=== PATIENT | female | born 1995 | race Caucasian/White ===

== ENCOUNTER 2018-09-25 11:52 | Emergency (ER) | payer SELFPAY ==
[2018-09-25 11:53] VITALS: BP 117/74; PULSE 69; RESP 16; TEMP 37; O2SAT 100; BMI 26.5
[2018-09-25] MEDS: Metoclopramide 10 MG/2 ML Vial IV (12:47)
[2018-09-25] MEDS: Ketorolac 30 MG/ML Syringe IV (12:47)
[2018-09-25] MEDS: 0.9% Normal Saline 1,000 ML 1000 ML IV (12:47)
[2018-09-25 12:48] VITALS: RESP 16
--- NOTE | 2018-09-25 13:21 | ED.VISSUMM ---
- ER Visit Summary Date of Service: 09/25/18 Chief Complaint: [Sore throat and headache. .] History of Present Illness: The patient is a 23 F [presents to the emergency department complaint of headache that started this morning when she woke up. Patient states that she had a severe headache that she rates it a 10 out of 10. Patient also had a sore throat at the same time. Patient states that she is concerned when she has headaches like this patient has a history of seizure disorder although she is not had a seizure since 2014. Patient has been compliant with her seizure medications which includes Trileptal. Patient was seen at urgent care today and referred to the emergency department. Patient denies recent illness. She denies fall or head injury. She does have a history of migraines.] Physical Examination: [HEENT-PERRLA, EOMI. Cranial nerves II through XII grossly intact. TMs clear. Mucous membranes moist. No adenopathy. Cardiovascular-regular rate and rhythm without murmur or ectopy Lungs-clear to auscultation, chest wall stable without crepitus or subcu emphysema Abdomen-normoactive bowel sounds, soft, nontender, no rebound or rigidity, no peritoneal signs. Neuro wokr-yqihal-bsru and heel garcia testing within normal limits, negative Romberg, negative pronator drift, fundi benign. Patient has negative Kernig's and negative Brudzinski sign. Patient has no neck stiffness. Extremities-intact ?4, normal range of motion, normal pulses, atraumatic] Test Results: [None indicated] Emergency Department Course and Treatment: [Patient was given a IV and a liter normal same fluid bolus as well as Toradol and Reglan for headache that she rated a 5 out of 10. After treatment she states her headaches mostly resolved.] Treatment Plan: [Follow-up with primary care physician 3-5 days.] Disposition: [Discharged home stable condition] Impression: [Cephalgia Pharyngitis-viral] This note was generated with SezWhoation software. It may contain incorrect words, spelling, and punctuation that were not noted in review of the chart prior to signing ED Disposition - Plan for ED Patient: Referrals: Sadia Thurman MD [Primary Care Provider] -
--- NOTE | 2018-09-25 13:26 | ED.DCSUM_ITS ---
- ER Visit Summary Date of Service: 09/25/18 Chief Complaint: [Sore throat and headache. .] History of Present Illness: The patient is a 23 F [presents to the emergency department complaint of headache that started this morning when she woke up. Patient states that she had a severe headache that she rates it a 10 out of 10. Patient also had a sore throat at the same time. Patient states that she is concerned when she has headaches like this patient has a history of seizure disorder although she is not had a seizure since 2014. Patient has been compliant with her seizure medications which includes Trileptal. Patient was seen at urgent care today and referred to the emergency department. Patient denies recent illness. She denies fall or head injury. She does have a history of migraines.] Physical Examination: [HEENT-PERRLA, EOMI. Cranial nerves II through XII grossl y intact. TMs clear. Mucous membranes moist. No adenopathy. Cardiovascular-regular rate and rhythm without murmur or ectopy Lungs-clear to auscultation, chest wall stable without crepitus or subcu emphysema Abdomen-normoactive bowel sounds, soft, nontender, no rebound or rigidity, no peritoneal signs. Neuro avtx-lxnovg-atzj and heel garcia testing within normal limits, negative Romberg, negative pronator drift, fundi benign. Patient has negative Kernig's and negative Brudzinski sign. Patient has no neck stiffness. Extremities-intact ?4, normal range of motion, normal pulses, atraumatic] Test Results: [None indicated] Emergency Department Course and Treatment: [Patient was given a IV and a liter normal same fluid bolus as well as Toradol and Reglan for headache that she rated a 5 out of 10. After treatment she states her headaches mostly resolved.] Treatment Plan: [Follow-up with primary care physician 3-5 days.] Disposition: [Discharged home stable condition] Impression: [Cephalgia Pharyngitis-viral] This note was generated with [employer] software. It may contain incorrect words, spelling, and punctuation that were not noted in review of the chart prior to signing ED Disposition - Plan for ED Patient: Referrals: Sadia Thurman MD [Primary Care Provider] -
--- NOTE | 2018-09-25 13:26 | ED.DEP ---
ED Disposition - Plan for ED Patient: Instructions: ED Pharyngitis Viral, ED Cephalgia Unspecified Referrals: Sadia Thurman MD [Primary Care Provider] - 3-5 Days
[2018-09-25 14:02] VITALS: BP 100/76; PULSE 66; RESP 14
== END 2018-09-25 14:32 | disposition home or self-care (01) ==
LOC: ED 14:17
PROVIDERS: Emergency Provider Emergency Medicine; Family Provider Family Medicine; PCP Family Medicine
DX: R51 Headache (principal); J02.9 Acute pharyngitis, unspecified; G40.909 Epilepsy, unspecified, not intractable, without status epilepticus; Z79.899 Other long term (current) drug therapy
CPT/HCPCS: 96361; 96374; 96375; 99283; J7030

== ENCOUNTER 2020-12-14 20:48 | Emergency (ER) | payer OTHER, SELFPAY ==
[2020-12-14 20:48] VITALS: BP 118/72; PULSE 102; RESP 18; TEMP 36.5; O2SAT 100; BMI 21.4
--- NOTE | 2020-12-14 21:15 | US_ITS ---
STUDY: FIRST TRIMESTER OBSTETRICAL ULTRASOUND REASON FOR EXAM: Female, 25 years old right pelvic pain LMP: 11/01/2020 TECHNIQUE: Transvaginal real-time examined with grayscale image documentation. TECHNICAL QUALITY: Adequate. PRIOR ULTRASOUND: None. FINDINGS: There is visualization of a single gestational sac in a normal intrauterine position. The mean sac diameter (MSD) measures 1.26 cm, indicating an estimated gestational age (EGA) of 6 weeks, 0 days. The gestational sac shape is within normal limits. There is a visualized yolk sac. The yolk sac measures 3.3 mm. The placenta is not visualized secondary to early gestational age. There is visualization of a live embryo. The crown-rump length (CRL) measures 0.34 cm, indicating an estimated gestational age (EGA) of 6 weeks, 1 days. There is demonstrated cardiac activity with a heart rate of 106 bpm. The estimated gestation age (EGA) by LMP is 6 weeks, 1 days. The estimated date of delivery (STUART) by LMP is 08/08/2021. The estimated gestation age (EGA) by US is 6 weeks, 0 days. The estimated date of delivery (STUART) by US is 08/09/2021. The uterus measures 9.0 x 5.5 x 4.6 cm. There is no demonstrated uterine fibroid. The cervix is closed. The right ovary measures 5.1 x 3.8 x 3.3 cm. 3.2 x 3.0 x 2.4 cm simple cyst of the right ovary. There is no visualized right adnexal mass or complex lesion. Normal DOPPLER flow. The left ovary measures 3.2 x 2.3 x 1.7 cm. There is no left ovarian cyst. There is no visualized left adnexal mass or complex lesion. Normal DOPPLER flow. Minimal free fluid of the pelvis. 1 dilated left adnexal vein is demonstrated, 6 mm. US/Transvaginal w/Preg US IMPRESSION: Single living intrauterine gestation of 6 weeks and 0 days with an STUART of 08/09/2021. No demonstrated intrauterine abnormality. 3.2 x 3.0 x 2.4 cm simple cyst of the right ovary. Normal DOPPLER flow. Normal left ovary. Normal DOPPLER flow. No additional adnexal masses. Minimal free fluid. 1 dilated left adnexal vein, 6 mm diameter. Electronically Signed: Kayla Medina MD at 22:36 EDT , Service support ,
--- NOTE | 2020-12-14 21:17 | EDS_ITS ---
HPI History of Present Illness Chief Complaint: Abd Pain Narrative Narrative: 25-year-old female A0 presenting with right pelvic pain. Patient states she was just at the urgent care and had a test which was positive. Patient complains of 7/10 right pelvic pain. She is had no vaginal bleeding. Denies vaginal discharge. Denies dysuria or hematuria. 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 PFSH [facility] Medical History Seizures Home Medications oxcarbazepine 300 mg PO BID 09/25/18 [History Last Taken Unknown] cephalexin 500 mg PO Q12 #14 capsule 12/14/20 [Rx Last Taken Unknown] Allergy/AdvReac Type Severity Reaction Status Date / Time No Known Allergies Allergy Verified 12/14/20 20:51 Social History Smoking Status: Never smoker ROS ROS ED Constitutional Constitutional ED: Denies chills, fever(s) or sweats Eyes Eyes: Denies blurry vision or change in vision ENT ENT ED: Denies ear pain, rhinorrhea or sore throat Cardiovascular Cardiovascular: Denies chest pain, palpitations or racing heartbeat Respiratory/Chest Respiratory/Chest: Denies cough, dyspnea or sputum Gastrointestinal Gastrointestinal: Reports abdominal pain; Denies constipation, diarrhea or vomiting Genitourinary Genitourinary ED: Denies dysuria, hematuria or urinary frequency Musculoskeletal Musculoskeletal: Denies arthralgias, myalgias or neck pain Integumentary Denies abscess, Abrasions or rash Neurologic Neurologic: Denies headache(s), paresthesias or weakness Psychiatric Psychiatric: Denies anxiety, depression, suicidal ideation or suicidal thoughts Endocrine Endocrinology: Denies polydipsia or polyuria EXAM Physical Exam Const Vital Signs: 12/14/20 20:48 Temperature 97.7 F L Temperature Source Temporal Pulse Rate 102 H Respiratory Rate 18 Blood Pressure 118/72 Blood Pressure Mean 87 Pulse Ox 100 Oxygen Delivery Method Room Air General Appearance ED: Negative for pallor HEENT Reports normocephalic, head/scalp atraumatic and moist mucous membranes Eyes PERRL and EOMs intact bilaterally Neck no lymphadenopathy and supple Chest Wall inspection of chest normal and palpation of chest normal Resp normal respiratory effort and clear to auscultation bilaterally Auscultation: Negative for rales, rhonchi or wheezes Cardio regular rate and regular rhythm GI normal to inspection, nondistended, normoactive bowel sounds and non-distended GI Narrative: Tenderness to palpation in the right lower quadrant/right suprapubic area. Auscultation: normoactive bowel sounds Palpation: soft and tender Narrative: Deferred Back/Spine no CVA tenderness General Back: Negative for CVA tenderness Cervical Spine: Negative for cervical spine tenderness Extremity normal to inspection General Extremety ED: Yes edema and tenderness General Extremity: edema Neuro oriented x3 and CN's II-XII intact bilaterally Sensorium / Orientation: alert Motor Exam: strength 5/5 throughout Psych mental status grossly normal Attitude: No agitated Skin no rashes or lesions noted and no wounds General Skin Exam: Negative for jaundice or pallor MDM MDM MDM Narrative Medical decision making narrative: 25-year-old female G1, presenting with right pelvic pain. She has not had any vaginal discharge, vaginal bleeding, dysuria or hematuria. She was diagnosed with today at the urgent care. She was sent to the ED for ultrasound. Patient's CBC and BMP are unremarkable. Her hCG quant is 20,608. Transvaginal ultrasound does not identi fy any ectopic . It does identify a single live intrauterine gestation of 6 weeks. Patient counseled on findings. She will follow-up with her outpatient ELECTRICIAN TELEPHONE. She can return precautions. Impression: 1. Pelvic pain in Lab Data Labs: Laboratory Results - last 24 hr 12/14/20 12/14/20 12/14/20 21:25 21:25 21:25 WBC 7.7 RBC 4.89 Hgb 12.8 Hct 39.5 MCV 80.8 L MCH 26.2 L MCHC 32.4 RDW Std Deviation 38.1 RDW Coeff of Pantera 13.2 Plt Count 293 MPV 10.8 Immature Gran % (Auto) 0.300 Neut % (Auto) 71.9 H Lymph % (Auto) 19.6 Banks % (Auto) 7.0 Eos % (Auto) 0.8 Baso % (Auto) 0.4 Absolute Neuts (auto) 5.5 Absolute Lymphs (auto) 1.50 Nucleated RBC % 0 Sodium 135 L Potassium 3.5 Chloride 103 Carbon Dioxide 26.0 Anion Gap 6 BUN 10 Creatinine 0.79 Estim Creat Clear Calc 79.55 Est GFR (MDRD) Af Amer 115 Est GFR (MDRD) Non-Af 95 BUN/Creatinine Ratio 12.6 Glucose 76 Calcium 8.9 HCG, Quant 26356 H Urine Color Urine Clarity Urine pH Ur Specific [place] Urine Protein Urine Glucose (UA) Urine Ketones Urine Occult Blood Urine Nitrite Urine Bilirubin Urine Urobilinogen Ur Leukocyte Esterase Urine RBC Urine WBC Ur Squamous Epith Cells Urine Bacteria Urine Mucus 12/14/20 21:35 WBC RBC Hgb Hct MCV MCH MCHC RDW Std Deviation RDW Coeff of [place]tera Plt Count MPV Immature Gran % (Auto) Neut % (Auto) Lymph % (Auto) Banks % (Auto) Eos % (Auto) Baso % (Auto) Absolute Neuts (auto) Absolute Lymphs (auto) Nucleated RBC % Sodium Potassium Chloride Carbon Dioxide Anion Gap BUN Creatinine Estim Creat Clear Calc Est GFR (MDRD) Af Amer Est GFR (MDRD) Non-Af BUN/Creatinine Ratio Glucose Calcium HCG, Quant Urine Color Yellow Urine Clarity Sl. Cloudy Urine pH 6.0 Ur Specific [place] 1.025 Urine Protein 30 H Urine Glucose (UA) Normal Urine Ketones 150 A* Urine Occult Blood 10 H Urine Nitrite Negative Urine Bilirubin Negative Urine Urobilinogen Normal Ur Leukocyte Esterase 500 H Urine RBC 0 SEEN Urine WBC 25-50 SEEN Ur Squamous Epith Cells 0-5 SEEN Urine Bacteria RARE Urine Mucus 0 SEEN Radiography Diagnostic Testing: Radiology Impression Obstetrics Ultrasound 12/14/20 21:15 IMPRESSION: Single living intrauterine gestation of 6 weeks and 0 days with an STUART of 08/09/2021. No demonstrated intrauterine abnormality. 3.2 x 3.0 x 2.4 cm simple cyst of the right ovary. Normal DOPPLER flow. Normal left ovary. Normal DOPPLER flow. No additional adnexal masses. Minimal free fluid. 1 dilated left adnexal vein, 6 mm diameter. Electronically Signed: Kayla Medina MD at 22:36 EDT , Service support , Discharge Plan Triage Chief Complaint: Abd Pain ED Provider: Red Magana Dx/Rx/DC Orders Instructions: Adapting to : First Trimester Prescriptions: New cephalexin 500 mg capsule 500 mg PO Q12 Qty: 14 RF: 0 No Action oxcarbazepine 300 MG tablet 300 mg PO BID RF: 0 Primary Care Provider: Attila Calvo Referrals: Attila Calvo MD [Primary Care Provider] - Disposition Disposition: Home, self care
[2020-12-14 21:44] LABS: Mucous, Urine 0 SEEN /hpf (<or=2+); Red Blood Cells-Urine 0 SEEN /hpf (0-5)
[2020-12-14 21:47] LABS: Color, Urine Yellow (Yellow); Glucose, Dipstick Normal (Normal); Leukocyte Esterase-Dipstick 500 /ul (Negative); Nitrite-Dipstick Negative (Negative); Occult Blood-Urine 10 /ul (Negative); Protein-Dipstick 30 mg/dl (Negative); Specific Gravity, Urine 1.025 (1.002-1.030); Urine Bilirubin Dipstick Negative (Negative); Urine Clarity Sl. Cloudy (Clear); Urine Urobilinogen Normal (Normal)
[2020-12-14 21:52] LABS: Absolute Neutrophil Count 5.5 X10^3/uL (2.0-7.7); Basophil# 0.03 X10^3/uL; Basophil% 0.4 % (0-1); Eosinophil# 0.06 X10^3/uL; Eosinophils% 0.8 % (0-5); Hematocrit 39.5 % (37-47); Hemoglobin 12.8 g/dL (12.0-15.0); Lymphocyte % 19.6 % (19-41); Mean Corp Hgb Conc 32.4 g/dL (32-36); Mean Corpuscular Hgb 26.2 pg (27.0-32.0); Mean Corpuscular Volume 80.8 fL (81-99); Mean Platelet Vol. 10.8 fl (6.2-12.0); Monocyte# 0.54 X10^3/uL; NRBC Flagged by Analyzer 0 % (0-5); Neutrophil # 5.52 X10^3/uL (2.7-7.7); Neutrophil % 71.9 % (47-70); Platelet Count 293 K/mm3 (150-450); RBC Distribution Width CV 13.2 % (11.6-14.6); RBC Distribution Width SD 38.1 fl (35.1-43.9); Red Blood Count 4.89 M/mm3 (4.2-5.4); White Blood Count 7.7 K/mm3 (4.4-11.0)
[2020-12-14 21:58] LABS: Ketone-Dipstick 150 mg/dl (Negative)
[2020-12-14 21:59] LABS: White Blood Cells 25-50 SEEN /hpf (0-5)
[2020-12-14 21:59] LABS: Anion Gap 6 (5-15); BUN 10 mg/dL (7-18); BUN/Creat Ratio 12.6 RATIO (10-20); Calcium,Total 8.9 mg/dL (8.5-10.1); Chloride 103 mmol/L (98-107); Creatinine, Serum 0.79 mg/dL (0.55-1.02); EST Glomerular Filtration Rate 95 mL/min (>60); Est Glom Filt Rate - Afr Amer 115 mL/min (>60); Estimated Creatinine Clearance 79.55 ml/min; Glucose 76 mg/dL (74-106); Potassium 3.5 mmol/L (3.5-5.1); Sodium Level 135 mmol/L (136-145)
[2020-12-14 22:00] LABS: Bacteria RARE /hpf (None Seen); Squamous Epithelial Cells - UA 0-5 SEEN /hpf (5-10)
[2020-12-14] MEDS: Cephalexin 250 MG Capsule 500 MG PO (23:00)
[2020-12-14 23:02] VITALS: BP 102/75; PULSE 91; RESP 18; O2SAT 99
== END 2020-12-14 23:03 | disposition home or self-care (01) ==
PROVIDERS: Emergency Provider Student in an Organized Health Care Education/Training Program; PCP Family Medicine
DX: O26.891 Other specified pregnancy related conditions, first trimester (principal); R10.2 Pelvic and perineal pain; Z3A.01 Less than 8 weeks gestation of pregnancy
CPT/HCPCS: 76817; 80048; 81001; 84702; 85025; 99284

== ENCOUNTER 2020-12-17 23:31 | Emergency (ER) | payer OTHER, SELFPAY ==
[2020-12-17 23:31] VITALS: BP 123/70; PULSE 99; RESP 18; TEMP 36.9; O2SAT 97; BMI 22.4
--- NOTE | 2020-12-17 23:39 | US_ITS ---
STUDY: FIRST TRIMESTER OBSTETRICAL ULTRASOUND REASON FOR EXAM: Female, 25 years old spotting LMP: 11/01/2020 TECHNIQUE: Transvaginal TECHNICAL QUALITY: Adequate. PRIOR ULTRASOUND: None. FINDINGS: There is visualization of a single gestational sac in a normal intrauterine position. The mean sac diameter (MSD) measures 1.6 cm, indicating an estimated gestational age (EGA) of 6 weeks, 2 days. The gestational sac shape is within normal limits. There is a visualized yolk sac. The yolk sac measures 3.8 mm. The placenta is non-visualized. There is visualization of a live embryo. The crown-rump length (CRL) measures 5.3 mm, indicating an estimated gestational age (EGA) of 6 weeks, 3 days. There is demonstrated cardiac activity with a heart rate of 112 bpm. The estimated gestation age (EGA) by LMP is 6 weeks, 4 days. The estimated date of delivery (STUART) by LMP is 08/08/2021. The estimated gestation age (EGA) by US is 6 weeks, 2 days. The estimated date of delivery (STUART) by US is 08/10/2021. The uterus measures 9.2 x 6.7 x 4.7 cm. There is no demonstrated uterine fibroid. The cervix is closed. Grossly unremarkable ovaries. Likely small subchorionic hemorrhage adjacent to gestational sac measuring 8 x 4 mm. There is no fluid in the cul de sac. US/Transvaginal w/Preg US IMPRESSION: Single live early IUP with likely small subjacent subchorionic hemorrhage Electronically Signed: Manuel Chan DO at 0:28 EDT Tel , Service support ,
--- NOTE | 2020-12-17 23:43 | ED.VIS.FEGU ---
HPI HPI - Female History of Present Illness Chief Complaint: Vag Bld, Preg Narrative Narrative: Patient developed vaginal bleeding and one small clot. She is about 6 weeks . She has no abdominal pain, she does have some slight back pain. She has no dysuria or hematuria recently. She was having abdominal cramping about 3 days ago and an ectopic was ruled out. This is her first . PFSH PFSH Medical History Seizures Home Medications oxcarbazepine 300 mg PO BID 09/25/18 [History Last Taken Unknown] folic acid 4 mg PO DAILY 12/17/20 [History Last Taken Unknown] Allergy/AdvReac Type Severity Reaction Status Date / Time No Known Allergies Allergy Verified 12/14/20 20:51 Social History Smoking Status: Never smoker ROS ROS ED ROS Narrative Past medical history: Reviewed G1, P0 at 6 weeks Medications: Reviewed Social history: Noncontributory Review of systems: All systems negative except as indicated General: No fever Eyes: No visual changes ENT: No upper airway congestion, normal voice Neck: No neck pain Cardiovascular: No chest pain Respiratory: No shortness of breath or cough Gastrointestinal: No current abdominal pain. Genitourinary: Vaginal bleeding as in HPI Musculoskeletal: Denies myalgias no difficulty with ambulation Skin: No rash Neurological: No memory loss, confusion or any focal weakness Psych: No recent behavioral changes Hematologic: No easy bleeding or easy bruising EXAM Physical Exam Narrative Exam Narrative: Physical exam General: She appears slightly anxious otherwise she does not appear in any distress. Head: Normocephalic, Atraumatic Eyes: Conjunctiva not pale ENT: Moist mucous membranes Neck: Supple, Nontender, No lymphadenopathy Cardiovascular: Regular rate, Regular rhythm Respiratory: No distress, CTA bilaterally Abdomen: Soft, nontender no suprapubic pain or fullness. Back: Nontender, Normal Inspection. Negative for: CVA tenderness Extremities: Nontender, No edema Skin: Normal color, No rash Neurological: Alert, Normal Strength, Normal Sensation Psychological: Normal affect Const Vital Signs: 12/17/20 23:31 Temperature 98.4 F Temperature Source Oral Pulse Rate 99 Respiratory Rate 18 Blood Pressure 123/70 H Blood Pressure Mean 87 Pulse Ox 97 Oxygen Delivery Method Room Air MDM MDM MDM Narrative Medical decision making narrative: Patient is found to have a subchorionic bleed otherwise she has Rh+ blood she appears well I will discharge her in stable condition. She has an appointment tomorrow with her PCP to get set up with OB. She is still to be on bedrest and no sexual intercourse I wrote her a note for work. Lab Data Labs: Laboratory Results - last 24 hr 12/17/20 12/17/20 12/18/20 00:17 00:17 00:08 HCG Beta Subunit Cancelled Urine Color Yellow Urine Clarity Clear Urine pH 6.5 Ur Specific [place] 1.010 Urine Protein Negative Urine Glucose (UA) Normal Urine Ketones Negative Urine Occult Blood 10 H Urine Nitrite Negative Urine Bilirubin Negative Urine Urobilinogen Normal Ur Leukocyte Esterase Negative Urine RBC 0-5 SEEN Urine WBC 0 SEEN Ur Squamous Epith Cells 0-5 SEEN Urine Bacteria 0 SEEN Urine Mucus 0 SEEN Blood Type A POSITIVE Radiography Diagnostic Testing: Radiology Impression Obstetrics Ultrasound 12/17/20 23:39 IMPRESSION: Single live early IUP with likely small subjacent subchorionic hemorrhage Electronically Signed: Manuel Chan DO at 0:28 EDT Tel , Service support , Discharge Plan Triage Chief Complaint: Vag Bld, Preg ED Provider: Tao Jaime Dx/Rx/DC Orders Clinical Impression: Subchorionic bleed Instructions: ED Abdominal Pain, Early Prescriptions: No Action oxcarbazepine 300 MG tablet 300 mg PO BID RF: 0 folic acid 1 mg tablet 4 mg PO DAILY RF: 0 Primary Care Provider: Attila Calvo Referrals: Attila Calvo MD [Primary Care Provider] - 1 Day Disposition Disposition: Home, self care
[2020-12-18 00:15] LABS: Bacteria 0 SEEN /hpf (None Seen); Mucous, Urine 0 SEEN /hpf (<or=2+); White Blood Cells 0 SEEN /hpf (0-5)
[2020-12-18 00:16] LABS: Color, Urine Yellow (Yellow); Glucose, Dipstick Normal (Normal); Ketone-Dipstick Negative (Negative); Leukocyte Esterase-Dipstick Negative /ul (Negative); Nitrite-Dipstick Negative (Negative); Occult Blood-Urine 10 /ul (Negative); Protein-Dipstick Negative (Negative); Urine Bilirubin Dipstick Negative (Negative); Urine Clarity Clear (Clear); Urine Urobilinogen Normal (Normal); Urine pH 6.5 (5.0 - 8.0)
[2020-12-18 00:23] LABS: Red Blood Cells-Urine 0-5 SEEN /hpf (0-5); Squamous Epithelial Cells - UA 0-5 SEEN /hpf (5-10)
[2020-12-18 02:19] VITALS: BP 103/65; PULSE 78; RESP 18; O2SAT 100
== END 2020-12-18 02:19 | disposition home or self-care (01) ==
PROVIDERS: Emergency Provider Emergency Medicine; PCP Family Medicine
DX: O20.8 Other hemorrhage in early pregnancy (principal); Z3A.01 Less than 8 weeks gestation of pregnancy
CPT/HCPCS: 36415; 76817; 81001; 84702; 86900; 86901; 99282

== ENCOUNTER 2021-07-31 15:16 | Outpatient (CLI) | payer OTHER, SELFPAY ==
[2021-07-31 15:19] VITALS: BP 116/80; PULSE 102; RESP 16; TEMP 37.1; O2SAT 99; BMI 26.2
[2021-07-31] MEDS: 0.9% Saline Lock 10 ML Syringe IV (15:24)
[2021-07-31 16:21] VITALS: BP 112/77; PULSE 100; RESP 16; TEMP 37; O2SAT 98
[2021-07-31 17:11] VITALS: BP 121/83; PULSE 98; TEMP 37.1; O2SAT 97
== END 2021-07-31 17:25 | disposition home or self-care (01) ==
LOC: MS3OUT 15:16 → MS3 15:17
PROVIDERS: PCP Family Medicine; Referring Provider Nurse Practitioner Adult Health; Visit Provider Nurse Practitioner Adult Health
DX: Z23 Encounter for immunization (principal); O98.519 Other viral diseases complicating pregnancy, unspecified trimester; U07.1 COVID-19; Z3A.00 Weeks of gestation of pregnancy not specified
CPT/HCPCS: J7050; M0245; Q0245; A4216

== ENCOUNTER 2021-08-09 07:10 | Inpatient (IN) | payer OTHER, BC, SELFPAY ==
[2021-08-09] VITALS (38 sets, daily range): BP systolic 105–144; BP diastolic 56–82; PULSE 77–110; TEMP 36.3–37.5; O2SAT 96–100; BMI 26.6
[2021-08-09] MEDS: Lactated Ringers 1,000 ML 50 ML IV (07:50)
--- NOTE | 2021-08-09 08:21 | PCM.HP.OB ---
HPI - General General Date of Admission: 08/09/21 HPI Narrative RAYNE TOSCANO, is a 26 F at 40.1 weeks gestation who presents for induction of labor for COVID + in third trimester (07/31/21) and maternal seizure disorder. Maternal Data Information STUART Calculator Estimated Delivery Date Method Current WG Current Estimate 08/08/21 Manual 40w 1d PFSH PFSH Medical History COVID-19 Encounter for screening for COVID-19 Seizures Home Medications oxcarbazepine 300 mg PO BID 09/25/18 [History Last Taken Unknown] folic acid 4 mg PO DAILY 12/17/20 [History Last Taken Unknown] metoclopramide HCl 5 mg tablet 5 mg PO QAC 07/31/21 [History Last Taken Unknown] diphenhydramine HCl [Unisom (diphenhydramine)] 50 mg PO QHS PRN 08/09/21 [History Last Taken 08/09/21 06:00] no.144-folic acid [] tab PO 08/09/21 [History Last Taken 08/09/21 06:00] Allergy/AdvReac Type Severity Reaction Status Date / Time No Known Allergies Allergy Verified 08/09/21 08:26 Family History Other Asthma CVA (cerebral vascular accident) Seizures Thyroid disorder Social History Smoking Status: Never smoker History Elective abortions Hx Para 0 Spontaneous abortions Hx # Term Pregnancies Ectopic pregnancies Hx # Pregnancies Multiple births # of living children NST FHR Rate Baby A Baseline: 120 Variability:: Moderate Accelerations:: 15 x 15 Decelerations:: None NST Reactive:: Yes FHR Category:: Category I Uterine Activity:: irregular ROS Eyes Eyes: Denies blurry vision, change in vision or spots in vision ENT HEENT: Denies dizziness or headache(s) Cardiovascular Cardiovascular: Denies abdominal pain, chest pain or dyspnea Respiratory/Chest Respiratory/Chest: Denies cough, dyspnea, shortness of breath at rest or shortness of breath with exertion Gastrointestinal Gastrointestinal: Denies abdominal pain, diarrhea or vomiting Genitourinary Genitourinary: Denies change in urinary stream, difficulty urinating or dysuria Musculoskeletal Musculoskeletal: Reports none Integumentary Integumentary: Denies rash Neurologic Neurologic: Denies dizziness, headache(s), memory loss or weakness Psychiatric Psychiatric: Reports none Vital Signs Vital Signs Vital Signs: 08/09/21 07:42 Pulse Rate 93 Blood Pressure 124/82 H BP Systolic 124 BP Diastolic 82 Physical Exam Const alert, oriented x3 and no apparent distress General Appearance: cooperative Orientation / Consciousness: awake Exam Limitations: no limitations HEENT normocephalic Head and Scalp: normal to inspection Eyes General Eye: normal appearance of both eyes Neck full ROM and no lymphadenopathy Lymph Lymphatic: no lymphadenopathy noted Chest inspection of chest normal Resp normal respiratory effort, normal air movement and clear to auscultation bilaterally Effort and Inspection: able to speak in complete sentences and symmetric chest movement Cardio regular rate and regular rhythm GI normal to inspection, nondistended, normoactive bowel sounds Manual OB Exam: dilated 2, effaced 60 and station -1 Back/Spine normal ROM Extremity full ROM and no calf tenderness Skin no rashes or lesions noted General Skin Exam: no breakdown Neuro oriented x3 and CN's II-XII intact bilaterally Psych mental status grossly normal and thought process normal Labs Labs Labs: Blood Type A POSITIVE Antibody Screen Pending Hct 37.8 % (37-47) Hgb 12.7 g/dL (12.0-15.0) Obstetrics US Rubella- immune HB- neg HC- neg HIV- NR RPR- NR GBS- neg COVID-19 negative today 08/09/21- Positive COVID-19 07/31/21 Assessment & Plan (1) 40 weeks gestation of : (2) Maternal seizure disorder: (3) Encounter for induction of labor: (4) COVID-19 affecting in third trimester: PLAN: Admit to labor and delivery COVID 19- negative test today Routine labs Start IV and run fluids per orders Cat. 1 tracing - NST reactive CE- 2/60/-1 Haas bulb placed without difficulty and balloon filled with 30 cc fluid Start Pitocin 2 mu/min and increase per orders Dr. Blackburn notified of admission and is collabortating physician
[2021-08-09] MEDS: Oxytocin 30 units/NS 500 ml 30 UNITS/500 ML IV.SOLN IV (08:45)
[2021-08-09 08:51] LABS: Absolute Lymphocyte Count 1.59 X10^3/uL (0.83-4.51); Absolute Neutrophil Count 7.9 X10^3/uL (2.0-7.7); Basophil# 0.02 X10^3/uL; Basophil% 0.2 % (0-1); Eosinophil# 0.07 X10^3/uL; Eosinophils% 0.7 % (0-5); Hematocrit 37.8 % (37-47); Hemoglobin 12.7 g/dL (12.0-15.0); Lymphocyte # 1.59 X10^3/ul (0.83-4.51); Lymphocyte % 15.3 % (19-41); Mean Corp Hgb Conc 33.6 g/dL (32-36); Mean Corpuscular Hgb 29.3 pg (27.0-32.0); Mean Corpuscular Volume 87.1 fL (81-99); Monocyte# 0.72 X10^3/uL; Monocyte% 6.9 % (0-10); NRBC Flagged by Analyzer 0 % (0-5); Neutrophil % 75.8 % (47-70); Platelet Count 175 K/mm3 (150-450); RBC Distribution Width CV 15.9 % (11.6-14.6); RBC Distribution Width SD 50.4 fl (35.1-43.9); Red Blood Count 4.34 M/mm3 (4.2-5.4); White Blood Count 10.4 K/mm3 (4.4-11.0)
[2021-08-09] MEDS: 0.9% Normal Saline Single 100 ML IV.SOLN. INTRA-UTER (09:00)
[2021-08-09] MEDS: Ondansetron 4 MG/2 ML Vial IV (09:55)
[2021-08-09] MEDS: Lactated Ringers 500 ML 999 ML IV ×2 (12:57→20:04)
--- NOTE | 2021-08-09 12:57 | PCM.PN.BLA ---
Progress Note Patient feeling pain with contractions. Rating pain 8/10 on pain scale. Desires epidural placement. Physical Exam Const alert, oriented x3 and no apparent distress General Appearance: cooperative Orientation / Consciousness: awake Exam Limitations: no limitations HEENT normocephalic Head and Scalp: normal to inspection Eyes General Eye: normal appearance of both eyes Neck full ROM and no lymphadenopathy Lymph Lymphatic: no lymphadenopathy noted Chest inspection of chest normal Resp normal respiratory effort, normal air movement and clear to auscultation bilaterally Effort and Inspection: able to speak in complete sentences and symmetric chest movement Cardio regular rate and regular rhythm GI normal to inspection, nondistended, normoactive bowel sounds Manual OB Exam: dilated 4, effaced 60 and station -1 Back/Spine normal ROM Extremity full ROM and no calf tenderness Skin no rashes or lesions noted General Skin Exam: no breakdown Neuro oriented x3 and CN's II-XII intact bilaterally Psych mental status grossly normal and thought process normal Assessment & Plan Assessment/Plan (1) 40 weeks gestation of : (2) Encounter for induction of labor: (3) Maternal seizure disorder: PLAN: Ahas bulb out CE- /60/-1 Epidural placement for pain Pitocin at 10 mu/min- continue to increase per policy Anticipate AROM with next exam- discussed with patient and agrees with plan of care
[2021-08-09] MEDS: fentaNYL-bupivacaine (epidural) 100 ML BAG EPIDURAL ×3 (13:38→23:47)
[2021-08-09] MEDS: Lactated Ringers 1,000 ML 200 ML IV ×2 (15:55→20:25)
[2021-08-09] MEDS: OXcarbazepine 300 MG Tablet PO (18:20)
[2021-08-09] MEDS: Acetaminophen 500 MG Tablet PO (19:31)
[2021-08-10] VITALS (19 sets, daily range): BP systolic 106–132; BP diastolic 55–94; PULSE 74–94; RESP 12–18; TEMP 36.4–37.1; O2SAT 94–98
[2021-08-10] MEDS: Mag Hydrox/Al Hydrox/Simeth 30 ML UDC PO (00:28)
[2021-08-10] MEDS: Lactated Ringers 500 ML 999 ML IV (00:40)
[2021-08-10] MEDS: Ondansetron 4 MG/2 ML Vial IV (01:23)
[2021-08-10] MEDS: 0.9% Saline Lock 10 ML Syringe IV ×4 (01:24→16:38)
[2021-08-10] MEDS: Sodium Citrate/Citric Acid 30 ML UDC PO (01:50)
[2021-08-10] MEDS: Cefazolin 2 GM in 0.9% Normal Saline 100 ML IV (01:58)
--- NOTE | 2021-08-10 02:31 | PLAC_PTH ---
PATIENT: RAYNE TOSCANO LOC: WP U#:[id number] AGE/SX: 26/F ROOM: WP008 RE08/09/[address]: Ashlie Blanchard CNM : 1995 BED: 1 DIS: 08/11/2021 SPEC #: [id number] RECD: 08/10/21 04:00 STATUS: KAREEN CHERYL #: [id number] ARSH: 08/10/21 02:[address]: Ashlie Blanchard DEPT: SURGICAL PATHOLOGY RECD BY: Ny Escalante ENTERED: 08/12/21 09:24 SP TYPE: PLACENTA OTHR DR: Dr. Attila Calvo MD Tissues: Placenta, NOS Procedures: Surgery Specimen Level V HEADER OPERATION: Primary section PRE-OP DIAGNOSIS: History of COVID TISSUE SUBMITTED: Placenta MICROSCOPIC DIAGNOSIS Patino placenta (504 gm): Umbilical cord ? trivascular with no inflammation. Placental membranes ? no significant pathologic change. Placental disc ? mild Vonnie-Luis change. AM:evelyn 08/13/2021 MICROSCOPIC DESCRIPTION Slides are reviewed. GROSS DESCRIPTION SPECIMEN: PLACENTA / CLINICAL INFORMATION: A. Weight: 3.66 kg B. Gestational Age: 40 weeks C. Sex: Male PLACENTAL WEIGHT (POST FIXATION): 504 gm PLACENTAL DIMENSIONS: 18 x 16 x 3 cm PLACENTAL SHAPE: Usual ovoid. The body of the placenta is focally disrupted, however, appears to be complete. PLACENTAL WEIGHT FOR GESTATIONAL AGE: Within 10-99th percentile MEMBRANES - Present A. Insertion: Marginal B. Site of rupture from edge: The membranes are fragmented and appears to be ruptured at the margin of the placental disc C. Color of membrane: Capps-molina D. Abnormalities: None UMBILICAL CORD - Present A. Color: Capps-molina B. Insertion: Paracentral C. Length: 59 cm D. Diameter: up to 1.2 cm E. Number of vessels: Three F. Abnormalities: None PLACENTAL DISC - Present A. Color of surface: Capps-molina B. surface abnormalities: None C. Maternal cotyledons: Intact with minimal tears D. Attached retro placental clot: No clot E. Cut surface: Dark red and spongy F. Lesions: None G. Separate clot: Absent SECTIONS SUBMITTED: 1. Membrane roll 2. Cord, maternal end 3. Cord, end 4. Placental disc, and maternal surfaces 5. Placental disc, and maternal surfaces 6. Placental disc, and maternal surfaces SJ:evelyn 08/12/21 TC:5 CPT: 73254
--- NOTE | 2021-08-10 02:36 | OP.PCM_ITS ---
Assessment & Plan (1) 40 weeks gestation of : (2) Maternal seizure disorder: (3) Arrest of dilation, delivered, current hospitalization: (4) Prolonged heart deceleration: (5) Category III heart rate tracing during labor and delivery: (6) Delivery by section: Maternal Data Information STUART Calculator Estimated Delivery Date Method Current WG Current Estimate 08/08/21 Manual 40w 2d Final STUART: 08/08/21 Gestational age: 40.2 Details Operative Information Date of Procedure: 08/10/21 Pre-Operative Diagnosis: term gestation, covid in third trimester, prolonged FHR deceleration- cat 3 tracing prior to delivery, Meconium fluid, arrest of dilation Post-Operative Diagnosis: same, live male Indications for : Failure to Progress Indications Narrative: i was called at home- notifed of Prolonged FHR deceleration to 70s x approx 6min - pt was taken to OR as OB ERT called- once in back FHR recovered into 130s (prolonged decel approximately 6min) Once FHR recovered STAT section was then changed to AISSATOU. Classification: AISSATOU Procedure Type: low transverse shop director #1: Joanie Beckett Type of Anesthesia: Epidural and Local with 1% Lidocaine Special Medications: ketamine Antibiotic Given: Ancef 2 grams IV x1 and Zithromax 500 mg/5 mL X1 Drain: Haas to straight drain Estimated Blood Loss: 600 Fluids Replaced: 700 Procedure Start Time: 02:04 Procedure Stop Time: 02:36 Time of Delivery: 02:09 Findings Description of Procedure: I was called to notify patient had prolonged decel to 70s- for approximately 6min and was in back for C/S. upon my arrival FHR 130s. Epidural was dosed. She was then placed in the supine position. She was prepped and draped in the normal sterile fashion. Anesthesia was found to be inadequate. At this time decision was made to give 1% lidocaine at incision site- 10cc injected. Next Ketamine administered and patient was comfortable. At this time a Pfannenstiel skin incision was made with a knife was carried down to the underlying layer of the fascia. The fascial incision was then extended laterally using curved Doll scissor. Attention was then turned to the superior aspect of the fascial edge was grasped with 2 straight [place] clamps tented up and the rectus muscle dissected off sharply using curved Doll scissor. Attention was then turned to the inferior aspect where again Mariaelena clamps were placed in the rectus muscles were tented up and the fascia was dissected off sharply using the curved Doll scissor. Rectus muscles were then in the midline bluntly and peritoneum was entered bluntly. Gentle opposing traction was placed. At this time the vesicouterine peritoneum was identified. Scalpel was used to make a uterine incision in a low transverse fashion. The uterus was then entered bluntly gentle opposing traction was placed to extend this incision. amnitoic fluid mecononium stained. 's head was brought to the uterine incision was delivered atraumatically. Cord was clamped and cut was handed to the waiting nursery team. The Placenta was removed from the uterus. The uterus was then removed from the abdominal cavity. The uterus was cleared of all clots and debris using a lap. At this time the uterine incision was reapproximated using #1 Vicryl in a running locked fashion. Hemostasis was appreciated. second imbricating layer with 1-0 vicryl. Posterior cul-de-sac was then cleared of all clots and debris. tubs and ovaires appeared normal. Uterus was placed back in the abdominal cavity. Gutters were cleared of all clots and debris. Uterine incision was reevaluated and noted to be of excellent hemostasis. Ekaterina placed. At this time the peritoneum and muscle were grasped with Kellys reapproximated using #2 Vicryl suture in a running fashion. Fascia was then reapproximated using #1 Vicryl in a running fashion. Subcu layer was reapproximated with #2 0 plain gut suture in an interrupted fashion. Subcu layer was closed using 4-0 vicryl in a subcu fashion. Dry sterile dressing was applied. Instrument lap needle count correct ?2. Anticipated normal postoperative course. Presentation: Positive for Vertex Amniotic Membrane Rupture Type: Spontaneous Amniotic Fluid Description: Moderate meconium (clear at initial rupture but meconium at delivery. ) Placental Delivery Description: Expressed Placenta Disposition: Routine to Lab Specimen(s) Sent to Pathology: placenta Cord Vessel Description: 3 Vessels Cord Entanglement: None Cord Gases: ABG and VBG A Gender: Male (1 minute): 8 (5 minute): 9 Delayed Cord Clamping: No Complications Risks of Surgery Discussed w/Patient: Bleeding, Infection and Injury to surrounding structure(s) including bowel and bladder Complications: none
[2021-08-10] MEDS: Oxytocin 30 units/NS 500 ml 30 UNITS/500 ML IV.SOLN 167 UNITS IV (02:55)
[2021-08-10] MEDS: proCHLORPERazine 10 MG/2 ML Vial IV (03:27)
[2021-08-10] MEDS: Ketorolac 30 MG/ML Syringe IV ×4 (03:28→21:23)
[2021-08-10] MEDS: HYDROmorphone 1 MG/ML Syringe IV (05:02)
[2021-08-10] MEDS: Acetaminophen 500 MG Tablet 1000 MG PO ×4 (05:03→23:58)
--- NOTE | 2021-08-10 05:10 | NURSING ---
epidural catheter removed, blue tip intact
[2021-08-10] MEDS: Lactated Ringers 1,000 ML 100 ML IV (06:25)
[2021-08-10] MEDS: OXcarbazepine 300 MG Tablet PO ×2 (09:58→21:24)
--- NOTE | 2021-08-10 11:17 | PCM.PN.OB ---
Subjective Subjective Patient seen at bedside. Sitting up in chair feeding . with minimal support. Pain is controlled. Lochia minimum. Denies headache, vision changes, SOB or CP. Objective Data Objective Data Vital Signs: Vital Signs Temp Pulse Resp BP Pulse Ox 98.7 F 94 18 112/65 96 08/10/21 10:14 08/10/21 10:14 08/10/21 10:14 08/10/21 10:14 08/10/21 10:14 Oxygen Delivery Method Room Air Weight: 136 lb 6.4 oz Body Mass Index (BMI) 26.6 Intake & Output: Intake and Output for Last 24 Hours 08/08/21 08/09/21 08/10/21 23:59 23:59 23:59 Intake Total 3529.27 / 3949.27 2836.92 / 2836.92 Output Total 1000 / 1500 2450 / 2450 Balance 2529.27 / 2449.27 386.92 / 386.92 Lab / Micro Data Result Diagrams: 08/09/21 07:50 Micro: Microbiology 08/09/21 07:30 Nasal Secretion SARS-CoV-2 Antigen (Rapid) - Final ROS Eyes Eyes: Denies blurry vision, change in vision or spots in vision ENT HEENT: Denies dizziness or headache(s) Cardiovascular Cardiovascular: Denies abdominal pain, chest pain or dyspnea Respiratory/Chest Respiratory/Chest: Denies cough, dyspnea, shortness of breath at rest or shortness of breath with exertion Gastrointestinal Gastrointestinal: Denies abdominal pain, diarrhea or vomiting Genitourinary Genitourinary: Denies change in urinary stream, difficulty urinating or dysuria Musculoskeletal Musculoskeletal: Reports none Integumentary Integumentary: Denies rash Neurologic Neurologic: Denies dizziness, headache(s), memory loss or weakness Physical Exam Narrative Dressing is dry and intact Const alert and no apparent distress General Appearance: cooperative and comfortable Exam Limitations: no limitations HEENT normocephalic Eyes General Eye: normal appearance of both eyes Neck full ROM General: normal visual inspection Chest Chest: symmetrical chest wall rise Resp normal respiratory effort and normal air movement Effort and Inspection: symmetric chest movement Auscultation: clear to auscultation bilaterally Cardio regular rate and regular rhythm GI normal to inspection, nondistended, normoactive bowel sounds Back/Spine normal ROM Extremity full ROM and no calf tenderness General Extremity: normal exam except as noted Skin no rashes or lesions noted Neuro CN's II-XII intact bilaterally Psych mental status grossly normal Assessment & Plan (1) Delivery by section: (2) Maternal seizure disorder: (3) Category III heart rate tracing during labor and delivery: (4) Prolonged heart deceleration: (5) Arrest of dilation, delivered, current hospitalization: PLAN: POD # 1 Primary C/S Pain control Routine care support
[2021-08-10] MEDS: Senna/Docusate Sodium 1 Tablet PO (16:42)
[2021-08-11] MEDS: Ibuprofen 600 MG Tablet PO ×3 (02:31→14:18)
[2021-08-11 02:32] VITALS: BP 108/64; PULSE 68; RESP 16; TEMP 36.6; O2SAT 98
[2021-08-11 05:16] LABS: Hematocrit 29.5 % (37-47); Mean Corp Hgb Conc 33.9 g/dL (32-36); Mean Corpuscular Volume 88.6 fL (81-99); Mean Platelet Vol. 10.5 fl (6.2-12.0); Platelet Count 162 K/mm3 (150-450); RBC Distribution Width CV 15.8 % (11.6-14.6); RBC Distribution Width SD 50.9 fl (35.1-43.9); Red Blood Count 3.33 M/mm3 (4.2-5.4); White Blood Count 13.4 K/mm3 (4.4-11.0)
[2021-08-11] MEDS: Acetaminophen 500 MG Tablet 1000 MG PO ×2 (06:45→12:37)
[2021-08-11 08:42] VITALS: BP 116/72; PULSE 78; RESP 16; TEMP 36.8; O2SAT 98
[2021-08-11] MEDS: OXcarbazepine 300 MG Tablet PO (08:48)
[2021-08-11] MEDS: Senna/Docusate Sodium 1 Tablet PO (08:48)
--- NOTE | 2021-08-11 10:19 | PCM.DC.SUM ---
Providers Date of Admission: 08/09/21 Primary Care Physician: Dr. Attila Calvo MD Reason For Visit: PRIMARY CSECTION Diagnosis Discharge Diagnosis (1) Delivery by section: Status: Acute (2) Maternal seizure disorder: Status: Acute Code(s): O99.350 - Diseases of the nervous system complicating , unspecified trimester; G40.909 - Epilepsy, unspecified, not intractable, without status epilepticus (3) Category III heart rate tracing during labor and delivery: Status: Acute Code(s): O76 - Abnormality in heart rate and rhythm complicating labor and delivery (4) Prolonged heart deceleration: Status: Acute (5) Arrest of dilation, delivered, current hospitalization: Status: Acute Code(s): 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 Dressing is dry and intact. Feeling good. Ambulating and voiding without difficulty. Pain controlled with Tylenol and Motrin. Lochia minimal. Denies SOB, CP, dizziness, headaches. Desires discharge home today. Const alert and no apparent distress General Appearance: cooperative and comfortable Exam Limitations: no limitations HEENT normocephalic Eyes General Eye: normal appearance of both eyes Neck full ROM General: normal visual inspection Chest Chest: symmetrical chest wall rise Resp normal respiratory effort and normal air movement Effort and Inspection: symmetric chest movement Auscultation: clear to auscultation bilaterally Cardio regular rate and regular rhythm GI normal to inspection, nondistended, normoactive bowel sounds Back/Spine normal ROM Extremity full ROM and no calf tenderness General Extremity: normal exam except as noted Skin no rashes or lesions noted Neuro CN's II-XII intact bilaterally Psych mental status grossly normal Weight / BMI Weight Weight: 136 lb 6.4 oz Body Mass Index (BMI) 26.6 ABG / Lab / Microbiology Data Result Diagrams: 08/11/21 05:10 Laboratory: Laboratory Results - last 24 hr 08/11/21 05:10: WBC 13.4 H, RBC 3.33 L, Hgb 10.0 L, Hct 29.5 L, MCV 88.6, MCH 30.0, MCHC 33.9, RDW Std Deviation 50.9 H, RDW Coeff of Pantera 15.8 H, Plt Count 162, MPV 10.5 Microbiology: Microbiology 08/09/21 07:30 Nasal Secretion SARS-CoV-2 Antigen (Rapid) - Final D/C Instructions Discharge Diet: No restrictions May resume sexual activity in: 6-8 weeks Weight Bearing Status: Weight bearing as tolerated Lifting Restrictions: 20 lbs Call your doctor if your incision/area has: Continuous Slow Oozing, Increased Pain/ Swelling, Increased Redness, Foul Smelling Discharge and Swelling at the incision site Call your doctor if you observe: Fever of 101 or Higher, Inability to urinate, Using more than 1 pad per hour, Shortness of breath, Chest pain, Calf discomfort and Uncontrolled pain Remove Dressing in: 5 days Cleanse incision/area with: Soap & Water and Keep Dressing Clean & Dry Please Follow Up With: Ashlie Blanchard CNM When: 1 week in office for incision check or sooner if needed 6 weeks Meaningful Use Info Meaningful Use Diagnoses (Choose all that apply): None applicable Discharge Plan Admission Admit Date/Time: 08/09/21 07:10 Primary Reason for Your Visit: Labor and delivery Attending Provider: Ashlie Blanchard Primary Care Provider: Attila Calvo Discharge Orders/Prescriptions Prescriptions: Continued oxcarbazepine 300 MG tablet 300 mg PO BID RF: 0 400 mcg Tablet,Chewable PO RF: 0 Discontinued metoclopramide HCl [Reglan] 5 mg tablet 5 mg PO QAC RF: 0 folic acid 1 mg tablet 4 mg PO DAILY RF: 0 Unisom (diphenhydramine) 50 mg/30 mL Liquid 50 mg PO QHS PRN (Reason: Nausea) RF: 0 Referrals / Follow Up: Attila Calvo MD [Primary Care Provider] - Disposition Disposition (needs filled in before D/C Order can be placed): Home, Self Care
[2021-08-11 13:45] VITALS: BP 113/63; PULSE 75; RESP 16; TEMP 36.6; O2SAT 99
[2021-08-12 08:01] LABS: Pathology Specimen OB SEE PATHOLOGY REPORT
--- NOTE | 2021-08-15 17:16 | NURSING ---
no answer on follow up phone call left voicemail
== END 2021-08-11 15:45 | disposition home or self-care (01) | DRG 787 ==
PROVIDERS: Obstetrics & Gynecology; Admitting Provider Advanced Practice Midwife; PCP Family Medicine; Visit Provider Advanced Practice Midwife
DX: O76 Abnormality in fetal heart rate and rhythm complicating labor and delivery (principal); O99.354 Diseases of the nervous system complicating childbirth; G40.909 Epilepsy, unspecified, not intractable, without status epilepticus; O77.0 Labor and delivery complicated by meconium in amniotic fluid; O62.1 Secondary uterine inertia; Z3A.40 40 weeks gestation of pregnancy; Z37.0 Single live birth; Z86.16 Personal history of COVID-19
CPT/HCPCS: 59025; 59050; 85025; 85027; 86850; 86900; 86901; 87426; 88307; 99218; J7120; A4216; G0378; J2405

== ENCOUNTER 2025-01-30 13:13 | Emergency (ER) | payer BC, SELFPAY ==
[2025-01-30 13:13] VITALS: BP 113/76; PULSE 71; RESP 14; TEMP 36.2; O2SAT 98; BMI 27.7
--- NOTE | 2025-01-30 15:17 | EX.ED.DYSGE1 ---
HPI History of Present Illness Chief Complaint: Headache Informant: patient Onset/Context/Timing Onset: Weeks (1) Context: Gradual Onset Timing: Continuous Worsened by: Nothing Relieved by: Nothing Narrative Narrative: Patient presents with nausea and vomiting for the past week. Patient states she has been feeling lightheaded. Patient also admits to a headache. Patient denies any fevers or chills. Patient denies any abdominal pain. Patient denies any diarrhea. Patient states she does have some pain up into her chest. Patient denies any fevers or chills. Patient denies any dysuria, frequency, or hematuria. [facility] Medical History Category III heart rate tracing during labor and delivery Prolonged heart deceleration Arrest of dilation, delivered, current hospitalization Anxiety Depression COVID-19 affecting in third trimester Encounter for induction of labor Maternal seizure disorder 40 weeks gestation of COVID-19 Encounter for screening for COVID-19 Seizures Home Medications ?Medication ?Instructions ?Recorded ?Last Taken ?Type oxcarbazepine 300 mg tablet 300 mg PO BID seizures 09/25/18 08/09/21 06:30 History vitamins no.144-folic tab PO 08/09/21 08/09/21 06:00 History acid 400 mcg chewable tablet () ondansetron 4 mg disintegrating 4 mg PO Q8H PRN PRN Nausea #10 tabs 01/31/25 Unknown Rx tablet Allergy/AdvReac Type Severity Reaction Status Date / Time No Known Allergies Allergy Verified 01/30/25 13:14 Family History Other Asthma CVA (cerebral vascular accident) Seizures Thyroid disorder Surgical History Delivery by section Social History Smoking Status: Former smoker ROS ROS ED Constitutional Constitutional ED: Denies chills or fever(s) Eyes Eyes: Denies blurry vision or change in vision ENT ENT ED: Denies rhinorrhea or sore throat Cardiovascular Cardiovascular: Reports chest pain; Denies palpitations Respiratory/Chest Respiratory/Chest: Denies cough or dyspnea Gastrointestinal Gastrointestinal: Reports nausea and vomiting; Denies abdominal pain or diarrhea Genitourinary Genitourinary ED: Denies dysuria or hematuria Musculoskeletal Musculoskeletal: Denies back pain or neck pain Integumentary Denies abscess or rash Neurologic Neurologic: Reports headache(s); Denies weakness Allergic/Immunologic Allergic/Immunologic ED: Denies mouth swelling or urticaria EXAM Physical Exam Const Vital Signs: 01/30/25 13:13 01/30/25 17:43 01/30/25 17:45 Temperature 97.1 F L Temperature Source Temporal Pulse Rate 71 100 Pulse Rate [Lying] 74 Pulse Rate [Sitting (for 1 minute prior to obtaining)] 80 Pulse Rate [Standing (for 1 minute prior to obtaining)] 93 Respiratory Rate 14 17 Blood Pressure 113/76 122/93 H Blood Pressure [Lying] 122/81 H Blood Pressure [Sitting (for 1 minute prior to obtaining)] 128/92 H Blood Pressure [Standing (for 1 minute prior to obtaining)] 122/93 H Blood Pressure Mean 88 102 Blood Pressure Mean [Lying] 94 Blood Pressure Mean [Sitting (for 1 minute prior to obtaining)] 104 Blood Pressure Mean [Standing (for 1 minute prior to obtaining)] 102 Pulse Ox 98 99 Oxygen Delivery Method Room Air Room Air 01/30/25 18:58 Temperature 97.8 F Temperature Source Pulse Rate 100 Pulse Rate [Lying] Pulse Rate [Sitting (for 1 minute prior to obtaining)] Pulse Rate [Standing (for 1 minute prior to obtaining)] Respiratory Rate 17 Blood Pressure 122/93 H Blood Pressure [Lying] Blood Pressure [Sitting (for 1 minute prior to obtaining)] Blood Pressure [Standing (for 1 minute prior to obtaining)] Blood Pressure Mean 102 Blood Pressure Mean [Lying] Blood Pressure Mean [Sitting (for 1 minute prior to obtaining)] Blood Pressure Mean [Standing (for 1 minute prior to obtaining)] Pulse Ox 99 Oxygen Delivery Method Positive well nourished and well developed General Appearance ED: well developed and NAD HEENT Reports moist mucous membranes Neck supple and no JVD Resp normal respiratory effort and clear to auscultation bilaterally Cardio regular rate and regular rhythm GI non-tender and non-distended Palpation: soft Neuro oriented x3, CN's II-XII intact bilaterally and no sensory deficits noted Sensorium / Orientation: alert Motor Exam: strength 5/5 throughout Psych mental status grossly normal MDM MDM MDM Narrative Medical decision making narrative: Differential diagnosis includes gastroenteritis, , electrolyte abnormality, dehydration, migraine headache, and urinary tract infection. CBC will be obtained to assess for leukocytosis and anemia. Basic metabolic profile will be obtained to assess for electrolyte abnormality and renal function. Serum hCG will be obtained to assess for . Urinalysis will be obtained to assess for urinary tract infection and hematuria. Lab Data Attestation: I reviewed the patient's lab results. Lab results narrative: CBC was reviewed and was within normal limits. Basic metabolic profile was reviewed and was within normal limits. Serum hCG was reviewed and was negative. Urinalysis was reviewed. Leukocyte esterase was 100 with 1+ bacteria. There are 0-5 white blood cells and 05 epithelial cells. Labs: Laboratory Results - last 24 hr 01/30/25 01/30/25 15:35 16:13 WBC 6.4 RBC 5.02 Hgb 13.3 Hct 40.5 MCV 80.7 L MCH 26.5 L MCHC 32.8 RDW Std Deviation 39.1 RDW Coeff of Pantera 13.4 Plt Count 305 MPV 10.8 Immature Gran % (Auto) 0.200 Neut % (Auto) 58.7 Lymph % (Auto) 31.9 [place] % (Auto) 7.5 Eos % (Auto) 0.9 Baso % (Auto) 0.8 Absolute Neuts (auto) 3.8 Absolute Lymphs (auto) 2.05 Nucleated RBC % 0 Sodium 137 Potassium 4.3 Chloride 101 Carbon Dioxide 26.7 Anion Gap 9 BUN 10 Creatinine 0.96 Estim Creat Clear Calc 73.79 Est GFR (MDRD) Non-Af 83 BUN/Creatinine Ratio 10.4 Glucose 90 Calcium 9.4 Serum , Qual NEGATIVE Urine Color Yellow Urine Clarity Clear Urine pH 7.0 Ur Specific [place] 1.010 Urine Protein Negative Urine Glucose (UA) Normal Urine Ketones Negative Urine Occult Blood Negative Urine Nitrite Negative Urine Bilirubin Negative Urine Urobilinogen Normal Ur Leukocyte Esterase 100 H Urine RBC 0 SEEN Urine WBC 0-5 SEEN Ur Squamous Epith Cells 0-5 SEEN Urine Bacteria 1+ Urine Mucus 0 SEEN Treatment and Re-Evaluation :: Patient was given IV fluids, Reglan, and Benadryl. Patient had minimal improvement with this. Patient was given a dose of Zofran. Patient was given a prescription for Zofran. Patient was instructed to rest in a dark quiet room. Patient was instructed to start with liquids and advance her diet as tolerated. Patient was instructed to follow-up with her primary care physician in 5 to 7 days. Patient understood and was agreeable with the plan. All questions were answered. Discharge Plan Triage Chief Complaint: Headache ED Provider: Nehemias Torres Dx/Rx/DC Orders Clinical Impression: Nausea and vomiting, Headache Instructions: ED Headache Unspecified, ED Vomiting (Adult) Prescriptions: New ondansetron 4 mg tablet,disintegrating 4 mg PO Q8H PRN PRN (Reason: Nausea) Qty: 10 0RF No Action oxcarbazepine 300 MG tablet 300 mg PO BID Patient Comments: Take 1 tablet by mouth twice daily. 400 mcg Tablet,Chewable PO Primary Care Provider: Care Physician,No Primary Referrals: Attila Calvo MD [Non-Staff] - 5-7 Days Print Language: Jamaican Disposition Disposition: Home, Self Care Discharge Date/Time: 01/30/25 18:59
[2025-01-30 15:43] LABS: Absolute Lymphocyte Count 2.05 X10^3/uL (0.83-4.51); Absolute Neutrophil Count 3.8 X10^3/uL (2.0-7.7); Basophil# 0.05 X10^3/uL; Basophil% 0.8 % (0-1); Eosinophil# 0.06 X10^3/uL; Eosinophils% 0.9 % (0-5); Hematocrit 40.5 % (37-47); Hemoglobin 13.3 g/dL (12.0-15.0); Lymphocyte # 2.05 X10^3/ul (0.83-4.51); Lymphocyte % 31.9 % (19-41); Mean Corp Hgb Conc 32.8 g/dL (32-36); Mean Corpuscular Hgb 26.5 pg (27.0-32.0); Mean Corpuscular Volume 80.7 fL (81-99); Mean Platelet Vol. 10.8 fl (6.2-12.0); Monocyte# 0.48 X10^3/uL; Monocyte% 7.5 % (0-10); NRBC Flagged by Analyzer 0 % (0-5); Neutrophil # 3.77 X10^3/uL (2.7-7.7); Neutrophil % 58.7 % (47-70); Platelet Count 305 K/mm3 (150-450); RBC Distribution Width CV 13.4 % (11.6-14.6); RBC Distribution Width SD 39.1 fl (35.1-43.9); Red Blood Count 5.02 M/mm3 (4.2-5.4); White Blood Count 6.4 K/mm3 (4.4-11.0)
[2025-01-30] MEDS: DiphenhydrAMINE 50 MG/ML Syringe 25 MG IV (16:09)
[2025-01-30] MEDS: 0.9% Normal Saline (1000mL) 1,000 ML 999 ML IV (16:09)
[2025-01-30] MEDS: Metoclopramide 10 MG/2 ML Vial IV (16:09)
[2025-01-30 16:11] LABS: Anion Gap 9 (5-15); BUN 10 mg/dL (4-19); BUN/Creat Ratio 10.4 RATIO (10-20); Calcium,Total 9.4 mg/dL (7.6-11.0); Carbon Dioxide 26.7 mmol/L (21.0-32.0); Chloride 101 mmol/L (98-108); Creatinine, Serum 0.96 mg/dL (0.70-1.20); EST Glomerular Filtration Rate 83 (>60); Estimated Creatinine Clearance 73.79 ml/min (50-250); Glucose 90 mg/dL (70-99); Potassium 4.3 mmol/L (3.3-5.1); Sodium Level 137 mmol/L (133-145)
[2025-01-30 16:17] LABS: Mucous, Urine 0 SEEN /hpf (<or=2+); Red Blood Cells-Urine 0 SEEN /hpf (0-5)
[2025-01-30 16:26] LABS: Glucose, Dipstick Normal (Normal); Ketone-Dipstick Negative (Negative); Leukocyte Esterase-Dipstick 100 /ul (Negative); Nitrite-Dipstick Negative (Negative); Occult Blood-Urine Negative /ul (Negative); Urine Bilirubin Dipstick Negative (Negative); Urine Clarity Clear (Clear); Urine Urobilinogen Normal (Normal)
[2025-01-30 16:29] LABS: Internal QC Validated? YES +Cl - CLEAR BKGD; Pregnancy, Serum, hCG Quali. NEGATIVE Negative
[2025-01-30 16:30] LABS: Color, Urine Yellow (Yellow)
[2025-01-30 16:38] LABS: Protein-Dipstick Negative (Negative)
[2025-01-30 16:53] LABS: White Blood Cells 0-5 SEEN /hpf (0-5)
[2025-01-30 16:57] LABS: Bacteria 1+ /hpf (None Seen); Squamous Epithelial Cells - UA 0-5 SEEN /hpf (5-10)
[2025-01-30 17:43] VITALS: BP 122/81; BP 122/93; BP 128/92; PULSE 74; PULSE 80; PULSE 93
[2025-01-30 17:45] VITALS: BP 122/93; PULSE 100; RESP 17; O2SAT 99
[2025-01-30] MEDS: Ondansetron 4 MG/2 ML Vial IV (18:57)
[2025-01-30 18:58] VITALS: BP 122/93; PULSE 100; RESP 17; TEMP 36.6; O2SAT 99
== END 2025-01-30 18:59 | disposition home or self-care (01) ==
PROVIDERS: Emergency Provider Emergency Medicine; Visit Provider Emergency Medicine
DX: R11.2 Nausea with vomiting, unspecified (principal); R51.9 Headache, unspecified; Z87.891 Personal history of nicotine dependence; R07.9 Chest pain, unspecified
CPT/HCPCS: 80048; 81001; 84703; 85025; 99284; J2405

== ENCOUNTER 2025-08-06 05:21 | Emergency (ER) | payer BC, SELFPAY ==
[2025-08-06 05:21] VITALS: BP 119/83; PULSE 78; RESP 14; TEMP 36.6; O2SAT 100; BMI 28.3
--- NOTE | 2025-08-06 05:31 | US_ITS ---
PROCEDURE: TRANSVAGINAL W/PREG US 08/06/2025 REASON FOR EXAM: PELVIC CRAMPING TECHNIQUE: Procedure Code: USTVAGP Modality: US Procedure: TRANSVAGINAL W/PREG US COMPARISON: 12/17/2020 pelvic ultrasound FINDINGS The uterus measures 10.7 x 8.1 x 6.3 cm. An intrauterine gestational sac is identified with mean sac diameter of 3.1 cm. Estimated gestational age by gestational sac is 8 weeks and 2 days. An embryo is noted within the sac with cranial rump length of 17 mm. The estimated gestational age by cranial rump length is 8 weeks and 0 days. heart rate is detected measuring 169 beats per minute. Estimated gestational age by ultrasound: 8 weeks and 1 days. Estimated gestational age by last menstrual period: 8 weeks and 0 days. Estimated delivery date by ultrasound is March 17, 2026. Estimated delivery date by last menstrual is March 18, 2026. The cervix is closed. The right ovary is noted measuring 3.9 x 2.1 x 2.3 cm. Normal color flow is noted. The left ovary is noted measuring 3.4 x 2.6 x 2.5 cm. A corpus luteum cyst is noted in the left ovary. Normal color flow is noted. No pelvic free fluid. US/Transvaginal w/Preg US IMPRESSION: Live single intrauterine gestation with estimated gestational age of 8 weeks an d 1 days and estimated delivery date on 03/18/2026. Bilateral ovaries are unremarkable. A corpus luteum cyst is noted in the left ovary. No evidence of torsion. Reading Location: [facility]
[2025-08-06] MEDS: 0.9% Normal Saline (1000mL) 1,000 ML 999 ML IV (05:48)
--- OUTSIDE RECORDS SUMMARY | 2025-08-06 06:14 | XMS RPT_ITS | CCD ---
Author Organization [facility] Care Team Providers Care Router Tender Name Role Phone Gretchen ZEPEDA, Vinh Unavailable Unavailable Sadia Thurman Unavailable Unavailable Lubna ZEPEDA, Attila Garcia Primary Care Provider Lubna ZEPEDA, Attila Garcia Primary Care Provider Lubna ZEPEDA, Attila Garcia Primary Care Provider Lubna ZEPEDA, Attila Garcia Primary Care Provider Lubna ZEPEDA, Attila Garcia Primary Care Provider Haagen DIRECTOR OF PUBLICATIONS.NURSE OUTREACH CASE MANAGER, Ember Unavailable [phone] Suppan DIRECTOR OF PUBLICATIONS.NURSE OUTREACH CASE MANAGER, Sarah A Unavailable SELF Referring Unavailable FANNY BLANKENSHIP Attending Unavailable ATTILA AMAYA Primary Care Unavailable FANNY BLANKENSHIP Attending Unavailable FANNY BLANKENSHIP Attending Unavailable ATTILA AMAYA Primary Care Unavailable SELF Referring Unavailable ATTILA AMAYA Primary Care Unavailable FANNY BLANKENSHIP Attending Unavailable Dr. Nehemias Torres DO Emergency Provider Care Physician, No Primary Primary Care Provider Unavailable Nehemias Torres Attending Unavailable Care Physician, No Primary Primary Care Unava ilable VINH RODRIGUEZ Referring Unavailable ATTILA AMAYA Primary Care Unavailable ATTILA AMAYA Primary Care Unavailable ATTILA AMAYA Primary Care Unavailable FRED GUZMAN Referring Unavailable ATTILA AMAYA Primary Care Unavailable GUTIERREZ LARA Referring Unavailable GUTIERREZ LARA Attending Unavailable FRED GUZMAN Attending Unavailable GUTIERREZ LARA Attending Unavailable VINH RODRIGUEZ Referring Unavailable TATILA AMAYA Primary Care Unavailable GUTIERREZ LARA Attending Unavailable Medications Current Medications Medication Drug Class(es) Dates Sig (Normalized) Sig (Original) ondansetron 4 mg disintegrating oral tablet (1 source) Serotonin-3 Receptor Antagonist Start: 01-26-2025 End: 02-02-2025 take 1 tablet by mouth every six hours as needed ondansetron orally disintegrating (ZOFRAN ODT) 4 mg disintegrating tablet Take 1 tablet by mouth every 6 hours as needed for nausea/vomiting for up to 7 days. 8 tablet 01/26/2025 02/02/2025 Active OXcarbazepine 300 mg oral tablet (20 sources) Anti-epileptic Agent Start: 09-02-2021 End: 12-06-2024 take 1.5 tablets by mouth twice daily OXcarbazepine (TRILEPTAL) 300 mg tablet Indications: Absence seizure (HCC) , Generalized epilepsy (HCC) Take 1.5 tablets by mouth two times a day. 270 tablet 09/07/2024 Active Start: 09-25-2018 take 1 tablet by billie th twice daily Oxcarbazepine 300 MG tablet Active 300 mg PO TWICE A DAY September 25, 2018 1:00am Start: 08-16-2014 take 1 tablet by billie th once in the morning, then take 1 tablet by mouth in the evening OXcarbazepine 300 MG Oral Tablet 1 tab po Q am, 1 1/2 tabs pm Quantity: 75 Refills: 0 Gretchen ZEPEDA, Vinh Start : 16-Aug-2014 Active Comment on above: Take 1.5 tablets by mouth twice daily. Take 1.5 tablets by mouth two times a day. polymyxin b [id number] unt/ml / trimethoprim 1 mg/ml ophthalmic solution (3 sources) Dihydrofolate Reductase Inhibitor Antibacterial, Polymyxin-class Antibacterial Start: 06-26-20 End: 07-03-20 take 1 drop(s) into the eye(s) every four hours trimethoprim-polymyxin (POLYTRIM) 10,000 unit- 1 mg/mL ophthalmic solution Indications: Acute bacterial conjunctivitis of both eyes Use 1 Drop in both eyes every 4 hours for 7 days. 2.1 mL 0 06/26/2023 07/03/2023 Active Start: 02-03-2023 End: 02-10-2023 take 1 drop(s) into the eye(s) four times daily trimethoprim-polymyxin (POLYTRIM) 10,000 unit- 1 mg/mL ophthalmic solution Use 1 Drop in both eyes four times daily for 7 days. 1.4 mL 0 02/03/2023 02/10/2023 Active Comment on above: Use 1 Drop in both e yes four times daily for 7 days. Use 1 Drop in both e yes every 4 hours for 7 days. predniSONE 20 mg oral tablet (1 source) Start: 10-05-2024 End: 10-10-2024 take 1 tablet by mouth twice daily predniSONE (DELTASONE) 20 mg tablet Indications: Plantar fasciitis Take 1 tablet by mouth two times a day for 5 days. 10 tablet 10/05/2024 10/10/2024 Active No.144-Folic Acid () 400 mcg Tablet,Chewable (1 source) Start: 08-09-2021 No.144-Folic Acid () 400 mcg Tablet,Chewable Active {tbl} PO August 09, 2021 1:00am sertraline 25 mg oral tablet (12 sources) Serotonin Reuptake Inhibitor Start: 11-28-2024 End: 02-26-2025 take 3 tablets by mouth once daily sertraline (ZOLOFT) 25 mg tablet Take 3 tablets by mouth once daily. 270 tablet 11/28/2024 Active Start: 07-08-2024 End: 12-06-2024 take 1 tablet by mouth once daily sertraline (ZOLOFT) 50 mg tablet Take 1 tablet by mouth once daily. 90 tablet 09/07/2024 11/28/2024 Discontinued (Course of therapy completed) Completed/Discontinued Medications Medication Drug Class(es) Dates Sig (Normalized) Sig (Original) diphenhydrAMINE hydrochloride 1.67 mg/ml oral solution (1 source) Histamine-1 Receptor Antagonist Start: 08-09-2021 End: 08-11-2021 take 50 mg by mouth at bedtime as needed for nausea Diphenhydramine Hcl (Unisom (Diphenhydramine)) 50 mg/30 mL Liquid Discontinued 50 mg PO AT BEDTIME as needed for Nausea August 09, 2021 1:00am August 11, 2021 11:24am escitalopram 20 mg oral tablet (20 sources) Serotonin Reuptake Inhibitor Start: 10-02-2023 End: 07-08-2024 take 1 tablet by mouth once daily escitalopram oxalate (LEXAPRO) 10 mg tablet Take 1 tablet by mouth once daily. 90 tablet 12/10/2023 07/08/2024 Discontinued (Course of therapy completed) Start: 04-01-2022 End: 09-05-2024 take 1 tablet by mouth once daily escitalopram oxalate (LEXAPRO) 20 mg tablet Take 1 tablet by mouth once daily. 90 tablet 06/07/2024 07/08/2024 Discontinued (Course of therapy completed) Start: 12-31-2021 escitalopram o xalate (LEXAPRO) 10 mg tablet take one half tablet daily for a week then increase to one tablet daily 30 tablet 0 12/31/2021 Active Comment on above: take one half tablet daily for a week then increase to one tablet daily [facility]. folic acid 1 mg oral tablet (20 sources) Start: 09-11-2021 End: 11-25-2023 take 4 tablets by mouth once daily folic acid 1 mg tablet Indications: Generalized epilepsy (HCC) , Encounter for monitoring anticonvulsant therapy Take 4 tablets by mouth once daily. 360 tablet 3 09/11/2021 11/25/2023 Discontinued Start: 11-13-2015 End: 08-11-2021 take 4 tablets by mouth once daily Folic Acid 1 mg tablet Discontinued 4 mg PO DAILY December 17, 2020 12:00am August 11, 2021 11:24am Comment on above: Take 4 tablets by mo [facility] once daily. gabapentin 100 mg oral capsule (20 sources) Anti-epileptic Agent Start: 12-10-2023 End: 07-08-2024 take 1 capsule by mouth three times daily gabapentin (NEURONTIN) 100 mg capsule Take 1 capsule by mouth three times a day for 90 days. 90 capsule 2 12/10/2023 07/08/2024 Discontinued (Course of therapy completed) Start: 10-02-2023 End: 01-04-2024 take 2 capsules by mouth twice daily gabapentin (NEURONTIN) 100 mg capsule Take 2 capsules by mouth two times a day for 90 days. 120 capsule 2 10/06/2023 12/10/2023 Discontinued (Course of therapy completed) Start: 11-10-2022 End: 01-04-2024 take 1 capsule by mouth once daily at bedtime gabapentin (NEURONTIN) 300 mg capsule Take 1 capsule by mouth daily at bedtime for 90 days. 90 capsule 0 10/06/2023 12/10/2023 Discontinued (Course of therapy completed) Start: 11-10-2022 End: 10-02-2023 take 1 capsule by mouth twice daily gabapentin (NEURONTIN) 100 mg capsule Take 1 capsule by mouth twice daily for 90 days. 180 capsule 0 05/06/2023 10/02/2023 Discontinued (Course of therapy completed) Start: 07-21-2022 End: 10-17-2022 take 1 capsule by mouth twice daily gabapentin (NEURONTIN) 100 mg capsule Take 1 capsule by mouth twice daily for 30 days. 60 capsule 0 09/17/2022 Active Start: 07-21-2022 End: 10-17-2022 take 1 capsule by mouth once daily at bedtime gabapentin (NEURONTIN) 300 mg capsule Take 1 capsule by mouth daily at bedtime for 30 days. 30 capsule 0 09/17/2022 Active Start: 06-11-2022 End: 07-11-2022 take 1 capsule by mouth twice daily gabapentin (NEURONTIN) 100 mg capsule Take 1 capsule by mouth twice daily for 30 days. 60 capsule 0 06/11/2022 07/11/2022 Active Start: 06-11-2022 End: 07-11-2022 take 1 capsule by mouth once daily at bedtime gabapentin (NEURONTIN) 300 mg capsule Take 1 capsule by mouth daily at bedtime for 30 days. 30 capsule 0 06/11/2022 07/11/2022 Active Start: 12-31-2021 End: 06-11-2022 take 1 capsule by mouth three times daily gabapentin (NEURONTIN) 300 mg capsule Take 1 capsule by mouth three times daily for 90 days. 270 capsule 0 12/31/2021 06/11/2022 Discontinued (Course of therapy completed) Comment on above: Take 1 capsule by mo note dated December 17. Patient had lab work completed as ordered by the neurologist. I transferred her to schedule an appointment with the neurologist. Patient denies any seizures since February 2015.TKRN Seizure (HCC) Current Outpatient Medications Medication Sig Dispense Refill sertraline (ZOLOFT) 50 mg tablet Take 1 tablet by mouth once daily. 90 tablet 0 OXcarbazepine (TRILEPTAL) 300 mg tablet Take 1.5 tablets by mouth two times a day. 270 tablet 0 No current facility-administer ed medications for this visit. ALLERGIES No Known Allergies Objective Last menstrual period 06/11/2023, currently . - Cardiovascular: Dorsalis pedis and posterior tibial pulses palpable bilaterally. Capillary refill time up to 5 seconds. - Skin: Normal temperature bilaterally; hair growth present. - Musculoskeletal: - Right Foot: - Mild tenderness to palpation of medial calcaneal tubercle. - Tenderness to palpation of medial instep. - Left Foot: - No tenderness to palpation of medial calcaneal tubercle. - Tenderness to palpation of medial instep. - Bilateral Ankles: - Full ROM without pain. - Neurological: - Right Foot: - Negative Tinel's sign. - Left Foot: - Mild tingling with Tinel's sign at heel. Labs: Tests: Imaging: (09/2024) X-ray left foot: No evidence of fracture or bone spurring; normal findings. 1. Plantar fasciitis (M72.2) 2. Tarsal tunnel syndrome, bilateral (G57.53) - Bilateral foot pain with 50% improvement since initiating use of orthotic inserts and performing regular stretching exercises. - Pain now occurs primarily midday, with occasional sharp pain radiating to the toes of the right foot. - Continue current treatment with orthotic inserts, stretching exercises, and wearing supportive footwear. - Advised to avoid walking barefoot and wearing non-supportive shoes. - Discussed potential for corticosteroid injection if heel pain persists. - Consider EMG study if symptoms of burning or nerve entrapment worsen. - Patient feels pain is improving. has elected to hold on emg or steroid injection - Follow-up appointment scheduled in 2 months to reassess progress. Attestation Recording using [employer] software for draft documentation of the visit was discussed with the patient/authorized merchandiser retail representative; all questions welcomed and answered. Patient/authorized merchandiser retail representative agreed to proceed Gutierrez Lara DPM Allergies As of Date: 11/24/2024 (No Known Allergies) Date Reviewed: 11/24/2024 Reviewed by: Marilyn Mclain MA - Fully Assessed Reason for Visit: Pain [78] Follow Up [171] Pain (more content not included)... Normal [facility] CNOVon 10-18-2024 CNOV Office Visit (PODIWS) ---- RAYNE TOSCANO ([id number]) 1995 F Date Time Provider Department 10/18/24 1:45 PM GUTIERREZ LARA During your visit today, we recorded the following information about you: Rocio Lee LPN 10/18/2024 2:05 PM Signed AMB ROOMING INTAKE FLOWSHEET DATA Pain Pain Level: 8 Pain Location: Other: See Comment (bilateral feet) Description: Sharp, Sore, Burning Duration Amount of Time: 2 Duration Units: Months Frequency: Intermittent Intervention/Comfor t measure: Reposition, Relaxation, Medication (ibuprofen) Patient presents with: Left Foot - New, Pain, Numbness Right Foot - New, Pain, Numbness CLAIR Franco Matthew 10/18/2024 2:05 PM Signed Consultation requested by Dr. Rodriguez for an opinion regarding arch pain. My final recommendations will be communicated back to the requesting physician by way of shared Medical record or letter to requesting physician via US mail. Initial Podiatric Office Visit: Chief Complaint: This 29 year old female who presents with chief complaint:b/l heel/arch pain L>R HPI Patient presents to clinic for evaluation of b/l feet Complains of plantar arch pain to both feet L>R. This has been going on for about one month The pain is most severe in the morning or if she has been on her feet for long duration. 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 Nothing really helps Patient currently wears nike tennis shoes, sandals on exam today. 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 Dayna Muñoz APRN.[facility] 1Patient was diagnosed with seizures at age [address] Villagomez a neurologist. See my chart note dated December 17. Patient had lab work completed as ordered by the neurologist. I transferred her to schedule an appointment with the neurologist. Patient denies any seizures since February 2015.TKRN Seizure ([facility]) Current Outpatient Medications Medication Sig sertraline (ZOLOFT) 50 mg tablet Take 1 tablet by mouth once daily. OXcarbazepine (TRILEPTAL) 300 mg tablet Take 1.5 tablets by mouth two times a day. No current facility-administer ed medications for this visit. ALLERGIES No Known Allergies PAST SURGICAL HISTORY Procedure Laterality Date DELIVERY ONLY 08/10/2021 [facility] FAMILY HISTORY Problem Relation Age of Onset other (Other) Mother anxiety Stroke Mother other (Other) Father back problems Thyroid Sister Autism Sister other (epilepsy) Sister other (Other) Brother anxiety other (Other) Brother adhd Diabetes Maternal Grandmother Heart Maternal Grandfather Lung Cancer Paternal Grandmother No Known Problems Paternal Grandfather Social History Tobacco Use Smoking status: Never Smokeless tobacco: Never Vaping Use Vaping status: Never Used Substance Use Topics Alcohol use: No Drug use: No REVIEW OF SYSTEMS GENERAL: Negative for Malaise, significant weight loss, fever RESPIRATORY: Negative for cough, wheezing and shortness of breath CARDIOVASCULAR: Negative for chest pain, leg swelling and palpitations GI: Negative for abdominal discomfort, blood in stools or black stools and change in bowel habits : Negative for dysuria, frequency and incontinence MUSCULOSKELETAL: Negative for joint pain or swelling, back pain, and muscle pain. SKIN: Negative for lesions, rash, and itching. HEMATOLOGY/LYMPHOLO GY Negative for prolonged bleeding, bruising easily, and swollen nodes. ENDOCRINE: Negative for cold or heat intolerance, polyuria, polydipsia and goiter. NEURO: negative Physical Exam: Constitutional: Pt is a well developed 29 year old female who is alert, oriented and cooperative Eyes: Following during examination. No redness or drainage. Respiratory: RR normal and nonlabored. Even breathing. No evidence of distress or shortness of breath. Psychology: Patient is engaged during conversation. Normal affect and mood. Does not appear depressed or anxious during encounter. Vascular: Dorsalis pedis and posterior tibial pulses palpable as b/l Capillary Fill time < 5 seconds to digits 1-5 b/l Skin temperature warm to warm proximal to distal b/l Hair growth present to digits Neurological: intact light touch/epicritic sensation + tinel b/l int (more content not included)... Normal [facility] CNOVon 10-05-2024 CNOV Office Visit (UCWSTR) ---- RAYNE TOSCANO ([id number]) 1995 F Date Time Provider Department 10/05/24 2:30 PM VINH RODRIGUEZ [facility] During your visit today, we recorded the following information about you: Temperature Pulse Respiration Blood pressure 96.8 degrees 102/minute 16/minute 108/68 Weight 64.6 kg Vinh Rodriguez PA-C 10/05/2024 2:59 PM Signed This note was created using [employer]. Subjective Rayne Toscano is a 29 year old female. Patient is a 29-year-old female who complains of pain to her plantar left foot that has been present for the past 1 week. Patient denies accident or injury to her left foot. Patient states that she is able to bear weight and ambulate although it is painful to do so. Patient states that her right foot is asymptomatic and nontender. Patient denies paresthesia or paralysis to her left foot and toes. 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 Pain (foot) Review of Systems Musculoskeletal: Left Foot Pain All other systems reviewed and are negative. Objective BP 108/68 Pulse 102 Temp 36 ?C (96.8 ?F) Resp 16 Wt 64.6 kg (142 lb 6.7 oz) LMP 06/11/2023 (Approximate) SpO2 98% BMI 27.81 kg/m? Physical Exam Vitals and nursing note reviewed. Constitutional: Appearance: Normal appearance. She is normal weight. HENT: Head: Normocephalic and atraumatic. Nose: Nose normal. Mouth/Throat: Mouth: Mucous membranes are moist. Pharynx: Oropharynx is clear. Eyes: Extraocular Movements: Extraocular movements intact. Conjunctiva/sclera: Conjunctivae normal. Pupils: Pupils are equal, round, and reactive to light. Cardiovascular: Rate and Rhythm: Normal rate. Pulses: Normal pulses. Pulmonary: Effort: Pulmonary effort is normal. Breath sounds: Normal breath sounds. Musculoskeletal: General: Tenderness present. No swelling, deformity or signs of injury. Normal range of motion. Cervical back: Normal range of motion and neck supple. Left lower leg: No edema. Skin: General: Skin is warm and dry. Capillary Refill: Capillary refill takes less than 2 seconds. Findings: No bruising or erythema. Neurological: General: No focal deficit present. Mental Status: She is alert and oriented to person, place, and time. Sensory: No sensory deficit. Motor: No weakness. Gait: Gait normal. Psychiatric: Mood and Affect: Mood normal. Behavior: Behavior normal. Thought Content: Thought content normal. Judgment: Judgment normal. Assessment and Plan Physical exam findings as noted above. X-ray left foot is negative for acute findings as reported by the radiologist. Patient was provided with a prescription for prednisone 20 mg and a consult was placed with [facility]. The patient was advised to schedule an appointment with same for further evaluation and management. Additional supportive care was discussed and the patient verbalizes excellent understanding of same. CLINICAL IMPRESSION: Plantar Fasciitis Left Foot ASSESSMENT/PLAN: 1. Left foot pain - ICD9: 729.5, ICD10: M79.672 (primary diagnosis) - XR FOOT GENERAL 3V AP/LAT/OBL LEFT 2. Plantar fasciitis - ICD9: 728.71, ICD10: M72.2 - PREDNISONE 20 MG TABLET - CONSULT TO PODIATRY Vinh Rodriguez PA-C Allergies As of Date: 10/05/2024 (No Known Allergies) Date Reviewed: 10/05/2024 Reviewed by: Tarah Cid MA - Fully Assessed Reason for Visit: Pain (foot) [760] Cmt: left x knee to foot pain x 1 month, seen her in oct twisted Primary Visit Diagnosis:Left foot pain [M79.672] Other Visit Diagnosis:Plantar fasciitis [M72.2] Order(s):XR FOOT GENERAL 3V AP/LAT/OBL LEFT [6169428] Order #: [id number]. #:[id number] predniSONE (DELTASONE) 20 mg tabletTake 1 tablet by mouth two times a day for 5 days.Disp: 10 tabletRfl: 0 CONSULT TO PODIATRY [9034] Order #: [id number]: 1 FUTURE Prescriptions as of 10/05/2024 - predniSONE (DELTASONE) 20 mg tablet Take 1 tablet by mouth two times a day for 5 days. - sertraline (ZOLOFT) 50 mg tablet Take 1 tablet by mouth once daily. - OXcarbazepine (TRILEPTAL) 300 mg tablet Take 1.5 tablets by mouth two times a day. Problem List As Of Date 10/05/2024 Noted Resolved Absence seizure (HCC) [G40.A09] 08/26/2005 Anxiety and depression [F41.9, F32.A] 09/14/2017 10/01/2021 Epilepsy affecting in third trimester* 8 10/01/2021 Encounter for monitoring anticonvulsant therapy*04/15/2018 Spotting in [O26.859] 12/27/2020 10/01/2021 History of depression [Z86.59] 12/27/2020 Patient request for diagnostic testing [Z01.89] 12/27/2020 10/01/2021 care [O09.93] 12/31/2020 10/01/2021 Anemia during in third trimester [O99*05/14/2021 10/01/2021 Prescriptions ordered this encounter (more content not included)... Normal [facility] XR FOOT 3V AP/LAT/OBL LTon 0 10-05-2024 XR FOOT 3V AP/LAT/OBL LT * * *Final Repo rt* * * DATE OF EXAM: Oct 05 2024 2:26PM [id number] - XR FOOT 3V AP/LAT/OBL LT / PROCEDURE REASON: Left foot pain * * * * Physician Interpretation * * * * EXAM TITLE: XR FOOT 3V AP/LAT/OBL LT EXAM DATE/TIME: 10/05/2024 2:26 PM COMPARISON: None CLINICAL INDICATION/HISTORY: Left foot pain. No injury. TECHNIQUE: AP, lateral and oblique views of the left foot are presented. FINDINGS: No acute fractures or subluxations are noted. There appears be an accessory bone superior to the navicular. The joint spaces are well preserved. The mineralization of the bones is normal. There is no significant soft tissue swelling. IMPRESSION: No acute radiographic abnormalities seen in the left foot. Solid Die Cutter: [facility] Transcribe Date/Time: Oct 05 2024 2:25P Dictated by : ADELAIDA MENA MD This examination was interpreted and the report reviewed and electronically signed by: ADELAIDA MENA MD on Oct 05 2024 2:30PM EST [id number] Normal [facility] XR Foot - left AP and Latera l and obliqueon 10-05-2024 IMPRESSION: No acute radiographic abnormalities seen in the left foot. Solid Die Cutter: [facility] Transcribe Date/Time: Oct 05 2024 2:25P Dictated by : ADELAIDA MENA MD This examination was interpreted and the report reviewed and electronically signed by: ADELAIDA MENA MD on Oct 05 2024 2:30PM EST DIVISION OF RADIOLOGY * * *Final Report* * * DATE OF EXAM: Oct 05 2024 2:26PM [id number] - XR FOOT 3V AP/LAT/OBL LT / PROCEDURE REASON: Left foot pain * * * * Physician Interpretation * * * * EXAM TITLE: XR FOOT 3V AP/LAT/OBL LT EXAM DATE/TIME: 10/05/2024 2:26 PM COMPARISON: None CLINICAL INDICATION/HISTORY: Left foot pain. No injury. TECHNIQUE: AP, lateral and oblique views of the left foot are presented. FINDINGS: No acute fractures or subluxations are noted. There appears be an accessory bone superior to the navicular. The joint spaces are well preserved. The mineralization of the bones is normal. There is no significant soft tissue swelling. DIVISION OF RADIOLOGY Provider, [facility] [employer] - 10/05/2024 * * *Final Report* * * DATE OF EXAM: Oct 05 2024 2:26PM WOX [id number] - XR FOOT 3V AP/LAT/OBL LT / PROCEDURE REASON: Left foot pain * * * * Physician Interpretation * * * * EXAM TITLE: XR FOOT 3V AP/LAT/OBL LT EXAM DATE/TIME: 10/05/2024 2:26 PM COMPARISON: None CLINICAL INDICATION/HISTORY: Left foot pain. No injury. TECHNIQUE: AP, lateral and oblique views of the left foot are presented. FINDINGS: No acute fractures or subluxations are noted. There appears be an accessory bone superior to the navicular. The joint spaces are well preserved. The mineralization of the bones is normal. There is no significant soft tissue swelling. IMPRESSION IMPRESSION: No acute radiographic abnormalities seen in the left foot. Solid Die Cutter: [facility] Transcribe Date/Time: Oct 05 2024 2:25P Dictated by : ADELAIDA MENA MD This examination was interpreted and the report reviewed and electronically signed by: ADELAIDA MENA MD on Oct 05 2024 2:30PM EST [facility] Radiology Study observation (narrative) [facility] XR Foot - left AP and Latera l and obliqueOrdered By: Ccf Provider on 10-05-2024 [facility] CNOVon 05-16-2024 CNOV Office Visit (UCWSTR) ---- RAYNE TOSCANO ([id number]) 1995 F Date Time Provider Department 05/16/24 4:45 PM FRED GUZMAN [facility] During your visit today, we recorded the following information about you: Temperature Pulse Respiration Blood pressure 97.1 degrees 70/minute 20/minute 100/70 Weight 61.3 kg Fred Guzman APRN.NURSE OUTREACH CASE MANAGER 05/16/2024 5:47 PM Signed Subjective HPI Nontoxic-appearing female presents urgent care chief complaint bilateral ankle pain. Duration of symptoms 5 days. Associated symptoms bilateral ankle discomfort. Tripped going down the stairs. Inverted both ankles. Presents today for evaluation. No numbness no tingling. No decrease sensation. No head neck no back pain. No LOC. Denies surgeries fractures previously. Past medical history prescription medications allergies reviewed. 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 Dayna Muñoz APRN.M 12/27/2020atient was diagnosed with seizures at age 7[address] Dahlia santos neurologist. See my chart note dated December 17. Patient had lab work completed as ordered by the neurologist. I transferred her to schedule an appointment with the neurologist. Patient denies any seizures since February 2015.TKRN Seizure ([facility]) PAST SURGICAL HISTORY Procedure Laterality Date DELIVERY ONLY 08/10/2021 [facility] ALLERGIES Patient has no known allergies. MEDICATIONS escitalopram oxalate (LEXAPRO) 20 mg tablet Take 1 tablet by mouth once daily. escitalopram oxalate (LEXAPRO) 10 mg tablet Take 1 tablet by mouth once daily. OXcarbazepine (TRILEPTAL) 300 mg tablet Take 1.5 tablets by mouth two times a day. gabapentin (NEURONTIN) 100 mg capsule Take 1 capsule by mouth three times a day for 90 days. FAMILY HISTORY Problem Relation Age of Onset other (Other) Mother anxiety Stroke Mother other (Other) Father back problems Thyroid Sister Autism Sister other (epilepsy) Sister other (Other) Brother anxiety other (Other) Brother adhd Diabetes Maternal Grandmother Heart Maternal Grandfather Lung Cancer Paternal Grandmother No Known Problems Paternal Grandfather Social History Tobacco Use Smoking status: Never Smokeless tobacco: Never Vaping Use Vaping status: Never Used Substance Use Topics Alcohol use: No Drug use: No BP 100/70 Pulse 70 Temp 36.2 ?C (97.1 ?F) Resp 20 Wt 61.3 kg (135 lb 2.3 oz) LMP 06/11/2023 (Approximate) SpO2 98% BMI 26.39 kg/m? Review of Systems Constitutional: Negative for chills, fever and malaise/fatigue. Musculoskeletal: Positive for falls and joint pain. Negative for back pain, myalgias and neck pain. Neurological: Negative for dizziness, loss of consciousness, weakness and headaches. Objective Physical Exam Constitutional: General: She is not in acute distress. Appearance: She is not toxic-appearing. HENT: Head: Normocephalic. Nose: Nose normal. Eyes: Pupils: Pupils are equal, round, and reactive to light. Cardiovascular: Rate and Rhythm: Normal rate. Pulmonary: Effort: Pulmonary effort is normal. No respiratory distress. Musculoskeletal: Cervical back: Normal range of motion. Right lower leg: Normal. Left lower leg: Normal. Right ankle: No swelling, deformity, ecchymosis or lacerations. Tenderness present over the lateral malleolus. Normal range of motion. Right Achilles Tendon: No tenderness. Left ankle: No swelling, deformity, ecchymosis or lacerations. Tenderness present over the lateral malleolus. Normal range of motion. Left Achilles Tendon: No tenderness. Right foot: Normal. Left foot: Normal. Comments: Neurovascular intact. Full range of motion. No weaknesses. No breaks in skin. Skin: General: Skin is warm and dry. Neurological: General: No focal deficit present. Mental Status: She is alert. ASSESSMENT/PLAN: 1. Acute bilateral ankle pain - ICD9: 719.47, 338.19, ICD10: M25.571, M25.572 - XR ANKLE GENERAL 3V AP/LAT/OBL BILATERAL IMPRESSION: Negative bilateral ankles. No acute findings noted on x-ray. Treat as ankle sprains. Follow-up with orthopedics 7 to 10 days symptoms are not improving. Patient was educated on supportive therapies. Patient will follow up with primary care provider as needed. Patient was instructed to immediately proceed to emergency room for any new, worsening, or symptoms lasting longer than anticipated. The patient's clinical presentation is otherwise unremarkable at this time. Based on exam and clinical finding, the patient is stable for discharge. Plan of care was discussed with patient. Patient verbalizes understandin (more content not included)... Normal [facility] XR ANKLE 3V AP/LAT/OBL BILon 05-16-2024 XR ANKLE 3V AP/LAT/OBL NATY * * *Final Report* * * DATE OF EXAM: May 16 2024 5:18PM WOX [id number] - XR ANKLE 3V AP/LAT/OBL NATY / PROCEDURE REASON: multiple diagnoses * * * * Physician Interpretation * * * * EXAM (S): BILATERAL ANKLE X-RAYS HISTORY: Acute bilateral ankle pain. Tripped and fell on COMPARISON: None available. TECHNIQUE: AP, lateral and oblique views. RESULT: No acute fracture or malalignment of the bilateral ankles. Joint spaces are maintained. IMPRESSION: Negative bilateral ankles. Solid Die Cutter: PSCB Transcribe Date/Time: May 16 2024 5:41P Dictated by : KALA BOWDEN MD This examination was interpreted and the report reviewed and electronically signed by: KALA BOWDEN MD on May 16 2024 5:43PM EST [id number] Normal [facility] XR Ankle - bilateral AP and Lateral and obliqueon 05-16-2024 IMPRESSION: Negative bilateral ankles. Solid Die Cutter: PSCB Transcribe Date/Time: May 16 2024 5:41P Dictated by : KALA BOWDEN MD This examination was interpreted and the report reviewed and electronically signed by: KALA BOWDEN MD on May 16 2024 5:43PM EST DIVISION OF RADIOLOGY * * *Final Report* * * DATE OF EXAM: May 16 2024 5:18PM WOX [id number] - XR ANKLE 3V AP/LAT/OBL NATY / PROCEDURE REASON: multiple diagnoses * * * * Physician Interpretation * * * * EXAM (S): BILATERAL ANKLE X-RAYS HISTORY: Acute bilateral ankle pain. Tripped and fell on COMPARISON: None available. TECHNIQUE: AP, lateral and oblique views. RESULT: No acute fracture or malalignment of the bilateral ankles. Joint spaces are maintained. DIVISION OF RADIOLOGY Provider, [facility] - 05/16/2024 * * *Final Report* * * DATE OF EXAM: May 16 2024 5:18PM WOX [id number] - XR ANKLE 3V AP/LAT/OBL NATY / PROCEDURE REASON: multiple diagnoses * * * * Physician Interpretation * * * * EXAM (S): BILATERAL ANKLE X-RAYS HISTORY: Acute bilateral ankle pain. Tripped and fell on COMPARISON: None available. TECHNIQUE: AP, lateral and oblique views. RESULT: No acute fracture or malalignment of the bilateral ankles. Joint spaces are maintained. IMPRESSION IMPRESSION: Negative bilateral ankles. Solid Die Cutter: PSCB Transcribe Date/Time: May 16 2024 5:41P Dictated by : KALA BOWDEN MD This examination was interpreted and the report reviewed and electronically signed by: KALA BOWDEN MD on May 16 2024 5:43PM EST [facility] Radiology Study observation (narrative) [facility] XR Ankle - bilateral AP and Lateral and obliqueOrdered By: Ccf Provider on 05-16-2024 [facility] 10-Hydroxycarbazepine [Mass/ Vol]Ordered By: Rohan Riggins on 11-25-2023 Interpretation and review of laboratory results Normal [facility] OXCARBAZEPINE BLDOrdered By: Rohan Riggins on 11-25-2023 10-Hydroxycarbazepine [Mass/Vol] 17.8 ug/mL 3.0 - 35.0 ug/mL [facility] Comment on above: This test was devdavido ped and its performance characteristics determined by [facility] Pathology and Laboratory Medicine [place] ([facility]). It has not been cleared or approved by the FDA. [facility] is regulated under CLIA as qualified to perform high-complexity testing. This test is used for clinical purposes. It should not be regarded as investigational or for research. STREP A MOLECULAR (POC)on Procedural Control Valid [facility] Strep A (POCT) Negative Negative [facility] STREP A MOLECULAR (POC)on Procedural Control Valid [facility] Strep A (POCT) Negative Negative [facility] Emelia 01-29-2022 ELIASN Telephone (NEINESFV) ---- RAYNE TOSCANO ([id number]) 1995 F Date Time Provider Department 01/29/22 ARIADNA VILLAGOMEZ During your visit today, we recorded the following information about you: Leyda Watson 01/29/2022 9:47 AM Signed Received blank BVM forms, Uploaded to chart under Miscellaneous correspondence. 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 ? Epilepsy Classification: generalized epilepsy Seizure Classification: Dialeptic Seizure Etiology: Idiopathic Related Condition(s): depression, anxiety; woman of reproductive age Interval Impression: Delivered a healthy baby boy on 08/10/2021. No seizures. Concerned about OXC and , but would like to remain on medication, but slightly reduce dose. The patient's compliance with therapy has been: Excellent PLAN: - Decrease OXC to 450 mg BID following wean below: Week 1-2: 450 mg in the AM and 600 mg in the PM Week 2: 450 mg twice daily ? - Check a OXC level at week 4 ? (Pre- dose 300 mg BID) Data reviewed as above including: electronic medical record Testing Ordered CMP anticonvulsant level Education It is reasonable for the patient to continue driving based on good compliance with antiseizure medication and current seizure control. Medical Management Medication changes were discussed. wean OXC to 450 BID FOLLOW-UP: Return in about 6 months (around 03/02/2022). GBP: 300 m/300/300 OXC: 300 m/450 Ref. Range 06/25/2021 14:31 10/18/2021 09:46 10Hydroxycarbazepin e Latest Ref Range: 3.0 - 35.0 ug/mL 20.4 12.1 Attempted to call VM is full Personal Style Finder message sent Georgina Erickson Aniket Modi 01/29/2022 12:33 PM Signed Spoke with Rayne confirmed last seizure was 2014 Confirmed she is taking OXC 450 mg BID taking the GBP for post anxiety routed to Dr. Villagomez to review renew for one year for for four Georgina Marcial Jose Guadalupe Modi 01/29/2022 12:58 PM Signed Ariadna Villagomez MD, PhD You 14 minutes ago (12:37 PM) we can complete BMV everything as discussed and I will see her for routine follow up thank you BMV form completed sent to Dr. Villagomez via [employer] to review signature pending Georgina Modi 01/29/2022 2:08 PM Signed BMV signed copies sent to onbase and BMV Allergies As of Date: 01/29/2022 (No Known Allergies) Date Reviewed: 12/18/2021 Reviewed by: Deena Gardiner Ma - Fully Assessed Reason for Visit: BMV Forms [Other] Prescriptions as of 01/29/2022 - escitalopram oxalate (LEXAPRO) 10 mg tablet take one half tablet daily for a week then increase to one tablet daily - gabapentin (NEURONTIN) 300 mg capsule Take 1 capsule by mouth three times daily for 90 days. - OXcarbazepine (TRILEPTAL) 300 mg tablet Take 1.5 tablets by mouth twice daily. - folic acid 1 mg tablet Take 4 tablets by mouth once daily. - Omrvbpxz-Ob-Sjx-Fe- FA ( VITAMIN) tab Take 1 tablet by mouth. Problem List As Of Date 01/29/2022 Noted Resolved Absence seizure (HCC) [G40.A09] 08/26/2005 Anxiety and depression [F41.9, F32.A] 09/14/2017 10/01/2021 Epilepsy affecting in third trimester* 8 10/01/2021 Encounter for monitoring anticonvulsant therapy*04/15/2018 Spotting in [O26.859] 12/27/2020 10/01/2021 History of depression [Z86.59] 12/27/2020 Patient request for diagnostic testing [Z01.89] 12/27/2020 10/01/2021 care [O09.93] 12/31/2020 10/01/2021 Anemia during in third trimester [O99*05/14/2021 10/01/2021 Encounter Status:Closed by GEORGINA MODI on 01/29/22 [facility] OBSOLETEon 07-23-2021 OBSOLETE Refill (NEEPFV) ---- RAYNE TOSCANO ([id number]) 1995 F Date Time Provider Department 07/23/21 YUSEF TRAVIS RUTH NEEPFV During your visit today, we recorded the following information about you: Donal Figueroa APRN.CNP 07/23/2021 10:15 AM Signed The following approved medication requests have been transmitted electronically. Signed Prescriptions Disp Refills OXcarbazepine (TRILEPTAL) 300 mg tablet 360 tablet 0 Sig: Take 2 tablets by mouth twice daily. CHARITO: No Authorizing Provider: DONAL FIGUEROA APRN.CNP Allergies As of Date: 07/23/2021 (No Known Allergies) Date Reviewed: 07/16/2021 Reviewed by: Ally Hu MD - Fully Assessed Reason for Visit: Refill Request [94] Visit Diagnosis:Generaliz ed epilepsy (HCC) [G40.309] Order(s):OXcarbazep ine (TRILEPTAL) 300 mg tabletTake 2 tablets by mouth twice daily.Disp: 360 tabletRfl: 0 Prescriptions as of 07/23/2021 - OXcarbazepine (TRILEPTAL) 300 mg tablet Take 2 tablets by mouth twice daily. - metoclopramide HCl (REGLAN) 5 mg tablet Take 1 tablet by mouth four times daily. - folic acid 1 mg tablet Take 4 tablets by mouth once daily. - doxylamine (UNISOM, DOXYLAMINE,) 25 mg tab Take by mouth. - pyridoxine, vitamin B6, (VITAMIN B-6) 50 mg tablet Take 50 mg by mouth once daily. - Gluadncy-Yl-Ppc-Fe- FA ( VITAMIN) tab Take 1 tablet by mouth. Problem List As Of Date 07/23/2021 Noted Resolved Absence seizure (HCC) [G40.A09] 08/26/2005 Anxiety and depression [F41.9, F32.A] 09/14/2017 Epilepsy affecting in third trimester* 8 Encounter for monitoring anticonvulsant therapy*04/15/2018 Spotting in [O26.859] 12/27/2020 History of depression [Z86.59] 12/27/2020 Patient request for diagnostic testing [Z01.89] 12/27/2020 care [O09.93] 12/31/2020 Anemia during in third trimester [O99*05/14/2021 Prescriptions ordered this encounter Disp Refills Start End OXCARBAZEPINE 300 MG TABLET 360 * 0 07/23/2021 10/21/2021 Route: ORAL Sig: Take 2 tablets by mouth twice daily. Medications Discontinued During This Encounter Prescriptions - OXcarbazepine (TRILEPTAL) 300 mg tablet (Discontinued) Take 2 tablets by mouth twice daily. Encounter Status:Closed by DONAL FIGUEROA on 07/23/21 [facility] CNOVderick 05-20-2021 CNOV Office Visit (NEEPFV) ---- RAYNE TOSCANO ([id number]) 1995 F Date Time Provider Department 05/20/21 9:30 AM YUSEF TRAVIS During your visit today, we recorded the following information about you: Yusef Travis APRN.CNP 05/20/2021 1:50 PM Signed [facility] Patient Name: Rayne Toscano Date of : 1995 Referring Provider: Attila [facility] [id number] ESTABLISHED EPILEPSY TELEPHONE NOTE 05/20/2021 9:30 AM The visit was done via telephone visit with patient's consent. Reason for Visit: Epilepsy and Follow Up Clinical Summary: Ms. Toscano is a 25 year old right-handed female seen in [facility]. We had a visit using: Telephone I received consent from the patient to perform the visit using this platform. There is no one accompanying the patient during today's visit. Classification Summary HISTORY OF PRESENT ILLNESS Handedness: right-handed Age of onset: 7 years Seizure History and Evolution 22 year old woman with diagnosis of epilepsy since age 7. She was noticed in school at that time. Seizures usually in the morning with staring. NO myoclonus or generalized seizures. In the past. Last seizure was 2014. She is on trileptal and doing well. Expresses no neurological concerns. ? Possible lateralizing signs by history: None ? and Early Development: normal ? RISK FACTORS FOR SEIZURES: ? 1. Head Trauma (No) 2. 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 Family History of Seizures (Yes, see below) 4. Developmental Delay (No) 5. Febrile Seizures (No) 6. 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 Significant Medical History (No) ? CURRENT ANTICONVULSANTS: Trileptal 300 mg bid ? The patient's side effects to the current medications: no reported side effects ? 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 Her last ASM adjustment was increasing OXC to 450/600. She is tolerating OXC well. Denies any side effects. She is due for blood work on 05/23. She is doing well overall. Prefers an office visit. Her due date is on 08/08. Total # of Current Anti-seizure Medications: Side Effects to Current Anti-seizure Medications: Seizure Frequency at First Visit: 0 per year Longest Seizure-free Interval: years Number of seizure types: 1 Hx of generalized tonic-clonic seizures: No Tongue bite: No Urine or Bowel Incontinence: No Triggers: none Postictal Deficits: No Memory complaints: NA Status Epilepticus or clusters: No Postictal Agitation: No Seizure-related driving accidents: No Driving: Yes Lives Alone: No Highest Level of Education: High school graduate (includes GED) CURRENT OUTPATIENT ANTISEIZURE MEDICATIONS (as of the start of the encounter) OXcarbazepine (TRILEPTAL) 300 mg tablet Take 1.5 tablets by mouth every morning AND 2 tablets daily at bedtime. Prior Anti-seizure Therapies: Trial Adequacy: Max Daily Dose Achieved: Side Effects: Effectiveness: Comorbidities: Episode Description: SEIZURE TYPE 1: dialeptic seizure Aura: no Loss of awareness: Duration: Frequency: Last occurred: yes Patient Entered Data: EPILEPSY SCORE 05/15/2021 12:12 AM 12/27/2020 10:09 AM 12/17/2020 5:55 PM First answer obtained - 08/22/2019 2:24 AM PHQ-9 SCORE 0 [None-Minimal Depression] - 4 [None-Minimal Depression] 3 [None-Minimal Depression] JEO 2 SCORE 0 [Negative Anxiety Screen] 0 [Negative Anxiety Screen] - 1 [Negative Anxiety Screen] JOE 7 SCORE - - - - QOLIE-10 SCORE (0=worst; 100=best QoL ? higher scores represent better function) 13 13 LSSS SCORE (0- no seizures 100- most severe possible seizures) - - - - C-SSRS SCREEN - - - - On average, how many hours of sleep do you get in a 24-hour period? - - - 8 PROMIS Sleep Disturbance T-SCORE - - - - Have you been diagnosed with Sleep Apnea? 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 ?Osmin and Wave Complex, Generalized Impression ?This EEG supports the diagnosis of generalized epilepsy. No EEG seizures ?were seen in this record.? ? Routine EEG (08/22/2005) Classification ?Abnormal III (Awake, Drowsy) ?Interictal: ?1 ? ?Osmin and Wave Complex, Generalized, Maximum bifrontal ?Ictal: ?1 ? ?EEG: EEG Seizure, Generalized, Maximum bifrontal ? Seizure: D (more content not included)... Normal [facility] Vital Signs Date Time Vital Sign Value Performing Clinician Facility 01-30-2025 18:58-0400 Body temperature 97.8 [degF] Dr. Nehemias Torres DO Work Phone: [facility] 01-30-2025 18:58-0400 Diastolic blood pressure 93 mm[Hg] Dr. Nehemias Torres DO Work Phone: [facility] 01-30-2025 18:58-0400 Heart rate 100 /min Dr. Nehemias Torres DO Work Phone: [facility] 01-30-2025 18:58-0400 Respiratory rate 17 /min Dr. Nehemias Torres DO Work Phone: [facility] 01-30-2025 18:58-0400 SaO2% (BldA) [Mass fraction] 99 % Dr. Nehemias Torres DO Work Phone: [facility] 01-30-2025 18:58-0400 Systolic blood pressure 122 mm[Hg] Dr. Nehemias Torres DO Work Phone: [facility] 01-30-2025 13:13-0400 Body height 152.[address] Nehemias Torres DO Work Phone: [facility] 01-30-2025 13:13-0400 Body mass index (BMI) [Ratio] 27.7 kg/m2 Dr. Nehemias Torres DO Work Phone: [facility] 01-30-2025 13:13-0400 Body weight 64.[address] Nehemias Torres DO Work Phone: [facility] 01-26-2025 14:29-0400 Body mass index (BMI) [Ratio] 27.64 kg/m2 Fred Guzman APRN.NURSE OUTREACH CASE MANAGER Work Phone: [facility] 01-26-2025 14:29-0400 Body temperature 98.1 [degF] Fred Guzman APRN.NURSE OUTREACH CASE MANAGER Work Phone: [facility] 01-26-2025 14:29-0400 Body weight 64.2 kg Fred Guzman APRN.NURSE OUTREACH CASE MANAGER Work Phone: [facility] 01-26-2025 14:29-0400 Diastolic blood pressure 84 mm[Hg] Fred Guzman APRN.NURSE OUTREACH CASE MANAGER Work Phone: [facility] 01-26-2025 14:29-0400 Heart rate 76 /min Fred Guzman APRN.NURSE OUTREACH CASE MANAGER Work Phone: [facility] 01-26-2025 14:29-0400 Respiratory rate 18 /min Fred Megan DIRECTOR OF PUBLICATIONS.NURSE OUTREACH CASE MANAGER Work Phone: [facility] 01-26-2025 14:29-0400 SaO2% (BldA) [Mass fraction] 99 % Fred Guzman DIRECTOR OF PUBLICATIONS.NURSE OUTREACH CASE MANAGER Work Phone: [facility] 01-26-2025 14:29-0400 Systolic blood pressure 121 mm[Hg] Fred Guzman DIRECTOR OF PUBLICATIONS.NURSE OUTREACH CASE MANAGER Work Phone: [facility] 10-05-2024 14:05-0500 Body mass index (BMI) [Ratio] 27.81 kg/m2 Vinh Clutter PA-C Work Phone: [facility] 10-05-2024 14:05-0500 Body temperature 96.8 [degF] Vinh Clutter PA-C Work Phone: [facility] 10-05-2024 14:05-0500 Body weight 64.6 kg Vinh Clutter PA-C Work Phone: [facility] 10-05-2024 14:05-0500 Diastolic blood pressure 68 mm[Hg] Vinh Clutter PA-C Work Phone: [facility] 10-05-2024 14:05-0500 Heart rate 102 /min Vinh Clutter PA-C Work Phone: [facility] 10-05-2024 14:05-0500 Respiratory rate 16 /min Vinh Clutter PA-C Work Phone: [facility] 10-05-2024 14:05-0500 SaO2% (BldA) [Mass fraction] 98 % Vinh Clutter PA-C Work Phone: [facility] 10-05-2024 14:05-0500 Systolic blood pressure 108 mm[Hg] Vinh Clutter PA-C Work Phone: [facility] 05-16-2024 16:44-0400 Body mass index (BMI) [Ratio] 26.39 kg/m2 Fred Guzman DIRECTOR OF PUBLICATIONS.NURSE OUTREACH CASE MANAGER Work Phone: [facility] 05-16-2024 16:44-0400 Body temperature 97.11 [degF] Fred Pendlebury DIRECTOR OF PUBLICATIONS.NURSE OUTREACH CASE MANAGER Work Phone: [facility] 05-16-2024 16:44-0400 Body weight 61.3 kg Fred Pendlebury DIRECTOR OF PUBLICATIONS.NURSE OUTREACH CASE MANAGER Work Phone: [facility] 05-16-2024 16:44-0400 Diastolic blood pressure 70 mm[Hg] Fred Pendlebury DIRECTOR OF PUBLICATIONS.NURSE OUTREACH CASE MANAGER Work Phone: [facility] 05-16-2024 16:44-0400 Heart rate 70 /min Fred Pendlebury DIRECTOR OF PUBLICATIONS.NURSE OUTREACH CASE MANAGER Work Phone: [facility] 05-16-2024 16:44-0400 Respiratory rate 20 /min Fred Pendlebury DIRECTOR OF PUBLICATIONS.NURSE OUTREACH CASE MANAGER Work Phone: [facility] 05-16-2024 16:44-0400 SaO2% (BldA) [Mass fraction] 98 % Fred Pendlebury DIRECTOR OF PUBLICATIONS.NURSE OUTREACH CASE MANAGER Work Phone: [facility] 05-16-2024 16:44-0400 Systolic blood pressure 100 mm[Hg] Fred Pendlebury DIRECTOR OF PUBLICATIONS.NURSE OUTREACH CASE MANAGER Work Phone: [facility] 06-26-2023 11:28-0500 Body temperature 97.81 [degF] Sophie Hutchison DIRECTOR OF PUBLICATIONS.NURSE OUTREACH CASE MANAGER Work Phone: [facility] 06-26-2023 11:28-0500 Body weight 61.42 kg Sophie Hutchison DIRECTOR OF PUBLICATIONS.NURSE OUTREACH CASE MANAGER Work Phone: [facility] 06-26-2023 11:28-0500 Diastolic blood pressure 60 mm[Hg] Sophie Hutchison DIRECTOR OF PUBLICATIONS.NURSE OUTREACH CASE MANAGER Work Phone: [facility] [facility] 06-26-2023 11:28-0500 Heart rate 76 /min Sophie Hutchison DIRECTOR OF PUBLICATIONS.NURSE OUTREACH CASE MANAGER Work Phone: [facility] 06-26-2023 11:28-0500 Respiratory rate 16 /min Sophie Hutchison DIRECTOR OF PUBLICATIONS.NURSE OUTREACH CASE MANAGER Work Phone: [facility] 06-26-2023 11:28-0500 SaO2% (BldA) [Mass fraction] 97 % Sophie Hutchison APRN.NURSE OUTREACH CASE MANAGER Work Phone: [facility] 06-26-2023 11:28-0500 Systolic blood pressure 116 mm[Hg] Sophie Hutchison DIRECTOR OF PUBLICATIONS.NURSE OUTREACH CASE MANAGER Work Phone: [facility] 06-19-2023 09:04-0500 Body temperature 97.9 [degF] Aline Santana APRN.NURSE OUTREACH CASE MANAGER Work Phone: [facility] 06-19-2023 09:04-0500 Body weight 61.87 kg Aline Santana APRN.NURSE OUTREACH CASE MANAGER Work Phone: [facility] 06-19-2023 09:04-0500 Diastolic blood pressure 78 mm[Hg] Aline Santana APRN.NURSE OUTREACH CASE MANAGER Work Phone: [facility] 06-19-2023 09:04-0500 Heart rate 91 /min Aline Santana APRN.NURSE OUTREACH CASE MANAGER Work Phone: [facility] 06-19-2023 09:04-0500 Respiratory rate 18 /min Aline Santana APRN.NURSE OUTREACH CASE MANAGER Work Phone: [facility] 06-19-2023 09:04-0500 SaO2% (BldA) [Mass fraction] 98 % Aline Santana APRN.NURSE OUTREACH CASE MANAGER Work Phone: [facility] 06-19-2023 09:04-0500 Systolic blood pressure 123 mm[Hg] Aline Santana APRN.NURSE OUTREACH CASE MANAGER Work Phone: [facility] 02-03-2023 13:33-0400 Body temperature 97.5 [degF] Fred Guzman APRN.NURSE OUTREACH CASE MANAGER Work Phone: [facility] 02-03-2023 13:33-0400 Body weight 53.52 kg Fred Guzman APRN.NURSE OUTREACH CASE MANAGER Work Phone: [facility] 02-03-2023 13:33-0400 Diastolic blood pressure 64 mm[Hg] Fred Guzman APRN.NURSE OUTREACH CASE MANAGER Work Phone: [facility] 02-03-2023 13:33-0400 Heart rate 102 /min Fred Mcclainadrianna DIRECTOR OF PUBLICATIONS.NURSE OUTREACH CASE MANAGER Work Phone: [facility] 02-03-2023 13:33-0400 Respiratory rate 16 /min Fred Mcclainadrianna DIRECTOR OF PUBLICATIONS.NURSE OUTREACH CASE MANAGER Work Phone: [facility] 02-03-2023 13:33-0400 SaO2% (BldA) [Mass fraction] 97 % Fred Mcclainadrianna DIRECTOR OF PUBLICATIONS.NURSE OUTREACH CASE MANAGER Work Phone: [facility] 02-03-2023 13:33-0400 Systolic blood pressure 112 mm[Hg] Fred Mcclainadrianna DIRECTOR OF PUBLICATIONS.NURSE OUTREACH CASE MANAGER Work Phone: [facility] 12-18-2021 09:38-0400 Body weight 52.16 kg Ashlie Blanchard DIRECTOR OF PUBLICATIONS.CNM Work Phone: [facility] 12-18-2021 09:38-0400 Diastolic blood pressure 62 mm[Hg] Ashlie Blanchard DIRECTOR OF PUBLICATIONS.CNM Work Phone: [facility] 12-18-2021 09:38-0400 Systolic blood pressure 92 mm[Hg] Ashlie Blanchard DIRECTOR OF PUBLICATIONS.CNM Work Phone: [facility] Encounters Encounter Date Encounter Type Care Provider Facility Start: 04-17-2025 End: 04-17-2025 ambulatory GUTIERREZ LARA Neurology Start: 04-17-2025 End: 04-17-2025 Patient encounter procedure Emg 2 Neur [place] (Max Weight: 850) Neurology Start: 03-07-2025 End: 03-07-2025 Patient encounter procedure Gutierrez Lara Work Phone: Podiatry Comment on above: Tarsal tunnel syndro me, bilateral (Primary Dx); Plantar fasciitis Start: 03-07-2025 End: 03-07-2025 ambulatory GUTIERREZ LARA Facility:[facility] Start: 01-30-2025 End: 01-30-2025 Emergency department patient visit Dr. Nehemias Torres DO Work Phone: -Emergency Department Work Phone: Start: 01-26-2025 End: 01-26-2025 Office outpatient visit 25 minutes Fred Frostteddy MANZO Work Phone: [facility] Comment on above: Nausea and vomiting, unspecified vomiting type (Primary Dx) Start: 01-26-2025 End: 01-26-2025 ambulatory FRED GUZMAN Facility:[facility] Start: 11-28-2024 End: 11-28-2024 [facility] Facility:[facility] Start: 11-28-2024 End: 11-28-2024 [facility] Fanny Blankenship DO Work Phone: Psychiatry Comment on above: Panic disorder witho ut agoraphobia (Primary Dx); JOE (generalized anxiety disorder); PTSD (post-traumatic stress disorder) Start: 11-24-2024 End: 11-24-2024 Patient encounter procedure Gutierrez Jane Work Phone: Podiatry Comment on above: Plantar fasciitis (P rimary Dx); Tarsal tunnel syndrome, bilateral Start: 11-24-2024 End: 11-24-2024 ambulatory GUTIERREZ LARA Facility:[facility] Start: 10-18-2024 End: 10-18-2024 ambulatory VINH RODRIGUEZ Facility:[facility] Start: 10-18-2024 End: 10-18-2024 Patient encounter procedure Gutierrez Southugo Work Phone: Podiatry Comment on above: Plantar fasciitis (P rimary Dx); Tarsal tunnel syndrome, bilateral; Pes planus of both feet Start: 10-05-2024 End: 10-05-2024 Office outpatient new 30 minutes Vinh Rodriguez PA-C Work Phone: [facility] Comment on above: Left foot pain (Prim kimberli Dx); Plantar fasciitis Start: 10-05-2024 End: 10-05-2024 ambulatory ATTILA AMAYA Facility:[facility] Start: 10-05-2024 End: 10-05-2024 Subsequent hospital visit by physician [facility] [place] Work Phone: Radiology Comment on above: Left foot pain [M79. 672] Start: 09-07-2024 End: 09-07-2024 Refill Fanny Angie Blankenship DO Work Phone: Psychiatry Comment on above: Refill Request Start: 07-08-2024 End: 07-08-2024 [facility] Fanny Blankenship DO Work Phone: Psychiatry Comment on above: Panic disorder witho ut agoraphobia (Primary Dx); PTSD (post-traumatic stress disorder) Start: 06-06-2024 End: 06-07-2024 Refill Fanny Angie Blankenship DO Work Phone: Psychiatry Comment on above: Refill Request Start: 05-16-2024 End: 05-16-2024 Subsequent hospital visit by physician [facility] Work Phone: Radiology Comment on above: Acute bilateral ankl e pain [M25.571, M25.572] Start: 05-16-2024 End: 05-16-2024 ambulatory ATTILA AMAYA Facility:[facility] Start: 05-16-2024 End: 05-16-2024 Office outpatient visit 15 minutes Fred Guzman APRN.NURSE OUTREACH CASE MANAGER Work Phone: [facility] Comment on above: Acute bilateral ankl e pain (Primary Dx) Start: 03-09-2024 End: 03-09-2024 [facility] Fanny Blankenship DO Work Phone: Psychiatry Comment on above: Major depressive dis order, 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); Panic disorder without agoraphobia Start: 01-20-2024 Refill Aleyda Santos PRTalib.NURSE OUTREACH CASE MANAGER Work Phone: Neurology Comment on above: Refill Request Start: 12-10-2023 End: 12-10-2023 [facility] Fanny Angie Blankenship DO Work Phone: Psychiatry Comment on above: Panic disorder witho ut agoraphobia (Primary Dx); JOE (generalized anxiety disorder) Start: 11-25-2023 End: 11-25-2023 ambulatory Aleyda Hylton DIRECTOR OF PUBLICATIONS.NURSE OUTREACH CASE MANAGER Work Phone: Neurology Comment on above: Absence seizure (HCC ); Generalized epilepsy (HCC) Start: 11-25-2023 End: 11-25-2023 Telemedicine consultation with patient Aleyda Hylton STEVE.NURSE OUTREACH CASE MANAGER Work Phone: [facility] Start: 11-17-2023 ambulatory Fanny Blankenship DO Work Phone: Psychiatry Comment on above: Medication Start: 11-11-2023 ambulatory Fanny Blankenship DO Work Phone: Psychiatry Comment on above: Cancellation and res cheduling Start: 11-07-2023 ambulatory Maryan IVEY.NURSE OUTREACH CASE MANAGER Work Phone: Neurology Comment on above: Doctor Driving Form Start: 10-02-2023 End: 10-02-2023 Telemedicine consultation with patient Fanny Blankenship DO Work Phone: [facility] [employer] BLDG 1 Start: 10-02-2023 ambulatory Fanny Blankenship DO Work Phone: [facility] [employer] Start: 10-02-2023 End: 10-02-2023 Patient encounter procedure Fanny Blankenship DO Work Phone: Psychiatry Comment on above: Appointment JOE (generalized anx iety disorder) (Primary Dx); PMDD (premenstrual dysphoric disorder); Major depressive disorder, recurrent severe without psychotic features (HCC) Start: 09-21-2023 Telephone encounter Fanny Adams Juani frey DO Work Phone: Neurology Comment on above: Appointment Start: 06-26-2023 End: 06-26-2023 Patient encounter procedure Sophie Hutchison APRN.NURSE OUTREACH CASE MANAGER Work Phone: [facility] Comment on above: Acute bacterial conj unctivitis of both eyes (Primary Dx) Start: 06-19-2023 End: 06-19-2023 Patient encounter procedure Aline Santana APRN.NURSE OUTREACH CASE MANAGER Work Phone: [facility] Comment on above: Sore throat (Primary Dx) Start: 05-06-2023 End: 05-06-2023 [facility] Fanny Blankenship DO Work Phone: Psychiatry Comment on above: JOE (generalized anx iety disorder) (Primary Dx); anxiety; PMDD (premenstrual dysphoric disorder) Start: 04-24-2023 Refill Carmen la MD Work Phone: Psychiatry Comment on above: Refill Request Start: 04-01-2023 Refill Fanny Angie George DO Work Phone: Psychiatry Comment on above: Refill Request Start: 03-12-2023 Refill Fanny Blankenship DO Work Phone: Psychiatry Comment on above: Refill Request Start: 02-03-2023 ambulatory Maryan [place] A PRN.NURSE OUTREACH CASE MANAGER Work Phone: Neurology Comment on above: Drivers form Start: 02-03-2023 End: 02-03-2023 Office outpatient visit 15 minutes Fred Guzman DIRECTOR OF PUBLICATIONS.NURSE OUTREACH CASE MANAGER Work Phone: [facility] Comment on above: Sore throat (Primary Dx); Bacterial conjunctivitis Start: 01-27-2023 Refill Maryan [place] A PRN.NURSE OUTREACH CASE MANAGER Work Phone: Neurology Comment on above: Refill Request Start: 12-20-2022 ambulatory Maryan [place] A PRN.NURSE OUTREACH CASE MANAGER Work Phone: Neurology Comment on above: Ceo s Form Start: 11-09-2022 Refill Fanny Blankenship DO Work Phone: OB/Gynecology Comment on above: Refill Request Start: 10-20-2022 End: 10-20-2022 ambulatory Maryan [place] DIRECTOR OF PUBLICATIONS.NURSE OUTREACH CASE MANAGER Work Phone: Neurology Comment on above: Absence seizure (HCC ) (Primary Dx); Generalized epilepsy (HCC) Start: 10-20-2022 End: 10-20-2022 Telemedicine consultation with patient Maryan [place] DIRECTOR OF PUBLICATIONS.NURSE OUTREACH CASE MANAGER Work Phone: [facility] Start: 09-17-2022 Refill Fanny Angie AndersonBlankenship DO Work Phone: OB/Gynecology Comment on above: Refill Request Start: 07-20-2022 Refill Fanny Blankenship DO Work Phone: Psychiatry Comment on above: Refill Request Medication renewal Start: 06-11-2022 End: 06-11-2022 [facility] Fanny Blankenship DO Work Phone: Psychiatry Comment on above: anxiety ( Primary Dx); Panic disorder without agoraphobia Refill Request Start: 05-07-2022 End: 05-07-2022 [facility] Fanny Blankenship DO Work Phone: Psychiatry Comment on above: anxiety ( Primary Dx); Panic disorder without agoraphobia Start: 05-01-2022 ambulatory Fanny Blankenship DO Work Phone: [facility] 1 Start: 05-01-2022 Patient encounter procedure Fanny Blankenship DO Work Phone: Psychiatry Comment on above: Appointment Start: 04-01-2022 ambulatory Fanny Blankenship DO Work Phone: Psychiatry Comment on above: Anxiety medication Start: 01-29-2022 ambulatory [facility] Neurology Comment on above: BMV Form Start: 01-29-2022 E-mail encounter hunter m caregiver [facility] Start: 01-29-2022 Telephone encounter Ariadna mccabe MD, PhD Work Phone: Neurology Comment on above: BMV Forms Start: 12-31-2021 End: 12-31-2021 [facility] Fanny Blankenship DO Work Phone: Psychiatry Comment on above: anxiety ( Primary Dx); Panic disorder without agoraphobia Medication costs Start: 12-18-2021 End: 12-18-2021 Patient encounter procedure Ashlie Blanchard APRN.CNM Work Phone: OB/Gynecology Comment on above: mood dist urbance (Primary Dx); Anxiety neurosis; Care and examination of lactating mother; Generalized epilepsy (HCC) Start: 12-27-2020 End: 02-22-2022 Patient requested procedure Maryan [place] DIRECTOR OF PUBLICATIONS.NURSE OUTREACH CASE MANAGER Work Phone: [facility] Procedures Date Procedure Procedure Detail Performing Clinician Start: 04-17-2025 Nerve conduction mayra dies 5-6 studies Gutierrez Lara Work Phone: Start: 01-30-2025 Urnls dip stick/tabl et reagent auto microscopy Dr. Nehemias Torres DO Work Phone: Start: 01-30-[address] Nehemias Torres DO Work Phone: Start: 10-05-2024 Radex foot complete minimum 3 views Vinh Rodriguez PA-C Work Phone: Start: 05-16-2024 Radex ankle complete minimum 3 views Fred Guzman DIRECTOR OF PUBLICATIONS.NURSE OUTREACH CASE MANAGER Work Phone: Start: 06-19-2023 STREP A MOLECULAR (POC) Aline Santana DIRECTOR OF PUBLICATIONS.NURSE OUTREACH CASE MANAGER Work Phone: Start: 02-03-2023 STREP A MOLECULAR (POC) Aline Santana DIRECTOR OF PUBLICATIONS.NURSE OUTREACH CASE MANAGER Work Phone: Start: 12-29-2021 Adult depression screening assessment Fanny Blankenship DO Work Phone: Start: 07-22-2021 Adult depression screening assessment Ashlie Blanchard DIRECTOR OF PUBLICATIONS.CNM Work Phone: Plan of Treatment Date Care Activity Detail Author Start: 05-14-2031 Urine microalbumin profile [facility] Start: 04-14-2025 End: 04-14-2025 ambulatory 04/14/2025 1:05 PM EDT Procedure Neurology [address] [place] [address] Tarsal tunnel syndrome, bilateral [G57.53] Neurology Comment on above: Tarsal tunnel syndro me, bilateral [G57.53] Start: 04-10-2025 Influenza vaccination [facility] Start: 03-07-2025 End: 03-07-2025 Patient encounter procedure 03/07/2025 3:45 PM EDT Office Visit Podiatry [address] [place] [address] Gutierrez Lara [address] [place] [address] 5 wk follow up Podiatry Comment on above: 5 wk follow up Start: 01-30-2025 [facility] Start: 01-24-2025 End: 01-24-2025 Patient encounter procedure 01/24/2025 1:00 PM EDT Office Visit Podiatry [address] [place], [place] [id number] Gutierrez Lara [address] [place] [address] 5 wk follow up Podiatry Comment on above: 5 wk follow up Start: 12-05-2024 End: 12-05-2024 ambulatory 12/05/2024 1:00 PM EDT [facility] Neurology [address] [place] [address] Maryan Rogel APRN.NURSE OUTREACH CASE MANAGER [address] [facility] [address] [place] [address] Checkup Neurology Comment on above: Checkup Start: 11-28-2024 End: 11-28-2024 Follow-up encounter 11/28/2024 2:30 PM EDT [facility] Psychiatry [address] [facility] [address] [place] [address] Fanny Blankenship, [address] [place] [address] follow up Psychiatry Comment on above: follow up Start: 11-24-2024 End: 11-24-2024 Patient encounter procedure 11/24/2024 1:00 PM EDT Office Visit Podiatry [address] [place], [place] [id number] Gutierrez Lara [address] [address] 5 wk follow up Podiatry Comment on above: 5 wk follow up Start: 10-18-2024 End: 10-18-2024 Patient encounter procedure 10/18/2024 1:45 PM EDT Office Visit Podiatry [address] [place] [address] Gutierrez Lara [address] [facility] [address] [place] [address] Dx: Plantar fasciitis [M72.2] Podiatry Comment on above: Dx: Plantar fasciiti s [M72.2] Start: 07-08-2024 End: 10-07-2024 Thyrotropin [Units/volume] in Serum or Plasma THYROID STIMULATING HORMONE Lab Routine Panic disorder without agoraphobia Expected: 07/08/2024, Expires: 10/07/2024 [facility] Work Phone: Comment on above: Expected: 07/08/2024 , Expires: 10/07/2024 Start: 07-08-2024 End: 10-07-2024 Thyroxine (T4) free [Mass/volume] in Serum or Plasma T4 FREE/FREE THYROXINE Lab Routine Panic disorder without agoraphobia Expected: 07/08/2024, Expires: 10/07/2024 [facility] Comment on above: Expected: 07/08/2024 , Expires: 10/07/2024 Start: 07-08-2024 End: 10-07-2024 Triiodothyronine (T3) Free [Mass/volume] in Serum or Plasma T3, FREE Lab Routine Panic disorder without agoraphobia Expected: 07/08/2024, Expires: 10/07/2024 [facility] Comment on above: Expected: 07/08/2024 , Expires: 10/07/2024 Start: 04-10-2024 Covid-19 Vaccine ( season) Covid-19 Vaccine ( season) [facility] Start: 04-10-2024 Influenza vaccination [facility] Start: 12-10-2023 End: 12-10-2023 ambulatory 12/10/2023 11:30 AM EDT [facility] Psychiatry [facility] [address] [place] [address] Fanny Blankenship, DO [address] [place] [address] med check Psychiatry Comment on above: med check Start: 08-10-2023 Depression Assessment Depression Ass essment [facility] Start: 04-10-2023 Covid-19 Vaccine ( season) Covid-19 Vaccine () [facility] Start: 04-10-2023 Influenza vaccination [facility] Start: 12-29-2022 Adult depression scr eening assessment DEPRESSION SCREENING [facility] Start: 10-20-2022 End: 12-20-2022 10-Hydroxycarbazepine [Mass/volume] in Serum or Plasma OXCARBAZEPINE BLD Lab Routine Absence seizure (HCC) Generalized epilepsy (HCC) Expected: 10/20/2022, Expires: 12/20/2022 [facility] Work Phone: Comment on above: Expected: 10/20/2022 , Expires: 12/20/2022 Start: 10-20-2022 End: 12-20-2022 CBC panel - Blood by Automated count CBC Lab Routine Absence seizure (HCC) Generalized epilepsy (HCC) Expected: 10/20/2022, Expires: 12/20/2022 [facility] Work Phone: Comment on above: Expected: 10/20/2022 , Expires: 12/20/2022 Start: 10-20-2022 End: 12-20-2022 Comprehensive metabolic 2000 panel - Serum or Plasma COMP METABOLIC PANEL Lab Routine Absence seizure (HCC) Generalized epilepsy (HCC) Expected: 10/20/2022, Expires: 12/20/2022 [facility] Work Phone: Comment on above: Expected: 10/20/2022 , Expires: 12/20/2022 Start: 08-10-2022 DEPRESSION ASSESSMENT DEPRESSION ASS ESSMENT [facility] Start: 07-22-2022 Adult depression scr eening assessment DEPRESSION SCREENING [facility] Start: 06-06-2022 PAP TESTING PAP TESTING [facility] Start: 06-06-2022 Screening for malign ant neoplasm of cervix [facility] Start: 04-10-2022 Influenza vaccination INFLUENZA (#1) [facility] Start: 12-31-2021 End: 03-02-2022 T3 BLD T3 BLD Lab Routine anxiety Panic disorder without agoraphobia Expected: 12/31/2021, Expires: 03/02/2022 [facility] Work Phone: Comment on above: Expected: 12/31/2021 , Expires: 03/02/2022 Start: 12-31-2021 End: 03-02-2022 T4 FREE/FREE THYROX T4 FREE/FREE THYROX Lab Routine anxiety Panic disorder without agoraphobia Expected: 12/31/2021, Expires: 03/02/2022 [facility] Work Phone: Comment on above: Expected: 12/31/2021 , Expires: 03/02/2022 Start: 12-31-2021 End: 03-02-2022 Thyrotropin [Units/volume] in Serum or Plasma TSH BLD Lab Routine anxiety Panic disorder without agoraphobia Expected: 12/31/2021, Expires: 03/02/2022 [facility] Work Phone: Comment on above: Expected: 12/31/2021 , Expires: 03/02/2022 Start: 08-10-2021 DEPRESSION ASSESSMENT DEPRESSION ASS ESSMENT [facility] Start: 2016 Hepatitis B Vaccine (1 of 3 - 19+ 3-dose series) Hepatitis B Vaccine (1 of 3 - 19+ 3-dose series) [facility] Start: 2015 Anxiety Screening Anxiety Screening [facility] Start: 2015 Depression Screening Depression Scre ening [facility] Start: 04-27-2015 HPV Vaccine (3 - 3-d ose series) HPV Vaccine (3 - 3-dose series) [facility] Start: 04-26-2015 HPV Vaccine (3 - 3-d ose series) HPV Vaccine (3 - 3-dose series) [facility] Start: 2011 PEDS TO ADULT TRANSI TION ANNUAL ASSESSMENT PEDS TO ADULT TRANSITION ANNUAL ASSESSMENT [facility] Start: 2009 PEDS TO ADULT TRANSI TION INITIAL DISCUSSION PEDS TO ADULT TRANSITION INITIAL DISCUSSION [facility] Start: 2008 HPV VACCINE (1 - 2-d ose series) HPV VACCINE (1 - 2-dose series) [facility] Start: 2007 MENINGOCOCCAL B: Con cigar head pegger based on risk (1 of 2 - Risk Bexsero 2-dose series) MENINGOCOCCAL B: Consider based on risk (1 of 2 - Risk Bexsero 2-dose series) [facility] Start: 2006 HPV VACCINE (1 - 2-d ose series) HPV VACCINE (1 - 2-dose series) [facility] Start: 2002 COVID-19 VACCINE (#1) COVID-19 VACCI NE (#1) [facility] Start: 01-01-1998 COVID-19 VACCINE (#1) COVID-19 VACCI NE (#1) [facility] Start: 1997 HEPATITIS B (1 of 3 - 3-dose series) HEPATITIS B (1 of 3 - 3-dose series) [facility] Start: 1997 Hepatitis B Vaccine (1 of 3 - 3-dose series) Hepatitis B Vaccine (1 of 3 - 3-dose series) [facility] End: 03-07-2026 EMG(NEURO/NI) EMG(NEURO/NI) EMG Routine Tarsal tunnel syndrome, bilateral Plantar fasciitis 1 Occurrences starting 03/07/2025 until 03/07/2026 [facility] Work Phone: Comment on above: 1 Occurrences starti ng 03/07/2025 until 03/07/2026 Patient Education ED Headache Un specified ED Vomiting (Adult) [facility] Work Phone: Patient referral [facility] Work Phone: [facility] Immunizations Immunization Date Immunization Notes Care Provider Fa cility 06-10-[address] Nehemias Torres DO Work Phone: [facility] 06-10-2021 tetanus toxoid, redu norma diphtheria toxoid, and acellular pertussis vaccine, adsorbed Dr. Nehemias Torres DO Work Phone: [facility] 05-28-2021 influenza, injectabl e, quadrivalent, contains preservative Ashlie Plotts DIRECTOR OF PUBLICATIONS.CNM Work Phone: [facility] 05-28-2021 influenza virus vaccine, unspecified formulation Carmen To MD Work Phone: [facility] 05-14-2021 tetanus toxoid, redu norma diphtheria toxoid, and acellular pertussis vaccine, adsorbed Ashlie Plotts DIRECTOR OF PUBLICATIONS.CNM Work Phone: [facility] Payers Date Payer Category Payer Self-pay 2022 [employer] [facility] BLUE ACCE SS PPO [id number] 2022 Unknown [employer] ACCE PPO [id number] 2022-Present [phone] [address] [place] [address] PPO [id number] 2022 Unknown [id number] 2022 Private Health Insurance [id number] 2018 Medicaid MEDICAID [facility] MEDICAID [id number] 2018-Present [phone] [address] [place] [address] Medicaid [id number] Unknown HEALTH SMART PRE FERRED CARE [id number] Unknown [employer] [id number] Unknown [facility] [id number] Unknown [id number] Social History Date Type Detail Facility Assertion Tobacco smoking consumption unknown (finding) [id number] Work Phone: Start: 05-28-2015 End: 02-03-2023 Tobacco smoking status NHIS Never smoked tobacco [facility] Start: 05-28-2015 End: 02-03-2023 Tobacco use and exposure Smokeless tobacco non-user [facility] Start: 12-18-2021 End: 03-07-2025 Alcohol intake Current non-drinker of alcohol (finding) [facility] Start: 12-27-2020 Education 13 [facility] Start: 1997 Sex Assigned At Female [facility] Start: 12-08-2021 End: 12-18-2021 Exposure to SARS-CoV-2 (event) Not sure [facility] Start: 02-03-2023 End: 03-07-2025 History of Social function [facility] Start: 02-03-2023 End: 03-07-2025 Tobacco use panel [facility] Start: 07-11-2012 Adult Depression Screening Assessment 1 [facility] Start: 04-11-2020 Gender identity Identifies as female gender (finding) [facility] Start: 04-11-2020 Sexual orientation Heterosexual (fin ding) [facility] Start: 01-30-2025 Tobacco smoking stat us NHIS Ex-smoker (finding) [facility] Start: 12-17-2020 Tobacco Use Tobacco Use [facility] Functional Status Date Assessment Result Facility NEGATED: Highlighted row Functional performance Functional status health issues are not documented Disease [facility] Work Phone: Mental Status Date Assessment Result Facility 01-30-2025 Cognitive function Level Of Cons ciousness Awake;Alert;Appropriate ;Follows Commands [facility] Work Phone: NEGATED: Highlighted row Cognitive function [Interpretation] Cognitive status health issues are not documented Disease [facility] Work Phone: Clinical Notes 05-14-2021 to 04-17-2025 Mercedes Bynum MD - 04/17/2025 2:22 PM EDTTGutierrez gallardo - 03/07/2025 10:34 PM EDTSophie Villalba RN - 03/07/2025 3:48 PM EDTPatient Fanny Bush DO - 11/28/2024 2:38 PM EDT Note Date & Type Note Facility 04-17-2025 Note HNO ID: [id number] Author: MERCEDES BYNUM MD Service: ? Author Type: Physician Type: Progress Notes Filed: 04/17/2025 15:00 Note Text: UNIVERSAL PROTOCOL / SAFETY CHECKLIST Procedure to be Performed: EMG Sign In: A Moment of CARE was completed. Personnel directly involved with the procedure wore the appropriate PPE (Personal Protective Equipment). Patient/Surrogate Stated/Verified: Patient name, Date of , Relevant allergies, and The intended procedure Time Out Communication: Intended patient and procedure match the source documents. No relevant labs, photos, and/or imaging studies were applicable for review. Sign Out: SIGN OUT (optional for EMERGENT procedures): Post-procedure follow-up management communicated and Plan of Care Visit completed when applicable. Finn [facility] Mercedes Bynum MD [facility] 04-17-2025 History of Presen t illness Narrative UNIVERSAL PROTOCOL / SAFETY CHECKLIST Procedure to be Performed: EMG Sign In: A Moment of CARE was completed. Personnel directly involved with the procedure wore the appropriate PPE (Personal Protective Equipment). Patient/Surrogate Stated/Verified: Patient name, Date of , Relevant allergies, and The intended procedure Time Out Communication: Intended patient and procedure match the source documents. No relevant labs, photos, and/or imaging studies were applicable for review. Sign Out: SIGN OUT (optional for EMERGENT procedures): Post-procedure follow-up management communicated and Plan of Care Visit completed when applicable. Finn Bynum MD documented in this encounter [facility] 03-07-2025 Note HNO ID: [id number] Author: GUTIERREZ LARA, ? Service: ? Author Type: Physician Type: Progress Notes Filed: 03/07/2025 22:35 Note Text: Subjective Rayne Toscano is a 29-year-old female presenting for follow-up of bilateral heel pain. Rayne reports bilateral heel pain, predominantly on the right side, with a sharp, burning, and shooting quality. The pain is most intense in the arches of both feet and occurs primarily in the afternoon, with no discomfort upon waking and placing feet on the ground. 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 She has been performing stretching exercises and using shoe inserts, which provide temporary relief but do not completely alleviate the pain. She denies any numbness, tingling, or burning sensations when tapping on the ankle, and no pain radiates down the foot or up the leg. She is not on blood thinners and does not have any pain stimulators. Musculoskeletal: (+) bilateral heel pain right greater than left, (+) sharp burning pain in bilateral arches Neurological: (+) bilateral foot numbness, (+) bilateral foot tingling PAST MEDICAL HISTORY Diagnosis Date Anemia during in third trimester (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) 04/15/2018 12/31/20- [facility] consult placed. Dayna Muñoz APRN.CANDI 1Patient was diagnosed with seizures at age [address] Dahlia santos neurologist. See my chart note dated December 17. Patient had lab work completed as ordered by the neurologist. I transferred her to schedule an appointment with the neurologist. Patient denies any seizures since February 2015.TKRN Seizure ([facility]) Current Outpatient Medications Medication Sig Dispense Refill sertraline (ZOLOFT) 25 mg tablet Take 3 tablets by mouth once daily. 270 tablet 0 OXcarbazepine (TRILEPTAL) 300 mg tablet Take 1.5 tablets by mouth two times a day. 270 tablet 0 No current facility-administered medications for this visit. Family History Problem Relation Age of Onset other (Other) Mother anxiety Stroke Mother other (Other) Father back problems Thyroid Sister Autism Sister other (epilepsy) Sister other (Other) Brother anxiety other (Other) Brother adhd Diabetes Maternal Grandmother Heart Maternal Grandfather Lung Cancer Paternal Grandmother No Known Problems Paternal Grandfather Objective Last menstrual period 06/11/2023, currently . - Cardiovascular: Dorsalis pedis and posterior tibial pulses palpable bilaterally; capillary refill time <5 seconds. - Skin: Warm temperature bilaterally. - Musculoskeletal: - Right Foot: - Tenderness to palpation over the plantar medial calcaneal tubercle. - Left Foot: - No tenderness to palpation over the plantar medial calcaneal tubercle. - Neurological: Positive Tinel's sign bilaterally. Imaging: - (September) X-ray of the left foot. Assessment AND Plan 1. Tarsal tunnel syndrome, bilateral (G57.53) Plantar fasciitis (M72.2) Experiencing sharp, burning pain primarily in the arches of both feet, with a pain level of 5/10. Positive Tinel's sign bilaterally. Pain is not present upon waking but develops midday. Previous x-rays of the left foot were performed in September. Differential diagnosis includes plantar fasciitis versus nerve entrapment. - Ordered EMG studies for both feet to assess for nerve entrapment. - Continue stretching exercises. - If EMG is inconclusive, consider MRI. - Discussed potential for corticosteroid injection if pain persists. my concern with steroid injection is that if this is nerve entrapment, ie ashraf neuritis vs tarsal tunnel, steroid injection to plantar heel may not result in clearance of her pain. Recording using [employer] software for draft documentation of the visit was discussed with the patient/authorized merchandiser retail representative; all questions welcomed and answered. Patient/authorized merchandiser retail representative agreed to proceed Gutierrez Lara DPM [facility] 03-07-2025 History of Presen t illness Narrative Subjective Rayne Toscano is a 29-year-old female presenting for follow-up of bilateral heel pain. Rayne reports bilateral heel pain, predominantly on the right side, with a sharp, burning, and shooting quality. The pain is most intense in the arches of both feet and occurs primarily in the afternoon, with no discomfort upon waking and placing feet on the ground. 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 She has been performing stretching exercises and using shoe inserts, which provide temporary relief but do not completely alleviate the pain. She denies any numbness, tingling, or burning sensations when tapping on the ankle, and no pain radiates down the foot or up the leg. She is not on blood thinners and does not have any pain stimulators. Musculoskeletal: (+) bilateral heel pain right greater than left, (+) sharp burning pain in bilateral arches Neurological: (+) bilateral foot numbness, (+) bilateral foot tingling PAST MEDICAL HISTORY Diagnosis Date Anemia during in third trimester (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) 04/15/2018 12/31/20- [facility] consult placed. Dayan Muñoz APRN.[facility] 1Patient was diagnosed with seizures at age [address] Villagomez a neurologist. See my chart note dated December 17. Patient had lab work completed as ordered by the neurologist. I transferred her to schedule an appointment with the neurologist. Patient denies any seizures since February 2015.TKRN Seizure ([facility]) Current Outpatient Medications Medication Sig Dispense Refill sertraline (ZOLOFT) 25 mg tablet Take 3 tablets by mouth once daily. 270 tablet 0 OXcarbazepine (TRILEPTAL) 300 mg tablet Take 1.5 tablets by mouth two times a day. 270 tablet 0 No current facility-administered medications for this visit. Family History Problem Relation Age of Onset other (Other) Mother anxiety Stroke Mother other (Other) Father back problems Thyroid Sister Autism Sister other (epilepsy) Sister other (Other) Brother anxiety other (Other) Brother adhd Diabetes Maternal Grandmother Heart Maternal Grandfather Lung Cancer Paternal Grandmother No Known Problems Paternal Grandfather Objective Last menstrual period 06/11/2023, currently . - Cardiovascular: Dorsalis pedis and posterior tibial pulses palpable bilaterally; capillary refill time <5 seconds. - Skin: Warm temperature bilaterally. - Musculoskeletal: - Right Foot: - Tenderness to palpation over the plantar medial calcaneal tubercle. - Left Foot: - No tenderness to palpation over the plantar medial calcaneal tubercle. - Neurological: Positive Tinel's sign bilaterally. Imaging: - (September) X-ray of the left foot. Assessment & Plan 1. Tarsal tunnel syndrome, bilateral (G57.53) Plantar fasciitis (M72.2) Experiencing sharp, burning pain primarily in the arches of both feet, with a pain level of 5/10. Positive Tinel's sign bilaterally. Pain is not present upon waking but develops midday. Previous x-rays of the left foot were performed in September. Differential diagnosis includes plantar fasciitis versus nerve entrapment. - Ordered EMG studies for both feet to assess for nerve entrapment. - Continue stretching exercises. - If EMG is inconclusive, consider MRI. - Discussed potential for corticosteroid injection if pain persists. my concern with steroid injection is that if this is nerve entrapment, ie ashraf neuritis vs tarsal tunnel, steroid injection to plantar heel may not result in clearance of her pain. Recording using [employer] software for draft documentation of the visit was discussed with the patient/authorized merchandiser retail representative; all questions welcomed and answered. Patient/authorized merchandiser retail representative agreed to proceed Gutierrez Lara DPM Patient presents with: Left Foot - Established Patient, Follow Up, Pain Right Foot - Established Patient, Follow Up, Pain AMB ROOMING INTAKE FLOWSHEET DATA Risk Screening Do you have concerns about personal safety or safety in the home?: No Pain Pain Level: 5 Pain Location: Other: See Comment (Bilateral feet) Description: Aching, Burning, Sharp, Shooting, Sore, Stabbing Duration Amount of Time: 6 Duration Units: Hours Frequency: Continuous Intervention/Comfort measure: Reposition, Heat, Positioning Comments: In both feet, majority of the day, no change since last visit Patient presents for follow up of bilateral foot pain. Was seen in November for plantar fasciitis and bilateral tarsal tunnel syndrome. Has been using inserts and stretching. States that pain has not improved, but has not worsened either. 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 Being on her feet extended periods can worsen the pain. ARNIE 11/24/24 documented in this encounter [facility] 03-07-2025 Instructions Gutierrez Lara - 03/07/2025 4:12 PM EDT We discussed your heel and arch pain: - Your symptoms are consistent with plantar fasciitis, but the numbness and tingling you are experiencing raise concern for possible nerve entrapment. - Continue stretching exercises and wearing supportive shoes with inserts, as these may help alleviate your symptoms. - I have ordered an EMG (nerve study) for both feet to evaluate for potential nerve entrapment. This test will measure the velocity of your nerves and help determine if a nerve issue is contributing to your pain. You will receive two separate orders for this test. - If the nerve study does not provide answers, we may consider an MRI to gather more information. - Depending on the results of the nerve study and your symptoms, we can discuss additional treatment options, such as a steroid injection or physical therapy, if needed. Please continue your current care plan, and we will follow up after the nerve study results are available. Let us know if your symptoms worsen or if you have any questions. documented in this encounter [facility] 03-07-2025 Note HNO ID: [id number] Author: SOPHIE VILLALBA, RN Service: ? Author Type: Registered Nurse Type: Progress Notes Filed: 03/07/2025 22:35 Note Text: Patient presents with: Left Foot - Established Patient, Follow Up, Pain Right Foot - Established Patient, Follow Up, Pain AMB ROOMING INTAKE FLOWSHEET DATA Risk Screening Do you have concerns about personal safety or safety in the home?: No Pain Pain Level: 5 Pain Location: Other: See Comment (Bilateral feet) Description: Aching, Burning, Sharp, Shooting, Sore, Stabbing Duration Amount of Time: 6 Duration Units: Hours Frequency: Continuous Intervention/Comfort measure: Reposition, Heat, Positioning Comments: In both feet, majority of the day, no change since last visit Patient presents for follow up of bilateral foot pain. Was seen in November for plantar fasciitis and bilateral tarsal tunnel syndrome. Has been using inserts and stretching. States that pain has not improved, but has not worsened either. 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 Being on her feet extended periods can worsen the pain. ARNIE 11/24/24 [facility] 01-26-2025 Note HNO ID: [id number] Author: FRED GUZMAN APRN.NURSE OUTREACH CASE MANAGER Service: ? Author Type: Nurse Practitioner Type: Progress Notes Filed: 01/26/2025 15:02 Note Text: Subjective HPI Nontoxic-appearing 29-year-old female presents urgent care accompanied by significant other. Chief complaint nausea vomiting headache cough. Has had vomiting for 2 days. Has been nauseous on and off for the last 4 to 5 days. Headache present. OTC medications Pepto-Bismol. This has helped. Unknown sick contacts. 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 No blood in vomit. No change in bowel or bladder habit. Denies chance of . Just finished menstrual cycle. No abdominal pain. Has urinated multiple times today. Denies any fevers. No chest pain shortness of breath. Is not . Is not breast-feeding. Past medical history prescription medications allergies reviewed. BP 121/84 Pulse 76 Temp 36.7 ?C (98.1 ?F) Resp 18 Wt 64.2 kg (141 lb 8.6 oz) LMP 06/11/2023 (Approximate) SpO2 99% BMI 27.64 kg/m? .Patient presents with: Nausea AND Vomiting: SWIFT x5 days, lightheaded PAST MEDICAL HISTORY Diagnosis Date Anemia during in third trimester (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) 04/15/2018 12/31/20- [facility] consult placed. Dayna Muñoz APRN.[facility] 1Patient was diagnosed with seizures at age [address] Dahlia santos neurologist. See my chart note dated December 17. Patient had lab work completed as ordered by the neurologist. I transferred her to schedule an appointment with the neurologist. Patient denies any seizures since February 2015.TKRN Seizure ([facility]) PAST SURGICAL HISTORY Procedure Laterality Date DELIVERY ONLY 08/10/2021 [facility] ALLERGIES Patient has no known allergies. MEDICATIONS sertraline (ZOLOFT) 25 mg tablet Take 3 tablets by mouth once daily. OXcarbazepine (TRILEPTAL) 300 mg tablet Take 1.5 tablets by mouth two times a day. FAMILY HISTORY Problem Relation Age of Onset other (Other) Mother anxiety Stroke Mother other (Other) Father back problems Thyroid Sister Autism Sister other (epilepsy) Sister other (Other) Brother anxiety other (Other) Brother adhd Diabetes Maternal Grandmother Heart Maternal Grandfather Lung Cancer Paternal Grandmother No Known Problems Paternal Grandfather Social History Tobacco Use Smoking status: Never Smokeless tobacco: Never Vaping Use Vaping status: Never Used Substance Use Topics Alcohol use: No Drug use: No Review of Systems Constitutional: Negative for chills, fever and malaise/fatigue. HENT: Negative for congestion, ear discharge, ear pain, sinus pain and sore throat. Eyes: Negative for blurred vision, pain, discharge and redness. Respiratory: Positive for cough. Negative for hemoptysis, sputum production, shortness of breath, wheezing and stridor. Cardiovascular: Negative for chest pain. Gastrointestinal: Positive for nausea and vomiting. Negative for abdominal pain, constipation and diarrhea. Genitourinary: Negative for dysuria, flank pain, frequency, hematuria and urgency. Musculoskeletal: Negative for myalgias. Skin: Negative for itching and rash. Neurological: Positive for headaches. Negative for dizziness. Objective Physical Exam Constitutional: General: She is not in acute distress. Appearance: She is not diaphoretic. HENT: Head: Normocephalic. Jaw: No trismus, tenderness, swelling or pain on movement. Mouth/Throat: Mouth: Mucous membranes are moist. Pharynx: Oropharynx is clear. Uvula midline. No pharyngeal swelling, oropharyngeal exudate, posterior oropharyngeal erythema or uvula swelling. Eyes: Conjunctiva/sclera: Conjunctivae normal. Pupils: Pupils are equal, round, and reactive to light. Cardiovascular: Rate and Rhythm: Normal rate and regular rhythm. Heart sounds: Normal heart sounds. Pulmonary: Effort: Pulmonary effort is normal. No tachypnea, accessory muscle usage or respiratory distress. Breath sounds: Normal breath sounds. No stridor. No wheezing, rhonchi or rales. Abdominal: General: There is no distension. Palpations: Abdomen is soft. Tenderness: There is no abdominal tenderness. There is no guarding or rebound. Musculoskeletal: Cervical back: Normal range of motion and neck supple. No edema, erythema, rigidity or tenderness. No pain with movement. Normal range of motion. Lymphadenopathy: Cervical: No cervical adenopathy. Skin: General: Skin is warm and dry. Neurological: Mental Status: She is alert and oriented to person, place, and time. ASSESSMENT/PLAN: 1. Nausea and vomiting, unspecified vomiting type - ICD9: 787.01, ICD10: R11.2 Diagnosed nausea vomiting. No evidence acute abdomen. Denies any abdominal pain. No evidence dehydration. Treat as viral etiology at this point. Red flags ER evaluation discussed. Patient was educated on supportive therapies. Rob (more content not included)... [facility] 01-26-2025 History of Presen t illness Narrative Subjective HPI Nontoxic-appearing 29-year-old female presents urgent care accompanied by significant other. Chief complaint nausea vomiting headache cough. Has had vomiting for 2 days. Has been nauseous on and off for the last 4 to 5 days. Headache present. OTC medications Pepto-Bismol. This has helped. Unknown sick contacts. 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 No blood in vomit. No change in bowel or bladder habit. Denies chance of . Just finished menstrual cycle. No abdominal pain. Has urinated multiple times today. Denies any fevers. No chest pain shortness of breath. Is not . Is not breast-feeding. Past medical history prescription medications allergies reviewed. BP 121/84 Pulse 76 Temp 36.7 C (98.1 F) Resp 18 Wt 64.2 kg (141 lb 8.6 oz) LMP 06/11/2023 (Approximate) SpO2 99% BMI 27.64 kg/m .Patient presents with: Nausea & Vomiting: SWIFT x5 days, lightheaded PAST MEDICAL HISTORY Diagnosis Date Anemia during in third trimester (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) 04/15/2018 12/31/20- [facility] consult placed. Dayna Muñoz APRN.JOHNNY 1Patient was diagnosed with seizures at age [address] Dahlia santos neurologist. See my chart note dated December 17. Patient had lab work completed as ordered by the neurologist. I transferred her to schedule an appointment with the neurologist. Patient denies any seizures since February 2015.TKRN Seizure ([facility]) PAST SURGICAL HISTORY Procedure Laterality Date DELIVERY ONLY 08/10/2021 [facility] ALLERGIES Patient has no known allergies. MEDICATIONS sertraline (ZOLOFT) 25 mg tablet Take 3 tablets by mouth once daily. OXcarbazepine (TRILEPTAL) 300 mg tablet Take 1.5 tablets by mouth two times a day. FAMILY HISTORY Problem Relation Age of Onset other (Other) Mother anxiety Stroke Mother other (Other) Father back problems Thyroid Sister Autism Sister other (epilepsy) Sister other (Other) Brother anxiety other (Other) Brother adhd Diabetes Maternal Grandmother Heart Maternal Grandfather Lung Cancer Paternal Grandmother No Known Problems Paternal Grandfather Social History Tobacco Use Smoking status: Never Smokeless tobacco: Never Vaping Use Vaping status: Never Used Substance Use Topics Alcohol use: No Drug use: No Review of Systems Constitutional: Negative for chills, fever and malaise/fatigue. HENT: Negative for congestion, ear discharge, ear pain, sinus pain and sore throat. Eyes: Negative for blurred vision, pain, discharge and redness. Respiratory: Positive for cough. Negative for hemoptysis, sputum production, shortness of breath, wheezing and stridor. Cardiovascular: Negative for chest pain. Gastrointestinal: Positive for nausea and vomiting. Negative for abdominal pain, constipation and diarrhea. Genitourinary: Negative for dysuria, flank pain, frequency, hematuria and urgency. Musculoskeletal: Negative for myalgias. Skin: Negative for itching and rash. Neurological: Positive for headaches. Negative for dizziness. Objective Physical Exam Constitutional: General: She is not in acute distress. Appearance: She is not diaphoretic. HENT: Head: Normocephalic. Jaw: No trismus, tenderness, swelling or pain on movement. Mouth/Throat: Mouth: Mucous membranes are moist. Pharynx: Oropharynx is clear. Uvula midline. No pharyngeal swelling, oropharyngeal exudate, posterior oropharyngeal erythema or uvula swelling. Eyes: Conjunctiva/sclera: Conjunctivae normal. Pupils: Pupils are equal, round, and reactive to light. Cardiovascular: Rate and Rhythm: Normal rate and regular rhythm. Heart sounds: Normal heart sounds. Pulmonary: Effort: Pulmonary effort is normal. No tachypnea, accessory muscle usage or respiratory distress. Breath sounds: Normal breath sounds. No stridor. No wheezing, rhonchi or rales. Abdominal: General: There is no distension. Palpations: Abdomen is soft. Tenderness: There is no abdominal tenderness. There is no guarding or rebound. Musculoskeletal: Cervical back: Normal range of motion and neck supple. No edema, erythema, rigidity or tenderness. No pain with movement. Normal range of motion. Lymphadenopathy: Cervical: No cervical adenopathy. Skin: General: Skin is warm and dry. Neurological: Mental Status: She is alert and oriented to person, place, and time. ASSESSMENT/PLAN: 1. Nausea and vomiting, unspecified vomiting type - ICD9: 787.01, ICD10: R11.2 Diagnosed nausea vomiting. No evidence acute abdomen. Denies any abdominal pain. No evidence dehydration. Treat as viral etiology at this point. Red flags ER evaluation discussed. Patient was educated on supportive therapies. Patient will follow up with primary care provider as needed. Patient was instructed to immediately proceed to emergency room for any new, worsening, or symptoms lasting longer than anticipated. The patient's clinical presentation is otherwise unremarkable at this time. Based on exam and clinical finding, the patient is stable for discharge. Plan of care was discussed with patient. Patient verbalizes understanding and agrees to plan of care. This note was generated using [employer] software. It may contain errors in wording, punctuation, or spelling. Fred Guzman APRN.NURSE OUTREACH CASE MANAGER documented in this encounter [facility] 11-28-2024 Note Addended by: FANNY BLANKENSHIP on: 11/28/2024 02:51 PM Modules accepted: Orders [facility] 11-28-2024 Miscellaneous Notes Addended by: FANNY BLANKENSHIP on: 11/28/2024 02:51 PM Modules accepted: Orders documented in this encounter [facility] 11-28-2024 Note HNO ID: [id number] Author: FANNY BLANKENSHIP DO Service: ? Author Type: Physician Type: Progress Notes Filed: 11/28/2024 14:49 Note Text: FOLLOW UP - PSYCHIATRIC PROGRESS NOTE Visit Type:Virtual Visit utilizing two-way audio and video for at least a portion of the visit. Consent for virtual visit obtained verbally. Confidentiality limitations with virtual visits reviewed with the patient and guardian, if present, who have accepted the risk verbally prior to proceeding with encounter. I have communicated my name and active licensure. The patient's identity and physical location were verified at the time of this visit. Either the patient or their legal merchandiser retail representative has been informed of the risks and benefits of -- and alternatives to -- treatment through a remote evaluation and consents to proceed with the evaluation remotely. Reason for Visit: Outpatient follow-up and safety monitoring of previously prescribed psychiatric medication, psychotherapy or other treatment CC: anxiety follow up HPI: Zoloft initially caused her nausea and vomiting and she feels more tired on it . Pt has been 70 percent better in terms of anxiety .She has been taking the trileptal for seizures. She switched the zoloft 50 mg in the evening which is better. Has a hard time falling sleep still. She denies any depressed mood. She has a therapist at [facility]. Her baby is 3 now , getting big. Work is really good, had to work extra hours for overtime . She is seeing Stormy Goodwin . Risks and benefits of the medication, including any black box warnings, were discussed with the patient. Interval Progress: some improvement PATIENT DATA: Generalized Anxiety Disorder Scale (JOE-7) 03/06/2024 07/08/2024 11/28/2024 JOE - 7 SCORES Score 1 2 0 (0-4) minimal anxiety, (5-9) mild anxiety, (10-14) moderate anxiety, (15-21) severe anxiety Patient Health Questionnaire (PHQ-9) 03/06/2024 07/08/2024 11/28/2024 PHQ-9 Score 0 1 1 (0-4) minimal depression, (5-9) mild depression, (10-14) moderate depression, (15-19) moderately severe depression, (20-27) severe depression PROMIS Global Health 03/06/2024 07/08/2024 11/28/2024 PROMIS Global Health - (T-Scores - the mean of general population = 50. Five points is a clinically meaningful difference.) Physical T-Score 67.7 57.7 57.7 57.7 Mental T-Score 53.3 56 59 59 PAST MEDICAL HISTORY Diagnosis Date Anemia during in third trimester (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) 04/15/2018 12/31/20- [facility] consult placed. Dayna Muñoz APRN.CN 12/27/2020atient was diagnosed with seizures at age [address] Villagomez a neurologist. See my chart note dated December 17. Patient had lab work completed as ordered by the neurologist. I transferred her to schedule an appointment with the neurologist. Patient denies any seizures since February 2015.TKRN Seizure ([facility]) PAST SURGICAL HISTORY Procedure Laterality Date DELIVERY ONLY 08/10/2021 LTCS Current Outpatient Medications Medication Sig Dispense Refill sertraline (ZOLOFT) 50 mg tablet Take 1 tablet by mouth once daily. 90 tablet 0 OXcarbazepine (TRILEPTAL) 300 mg tablet Take 1.5 tablets by mouth two times a day. 270 tablet 0 No current facility-administered medications for this visit. ROS: denied PFSHnone VITAL SIGNS: There were no vitals filed for this visit. MENTAL STATUS EXAM: CONSTITUTIONAL: Well groomed ORIENTATION: Person, Place, Time and Situation MEMORY: Recent intact CONCENTRATION: Normal MOOD: tired AFFECT: Full and appropriate to topic SPEECH : Clear AND distinct LANGUAGE : Normal ASSOCIATIONS: Intact THOUGHT PROCESS : Logical, Coherent, and Rational PROGRESSION : There was no evidence of disturbance in thought perception or progression. FUND OF KNOWLEDGE : Appropriate and Adequate SUICIDE: None HOMICIDE: None DATA REVIEWED: none DIAGNOSIS: PRIMARY: PTSD, panic disorder r/o due to [facility]: 1. Increase zoloft 75 mg and see if tolerated . Follow Up: I spent a total of 30 minutes on the date of the service which included preparing to see the patient, completing clinical documentation, and obtaining and/or reviewing separately obtained history. ADD ON PSYCHOTHERAPY CODE : No SIGNATURE: Fanny Blankenship DO PATIENT NAME: Rayne Toscano DATE: November 28, 2024 TIME: 2:40 PM [facility] 11-28-2024 History of Presen t illness Narrative FOLLOW UP - PSYCHIATRIC PROGRESS NOTE Visit Type:Virtual Visit utilizing two-way audio and video for at least a portion of the visit. Consent for virtual visit obtained verbally. Confidentiality limitations with virtual visits reviewed with the patient and guardian, if present, who have accepted the risk verbally prior to proceeding with encounter. I have communicated my name and active licensure. The patient's identity and physical location were verified at the time of this visit. Either the patient or their legal merchandiser retail representative has been informed of the risks and benefits of -- and alternatives to -- treatment through a remote evaluation and consents to proceed with the evaluation remotely. Reason for Visit: Outpatient follow-up and safety monitoring of previously prescribed psychiatric medication, psychotherapy or other treatment CC: anxiety follow up HPI: Zoloft initially caused her nausea and vomiting and she feels more tired on it . Pt has been 70 percent better in terms of anxiety .She has been taking the trileptal for seizures. She switched the zoloft 50 mg in the evening which is better. Has a hard time falling sleep still. She denies any depressed mood. She has a therapist at [facility]. Her baby is 3 now , getting big. Work is really good, had to work extra hours for overtime . She is seeing Stormy Goodwin . Risks and benefits of the medication, including any black box warnings, were discussed with the patient. Interval Progress: some improvement PATIENT DATA: Generalized Anxiety Disorder Scale (JOE-7) 03/06/2024 07/08/2024 11/28/2024 JOE - 7 SCORES Score 1 2 0 (0-4) minimal anxiety, (5-9) mild anxiety, (10-14) moderate anxiety, (15-21) severe anxiety Patient Health Questionnaire (PHQ-9) 03/06/2024 07/08/2024 11/28/2024 PHQ-9 Score 0 1 1 (0-4) minimal depression, (5-9) mild depression, (10-14) moderate depression, (15-19) moderately severe depression, (20-27) severe depression PROMIS Global Health 03/06/2024 07/08/2024 11/28/2024 PROMIS Global Health - (T-Scores - the mean of general population = 50. Five points is a clinically meaningful difference.) Physical T-Score 67.7 57.7 57.7 57.7 Mental T-Score 53.3 56 59 59 PAST MEDICAL HISTORY Diagnosis Date Anemia during in third trimester (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) 04/15/2018 12/31/20- [facility] consult placed. Dayna Muñoz APRN.CNM 1Patient was diagnosed with seizures at age [address] Dahlia santos neurologist. See my chart note dated December 17. Patient had lab work completed as ordered by the neurologist. I transferred her to schedule an appointment with the neurologist. Patient denies any seizures since February 2015.TKRN Seizure ([facility]) PAST SURGICAL HISTORY Procedure Laterality Date DELIVERY ONLY 08/10/2021 LTCS Current Outpatient Medications Medication Sig Dispense Refill sertraline (ZOLOFT) 50 mg tablet Take 1 tablet by mouth once daily. 90 tablet 0 OXcarbazepine (TRILEPTAL) 300 mg tablet Take 1.5 tablets by mouth two times a day. 270 tablet 0 No current facility-administered medications for this visit. ROS: denied PFSHnone VITAL SIGNS: There were no vitals filed for this visit. MENTAL STATUS EXAM: CONSTITUTIONAL: Well groomed ORIENTATION: Person, Place, Time and Situation MEMORY: Recent intact CONCENTRATION: Normal MOOD: tired AFFECT: Full and appropriate to topic SPEECH : Clear & distinct LANGUAGE : Normal ASSOCIATIONS: Intact THOUGHT PROCESS : Logical, Coherent, and Rational PROGRESSION : There was no evidence of disturbance in thought perception or progression. FUND OF KNOWLEDGE : Appropriate and Adequate SUICIDE: None HOMICIDE: None DATA REVIEWED: none DIAGNOSIS: PRIMARY: PTSD, panic disorder r/o due to [facility]: 1. Increase zoloft 75 mg and see if tolerated . Follow Up: I spent a total of 30 minutes on the date of the service which included preparing to see the patient, completing clinical documentation, and obtaining and/or reviewing separately obtained history. ADD ON PSYCHOTHERAPY CODE : No SIGNATURE: Fanny Blankenship DO PATIENT NAME: Rayne Toscano DATE: November 28, 2024 TIME: 2:40 PM documented in this encounter [facility] 11-24-2024 History of Presen t illness Narrative Fredy Watson is a 29-year-old female presenting for follow-up of bilateral foot pain. Bilateral Foot Pain: - Persistent pain in the arches of both feet, improved with use of inserts over the past 5 weeks. - Reports approximately 50% improvement in pain; no longer limping. - Pain now occurs primarily in the midday, rather than in the morning. - Engaging in regular stretching exercises. - Experiences sharp pain radiating to the toes of the right foot. 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) 04/15/2018 12/31/20- [facility] consult placed. Dayna Muñoz APRN.[facility] 1Patient was diagnosed with seizures at age [address] Villagomez a neurologist. See my chart note dated December 17. Patient had lab work completed as ordered by the neurologist. I transferred her to schedule an appointment with the neurologist. Patient denies any seizures since February 2015.TKRN Seizure ([facility]) Current Outpatient Medications Medication Sig Dispense Refill sertraline (ZOLOFT) 50 mg tablet Take 1 tablet by mouth once daily. 90 tablet 0 OXcarbazepine (TRILEPTAL) 300 mg tablet Take 1.5 tablets by mouth two times a day. 270 tablet 0 No current facility-administered medications for this visit. ALLERGIES No Known Allergies Objective Last menstrual period 06/11/2023, currently . - Cardiovascular: Dorsalis pedis and posterior tibial pulses palpable bilaterally. Capillary refill time up to 5 seconds. - Skin: Normal temperature bilaterally; hair growth present. - Musculoskeletal: - Right Foot: - Mild tenderness to palpation of medial calcaneal tubercle. - Tenderness to palpation of medial instep. - Left Foot: - No tenderness to palpation of medial calcaneal tubercle. - Tenderness to palpation of medial instep. - Bilateral Ankles: - Full ROM without pain. - Neurological: - Right Foot: - Negative Tinel's sign. - Left Foot: - Mild tingling with Tinel's sign at heel. Labs: Tests: Imaging: (09/2024) X-ray left foot: No evidence of fracture or bone spurring; normal findings. 1. Plantar fasciitis (M72.2) 2. Tarsal tunnel syndrome, bilateral (G57.53) - Bilateral foot pain with 50% improvement since initiating use of orthotic inserts and performing regular stretching exercises. - Pain now occurs primarily midday, with occasional sharp pain radiating to the toes of the right foot. - Continue current treatment with orthotic inserts, stretching exercises, and wearing supportive footwear. - Advised to avoid walking barefoot and wearing non-supportive shoes. - Discussed potential for corticosteroid injection if heel pain persists. - Consider EMG study if symptoms of burning or nerve entrapment worsen. - Patient feels pain is improving. has elected to hold on emg or steroid injection - Follow-up appointment scheduled in 2 months to reassess progress. Attestation Recording using [employer] software for draft documentation of the visit was discussed with the patient/authorized merchandiser retail representative; all questions welcomed and answered. Patient/authorized merchandiser retail representative agreed to proceed Gutierrez Lara DPM Patient presents with: Right Foot - Pain, Follow Up Left Foot - Pain, Follow Up AMB ROOMING INTAKE FLOWSHEET DATA Pain Pain Level: 5 Pain Location: (Bilateral foot pain) Description: Sharp, Aching Duration Amount of Time: (Ongoing) Frequency: Intermittent Patient has been wearing powersteps and states they are helping her foot pain. Taking no med's for the pain. documented in this encounter [facility] 11-24-2024 Note HNO ID: [id number] Author: GUTIERREZ LARA, ? Service: ? Author Type: Physician Type: Progress Notes Filed: 11/24/2024 13:20 Note Text: Fredy Watson is a 29-year-old female presenting for follow-up of bilateral foot pain. Bilateral Foot Pain: - Persistent pain in the arches of both feet, improved with use of inserts over the past 5 weeks. - Reports approximately 50% improvement in pain; no longer limping. - Pain now occurs primarily in the midday, rather than in the morning. - Engaging in regular stretching exercises. - Experiences sharp pain radiating to the toes of the right foot. 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) 04/15/2018 12/31/20- [facility] consult placed. Dayna Muñoz APRN.[facility] 12/27/2020atient was diagnosed with seizures at age [address] Villagomez a neurologist. See my chart note dated December 17. Patient had lab work completed as ordered by the neurologist. I transferred her to schedule an appointment with the neurologist. Patient denies any seizures since February 2015.TKRN Seizure ([facility]) Current Outpatient Medications Medication Sig Dispense Refill sertraline (ZOLOFT) 50 mg tablet Take 1 tablet by mouth once daily. 90 tablet 0 OXcarbazepine (TRILEPTAL) 300 mg tablet Take 1.5 tablets by mouth two times a day. 270 tablet 0 No current facility-administered medications for this visit. ALLERGIES No Known Allergies Objective Last menstrual period 06/11/2023, currently . - Cardiovascular: Dorsalis pedis and posterior tibial pulses palpable bilaterally. Capillary refill time up to 5 seconds. - Skin: Normal temperature bilaterally; hair growth present. - Musculoskeletal: - Right Foot: - Mild tenderness to palpation of medial calcaneal tubercle. - Tenderness to palpation of medial instep. - Left Foot: - No tenderness to palpation of medial calcaneal tubercle. - Tenderness to palpation of medial instep. - Bilateral Ankles: - Full ROM without pain. - Neurological: - Right Foot: - Negative Tinel's sign. - Left Foot: - Mild tingling with Tinel's sign at heel. Labs: Tests: Imaging: (09/2024) X-ray left foot: No evidence of fracture or bone spurring; normal findings. 1. Plantar fasciitis (M72.2) 2. Tarsal tunnel syndrome, bilateral (G57.53) - Bilateral foot pain with 50% improvement since initiating use of orthotic inserts and performing regular stretching exercises. - Pain now occurs primarily midday, with occasional sharp pain radiating to the toes of the right foot. - Continue current treatment with orthotic inserts, stretching exercises, and wearing supportive footwear. - Advised to avoid walking barefoot and wearing non-supportive shoes. - Discussed potential for corticosteroid injection if heel pain persists. - Consider EMG study if symptoms of burning or nerve entrapment worsen. - Patient feels pain is improving. has elected to hold on emg or steroid injection - Follow-up appointment scheduled in 2 months to reassess progress. Attestation Recording using [employer] software for draft documentation of the visit was discussed with the patient/authorized merchandiser retail representative; all questions welcomed and answered. Patient/authorized merchandiser retail representative agreed to proceed Gutierrez Lara DPM [facility] 11-24-2024 Instructions Gutierrez Lara - 11/24/2024 1:16 PM EDT Continue using your shoe inserts and doing your stretching exercises daily. Keep wearing supportive shoes and avoid unsupportive footwear (eg, flip-flops, crocs, or similar styles). Use icing as needed for any foot pain. If you continue to have heel pain that doesn t improve, discuss with us the possibility of a steroid shot or an evaluation with an EMG for nerve issues. Plan to follow up in about 2 months; if you notice worsening pain before then, please call the [place] [facility] [place] [place] documented in this encounter [facility] 11-24-2024 Note HNO ID: [id number] Author: MARILYN MCLAIN MA Service: ? Author Type: [employer]ayer [employer] Type: Progress Notes Filed: 11/24/2024 13:20 Note Text: Patient presents with: Right Foot - Pain, Follow Up Left Foot - Pain, Follow Up AMB ROOMING INTAKE FLOWSHEET DATA Pain Pain Level: 5 Pain Location: (Bilateral foot pain) Description: Sharp, Aching Duration Amount of Time: (Ongoing) Frequency: Intermittent Patient has been wearing powersteps and states they are helping her foot pain. Taking no med's for the pain. [facility] 10-18-2024 Instructions Gutierrez Lara - 10/18/2024 2:02 PM EDT Images from the original note were not included. What is Plantar Fasciitis? Plantar fasciitis is the most common cause of heel pain. The pain is caused by inflammation of the plantar fascia. If you strain your plantar fascia, it becomes weak, swollen and irritated (inflamed). The resulting pain may be isolated in the heel or may appear at different points on the bottom of the foot, from time to time; it may occur in one foot or both. Some think that plantar fasciitis pain is caused by irritation of nerves from tissue swelling or inflammation, but it is debatable. Plantar fasciitis is common in middle-aged people; it also occurs in younger people who are on their feet a lot, such as athletes or soldiers. The plantar fascia is a strong band of connective tissue that extends from the base of the toes, along the bottom of the foot, to the bottom of the heel (calcaneous bone); it acts like a bowstring to maintain the arch of the foot. What are heel spurs? The inflammatory reaction of the heel bone may produce spike-like projections of new bone, called heel spurs. The spurs sometimes show on X-rays. They neither cause the initial pain nor do they cause the initial problem. However, later, having to walk on spurs may cause sharp pain. What causes plantar fasciitis? Plantar fasciitis is caused by straining the ligament that supports your arch. Repeated strain can cause tiny tears in the ligament. These lead to pain and swelling. During walking, the plantar fascia experiences tension up to twice the body weight with each step. While this is normal, those who spend much time on their feet, such as nurses, farm tractor mechanic/waiters, and mail carriers, often experience plantar fasciitis. Athletes involved in tennis or other racquet sports, race walking, jogging or running also show a higher incidence of plantar fasciitis than do those participating in other activities. Thus, it's clear that plantar fasciitis is predominantly an overuse injury. In fact, any activity that results in prolonged tension and stress on the plantar fascia may cause plantar fasciitis. It is possible that changes in footwear may play a role in causing plantar fasciitis, no matter what activity is occurring. Those who are overweight are prone to plantar fasciitis. This is true even for sedentary people who get little physical activity. Abnormalities of the foot and ankle joints may predispose some individuals to development of plantar fasciitis (specifically, over pronation of the subtalar joint). Contributing Factors * Flat feet * Toe running, hill running * Sudden weight increase * High-arched, rigid feet * Soft terrain, e.g. running on sand * Obesity * Pronated feet (rolled inward) * Sudden increase in activity * Family tendency * Poor shoe support * Worn out or poorly fitted shoes * Increasing age * Walking, standing or running for long periods of time, especially on hard surfaces. How is the Injury Treated? Rest Your Feet: Limit, or if possible, stop activities that are causing your heel pain. Try to avoid running or walking on hard surfaces, such as concrete. Use pain as your guide. If your foot is too painful, rest it. Ice: Ice the sore area for 30 to 60 minutes, several times a day, to reduce inflammation and relieve pain. Apply a plastic bag of crushed ice (or a bag of frozen peas) over a towel. Ice the sore area for 15 minutes after activity/exercise. Application of heat is not generally recommended, as heat expands the bone and connective tissue, perhaps exerting greater pressure on nerves and thereby increasing pain. If heat is used, follow it with ice. Medication: If your condition developed recently, anti-inflammatory/analgesic medication, combined with heel pads (see below) may be all that is necessary to relieve pain and to reduce inflammation. If no pain relief has occurred after 2-3 weeks, however, your doctor may inject either cortisone or local anesthetic directly into the tender area. Exercises: Do simple exercises, such as calf stretches and towel stretches (see below) several times a day, especially when you first get up in the morning. These can help your ligament become more flexible and strengthen the muscles that support your arch. Shoes: Poorly fitting shoes can cause plantar fasciitis. The best type of shoe to wear is a good walking or running shoe with good shock absorption and excellent arch support. You should choose the one that fits the best. Coppock with your athletic shoes to find a pair that is comfortable and causes fewer symptoms. Put your shoes on as soon as you get out of bed; going barefoot or wearing slippers may make your pain worse. Good brands include (but are not limited to): New Balance, Asics, Saucony, SAS and Merrel s. Taping: Your doctor may tape your foot to maintain the arch. This takes some of the tension off the plantar fascia. Weight Loss: If your weight is putting extra stress on your feet, your doctor may encourage you to try a weight-loss program. Orthotics: An orthotic insole is a molded piece of rubber, plastic, or other material that you insert into your shoe. It corrects the alignment of your foot and cushions your foot from excessive pounding. These may be prescription or non-prescription. Prescription orthotics are custom-fitted and may fit better and control pain better, but are very expensive. Night Splints: A night splint holds the foot with the toes pointed up and the ankle at a 90-degree angle. This position applies a constant, gentle stretch to the plantar fascia. Corticosteroid Shots: Steroids may be injected into the tender area to reduce inflammation. REHAB Exercises to stretch the plantar fascia, the calf muscles, and the Achilles tendon. Tightness of the muscles of the calves may contribute to plantar fasciitis, so stretching the calf muscles is important to rehabilitation, as is stretching of the plantar fascia itself. Plantar fascial stretches Assisted Dorsiflexion/Plantar Fascia Stretch: Sit on the floor or ground, barefoot, with both legs outstretched. Use a towel or elastic band and wrap it around the ball (and not the toes) of the affected foot. Use the towel or elastic band to provide resistance to upward movement of the forefoot. Pull foot upward (toward your body) with the help of the elastic band or towel, and then return to the starting position. Ten repetitions are recommended. Perform the sequence at least three times a day. Alternate Plantar Fascia Stretch: Sit upright in a chair, barefoot. Place the ankle of the affected foot on your opposite knee. Using the same hand as the affected foot, reach across and grab the toes. Flex the ankle toward and pull the toes toward the garcia. To test the stretch, place the thumb of your hand on the bottom of the foot. You should be able to feel the cord-like plantar fascia, running the length of the foot. Hold the stretch for a count of 10, then relax. Repeat 10 times. Do the sequence at least three times a day. Achilles/Calf Stretches Strengthening the muscles of the calves may contribute to successful rehabilitation of plantar fasciitis, as well as prevent reoccurrence. The exercises below will help strengthen the calf muscles. Calf and Achilles Tendon Stretch (Gastrocnemius Stretch): Face a wall, standing an arm's length away. Place one foot back. Place both hands on the wall. Bend the elbows and knee of your forward leg, keeping the heel of the backward foot on the floor and keeping your body straight (aligned), until your forehead nearly touches the wall, or until significant stretch is felt in the muscles of the calf of the backward leg. Hold this position for 10 to 15 seconds. Extend elbows (straighten your arms and stand upright again) and maintain this position for 10 seconds. Repeat this cycle 15 to 20 times. Switch legs and repeat the exercise. Powerstep Original Full length. Can purchase at [employer] Runner and boots,shoes and more here in [place], [employer] in [place] or [place]. Also can find in [employer] in [facility]. Powersteps can also be purchased online, starting around $45.00 If you have a metatarsal or dancer pad for your feet apply the pad directly to the insole so you can interchange between your shoes. Find a shoe with a removable insole and take this out and replace with your powerstep insole. Always bring powersteps with you when shopping for shoes so that you can make sure that everything fits well together documented in this encounter [facility] 10-18-2024 Note HNO ID: [id number] Author: GUTIERREZ LARA, ? Service: ? Author Type: Physician Type: Progress Notes Filed: 10/18/2024 14:05 Note Text: Consultation requested by Dr. Rodriguez for an opinion regarding arch pain. My final recommendations will be communicated back to the requesting physician by way of shared Medical record or letter to requesting physician via [place] mail. Initial Podiatric Office Visit: Chief Complaint: This 29 year old female who presents with chief complaint:b/l heel/arch pain L>R HPI Patient presents to clinic for evaluation of b/l feet Complains of plantar arch pain to both feet L>R. This has been going on for about one month The pain is most severe in the morning or if she has been on her feet for long duration. 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 Nothing really helps Patient currently wears nike tennis shoes, sandals on exam today. 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) 04/15/2018 12/31/20- [facility] consult placed. Dayna Muñoz APRN.[facility] 1Patient was diagnosed with seizures at age [address] Villagomez a neurologist. See my chart note dated December 17. Patient had lab work completed as ordered by the neurologist. I transferred her to schedule an appointment with the neurologist. Patient denies any seizures since February 2015.TKRN Seizure ([facility]) Current Outpatient Medications Medication Sig sertraline (ZOLOFT) 50 mg tablet Take 1 tablet by mouth once daily. OXcarbazepine (TRILEPTAL) 300 mg tablet Take 1.5 tablets by mouth two times a day. No current facility-administered medications for this visit. ALLERGIES No Known Allergies PAST SURGICAL HISTORY Procedure Laterality Date DELIVERY ONLY 08/10/2021 [facility]CS FAMILY HISTORY Problem Relation Age of Onset other (Other) Mother anxiety Stroke Mother other (Other) Father back problems Thyroid Sister Autism Sister other (epilepsy) Sister other (Other) Brother anxiety other (Other) Brother adhd Diabetes Maternal Grandmother Heart Maternal Grandfather Lung Cancer Paternal Grandmother No Known Problems Paternal Grandfather Social History Tobacco Use Smoking status: Never Smokeless tobacco: Never Vaping Use Vaping status: Never Used Substance Use Topics Alcohol use: No Drug use: No REVIEW OF SYSTEMS GENERAL: Negative for Malaise, significant weight loss, fever RESPIRATORY: Negative for cough, wheezing and shortness of breath CARDIOVASCULAR: Negative for chest pain, leg swelling and palpitations GI: Negative for abdominal discomfort, blood in stools or black stools and change in bowel habits : Negative for dysuria, frequency and incontinence MUSCULOSKELETAL: Negative for joint pain or swelling, back pain, and muscle pain. SKIN: Negative for lesions, rash, and itching. HEMATOLOGY/LYMPHOLOGY Negative for prolonged bleeding, bruising easily, and swollen nodes. ENDOCRINE: Negative for cold or heat intolerance, polyuria, polydipsia and goiter. NEURO: negative Physical Exam: Constitutional: Pt is a well developed 29 year old female who is alert, oriented and cooperative Eyes: Following during examination. No redness or drainage. Respiratory: RR normal and nonlabored. Even breathing. No evidence of distress or shortness of breath. Psychology: Patient is engaged during conversation. Normal affect and mood. Does not appear depressed or anxious during encounter. Vascular: Dorsalis pedis and posterior tibial pulses palpable as b/l Capillary Fill time < 5 seconds to digits 1-5 b/l Skin temperature warm to warm proximal to distal b/l Hair growth present to digits Neurological: intact light touch/epicritic sensation + tinel b/l intact protective sensation no significant neurological deficits Dermatological: Nails 1-5 b/l appear normal. Webspaces clean and dry 1-4 b/l. Skin appears well hydrated and supple. good color, texture, turgor. No open lesions present. No callosities present. Musculoskeletal/Orthopaedic: Patient has pain to palpation of medial band of plantar fascia b/l Foot type is pronated structurally AJ ROM is full with knee extended and flexed 1st MPJ is full when loaded and no pain or crepitus are noted with ROM. MTJ, STJ are full and free of pain and crepitus. +5/5 muscle strength dorsiflexion, plantarflexion, inversion, eversion b/l Rad (more content not included)... [facility] 10-18-2024 History of Presen t illness Narrative Images from the original note were not included. Consultation requested by Dr. Rodriguez for an opinion regarding arch pain. My final recommendations will be communicated back to the requesting physician by way of shared Medical record or letter to requesting physician via [place] mail. Initial Podiatric Office Visit: Chief Complaint: This 29 year old female who presents with chief complaint:b/l heel/arch pain L>R HPI Patient presents to clinic for evaluation of b/l feet Complains of plantar arch pain to both feet L>R. This has been going on for about one month The pain is most severe in the morning or if she has been on her feet for long duration. 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 Nothing really helps Patient currently wears nike tennis shoes, sandals on exam today. 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 Dayna Muñoz APRN.[facility] 1Patient was diagnosed with seizures at age [address] Villagomez a neurologist. See my chart note dated December 17. Patient had lab work completed as ordered by the neurologist. I transferred her to schedule an appointment with the neurologist. Patient denies any seizures since February 2015.TKRN Seizure ([facility]) Current Outpatient Medications Medication Sig sertraline (ZOLOFT) 50 mg tablet Take 1 tablet by mouth once daily. OXcarbazepine (TRILEPTAL) 300 mg tablet Take 1.5 tablets by mouth two times a day. No current facility-administered medications for this visit. ALLERGIES No Known Allergies PAST SURGICAL HISTORY Procedure Laterality Date DELIVERY ONLY 08/10/2021 [facility]CS FAMILY HISTORY Problem Relation Age of Onset other (Other) Mother anxiety Stroke Mother other (Other) Father back problems Thyroid Sister Autism Sister other (epilepsy) Sister other (Other) Brother anxiety other (Other) Brother adhd Diabetes Maternal Grandmother Heart Maternal Grandfather Lung Cancer Paternal Grandmother No Known Problems Paternal Grandfather Social History Tobacco Use Smoking status: Never Smokeless tobacco: Never Vaping Use Vaping status: Never Used Substance Use Topics Alcohol use: No Drug use: No REVIEW OF SYSTEMS GENERAL: Negative for Malaise, significant weight loss, fever RESPIRATORY: Negative for cough, wheezing and shortness of breath CARDIOVASCULAR: Negative for chest pain, leg swelling and palpitations GI: Negative for abdominal discomfort, blood in stools or black stools and change in bowel habits : Negative for dysuria, frequency and incontinence MUSCULOSKELETAL: Negative for joint pain or swelling, back pain, and muscle pain. SKIN: Negative for lesions, rash, and itching. HEMATOLOGY/LYMPHOLOGY Negative for prolonged bleeding, bruising easily, and swollen nodes. ENDOCRINE: Negative for cold or heat intolerance, polyuria, polydipsia and goiter. NEURO: negative Physical Exam: Constitutional: Pt is a well developed 29 year old female who is alert, oriented and cooperative Eyes: Following during examination. No redness or drainage. Respiratory: RR normal and nonlabored. Even breathing. No evidence of distress or shortness of breath. Psychology: Patient is engaged during conversation. Normal affect and mood. Does not appear depressed or anxious during encounter. Vascular: Dorsalis pedis and posterior tibial pulses palpable as b/l Capillary Fill time < 5 seconds to digits 1-5 b/l Skin temperature warm to warm proximal to distal b/l Hair growth present to digits Neurological: intact light touch/epicritic sensation + tinel b/l intact protective sensation no significant neurological deficits Dermatological: Nails 1-5 b/l appear normal. Webspaces clean and dry 1-4 b/l. Skin appears well hydrated and supple. good color, texture, turgor. No open lesions present. No callosities present. Musculoskeletal/Orthopaedic: Patient has pain to palpation of medial band of plantar fascia b/l Foot type is pronated structurally AJ ROM is full with knee extended and flexed 1st MPJ is full when loaded and no pain or crepitus are noted with ROM. MTJ, STJ are full and free of pain and crepitus. +5/5 muscle strength dorsiflexion, plantarflexion, inversion, eversion b/l Radiographs: 3 views left foot reviewed October 18, 2024: I have personally reviewed and interpreted these XR myself: no acute fracture ASSESSMENT: (M72.2) Plantar fasciitis (primary encounter diagnosis) (G57.53) Tarsal tunnel syndrome, bilateral (M21.41, M21.42) Pes planus of both feet PLAN: 1. Initial Office Visit - A thorough review of the patient's PMH and Podiatric physical exam was completed. 2. Patient advised to perform stretching excercises, icing, and to make appropriate shoe gear changes to include wearing athletic-type shoes with supportive insoles. No barefoot walking. Patient also given written instructions on how to correctly perform the stretching of the achilles tendon/calf stretches, and the heel spur/plantar fasciitis regimen. 3. Patient advised to seek wide, deep toe box, accomodative, comfortable, lace-up, athletic/walking type footwear that includes motion control characteristics for support and cushion that need to be worn at all times when weight-bearing. Shoes should be tested for torsional stability as well as proper bending at the toebox rather than at the midfoot. Good quality shoes such as, but not limited to, New Balance or Asics are examples of more proper foot gear. 4. Patient recommended to get powerstep insoles for proper support of the arch in order to alleviate the tension and stress on the plantar fascia associated with normal daily walking. Patient advised that these modalities used in conjunction with stretching and icing are able to alleviate most symptoms from this condition. 5. Discussed possible tarsal tunnel. Will try inserts. If pain fails to improve, consider emg 6. F/u in 1 month Gutierrez Lara DPM Podiatry [address] [place] [id number] Dept: [phone] Dept AMB ROOMING INTAKE FLOWSHEET DATA Pain Pain Level: 8 Pain Location: Other: See Comment (bilateral feet) Description: Sharp, Sore, Burning Duration Amount of Time: 2 Duration Units: Months Frequency: Intermittent Intervention/Comfort measure: Reposition, Relaxation, Medication (ibuprofen) Patient presents with: Left Foot - New, Pain, Numbness Right Foot - New, Pain, Numbness Rocio Lee LPN documented in this encounter [facility] 10-18-2024 Note HNO ID: [id number] Author: ROCIO LEE LPN Service: ? Author Type: LICENSED NURSE Type: Progress Notes Filed: 10/18/2024 14:05 Note Text: AMB ROOMING INTAKE FLOWSHEET DATA Pain Pain Level: 8 Pain Location: Other: See Comment (bilateral feet) Description: Sharp, Sore, Burning Duration Amount of Time: 2 Duration Units: Months Frequency: Intermittent Intervention/Comfort measure: Reposition, Relaxation, Medication (ibuprofen) Patient presents with: Left Foot - New, Pain, Numbness Right Foot - New, Pain, Numbness Rocio Lee LPN [facility] 10-05-2024 History of Presen t illness Narrative Radiology Service Progress Note PATIENT NAME: Rayne Toscano DATE OF SERVICE: October 05, 2024 TIME: 2:16 PM PATIENT IDENTITY VERIFICATION COMPLETED USING TWO (2) IDENTIFIERS: Name and Date of confirmed by patient verbally. FALL SCREENING: Has the patient had 2 falls in the last year or 1 fall with injury or currently using an Ambulatory Assistive Device (Walker, Cane, Wheelchair, Crutches, etc.)? No PATIENT GENDER DATA: Assigned female at . status: : No status: NO. PATIENT RELEVANT IMPLANT DATA REVIEWED: Not Applicable PATIENT PRESENTS WITH AN IMPLANTABLE OR ATTACHED DIRECTOR OF PAYROLL: No RADIOLOGY DEPARTMENT: General X-ray: Exam(s) Completed: Lower Extremity X-Ray(s): Foot, Left PERIPHERAL IV DATA: Not applicable SIGNED BY: Eleanor Bella October 05, 2024 2:16 PM documented in this encounter [facility] 10-05-2024 Note HNO ID: [id number] Author: CARMEN BRODERICK Tech Service: ? Author Type: Technologist Type: Progress Notes Filed: 10/05/2024 14:26 Note Text: Radiology Service Progress Note PATIENT NAME: Rayne Toscano DATE OF SERVICE: October 05, 2024 TIME: 2:16 PM PATIENT IDENTITY VERIFICATION COMPLETED USING TWO (2) IDENTIFIERS: Name and Date of confirmed by patient verbally. FALL SCREENING: Has the patient had 2 falls in the last year or 1 fall with injury or currently using an Ambulatory Assistive Device (Walker, Cane, Wheelchair, Crutches, etc.)? No PATIENT GENDER DATA: Assigned female at . status: : No status: NO. PATIENT RELEVANT IMPLANT DATA REVIEWED: Not Applicable PATIENT PRESENTS WITH AN IMPLANTABLE OR ATTACHED DIRECTOR OF PAYROLL: No RADIOLOGY DEPARTMENT: General X-ray: Exam(s) Completed: Lower Extremity X-Ray(s): Foot, Left PERIPHERAL IV DATA: Not applicable SIGNED BY: Eleanor Bella October 05, 2024 2:16 PM [facility] 10-05-2024 Note HNO ID: [id number] Author: VINH RODRIGUEZ PA-C Service: ? Author Type: Physician Senior Investment Analyst Type: Progress Notes Filed: 10/05/2024 14:59 Note Text: This note was created using [employer]. Subjective Rayne Toscano is a 29 year old female. Patient is a 29-year-old female who complains of pain to her plantar left foot that has been present for the past 1 week. Patient denies accident or injury to her left foot. Patient states that she is able to bear weight and ambulate although it is painful to do so. Patient states that her right foot is asymptomatic and nontender. Patient denies paresthesia or paralysis to her left foot and toes. 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 Pain (foot) Review of Systems Musculoskeletal: Left Foot Pain All other systems reviewed and are negative. Objective BP 108/68 Pulse 102 Temp 36 ?C (96.8 ?F) Resp 16 Wt 64.6 kg (142 lb 6.7 oz) LMP 06/11/2023 (Approximate) SpO2 98% BMI 27.81 kg/m? Physical Exam Vitals and nursing note reviewed. Constitutional: Appearance: Normal appearance. She is normal weight. HENT: Head: Normocephalic and atraumatic. Nose: Nose normal. Mouth/Throat: Mouth: Mucous membranes are moist. Pharynx: Oropharynx is clear. Eyes: Extraocular Movements: Extraocular movements intact. Conjunctiva/sclera: Conjunctivae normal. Pupils: Pupils are equal, round, and reactive to light. Cardiovascular: Rate and Rhythm: Normal rate. Pulses: Normal pulses. Pulmonary: Effort: Pulmonary effort is normal. Breath sounds: Normal breath sounds. Musculoskeletal: General: Tenderness present. No swelling, deformity or signs of injury. Normal range of motion. Cervical back: Normal range of motion and neck supple. Left lower leg: No edema. Skin: General: Skin is warm and dry. Capillary Refill: Capillary refill takes less than 2 seconds. Findings: No bruising or erythema. Neurological: General: No focal deficit present. Mental Status: She is alert and oriented to person, place, and time. Sensory: No sensory deficit. Motor: No weakness. Gait: Gait normal. Psychiatric: Mood and Affect: Mood normal. Behavior: Behavior normal. Thought Content: Thought content normal. Judgment: Judgment normal. Assessment and Plan Physical exam findings as noted above. X-ray left foot is negative for acute findings as reported by the radiologist. Patient was provided with a prescription for prednisone 20 mg and a consult was placed with [facility]. The patient was advised to schedule an appointment with same for further evaluation and management. Additional supportive care was discussed and the patient verbalizes excellent understanding of same. CLINICAL IMPRESSION: Plantar Fasciitis Left Foot ASSESSMENT/PLAN: 1. Left foot pain - ICD9: 729.5, ICD10: M79.672 (primary diagnosis) - XR FOOT GENERAL 3V AP/LAT/OBL LEFT 2. Plantar fasciitis - ICD9: 728.71, ICD10: M72.2 - PREDNISONE 20 MG TABLET - CONSULT TO PODIATRY Vinh Rodriguez PA-C [facility] 10-05-2024 History of Presen t illness Narrative This note was created using [employer]. Subjective Rayne Toscano is a 29 year old female. Patient is a 29-year-old female who complains of pain to her plantar left foot that has been present for the past 1 week. Patient denies accident or injury to her left foot. Patient states that she is able to bear weight and ambulate although it is painful to do so. Patient states that her right foot is asymptomatic and nontender. Patient denies paresthesia or paralysis to her left foot and toes. 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 Pain (foot) Review of Systems Musculoskeletal: Left Foot Pain All other systems reviewed and are negative. Objective BP 108/68 Pulse 102 Temp 36 C (96.8 F) Resp 16 Wt 64.6 kg (142 lb 6.7 oz) LMP 06/11/2023 (Approximate) SpO2 98% BMI 27.81 kg/m Physical Exam Vitals and nursing note reviewed. Constitutional: Appearance: Normal appearance. She is normal weight. HENT: Head: Normocephalic and atraumatic. Nose: Nose normal. Mouth/Throat: Mouth: Mucous membranes are moist. Pharynx: Oropharynx is clear. Eyes: Extraocular Movements: Extraocular movements intact. Conjunctiva/sclera: Conjunctivae normal. Pupils: Pupils are equal, round, and reactive to light. Cardiovascular: Rate and Rhythm: Normal rate. Pulses: Normal pulses. Pulmonary: Effort: Pulmonary effort is normal. Breath sounds: Normal breath sounds. Musculoskeletal: General: Tenderness present. No swelling, deformity or signs of injury. Normal range of motion. Cervical back: Normal range of motion and neck supple. Left lower leg: No edema. Skin: General: Skin is warm and dry. Capillary Refill: Capillary refill takes less than 2 seconds. Findings: No bruising or erythema. Neurological: General: No focal deficit present. Mental Status: She is alert and oriented to person, place, and time. Sensory: No sensory deficit. Motor: No weakness. Gait: Gait normal. Psychiatric: Mood and Affect: Mood normal. Behavior: Behavior normal. Thought Content: Thought content normal. Judgment: Judgment normal. Assessment and Plan Physical exam findings as noted above. X-ray left foot is negative for acute findings as reported by the radiologist. Patient was provided with a prescription for prednisone 20 mg and a consult was placed with [facility] Pod[facility]. The patient was advised to schedule an appointment with same for further evaluation and management. Additional supportive care was discussed and the patient verbalizes excellent understanding of same. CLINICAL IMPRESSION: Plantar Fasciitis Left Foot ASSESSMENT/PLAN: 1. Left foot pain - ICD9: 729.5, ICD10: M79.672 (primary diagnosis) - XR FOOT GENERAL 3V AP/LAT/OBL LEFT 2. Plantar fasciitis - ICD9: 728.71, ICD10: M72.2 - PREDNISONE 20 MG TABLET - CONSULT TO PODIATRY Vinh Rodriguez PA-C documented in this encounter [facility] 09-07-[address] Blankenship's patient Last appt: 07/08/2024 Next appt: not scheduled [facility] Work Phone: 09-07-[address] Blankenship's patient Last appt: 07/08/2024 Next appt: not scheduled documented in this encounter [facility] 07-08-2024 Note Addended by: FANNY BLANKENSHIP on: 07/08/2024 02:43 PM Modules accepted: Orders [facility] 07-08-2024 Miscellaneous Notes Addended by: FANNY BLANKENSHIP on: 07/08/2024 02:43 PM Modules accepted: Orders documented in this encounter [facility] 07-08-2024 Note HNO ID: [id number] Author: FANNY BLANKENSHIP DO Service: ? Author Type: Physician Type: Progress Notes Filed: 07/08/2024 14:43 Note Text: FOLLOW UP - PSYCHIATRIC PROGRESS NOTE Visit Type:Virtual Visit utilizing two-way audio and video for at least a portion of the visit. Consent for virtual visit obtained verbally. Confidentiality limitations with virtual visits reviewed with the patient and guardian, if present, who have accepted the risk verbally prior to proceeding with encounter. I have communicated my name and active licensure. The patient's identity and physical location were verified at the time of this visit. Either the patient or their legal merchandiser retail representative has been informed of the risks and benefits of -- and alternatives to -- treatment through a remote evaluation and consents to proceed with the evaluation remotely. Reason for Visit: Outpatient follow-up and safety monitoring of previously prescribed psychiatric medication, psychotherapy or other treatment CC: panic disorder HPI: Seeing Stormy Pyle at [facility] for EMDR for a few months which has been very helpful. Having panic attacks every couple weeks where her chest may get heavy, crying and needs to calm self down ,muscles will get tense and will feel shaky. Denies having any elevated moods , sleeping has been a problem, with patches of inablilty to sleep and unable to relax. Lexapo helped when she first stated it. Neurontin didn't help much. Weight gain on lexapro 30 mg Compliant with triletpal 450 mg po bid for seizures per neuro for the past 3 yrs since had her son. She denies any racing thoughts at night, worrying a lot at night. Not having as many flashbacks as before. She moved into a new apartment in February and had her family over for TG . She went to her TG prior to having her family over. Risks and benefits of the medication, including any black box warnings, were discussed with the patient. Interval Progress: some improvement PATIENT DATA: Generalized Anxiety Disorder Scale (JOE-7) 12/10/2023 03/06/2024 07/08/2024 JOE - 7 SCORES Score 1 1 2 (0-4) minimal anxiety, (5-9) mild anxiety, (10-14) moderate anxiety, (15-21) severe anxiety Patient Health Questionnaire (PHQ-9) 12/10/2023 03/06/2024 07/08/2024 PHQ-9 Score 0 0 1 (0-4) minimal depression, (5-9) mild depression, (10-14) moderate depression, (15-19) moderately severe depression, (20-27) severe depression PROMIS Global Health 11/11/2023 03/06/2024 07/08/2024 PROMIS Global Health - (T-Scores - the mean of general population = 50. 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 Dayna Muñoz APRN.JOHNNY 12/27/2020atient was diagnosed with seizures at age 7[address] Villagomez a neurologist. See my chart note dated December 17. Patient had lab work completed as ordered by the neurologist. I transferred her to schedule an appointment with the neurologist. Patient denies any seizures since February 2015.TKRN Seizure (HCC) PAST SURGICAL HISTORY Procedure Laterality Date DELIVERY ONLY 08/10/2021 LTCS Current Outpatient Medications Medication Sig Dispense Refill escitalopram oxalate (LEXAPRO) 20 mg tablet Take 1 tablet by mouth once daily. 90 tablet 0 escitalopram oxalate (LEXAPRO) 10 mg tablet Take 1 tablet by mouth once daily. 90 tablet 0 gabapentin (NEURONTIN) 100 mg capsule Take 1 capsule by mouth three times a day for 90 days. 90 capsule 2 OXcarbazepine (TRILEPTAL) 300 mg tablet Take 1.5 tablets by mouth two times a day. 270 tablet 3 No current facility-administered medications for this visit. ROS: denied PFSH: none VITAL SIGNS: There were no vitals filed for this visit. MENTAL STATUS EXAM: CONSTITUTIONAL: Well groomed ORIENTATION: Person, Place, Time and Situation MEMORY: Recent intact, Remote intact CONCENTRATION: Normal MOOD: anxious AFFECT: restricted SPEECH : Clear AND distinct LANGUAGE : Normal ASSOCIATIONS: Intact THOUGHT PROCESS : Logical, Coherent, and Rational PROGRESSION : There was no evidence of disturbance in thought perception or progression. FUND OF KNOWLEDGE : Appropriate and Adequate SUICIDE: None HOMICIDE: None DATA REVIEWED: None DIAGNOSIS: PRIMARY: PTSD, panic disorder r/o due to [facility]: 1. Taper lexapro to 20 mg daily for a week and add zoloft 25 mg daily for a week then increase to 50 mg po daily and lower lexapro 10 mg for a week then stop it. Follow up at [facility] refer to community psychiatrist, continue trileptal per neuro and consider increasing 450 /600 mg Not or bf or trying and baby is 3 yrs old so will refer to [facility]. WIll attempt to get panic free mary beth (more content not included)... [facility] 07-08-2024 History of Presen t illness Narrative FOLLOW UP - PSYCHIATRIC PROGRESS NOTE Visit Type:Virtual Visit utilizing two-way audio and video for at least a portion of the visit. Consent for virtual visit obtained verbally. Confidentiality limitations with virtual visits reviewed with the patient and guardian, if present, who have accepted the risk verbally prior to proceeding with encounter. I have communicated my name and active licensure. The patient's identity and physical location were verified at the time of this visit. Either the patient or their legal merchandiser retail representative has been informed of the risks and benefits of -- and alternatives to -- treatment through a remote evaluation and consents to proceed with the evaluation remotely. Reason for Visit: Outpatient follow-up and safety monitoring of previously prescribed psychiatric medication, psychotherapy or other treatment CC: panic disorder HPI: Seeing Stormy Pyle at [facility] for EMDR for a few months which has been very helpful. Having panic attacks every couple weeks where her chest may get heavy, crying and needs to calm self down ,muscles will get tense and will feel shaky. Denies having any elevated moods , sleeping has been a problem, with patches of inablilty to sleep and unable to relax. Lexapo helped when she first stated it. Neurontin didn't help much. Weight gain on lexapro 30 mg Compliant with triletpal 450 mg po bid for seizures per neuro for the past 3 yrs since had her son. She denies any racing thoughts at night, worrying a lot at night. Not having as many flashbacks as before. She moved into a new apartment in February and had her family over for TG . She went to her TG prior to having her family over. Risks and benefits of the medication, including any black box warnings, were discussed with the patient. Interval Progress: some improvement PATIENT DATA: Generalized Anxiety Disorder Scale (JOE-7) 12/10/2023 03/06/2024 07/08/2024 JOE - 7 SCORES Score 1 1 2 (0-4) minimal anxiety, (5-9) mild anxiety, (10-14) moderate anxiety, (15-21) severe anxiety Patient Health Questionnaire (PHQ-9) 12/10/2023 03/06/2024 07/08/2024 PHQ-9 Score 0 0 1 (0-4) minimal depression, (5-9) mild depression, (10-14) moderate depression, (15-19) moderately severe depression, (20-27) severe depression PROMIS Global Health 11/11/2023 03/06/2024 07/08/2024 PROMIS Global Health - (T-Scores - the mean of general population = 50. 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 Dayna Muñoz APRN.CNM 12/27/2020atient was diagnosed with seizures at age [address] Dahlia santos neurologist. See my chart note dated December 17. Patient had lab work completed as ordered by the neurologist. I transferred her to schedule an appointment with the neurologist. Patient denies any seizures since February 2015.TKRN Seizure ([facility]) PAST SURGICAL HISTORY Procedure Laterality Date DELIVERY ONLY 08/10/2021 LT[facility] Current Outpatient Medications Medication Sig Dispense Refill escitalopram oxalate (LEXAPRO) 20 mg tablet Take 1 tablet by mouth once daily. 90 tablet 0 escitalopram oxalate (LEXAPRO) 10 mg tablet Take 1 tablet by mouth once daily. 90 tablet 0 gabapentin (NEURONTIN) 100 mg capsule Take 1 capsule by mouth three times a day for 90 days. 90 capsule 2 OXcarbazepine (TRILEPTAL) 300 mg tablet Take 1.5 tablets by mouth two times a day. 270 tablet 3 No current facility-administered medications for this visit. ROS: denied PFSH: none VITAL SIGNS: There were no vitals filed for this visit. MENTAL STATUS EXAM: CONSTITUTIONAL: Well groomed ORIENTATION: Person, Place, Time and Situation MEMORY: Recent intact, Remote intact CONCENTRATION: Normal MOOD: anxious AFFECT: restricted SPEECH : Clear & distinct LANGUAGE : Normal ASSOCIATIONS: Intact THOUGHT PROCESS : Logical, Coherent, and Rational PROGRESSION : There was no evidence of disturbance in thought perception or progression. FUND OF KNOWLEDGE : Appropriate and Adequate SUICIDE: None HOMICIDE: None DATA REVIEWED: None DIAGNOSIS: PRIMARY: PTSD, panic disorder r/o due to [facility]: 1. Taper lexapro to 20 mg daily for a week and add zoloft 25 mg daily for a week then increase to 50 mg po daily and lower lexapro 10 mg for a week then stop it. Follow up at [facility] refer to community psychiatrist, continue trileptal per neuro and consider increasing 450 /600 mg Not or bf or trying and baby is 3 yrs old so will refer to [facility]. WIll attempt to get panic free suspect EMDR increased panic sx but on 30 mg lexapro not entirely gone. EMDR continue with [facility]. 2. TSH t3, t4 sister has thyroid issues and tired will obtain , last done in 2021. I spent a total of 30 minutes on the date of the service which included preparing to see the patient and completing clinical documentation. ADD ON PSYCHOTHERAPY CODE : No SIGNATURE: Fanny Blankenship DO PATIENT NAME: Rayne Toscano DATE: July 08, 2024 TIME: 2:11 PM documented in this encounter [facility] 06-06-2024 Telephone encounter Note The following medication(s) is being requested: LAST APPT - 12/10/23 NEXT APPT - N/A sent MC message to schedule Requested Prescriptions Pending Prescriptions Disp Refills escitalopram oxalate (LEXAPRO) 20 mg tablet 90 tablet 0 Sig: Take 1 tablet by mouth once daily. Please process accordingly Nilda Marquez [facility] 06-06-2024 Miscellaneous Notes The following medication(s) is being requested: LAST APPT - 12/10/23 NEXT APPT - N/A sent [facility] message to schedule Requested Prescriptions Pending Prescriptions Disp Refills escitalopram oxalate (LEXAPRO) 20 mg tablet 90 tablet 0 Sig: Take 1 tablet by mouth once daily. Please process accordingly Nilda Marquez documented in this encounter [facility] 05-16-2024 History of Presen t illness Narrative Radiology Service Progress Note PATIENT NAME: Rayne Toscano DATE OF SERVICE: May 16, 2024 TIME: 5:10 PM PATIENT IDENTITY VERIFICATION COMPLETED USING TWO (2) IDENTIFIERS: Name and Date of confirmed by patient verbally. FALL SCREENING: Has the patient had 2 falls in the last year or 1 fall with injury or currently using an Ambulatory Assistive Device (Walker, Cane, Wheelchair, Crutches, etc.)? No PATIENT GENDER DATA: Female. status: : No status: NO. PATIENT RELEVANT IMPLANT DATA REVIEWED: Not Applicable PATIENT PRESENTS WITH AN IMPLANTABLE OR ATTACHED DIRECTOR OF PAYROLL: No RADIOLOGY DEPARTMENT: General X-ray: Exam(s) Completed: Lower Extremity X-Ray(s): Ankle, Bilateral and Wt. Bearing PERIPHERAL IV DATA: Not applicable SIGNED BY: RT Tarun(Nicholas) May 16, 2024 5:10 PM documented in this encounter [facility] 05-16-2024 Note HNO ID: [id number] Author: LUCIANO MONZON RT(R) Service: Radiology Author Type: Technologist Type: Progress Notes Filed: 05/16/2024 17:18 Note Text: Radiology Service Progress Note PATIENT NAME: Rayne Toscano DATE OF SERVICE: May 16, 2024 TIME: 5:10 PM PATIENT IDENTITY VERIFICATION COMPLETED USING TWO (2) IDENTIFIERS: Name and Date of confirmed by patient verbally. FALL SCREENING: Has the patient had 2 falls in the last year or 1 fall with injury or currently using an Ambulatory Assistive Device (Walker, Cane, Wheelchair, Crutches, etc.)? No PATIENT GENDER DATA: Female. status: : No status: NO. PATIENT RELEVANT IMPLANT DATA REVIEWED: Not Applicable PATIENT PRESENTS WITH AN IMPLANTABLE OR ATTACHED DIRECTOR OF PAYROLL: No RADIOLOGY DEPARTMENT: General X-ray: Exam(s) Completed: Lower Extremity X-Ray(s): Ankle, Bilateral and Wt. Bearing PERIPHERAL IV DATA: Not applicable SIGNED BY: RT Tarun(Nicholas) May 16, 2024 5:10 PM [facility] 05-16-2024 Note HNO ID: [id number] Author: FRED GUZMAN APRN.[facility] Service: ? Author Type: Nurse Practitioner Type: Progress Notes Filed: 05/16/2024 17:47 Note Text: Subjective HPI Nontoxic-appearing female presents urgent care chief complaint bilateral ankle pain. Duration of symptoms 5 days. Associated symptoms bilateral ankle discomfort. Tripped going down the stairs. Inverted both ankles. Presents today for evaluation. No numbness no tingling. No decrease sensation. No head neck no back pain. No LOC. Denies surgeries fractures previously. Past medical history prescription medications allergies reviewed. 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 Dayna Muñoz APRN.CNM 1Patient was diagnosed with seizures at age [address] Villagomez a neurologist. See my chart note dated December 17. Patient had lab work completed as ordered by the neurologist. I transferred her to schedule an appointment with the neurologist. Patient denies any seizures since February 2015.TKRN Seizure ([facility]) PAST SURGICAL HISTORY Procedure Laterality Date DELIVERY ONLY 08/10/2021 [facility] ALLERGIES Patient has no known allergies. MEDICATIONS escitalopram oxalate (LEXAPRO) 20 mg tablet Take 1 tablet by mouth once daily. escitalopram oxalate (LEXAPRO) 10 mg tablet Take 1 tablet by mouth once daily. OXcarbazepine (TRILEPTAL) 300 mg tablet Take 1.5 tablets by mouth two times a day. gabapentin (NEURONTIN) 100 mg capsule Take 1 capsule by mouth three times a day for 90 days. FAMILY HISTORY Problem Relation Age of Onset other (Other) Mother anxiety Stroke Mother other (Other) Father back problems Thyroid Sister Autism Sister other (epilepsy) Sister other (Other) Brother anxiety other (Other) Brother adhd Diabetes Maternal Grandmother Heart Maternal Grandfather Lung Cancer Paternal Grandmother No Known Problems Paternal Grandfather Social History Tobacco Use Smoking status: Never Smokeless tobacco: Never Vaping Use Vaping status: Never Used Substance Use Topics Alcohol use: No Drug use: No BP 100/70 Pulse 70 Temp 36.2 ?C (97.1 ?F) Resp 20 Wt 61.3 kg (135 lb 2.3 oz) LMP 06/11/2023 (Approximate) SpO2 98% BMI 26.39 kg/m? Review of Systems Constitutional: Negative for chills, fever and malaise/fatigue. Musculoskeletal: Positive for falls and joint pain. Negative for back pain, myalgias and neck pain. Neurological: Negative for dizziness, loss of consciousness, weakness and headaches. Objective Physical Exam Constitutional: General: She is not in acute distress. Appearance: She is not toxic-appearing. HENT: Head: Normocephalic. Nose: Nose normal. Eyes: Pupils: Pupils are equal, round, and reactive to light. Cardiovascular: Rate and Rhythm: Normal rate. Pulmonary: Effort: Pulmonary effort is normal. No respiratory distress. Musculoskeletal: Cervical back: Normal range of motion. Right lower leg: Normal. Left lower leg: Normal. Right ankle: No swelling, deformity, ecchymosis or lacerations. Tenderness present over the lateral malleolus. Normal range of motion. Right Achilles Tendon: No tenderness. Left ankle: No swelling, deformity, ecchymosis or lacerations. Tenderness present over the lateral malleolus. Normal range of motion. Left Achilles Tendon: No tenderness. Right foot: Normal. Left foot: Normal. Comments: Neurovascular intact. Full range of motion. No weaknesses. No breaks in skin. Skin: General: Skin is warm and dry. Neurological: General: No focal deficit present. Mental Status: She is alert. ASSESSMENT/PLAN: 1. Acute bilateral ankle pain - ICD9: 719.47, 338.19, ICD10: M25.571, M25.572 - XR ANKLE GENERAL 3V AP/LAT/OBL BILATERAL IMPRESSION: Negative bilateral ankles. No acute findings noted on x-ray. Treat as ankle sprains. Follow-up with orthopedics 7 to 10 days symptoms are not improving. Patient was educated on supportive therapies. Patient will follow up with primary care provider as needed. Patient was instructed to immediately proceed to emergency room for any new, worsening, or symptoms lasting longer than anticipated. The patient's clinical presentation is otherwise unremarkable at this time. Based on exam and clinical finding, the patient is stable for discharge. Plan of care was discussed with patient. Patient verbalizes understanding and agrees to plan of care. This note was generated using Krave-N software. It may contain errors in wording, punctuation, or spelling. Fred Guzman APRN.[facility] 05-16-2024 History of Presen t illness Narrative Subjective HPI Nontoxic-appearing female presents urgent care chief complaint bilateral ankle pain. Duration of symptoms 5 days. Associated symptoms bilateral ankle discomfort. Tripped going down the stairs. Inverted both ankles. Presents today for evaluation. No numbness no tingling. No decrease sensation. No head neck no back pain. No LOC. Denies surgeries fractures previously. Past medical history prescription medications allergies reviewed. 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 Dayna Muñoz APRN.[facility] 12/27/2020atient was diagnosed with seizures at age [address] Villagomez a neurologist. See my chart note dated December 17. Patient had lab work completed as ordered by the neurologist. I transferred her to schedule an appointment with the neurologist. Patient denies any seizures since February 2015.TKRN Seizure ([facility]) PAST SURGICAL HISTORY Procedure Laterality Date DELIVERY ONLY 08/10/2021 [facility] ALLERGIES Patient has no known allergies. MEDICATIONS escitalopram oxalate (LEXAPRO) 20 mg tablet Take 1 tablet by mouth once daily. escitalopram oxalate (LEXAPRO) 10 mg tablet Take 1 tablet by mouth once daily. OXcarbazepine (TRILEPTAL) 300 mg tablet Take 1.5 tablets by mouth two times a day. gabapentin (NEURONTIN) 100 mg capsule Take 1 capsule by mouth three times a day for 90 days. FAMILY HISTORY Problem Relation Age of Onset other (Other) Mother anxiety Stroke Mother other (Other) Father back problems Thyroid Sister Autism Sister other (epilepsy) Sister other (Other) Brother anxiety other (Other) Brother adhd Diabetes Maternal Grandmother Heart Maternal Grandfather Lung Cancer Paternal Grandmother No Known Problems Paternal Grandfather Social History Tobacco Use Smoking status: Never Smokeless tobacco: Never Vaping Use Vaping status: Never Used Substance Use Topics Alcohol use: No Drug use: No BP 100/70 Pulse 70 Temp 36.2 C (97.1 F) Resp 20 Wt 61.3 kg (135 lb 2.3 oz) LMP 06/11/2023 (Approximate) SpO2 98% BMI 26.39 kg/m Review of Systems Constitutional: Negative for chills, fever and malaise/fatigue. Musculoskeletal: Positive for falls and joint pain. Negative for back pain, myalgias and neck pain. Neurological: Negative for dizziness, loss of consciousness, weakness and headaches. Objective Physical Exam Constitutional: General: She is not in acute distress. Appearance: She is not toxic-appearing. HENT: Head: Normocephalic. Nose: Nose normal. Eyes: Pupils: Pupils are equal, round, and reactive to light. Cardiovascular: Rate and Rhythm: Normal rate. Pulmonary: Effort: Pulmonary effort is normal. No respiratory distress. Musculoskeletal: Cervical back: Normal range of motion. Right lower leg: Normal. Left lower leg: Normal. Right ankle: No swelling, deformity, ecchymosis or lacerations. Tenderness present over the lateral malleolus. Normal range of motion. Right Achilles Tendon: No tenderness. Left ankle: No swelling, deformity, ecchymosis or lacerations. Tenderness present over the lateral malleolus. Normal range of motion. Left Achilles Tendon: No tenderness. Right foot: Normal. Left foot: Normal. Comments: Neurovascular intact. Full range of motion. No weaknesses. No breaks in skin. Skin: General: Skin is warm and dry. Neurological: General: No focal deficit present. Mental Status: She is alert. ASSESSMENT/PLAN: 1. Acute bilateral ankle pain - ICD9: 719.47, 338.19, ICD10: M25.571, M25.572 - XR ANKLE GENERAL 3V AP/LAT/OBL BILATERAL IMPRESSION: Negative bilateral ankles. No acute findings noted on x-ray. Treat as ankle sprains. Follow-up with orthopedics 7 to 10 days symptoms are not improving. Patient was educated on supportive therapies. Patient will follow up with primary care provider as needed. Patient was instructed to immediately proceed to emergency room for any new, worsening, or symptoms lasting longer than anticipated. The patient's clinical presentation is otherwise unremarkable at this time. Based on exam and clinical finding, the patient is stable for discharge. Plan of care was discussed with patient. Patient verbalizes understanding and agrees to plan of care. This note was generated using Krave-N software. It may contain errors in wording, punctuation, or spelling. Fred Guzman APRN.[facility] documented in this encounter [facility] 03-09-2024 Note HNO ID: [id number] Author: FANNY BLANKENSHIP DO Service: ? Author Type: Physician Type: Progress Notes Filed: 03/09/2024 16:08 Note Text: Psych staff I joined late to appointment and pt not online. Fanny Blankenship DO [facility] 03-09-2024 History of Presen t illness Narrative Psych staff I joined late to appointment and pt not online. Fanny Blankenship DO documented in this encounter [facility] 01-21-2024 Telephone encounter Note The following medication(s) is being requested: LAST APPT - 12/10/23 NEXT APPT - N/A Requested Prescriptions Refused Prescriptions Disp Refills escitalopram oxalate (LEXAPRO) 20 mg tablet 90 tablet 0 Sig: Take 1 tablet by mouth once daily. Please process accordingly Nilda Marquez [facility] 01-21-2024 Miscellaneous Notes The following medication(s) is being requested: LAST APPT - 12/10/23 NEXT APPT - N/A Requested Prescriptions Refused Prescriptions Disp Refills escitalopram oxalate (LEXAPRO) 20 mg tablet 90 tablet 0 Sig: Take 1 tablet by mouth once daily. Please process accordingly Nilda Marquez documented in this encounter [facility] 12-10-2023 Note HNO ID: [id number] Author: FANNY BLANKENSHIP DO Service: ? Author Type: Physician Type: Progress Notes Filed: 12/10/2023 12:00 Note Text: FOLLOW UP - PSYCHIATRIC PROGRESS NOTE Visit Type:Virtual Visit utilizing two-way audio and video for at least a portion of the visit. Consent for virtual visit obtained verbally. Confidentiality limitations with virtual visits reviewed with the patient and guardian, if present, who have accepted the risk verbally prior to proceeding with encounter. I have communicated my name and active licensure. The patient's identity and physical location were verified at the time of this visit. Either the patient or their legal merchandiser retail representative has been informed of the risks and benefits of -- and alternatives to -- treatment through a remote evaluation and consents to proceed with the evaluation remotely. Reason for Visit: Outpatient follow-up and safety monitoring of previously prescribed psychiatric medication, psychotherapy or other treatment CC: mood is better but weight gain and tiredness HPI: She says the intrusive thoughts are gone on lexapro 30 mg po daily . Weight gain is an issue and never had this issues before so feel its one of the medications. Taking the trileptal 450 ,no recent absence seizures since 2014 while on this med. She is receiving the trileptal from neurologist, Everett Abarca. Not eating more or more hungry on meds but noticed gained significant amount of weight around 20 lbs since Sep. Risks and benefits of the medication, including any black box warnings, were discussed with the patient. Interval Progress: some better PATIENT DATA: Generalized Anxiety Disorder Scale (JOE-7) 10/02/2023 11/11/2023 12/10/2023 JOE - 7 SCORES Score 5 3 1 (0-4) minimal anxiety, (5-9) mild anxiety, (10-14) moderate anxiety, (15-21) severe anxiety Patient Health Questionnaire (PHQ-9) 10/02/2023 11/11/2023 12/10/2023 PHQ-9 Score 3 3 0 (0-4) minimal depression, (5-9) mild depression, (10-14) moderate depression, (15-19) moderately severe depression, (20-27) severe depression PROMIS Global Health 05/06/2023 08/19/2023 11/11/2023 PROMIS Global Health - (T-Scores - the mean of general population = 50. 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 Dayna Muñoz APRN.CANDIM 1Patient was diagnosed with seizures at age [address] Villagomez a neurologist. See my chart note dated December 17. Patient had lab work completed as ordered by the neurologist. I transferred her to schedule an appointment with the neurologist. Patient denies any seizures since February 2015.TKRN Seizure (HCC) PAST SURGICAL HISTORY Procedure Laterality Date DELIVERY ONLY 08/10/2021 [facility] Current Outpatient Medications Medication Sig Dispense Refill OXcarbazepine (TRILEPTAL) 300 mg tablet Take 1.5 tablets by mouth two times a day. 270 tablet 3 gabapentin (NEURONTIN) 100 mg capsule Take 2 capsules by mouth two times a day for 90 days. 120 capsule 2 gabapentin (NEURONTIN) 300 mg capsule Take 1 capsule by mouth daily at bedtime for 90 days. 90 capsule 0 escitalopram oxalate (LEXAPRO) 20 mg tablet Take 1 tablet by mouth once daily. 90 tablet 0 escitalopram oxalate (LEXAPRO) 10 mg tablet Take 1 tablet by mouth once daily. 90 tablet 0 No current facility-administered medications for this visit. ROS: denied PFSH: none VITAL SIGNS: There were no vitals filed for this visit. MENTAL STATUS EXAM: CONSTITUTIONAL: Well groomed, Appropriately dressed ORIENTATION: Person, Place, Time and Situation MEMORY: Recent intact, Remote intact, Immediate intact CONCENTRATION: Normal MOOD: euthymic AFFECT: Full and appropriate to topic SPEECH : Clear AND distinct LANGUAGE : Normal ASSOCIATIONS: Intact THOUGHT PROCESS : Logical, Coherent, and Rational PROGRESSION : There was no evidence of disturbance in thought perception or progression. FUND OF KNOWLEDGE : Appropriate and Adequate SUICIDE: none HOMICIDE: None DATA REVIEWED: none DIAGNOSIS: PRIMARY JOE TREATMENT PLAN: 1. lexapro 30 mg po daily 2. Taper neurontin 100 mg daily and 300 mg po daily for 4 days , then lower neurontin to 300 mg po for 4 days then lower to 200 mg po for 4 days then lower 100 mg for 4 days then d/c neurontin and continue trileptal, no chronic pain , see if less tired and less weight gain I spent a total of 30 minutes on the date of the service which included preparing to see the patient, [id number] patient care, and completing clinical documentation. ADD ON PSYCHOTHERAPY CODE : No SIGNATURE: Fanny Blankenship DO PATIENT NAME: Rayne Toscano DATE: December 10, 2023 TIME: 11 (more content not included)... [facility] 12-10-2023 History of Presen t illness Narrative FOLLOW UP - PSYCHIATRIC PROGRESS NOTE Visit Type:Virtual Visit utilizing two-way audio and video for at least a portion of the visit. Consent for virtual visit obtained verbally. Confidentiality limitations with virtual visits reviewed with the patient and guardian, if present, who have accepted the risk verbally prior to proceeding with encounter. I have communicated my name and active licensure. The patient's identity and physical location were verified at the time of this visit. Either the patient or their legal merchandiser retail representative has been informed of the risks and benefits of -- and alternatives to -- treatment through a remote evaluation and consents to proceed with the evaluation remotely. Reason for Visit: Outpatient follow-up and safety monitoring of previously prescribed psychiatric medication, psychotherapy or other treatment CC: mood is better but weight gain and tiredness HPI: She says the intrusive thoughts are gone on lexapro 30 mg po daily . Weight gain is an issue and never had this issues before so feel its one of the medications. Taking the trileptal 450 ,no recent absence seizures since 2014 while on this med. She is receiving the trileptal from neurologist, Everett Abarca. Not eating more or more hungry on meds but noticed gained significant amount of weight around 20 lbs since Sep. Risks and benefits of the medication, including any black box warnings, were discussed with the patient. Interval Progress: some better PATIENT DATA: Generalized Anxiety Disorder Scale (JOE-7) 10/02/2023 11/11/2023 12/10/2023 JOE - 7 SCORES Score 5 3 1 (0-4) minimal anxiety, (5-9) mild anxiety, (10-14) moderate anxiety, (15-21) severe anxiety Patient Health Questionnaire (PHQ-9) 10/02/2023 11/11/2023 12/10/2023 PHQ-9 Score 3 3 0 (0-4) minimal depression, (5-9) mild depression, (10-14) moderate depression, (15-19) moderately severe depression, (20-27) severe depression PROMIS Global Health 05/06/2023 08/19/2023 11/11/2023 PROMIS Global Health - (T-Scores - the mean of general population = 50. 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 Dayna Muñoz APRN.CNM 1Patient was diagnosed with seizures at age [address] Dahlia santos neurologist. See my chart note dated December 17. Patient had lab work completed as ordered by the neurologist. I transferred her to schedule an appointment with the neurologist. Patient denies any seizures since February 2015.TKRN Seizure (HCC) PAST SURGICAL HISTORY Procedure Laterality Date DELIVERY ONLY 08/10/2021 [facility] Current Outpatient Medications Medication Sig Dispense Refill OXcarbazepine (TRILEPTAL) 300 mg tablet Take 1.5 tablets by mouth two times a day. 270 tablet 3 gabapentin (NEURONTIN) 100 mg capsule Take 2 capsules by mouth two times a day for 90 days. 120 capsule 2 gabapentin (NEURONTIN) 300 mg capsule Take 1 capsule by mouth daily at bedtime for 90 days. 90 capsule 0 escitalopram oxalate (LEXAPRO) 20 mg tablet Take 1 tablet by mouth once daily. 90 tablet 0 escitalopram oxalate (LEXAPRO) 10 mg tablet Take 1 tablet by mouth once daily. 90 tablet 0 No current facility-administered medications for this visit. ROS: denied PFSH: none VITAL SIGNS: There were no vitals filed for this visit. MENTAL STATUS EXAM: CONSTITUTIONAL: Well groomed, Appropriately dressed ORIENTATION: Person, Place, Time and Situation MEMORY: Recent intact, Remote intact, Immediate intact CONCENTRATION: Normal MOOD: euthymic AFFECT: Full and appropriate to topic SPEECH : Clear & distinct LANGUAGE : Normal ASSOCIATIONS: Intact THOUGHT PROCESS : Logical, Coherent, and Rational PROGRESSION : There was no evidence of disturbance in thought perception or progression. FUND OF KNOWLEDGE : Appropriate and Adequate SUICIDE: none HOMICIDE: None DATA REVIEWED: none DIAGNOSIS: PRIMARY JOE TREATMENT PLAN: 1. lexapro 30 mg po daily 2. Taper neurontin 100 mg daily and 300 mg po daily for 4 days , then lower neurontin to 300 mg po for 4 days then lower to 200 mg po for 4 days then lower 100 mg for 4 days then d/c neurontin and continue trileptal, no chronic pain , see if less tired and less weight gain I spent a total of 30 minutes on the date of the service which included preparing to see the patient, [id number] patient care, and completing clinical documentation. ADD ON PSYCHOTHERAPY CODE : No SIGNATURE: Fanny Blankenship DO PATIENT NAME: Rayne Toscano DATE: December 10, 2023 TIME: 11:46 AM documented in this encounter [facility] 12-02-2023 Telephone encounter Note Form [facility] via [employer] App message sent. TANVI Keys [facility] 12-02-2023 Miscellaneous Notes Form signed [facility] and [facility] via [employer] App message sent. TANVI Keys Latest Reference Range & Units 10/18/21 09:46 12/19/22 10:50 11/24/23 16:43 10Hydroxycarbazepine 3.0 - 35.0 ug/mL 12.1 24.4 17.8 11/25/23 VV Aleyda Hylton CNP Would like annual BMV. Would like this restriction lifted due to know seizures. Seizure: None LS absence 01/2015 ASM's: OXC 450mg BID GBP 200mg-500mg (Psych for anxiety) PLAN: - LABS: pending - Medications: -continue with OXC 300mg, 1.5 tabs BID, RFS -continue with GBP 200mg-500mg -continue with all other daily medications -Follow all seizure precautions - Consults: none - Follow up: 12 months ======== Routed to Dr. Villagomez to review concerning driving review 1 year 4 year or restriction lifted Georgina Modi RN Lab order placed: Oxcarbazepine blood level. Salazar Leonardo PA-C Pt has appt on 11/25/2023 with Aleyda Hylton. Routed for lab orders for BMV form. 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 Epilepsy Classification: generalized epilepsy Seizure Classification: Dialeptic Seizure Etiology: Idiopathic Related Condition(s): depression, anxiety; woman of reproductive age Interval Impression: Remains seizure free on current dose of OXC 450 BID. No side effects. Needs BMV form completed. The patient's compliance with therapy has been: Excellent PLAN: - Continue OXC 450 BID - Check OXC level, CMP, CBC - Send in BMV form, can complete if level shows compliance. Testing Ordered CBC CMP anticonvulsant level Medical Management Continue current medications. FOLLOW-UP: Return in about 1 year (around 10/21/2023). ======= No FU scheduled at this time ======= OXC: 300 m mg BID Latest Reference Range & Units 06/25/21 14:31 10/18/21 09:46 12/19/22 10:50 10Hydroxycarbazepine 3.0 - 35.0 ug/mL 20.4 12.1 24.4 Epilepsy: 22 years Last seizure: 01/2015 mychart message sent Georgina Modi RN documented in this encounter [facility] 11-26-2023 Telephone encounter Note Latest Reference Range & Units 10/18/21 09:46 12/19/22 10:50 11/24/23 16:43 10Hydroxycarbazepine 3.0 - 35.0 ug/mL 12.1 24.4 17.8 11/25/23 VV Aleyda Hylton CNP Would like annual BMV. Would like this restriction lifted due to know seizures. Seizure: None LS absence 01/2015 ASM's: OXC 450mg BID GBP 200mg-500mg (Psych for anxiety) PLAN: - LABS: pending - Medications: -continue with OXC 300mg, 1.5 tabs BID, RFS -continue with GBP 200mg-500mg -continue with all other daily medications -Follow all seizure precautions - Consults: none - Follow up: 12 months ======== Routed to Dr. Villagomez to review concerning driving review 1 year 4 year or restriction lifted Georgina Modi RN [facility] 11-25-2023 History of Presen t illness Narrative [facility] VIRTUAL VISIT I have communicated my name and active licensure. The patient's identity and physical location were verified at the time of this visit. Either the patient or their legal merchandiser retail representative has been informed of the risks and benefits of -- and alternatives to -- treatment through a remote evaluation and consents to proceed with the evaluation remotely. Patient on video by herself. Lives in [place], [place]. HISTORY OF PRESENT ILLNESS: Rayne Toscano is a 28 year old F who is diagnosed with absence seizures, and presents today for annual visit/BMV form processing. They are an established patient of Dr. Villagomez'mateus and was last seen on 10/20/2022. Seizure: None LS absence 01/2015 ASM's: OXC 450mg BID GBP 200mg-500mg (Psych for anxiety) Sleeps well at night. No side effects Would like BMV restriction lifted. Last done 12/23/2022 In other health, anxiety. 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 Lives with 2 year old son. Driving: yes with restriction Mood: good Memory: good CURRENT OUTPATIENT MEDICATIONS: Current Outpatient Medications Medication Sig gabapentin (NEURONTIN) 100 mg capsule Take 2 capsules by mouth two times a day for 90 days. gabapentin (NEURONTIN) 300 mg capsule Take 1 capsule by mouth daily at bedtime for 90 days. escitalopram oxalate (LEXAPRO) 20 mg tablet Take 1 tablet by mouth once daily. escitalopram oxalate (LEXAPRO) 10 mg tablet Take 1 tablet by mouth once daily. OXcarbazepine (TRILEPTAL) 300 mg tablet Take 1.5 tablets by mouth twice daily. folic acid 1 mg tablet Take 4 tablets by mouth once daily. (Patient not taking: Reported on 08/05/2023) Jsnzulwg-Wc-Uva-Fe-FA ( VITAMIN) tab Take 1 tablet by mouth. (Patient not taking: Reported on 08/05/2023) No current facility-administered medications for this visit. 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 Dayna Muñoz APRN.JOHNNY 1Patient was diagnosed with seizures at age [address] Villagomez a neurologist. See my chart note dated December 17. Patient had lab work completed as ordered by the neurologist. I transferred her to schedule an appointment with the neurologist. Patient denies any seizures since February 2015.TKRN Seizure (HCC) PAST SURGICAL HISTORY Procedure Laterality Date DELIVERY ONLY 08/10/2021 [facility] FAMILY HISTORY Problem Relation Age of Onset other (Other) Mother anxiety Stroke Mother other (Other) Father back problems Thyroid Sister Autism Sister other (epilepsy) Sister other (Other) Brother anxiety other (Other) Brother adhd Diabetes Maternal Grandmother Heart Maternal Grandfather Lung Cancer Paternal Grandmother No Known Problems Paternal Grandfather ASSESSMENT: Rayne Toscano is a 28 year old LHF with history of seizures. Seizure free for 10 years. Remains on OXC and GBP. Would like annual BMV. Would like this restriction lifted due to know seizures. No new health issues. Working and driving. Regular visits with Psych for her JOE. Levels done and pending. Will discuss restriction with Dr. Villagomez. Continue with plan.. PLAN: - LABS: pending - Medications: -continue with OXC 300mg, 1.5 tabs BID, RFS -continue with GBP 200mg-500mg -continue with all other daily medications -Follow all seizure precautions - Consults: none - Follow up: 12 months I spent 15 minutes during this encounter. Aleyda Hylton APRN.NURSE OUTREACH CASE MANAGER November 25, 2023 documented in this encounter [facility] 11-23-2023 Telephone encounter Note Lab order placed: Oxcarbazepine blood level. Salazar Leonardo PA-C [facility] 11-23-2023 Telephone encounter Note Pt has appt on 11/25/2023 with Aleyda Hylton. Routed for lab orders for BMV form. 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 Epilepsy Classification: generalized epilepsy Seizure Classification: Dialeptic Seizure Etiology: Idiopathic Related Condition(s): depression, anxiety; woman of reproductive age Interval Impression: Remains seizure free on current dose of OXC 450 BID. No side effects. Needs BMV form completed. The patient's compliance with therapy has been: Excellent PLAN: - Continue OXC 450 BID - Check OXC level, CMP, CBC - Send in BMV form, can complete if level shows compliance. Testing Ordered CBC CMP anticonvulsant level Medical Management Continue current medications. FOLLOW-UP: Return in about 1 year (around 10/21/2023). ======= No FU scheduled at this time ======= OXC: 300 m mg BID Latest Reference Range & Units 06/25/21 14:31 10/18/21 09:46 12/19/22 10:50 10Hydroxycarbazepine 3.0 - 35.0 ug/mL 20.4 12.1 24.4 Epilepsy: 22 years Last seizure: 01/2015 [employer] message sent Georgina Modi RN [facility] 10-02-2023 History of Presen t illness Narrative FOLLOW UP - PSYCHIATRIC PROGRESS NOTE Visit Type:Virtual Visit utilizing two-way audio and video for at least a portion of the visit. Consent for virtual visit obtained verbally. Confidentiality limitations with virtual visits reviewed with the patient and guardian, if present, who have accepted the risk verbally prior to proceeding with encounter. I have communicated my name and active licensure. The patient's identity and physical location were verified at the time of this visit. Either the patient or their legal merchandiser retail representative has been informed of the risks and benefits of -- and alternatives to -- treatment through a remote evaluation and consents to proceed with the evaluation remotely. Reason for Visit: Outpatient follow-up and safety monitoring of previously prescribed psychiatric medication, psychotherapy or other treatment CC: I've had a lot going on HPI: Pt has been feeling more down as she has had so many things happen as she started a new position and a new shift. She likes her job but she has a lot of free time to think about things. As far as work it is very hard to work as she is thinking about a lot as her family isnt around. Her family isnt in her son's life and she is going through child support with her father . She has been gaining weight. Risks and benefits of the medication, including any black box warnings, were discussed with the patient. Interval Progress: some worse PATIENT DATA: Generalized Anxiety Disorder Scale (JOE-7) JOE - 7 SCORES 05/06/2023 08/19/2023 10/02/2023 JOE-7 Score 0 0 5 (0-4) minimal anxiety, (5-9) mild anxiety, (10-14) moderate anxiety, (15-21) severe anxiety Patient Health Questionnaire (PHQ-9) PHQ-9 05/06/2023 08/19/2023 10/02/2023 Score 0 1 3 (0-4) minimal depression, (5-9) mild depression, (10-14) moderate depression, (15-19) moderately severe depression, (20-27) severe depression PROMIS Global Health PROMIS Global Health - (T-Scores - the mean of general population = 50. 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 Dayna Muñoz APRN.JOHNNY 12/27/2020atient was diagnosed with seizures at age [address] Villagomez a neurologist. See my chart note dated December 17. Patient had lab work completed as ordered by the neurologist. I transferred her to schedule an appointment with the neurologist. Patient denies any seizures since February 2015.TKRN Seizure ([facility]) PAST SURGICAL HISTORY Procedure Laterality Date DELIVERY ONLY 08/10/2021 [facility] Current Outpatient Medications Medication Sig Dispense Refill gabapentin (NEURONTIN) 100 mg capsule Take 1 capsule by mouth twice daily for 90 days. 180 capsule 0 gabapentin (NEURONTIN) 300 mg capsule Take 1 capsule by mouth daily at bedtime for 90 days. 90 capsule 0 escitalopram oxalate (LEXAPRO) 20 mg tablet Take 1 tablet by mouth once daily. 90 tablet 0 escitalopram oxalate (LEXAPRO) 20 mg tablet Take 1 tablet by mouth once daily. 30 tablet 0 OXcarbazepine (TRILEPTAL) 300 mg tablet Take 1.5 tablets by mouth twice daily. 270 tablet 3 folic acid 1 mg tablet Take 4 tablets by mouth once daily. (Patient not taking: Reported on 08/05/2023) 360 tablet 3 Dlbolkgk-Zr-Vuw-Fe-FA ( VITAMIN) tab Take 1 tablet by mouth. (Patient not taking: Reported on 08/05/2023) No current facility-administered medications for this visit. ROS: denied PFSH: none VITAL SIGNS: There were no vitals filed for this visit. MENTAL STATUS EXAM: CONSTITUTIONAL: Well groomed ORIENTATION: Person, Place, Time and Situation MEMORY: Recent intact, Remote intact, Immediate intact CONCENTRATION: Normal MOOD: depressed AFFECT: Restricted SPEECH : Clear & distinct LANGUAGE : Normal ASSOCIATIONS: Intact THOUGHT PROCESS : Logical, Coherent, and Rational PROGRESSION : There was no evidence of disturbance in thought perception or progression. FUND OF KNOWLEDGE : Appropriate and Adequate SUICIDE: None HOMICIDE: None DATA REVIEWED: None DIAGNOSIS: PRIMARY: JOE Mdd recurrent TREATMENT PLAN: 1. Increase lexapro to 30 mg po daily 2. Neurontin 300 mg po qhs and increase to 200 mg po bid 3. EMDR referral I spent a total of 30 minutes on the date of the service which included preparing to see the patient, [id number] patient care, and completing clinical documentation. ADD ON PSYCHOTHERAPY CODE : No SIGNATURE: Fanny Blankenship DO PATIENT NAME: Rayne Toscano DATE: October 02, 2023 TIME: 4:12 PM documented in this encounter [facility] 09-21-2023 Miscellaneous Notes Osvaldo Blankenship, Patient is wanting to know if you are able to see her at 4pm on any day. That is the time she is needing. Please advise. Best call back number [phone] documented in this encounter [facility] 06-26-2023 History of Presen t illness Narrative SUBJECTIVE: Rayne Toscano is a 27 year old female. Who presents today with concerns of pink eye. Her son currently has pink eye and is on meds. She started to notice some burnining and irration of the eyes 2 days ago. She has no fever no vision changes no pain in the eye and no fb sensation. She did have purulent drainage yesterday. 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 Dayna Muñoz APRN.CNM 1Patient was diagnosed with seizures at age [address] Villagomez a neurologist. See my chart note dated December 17. Patient had lab work completed as ordered by the neurologist. I transferred her to schedule an appointment with the neurologist. Patient denies any seizures since February 2015.TKRN Seizure ([facility]) FAMILY HISTORY Problem Relation Age of Onset other (Other) Mother anxiety Stroke Mother other (Other) Father back problems Thyroid Sister Autism Sister other (epilepsy) Sister other (Other) Brother anxiety other (Other) Brother adhd Diabetes Maternal Grandmother Heart Maternal Grandfather Lung Cancer Paternal Grandmother No Known Problems Paternal Grandfather Social History Tobacco Use Smoking status: Never Smokeless tobacco: Never Vaping Use Vaping Use: Never used Substance Use Topics Alcohol use: No Drug use: No ALLERGIES No Known Allergies Current Outpatient Medications Medication Sig Dispense Refill gabapentin (NEURONTIN) 100 mg capsule Take 1 capsule by mouth twice daily for 90 days. 180 capsule 0 gabapentin (NEURONTIN) 300 mg capsule Take 1 capsule by mouth daily at bedtime for 90 days. 90 capsule 0 escitalopram oxalate (LEXAPRO) 20 mg tablet Take 1 tablet by mouth once daily. 90 tablet 0 OXcarbazepine (TRILEPTAL) 300 mg tablet Take 1.5 tablets by mouth twice daily. 270 tablet 3 folic acid 1 mg tablet Take 4 tablets by mouth once daily. 360 tablet 3 Dyornhea-Yh-Yra-Fe-FA ( VITAMIN) tab Take 1 tablet by mouth. escitalopram oxalate (LEXAPRO) 20 mg tablet Take 1 tablet by mouth once daily. 30 tablet 0 No current facility-administered medications for this visit. OBJECTIVE: BP 116/60 Pulse 76 Temp 36.6 C (97.8 F) Resp 16 Wt 61.4 kg (135 lb 6.4 oz) LMP 06/11/2023 (Approximate) SpO2 97% BMI 26.44 kg/m ROS all other systems reviewed and are negative Physical Exam Constitutional: Well developed, well nourished, NAD, A&O X3. ENT: Head is atraumatic, airway patent, mucosal membranes moist. Eyes: EOMI, PERRL, no drainage, vision unchanged conjunctiva sl pink no purulent discharge noted Neck: supple with no palpable lymph nodes Respiratory: Breath sounds clear : no CVA tenderness MS: no swelling, tenderness or deformity in upper or lower extremities, no midline tenderness in cervical, thoracic or lumbar spine. Neuro: strength sensation and coordination intact. CN II-XII grossly intact, Skin: warm and dry with out rash, lesion or ecchymosis on exposed skin Psych: alert appropriate, speech clear It was a pleasure to take care of Rayne Toscano today. The patient will be treated for pink eye today. She has been exposed to her son. She will used the medications as directed. She will wash her hands frequently. She is contagious for 24 hours after starting the medication Patient will follow up with family physician. They may return to the Urgent Care or go to the ER for worsening symptoms or concerns. Patient verbalized understanding of plan of care and is in agreement. ASSESSMENT/PLAN: 1. Acute bacterial conjunctivitis of both eyes - ICD9: 372.03, ICD10: H10.33 - POLYMYXIN B SULFATE 10,000 UNIT-TRIMETHOPRIM 1 MG/ML EYE DROPS Sophie Hutchison APRN.NURSE OUTREACH CASE MANAGER documented in this encounter [facility] 06-19-2023 History of Presen t illness Narrative CC: Patient presents with: Sore Throat: Cough x1 week HPI: Rayne Toscano is a 27 year old female who presents to the office with complaint of head congestion, cough, nonproductive, sore throat, and rhinorrhea for a week. Symptoms are staying the same. Associated symptoms includes headache. Denies fever, nausea, vomiting , and diarrhea. Treatments tried include nothing so far. with no relief of symptoms. Sick contacts: unknown. History of asthma, frequent episodes of bronchitis, chronic bronchitis, bronchiectasis or COPD: No Smoker: No Seasonal/environmental allergies: No The ROS is otherwise negative. The patient's pmh, medications, allergies, and past visits are reviewed. PHYSICAL EXAM: BP 123/78 Pulse 91 Temp 36.6 C (97.9 F) Resp 18 Wt 61.9 kg (136 lb 6.4 oz) LMP 11/01/2020 (Approximate) SpO2 98% BMI 26.64 kg/m General appearance: alert, cooperative, pleasant, in no acute distress Head: Normocephalic Eyes: EOM's intact, conjunctiva pink and moist, no icterus, sclera white, non-injected Ears: Right ear: External ear/canal- Normal, TM - clear with good landmarks. Left ear: External ear/canal- Normal, TM - clear with good landmarks Oropharynx:moderate erythema, without exudates present Heart: Negative. RRR without obvious murmur, gallop, or rubs. No ectopy. Lungs: clear to auscultation, without rales or wheeze, good air exchange PAST MEDICAL HISTORY Diagnosis Date Anemia during in third trimester 05/14/2021 Chlamydia 04/2020 Depression Epilepsy affecting in third trimester ([facility]) 04/15/2018 12/31/20- [facility] consult placed. Dayna Muñoz APRN.[facility] 1Patient was diagnosed with seizures at age [address] Dahlia santos neurologist. See my chart note dated December 17. Patient had lab work completed as ordered by the neurologist. I transferred her to schedule an appointment with the neurologist. Patient denies any seizures since February 2015.TKRN Seizure ([facility]) PAST SURGICAL HISTORY Procedure Laterality Date DELIVERY ONLY 08/10/2021 [facility] ALLERGIES Patient has no known allergies. MEDICATIONS gabapentin (NEURONTIN) 100 mg capsule Take 1 capsule by mouth twice daily for 90 days. gabapentin (NEURONTIN) 300 mg capsule Take 1 capsule by mouth daily at bedtime for 90 days. escitalopram oxalate (LEXAPRO) 20 mg tablet Take 1 tablet by mouth once daily. OXcarbazepine (TRILEPTAL) 300 mg tablet Take 1.5 tablets by mouth twice daily. folic acid 1 mg tablet Take 4 tablets by mouth once daily. escitalopram oxalate (LEXAPRO) 20 mg tablet Take 1 tablet by mouth once daily. Wmunbmgg-Us-Tec-Fe-FA ( VITAMIN) tab Take 1 tablet by mouth. (Patient not taking: Reported on 06/19/2023) FAMILY HISTORY Problem Relation Age of Onset other (Other) Mother anxiety Stroke Mother other (Other) Father back problems Thyroid Sister Autism Sister other (epilepsy) Sister other (Other) Brother anxiety other (Other) Brother adhd Diabetes Maternal Grandmother Heart Maternal Grandfather Lung Cancer Paternal Grandmother No Known Problems Paternal Grandfather Social History Tobacco Use Smoking status: Never Smokeless tobacco: Never Vaping Use Vaping Use: Never used Substance Use Topics Alcohol use: No Drug use: No ASSESSMENT/PLAN: 1. Sore throat - ICD9: 462, ICD10: J02.9 - STREP A MOLECULAR (POC) - neg Potential red flag symptoms discussed with the patient. Reviewed appropriate action plan to take if red flag symptoms occur. Patient agreeable to treatment plan. Aline Santana APRN.ELIAS documented in this encounter [facility] 05-06-2023 History of Presen t illness Narrative FOLLOW UP - PSYCHIATRIC PROGRESS NOTE Visit Type:Virtual Visit utilizing two-way audio and video for at least a portion of the visit. Consent for virtual visit obtained verbally. Confidentiality limitations with virtual visits reviewed with the patient and guardian, if present, who have accepted the risk verbally prior to proceeding with encounter. I have communicated my name and active licensure. The patient's identity and physical location were verified at the time of this visit. Either the patient or their legal merchandiser retail representative has been informed of the risks and benefits of -- and alternatives to -- treatment through a remote evaluation and consents to proceed with the evaluation remotely. Reason for Visit: Outpatient follow-up and safety monitoring of previously prescribed psychiatric medication, psychotherapy or other treatment CC: anxiety follow up HPI: Baby is going to be 4 . Anxiety and mood has been good. Risks and benefits of the medication, including any black box warnings, were discussed with the patient. Interval Progress: improved PATIENT DATA: Generalized Anxiety Disorder Scale (JOE-7) JOE - 7 SCORES 05/07/2022 06/11/2022 05/06/2023 JOE-7 Score 3 2 0 (0-4) minimal anxiety, (5-9) mild anxiety, (10-14) moderate anxiety, (15-21) severe anxiety Patient Health Questionnaire (PHQ-9) PHQ-9 05/07/2022 06/11/2022 05/06/2023 Score 2 2 0 (0-4) minimal depression, (5-9) mild depression, (10-14) moderate depression, (15-19) moderately severe depression, (20-27) severe depression PROMIS Global Health PROMIS Global Health - (T-Scores - the mean of general population = 50. 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 Dayna Muñoz APRN.CNM 12/27/2020atient was diagnosed with seizures at age [address] Villagomez a neurologist. See my chart note dated December 17. Patient had lab work completed as ordered by the neurologist. I transferred her to schedule an appointment with the neurologist. Patient denies any seizures since February 2015.TKRN Seizure ([facility]) PAST SURGICAL HISTORY Procedure Laterality Date DELIVERY ONLY 08/10/2021 [facility] Current Outpatient Medications Medication Sig Dispense Refill gabapentin (NEURONTIN) 100 mg capsule Take 1 capsule by mouth twice daily for 30 days. 60 capsule 0 gabapentin (NEURONTIN) 300 mg capsule Take 1 capsule by mouth daily at bedtime for 30 days. 30 capsule 0 escitalopram oxalate (LEXAPRO) 20 mg tablet Take 1 tablet by mouth once daily. 90 tablet 0 escitalopram oxalate (LEXAPRO) 20 mg tablet Take 1 tablet by mouth once daily. 30 tablet 0 OXcarbazepine (TRILEPTAL) 300 mg tablet Take 1.5 tablets by mouth twice daily. 270 tablet 3 folic acid 1 mg tablet Take 4 tablets by mouth once daily. 360 tablet 3 Fuvtxbok-Bf-Oxu-Fe-FA ( VITAMIN) tab Take 1 tablet by mouth. No current facility-administered medications for this visit. ROS: denied PFSH: none VITAL SIGNS: There were no vitals filed for this visit. MENTAL STATUS EXAM: CONSTITUTIONAL: Well groomed, Appropriately dressed ORIENTATION: Person, Place, Time and Situation MEMORY: Recent intact, Remote intact CONCENTRATION: Normal MOOD: euthymic AFFECT: Full and appropriate to topic SPEECH : Clear & distinct LANGUAGE : Normal ASSOCIATIONS: Intact THOUGHT PROCESS : Logical, Coherent, and Rational PROGRESSION : There was no evidence of disturbance in thought perception or progression. FUND OF KNOWLEDGE : Appropriate and Adequate SUICIDE: None HOMICIDE: None DATA REVIEWED: None DIAGNOSIS: joe anxiety TREATMENT PLAN: 1. Lexapro 20 mg po qam and increase neurontin 100 mg po bid and 300 mg po qhs Follow up 3-4 months I spent a total of 30 minutes on the date of the service which included preparing to see the patient, [id number] patient care, and completing clinical documentation. ADD ON PSYCHOTHERAPY CODE : No SIGNATURE: Fanny Blankenship DO PATIENT NAME: Rayne Toscano DATE: May 06, 2023 TIME: 11:32 AM documented in this encounter [facility] 04-27-2023 Miscellaneous Notes Patient requesting refills via MyChart as follows: Last appt: 03/04/23 next appt: 05/06/23 Requested Prescriptions Pending Prescriptions Disp Refills gabapentin (NEURONTIN) 100 mg capsule 60 capsule 0 Sig: Take 1 capsule by mouth twice daily for 30 days. Prescription(s) as above. Please process accordingly. documented in this encounter [facility] 04-01-2023 Miscellaneous Notes The following medication(s) is being requested: LAST APPT - 03/04/23 NEXT APPT - 04/08/23 Requested Prescriptions Pending Prescriptions Disp Refills gabapentin (NEURONTIN) 100 mg capsule 60 capsule 0 Sig: Take 1 capsule by mouth twice daily for 30 days. Please process accordingly Nilda Marquez documented in this encounter [facility] 03-12-2023 Miscellaneous Notes The following medication(s) is being requested: LAST APPT - 06/11/22 NEXT APPT - 04/08/23 Requested Prescriptions Pending Prescriptions Disp Refills gabapentin (NEURONTIN) 300 mg capsule 30 capsule 0 Sig: Take 1 capsule by mouth daily at bedtime for 30 days. escitalopram oxalate (LEXAPRO) 20 mg tablet 90 tablet 0 Sig: Take 1 tablet by mouth once daily. Refused Prescriptions Disp Refills OXcarbazepine (TRILEPTAL) 300 mg tablet 270 tablet 3 Sig: Take 1.5 tablets by mouth twice daily. Please process accordingly Nilda Marquez Patient has been identified by name and date of : Yes, Provider FANNY BLANKENSHIP Patient phones for refill(s): Requested Prescriptions Pending Prescriptions Disp Refills gabapentin (NEURONTIN) 300 mg capsule 30 capsule 0 Sig: Take 1 capsule by mouth daily at bedtime for 30 days. OXcarbazepine (TRILEPTAL) 300 mg tablet 270 tablet 3 Sig: Take 1.5 tablets by mouth twice daily. escitalopram oxalate (LEXAPRO) 20 mg tablet 90 tablet 0 Sig: Take 1 tablet by mouth once daily. Date of last office visit with ordering provider: 06/11/22 Date of next office visit with ordering provider: 04/08/23 Last 2 Encounter Wt Readings: Date: Wt: 02/03/2023 53.5 kg (118 lb) 12/18/2021 52.2 kg (115 lb) Previous labs/tests for medication: Not applicable Please advise. Thank you. Maritza Goldman documented in this encounter [facility] 02-03-2023 History of Presen t illness Narrative Subjective HPI Nontoxic-appearing female presents urgent care chief complaint eye redness and itching. Duration of symptoms 2 days. Associated symptoms cough sore throat nasal drainage eye matting. States her eyes are matted shut when she woke up this morning. States son was sick with similar signs symptoms. His symptoms have improved. Denies any OTC medication. Denies any eye trauma flashes light floaters ocular history visual changes foreign body sensation. Denies any fever body aches chills productive cough chest pain shortness of breath pleuritic pain hemoptysis nausea vomiting abdominal pain change in bowel or bladder habits. Past medical history prescription medication use and allergies reviewed. 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 Dayna Muñoz APRN.M 12/27/2020atient was diagnosed with seizures at age [address] Dahlia santos neurologist. See my chart note dated December 17. Patient had lab work completed as ordered by the neurologist. I transferred her to schedule an appointment with the neurologist. Patient denies any seizures since February 2015.TKRN Seizure ([facility]) PAST SURGICAL HISTORY Procedure Laterality Date DELIVERY ONLY 08/10/2021 [facility] ALLERGIES Patient has no known allergies. MEDICATIONS escitalopram oxalate (LEXAPRO) 20 mg tablet Take 1 tablet by mouth once daily. gabapentin (NEURONTIN) 100 mg capsule Take 1 capsule by mouth twice daily for 30 days. gabapentin (NEURONTIN) 300 mg capsule Take 1 capsule by mouth daily at bedtime for 30 days. OXcarbazepine (TRILEPTAL) 300 mg tablet Take 1.5 tablets by mouth twice daily. folic acid 1 mg tablet Take 4 tablets by mouth once daily. Qdulgwup-Kh-Kzr-Fe-FA ( VITAMIN) tab Take 1 tablet by mouth. escitalopram oxalate (LEXAPRO) 20 mg tablet Take 1 tablet by mouth once daily. FAMILY HISTORY Problem Relation Age of Onset other (Other) Mother anxiety Stroke Mother other (Other) Father back problems Thyroid Sister Autism Sister other (epilepsy) Sister other (Other) Brother anxiety other (Other) Brother adhd Diabetes Maternal Grandmother Heart Maternal Grandfather Lung Cancer Paternal Grandmother No Known Problems Paternal Grandfather Social History Tobacco Use Smoking status: Never Smokeless tobacco: Never Vaping Use Vaping Use: Never used Substance Use Topics Alcohol use: No Drug use: No BP 112/64 Pulse 102 Temp 36.4 C (97.5 F) Resp 16 Wt 53.5 kg (118 lb) LMP 11/01/2020 (Approximate) SpO2 97% BMI 23.05 kg/m Review of Systems Constitutional: Negative for chills, fever and malaise/fatigue. HENT: Positive for congestion and sore throat. Negative for ear discharge, ear pain and sinus pain. Eyes: Positive for discharge and redness. Negative for blurred vision, double vision, photophobia and pain. Respiratory: Positive for cough. Negative for hemoptysis, sputum production, shortness of breath, wheezing and stridor. Cardiovascular: Negative for chest pain. Gastrointestinal: Negative for abdominal pain, diarrhea, nausea and vomiting. Musculoskeletal: Negative for myalgias. Skin: Negative for itching and rash. Neurological: Negative for dizziness and headaches. Objective Physical Exam Constitutional: General: She is not in acute distress. Appearance: She is not diaphoretic. HENT: Head: Normocephalic. Jaw: No trismus, tenderness, swelling or pain on movement. Right Ear: Tympanic membrane, ear canal and external ear normal. Left Ear: Tympanic membrane, ear canal and external ear normal. Mouth/Throat: Mouth: Mucous membranes are moist. Pharynx: Oropharynx is clear. Uvula midline. No pharyngeal swelling, oropharyngeal exudate, posterior oropharyngeal erythema or uvula swelling. Eyes: General: Lids are normal. Vision grossly intact. Right eye: Discharge present. No foreign body or hordeolum. Left eye: Discharge present.No foreign body or hordeolum. Conjunctiva/sclera: Right eye: Right conjunctiva is injected. Exudate present. No chemosis or hemorrhage. Left eye: Left conjunctiva is injected. Exudate present. No chemosis or hemorrhage. Pupils: Pupils are equal, round, and reactive to light. Comments: Bilateral eye matting noted. Limbus clear. Visual acuity unchanged. Cardiovascular: Rate and Rhythm: Normal rate and regular rhythm. Heart sounds: Normal heart sounds. Pulmonary: Effort: Pulmonary effort is normal. No tachypnea, accessory muscle usage or respiratory distress. Breath sounds: Normal breath sounds. No stridor. No wheezing, rhonchi or rales. Abdominal: General: There is no distension. Palpations: Abdomen is soft. Tenderness: There is no abdominal tenderness. There is no guarding or rebound. Musculoskeletal: Cervical back: Normal range of motion and neck supple. No edema, erythema, rigidity or tenderness. No pain with movement. Normal range of motion. Lymphadenopathy: Cervical: No cervical adenopathy. Skin: General: Skin is warm and dry. Neurological: Mental Status: She is alert and oriented to person, place, and time. ASSESSMENT/PLAN: 1. Sore throat - ICD9: 462, ICD10: J02.9 (primary diagnosis) - STREP A MOLECULAR (POC) 2. Bacterial conjunctivitis - ICD9: 372.39, 041.9, ICD10: H10.9 - see medication orders - course and contagiousness issues discussed, including hand washing. - Instructed to call if high fever, development of periorbital redness or swelling, eye pain, visual changes, concerns or if symptoms persist. Strep test negative. Patient was educated on supportive therapies. Patient will follow up with primary care provider as needed. Patient was instructed to immediately proceed to emergency room for any new, worsening, or symptoms lasting longer than anticipated. The patient's clinical presentation is otherwise unremarkable at this time. Based on exam and clinical finding, the patient is stable for discharge. Plan of care was discussed with patient. Patient verbalizes understanding and agrees to plan of care. This note was generated using Krave-[employer] software. It may contain errors in wording, punctuation, or spelling. Fred Guzman APRN.ELIAS documented in this encounter [facility] 01-27-2023 Miscellaneous Notes The following medication(s) is being requested: LAST APPT - 06/11/22 NEXT APPT - n/a-no follow up needed Requested Prescriptions Pending Prescriptions Disp Refills escitalopram oxalate (LEXAPRO) 20 mg tablet 30 tablet 0 Sig: Take 1 tablet by mouth once daily. gabapentin (NEURONTIN) 100 mg capsule 60 capsule 0 Sig: Take 1 capsule by mouth twice daily for 30 days. gabapentin (NEURONTIN) 300 mg capsule 30 capsule 0 Sig: Take 1 capsule by mouth daily at bedtime for 30 days. Please process accordingly Nilda Marquez documented in this encounter [facility] 12-24-2022 Miscellaneous Notes BMV form completed Georgina Modi OXC 450 mg BID OXC level in process. Please see BMV form attached. If level shows compliance, ok to process. Maryan Rogel APRN.CNP documented in this encounter [facility] 11-10-2022 Miscellaneous Notes Patient requesting refill(s): [facility] Last Seen: 06/11 Upcoming appt: none Requested Prescriptions Pending Prescriptions Disp Refills gabapentin (NEURONTIN) 100 mg capsule 60 capsule 0 Sig: Take 1 capsule by mouth twice daily for 30 days. gabapentin (NEURONTIN) 300 mg capsule 30 capsule 0 Sig: Take 1 capsule by mouth daily at bedtime for 30 days. Please process accordingly documented in this encounter [facility] 10-20-2022 History of Presen t illness Narrative [facility] Patient Name: Rayne Toscano Date of : 1995 ESTABLISHED EPILEPSY CLINIC NOTE 10/20/2022 11:30 AM Reason for Visit: Refill Request, Follow Up, and Epilepsy Clinical Summary: Ms. Toscano is a 27 year old right-handed female seen in [facility]. We had a visit using: maufait I received consent from the patient to perform the visit using this platform. There is no one accompanying the patient during today's visit. Classification Summary HISTORY OF PRESENT ILLNESS Handedness: right-handed Age of onset: 7 years Seizure History and Evolution 22 year old woman with diagnosis of epilepsy since age 7. She was noticed in school at that time. Seizures usually in the morning with staring. NO myoclonus or generalized seizures. In the past. Last seizure was 2014. She is on trileptal and doing well. Expresses no neurological concerns. Possible lateralizing signs by history: None and Early Development: normal RISK FACTORS FOR SEIZURES: 1. Head Trauma (No) 2. 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 Family History of Seizures (Yes, see below) 4. Developmental Delay (No) 5. Febrile Seizures (No) 6. 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 Significant Medical History (No) CURRENT ANTICONVULSANTS: Trileptal 300 mg bid The patient's side effects to the current medications: no reported side effects PRIOR ANTICONVULSANT HISTORY: Levetiracetam (Keppra), Ethosuximide Interval Seizure History Last seen by me on 09/02/2021. At that visit, we weaned OXC to 450 BID (post-). Pre- dose was 300 BID. She remains on OXC 450 BID. There are no reports of side effects. Reports compliance. There have been no seizures since the last visit. In other health, no major changes to medical history. Mood: Denies any concerns. Working: Yes Driving: Yes, BMV to be sent in. Labs need done. Total # of Current Anti-seizure Medications: Side Effects to Current Anti-seizure Medications: Seizure Frequency at First Visit: 0 per year Longest Seizure-free Interval: years Number of seizure types: 1 Hx of generalized tonic-clonic seizures: No Tongue bite: No Urine or Bowel Incontinence: No Triggers: none Postictal Deficits: No Memory complaints: NA Status Epilepticus or clusters: No Postictal Agitation: No Seizure-related driving accidents: No Driving: Yes Lives Alone: No Highest Level of Education: High school graduate (includes GED) CURRENT OUTPATIENT ANTISEIZURE MEDICATIONS (as of the start of the encounter) gabapentin (NEURONTIN) 100 mg capsule Take 1 capsule by mouth twice daily for 30 days. gabapentin (NEURONTIN) 300 mg capsule Take 1 capsule by mouth daily at bedtime for 30 days. OXcarbazepine (TRILEPTAL) 300 mg tablet Take 1.5 tablets by mouth twice daily. Prior Anti-seizure Therapies: Trial Adequacy: Max Daily Dose Achieved: Side Effects: Effectiveness: Comments: Comorbidities: Episode Description: SEIZURE TYPE 1: dialeptic seizure Aura: no Loss of awareness: Duration: Frequency: Last occurred: yes Patient Entered Data: EPILEPSY SCORE 10/20/2022 6:42 AM 06/11/2022 4:01 PM 05/07/2022 2:13 PM First answer obtained - 08/22/2019 2:24 AM PHQ-9 SCORE - 2 [None-Minimal Depression] 2 [None-Minimal Depression] 3 [None-Minimal Depression] JOE 2 SCORE - - - 1 [Negative Anxiety Screen] JOE 7 SCORE - - - - QOLIE-10 SCORE (0=worst; 100=best QoL - higher scores represent better function) - - - 21 LSSS SCORE (0- no seizures 100- most severe possible seizures) - - - - C-SSRS SCREEN - - - - On average, how many hours of sleep do you get in a 24-hour period? - - - 8 PROMIS Sleep Disturbance T-SCORE 44 [within normal limits] - - - Have you been diagnosed with Sleep Apnea? - - - No Seizure risk factors: Brain Tumor Unanswered [employer] Infections Unanswered Developmental Delay Unanswered Family history of seizures Unanswered Febrile Seizure Unanswered Complications Unanswered Stroke Unanswered Traumatic Brain Injury Unanswered Previous Epilepsy Evaluations Routine EEG (10/21/2005) Classification Abnormal III (Awake, Anesthesia, Sleep, Anterior temporal electrodes) 1 Osmin and Wave Complex, Generalized Impression This EEG supports the diagnosis of generalized epilepsy. No EEG seizures were seen in this record. Routine EEG (08/22/2005) Classification Abnormal III (Awake, Drowsy) Interictal: 1 Osmin and Wave Complex, Generalized, Maximum bifrontal Ictal: 1 EEG: EEG Seizure, Generalized, Maximum bifrontal Seizure: Dialeptic Seizure Impression This EEG supports the diagnosis of generalized epilepsy. Other caregivers: Primary Care Provider: Attila Amaya MD Current Outpatient Medications Medication Sig OXcarbazepine (TRILEPTAL) 300 mg tablet Take 1.5 tablets by mouth twice daily. escitalopram oxalate (LEXAPRO) 20 mg tablet Take 1 tablet by mouth once daily. escitalopram oxalate (LEXAPRO) 20 mg tablet Take 1 tablet by mouth once daily. gabapentin (NEURONTIN) 100 mg capsule Take 1 capsule by mouth twice daily for 30 days. gabapentin (NEURONTIN) 300 mg capsule Take 1 capsule by mouth daily at bedtime for 30 days. folic acid 1 mg tablet Take 4 tablets by mouth once daily. Faufjgcf-Fm-Hom-Fe-FA ( VITAMIN) tab Take 1 tablet by mouth. No current facility-administered medications for this visit. 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) 04/15/2018 12/31/20- [facility] consult placed. Dayna Muñoz APRN.CNM 12/27/2020atient was diagnosed with seizures at age [address] Villagomez a neurologist. See my chart note dated December 17. Patient had lab work completed as ordered by the neurologist. I transferred her to schedule an appointment with the neurologist. Patient denies any seizures since February 2015.TKRN Seizure (HCC) PAST SURGICAL HISTORY Procedure Laterality Date DELIVERY ONLY 08/10/2021 LTCS FAMILY HISTORY Problem Relation Age of Onset other (Other) Mother anxiety Stroke Mother other (Other) Father back problems Thyroid Sister Autism Sister other (epilepsy) Sister other (Other) Brother anxiety other (Other) Brother adhd Diabetes Maternal Grandmother Heart Maternal Grandfather Lung Cancer Paternal Grandmother No Known Problems Paternal Grandfather SOCIAL HISTORY: -Lives in [place], [place] -Patient lives alone? No -Vocation: -Education: High school graduate (includes GED) -Cigarette, alcohol, substance use: none -Functional status: independent in activities of daily living -Patient driving? 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 Epilepsy Classification: generalized epilepsy Seizure Classification: Dialeptic Seizure Etiology: Idiopathic Related Condition(s): depression, anxiety; woman of reproductive age Interval Impression: Remains seizure free on current dose of OXC 450 BID. No side effects. Needs BMV form completed. The patient's compliance with therapy has been: Excellent PLAN: - Continue OXC 450 BID - Check OXC level, CMP, CBC - Send in BMV form, can complete if level shows compliance. Data reviewed as above including: electronic medical record Testing Ordered CBC CMP anticonvulsant level Education The following issues were discussed with the patient on this visit and written instructions provided as below- Seizure precautions and safety, seizure first aide, when to seek emergency care. Counseling was provided to the patient that missed medications, addition of some new medications, use of alcohol or other substances, and sleep deprivation can lower the seizure threshold. I discussed the risk of depression and psychological comorbidities in patients with epilepsy and when to seek help as well as the black box warning of all antiepileptic medications which can increase risk for suicidality. Patient was given my clinic contact information. Medical Management Continue current medications. Prescriptions sent to pharmacy. The possibility of serious and adverse reactions were discussed in detail as well as proper use of medication. I discussed that not taking this medication as directed could worsen seizures and can be dangerous. I discussed the risks, benefits and alternatives of the medical plan with the patient. Questions were answered. The patient agreed with the plan as discussed. FOLLOW-UP: Return in about 1 year (around 10/21/2023). I spent a total of 20 minutes on the date of the service which included: preparing to see the patient [id number] patient care completing clinical documentation obtaining and/or reviewing separately obtained history counseling and educating the patient/family/caregiver ordering medications, tests, or procedures Maryan Rogel APRN.NURSE OUTREACH CASE MANAGER cc: Primary Care Physician: Attila Amaya MD [address] [id number] Referring: Patient: Ms. Rayne Toscano [id number] [address] documented in this encounter [facility] 09-17-2022 Miscellaneous Notes Patient requesting refill(s): Katheryn Last Seen: 06/11/22 Upcoming appt: none Requested Prescriptions Pending Prescriptions Disp Refills escitalopram oxalate (LEXAPRO) 20 mg tablet 30 tablet 0 Sig: Take 1 tablet by mouth once daily. escitalopram oxalate (LEXAPRO) 20 mg tablet 90 tablet 0 Sig: Take 1 tablet by mouth once daily. gabapentin (NEURONTIN) 100 mg capsule 60 capsule 0 Sig: Take 1 capsule by mouth twice daily for 30 days. gabapentin (NEURONTIN) 300 mg capsule 30 capsule 0 Sig: Take 1 capsule by mouth daily at bedtime for 30 days. Please process accordingly documented in this encounter [facility] 07-22-2022 Miscellaneous Notes The following approved medication requests have been transmitted electronically. Requested Prescriptions Signed Prescriptions Disp Refills OXcarbazepine (TRILEPTAL) 300 mg tablet 270 tablet 0 Sig: Take 1.5 tablets by mouth twice daily. Miguel A Queen PA-C documented in this encounter [facility] 07-21-2022 Miscellaneous Notes Patient requesting refill(s): Katheryn Last Seen: 06/11 Upcoming appt: none Requested Prescriptions Pending Prescriptions Disp Refills escitalopram oxalate (LEXAPRO) 20 mg tablet 90 tablet 0 Sig: Take 1 tablet by mouth once daily. gabapentin (NEURONTIN) 100 mg capsule 60 capsule 0 Sig: Take 1 capsule by mouth twice daily for 30 days. gabapentin (NEURONTIN) 300 mg capsule 30 capsule 0 Sig: Take 1 capsule by mouth daily at bedtime for 30 days. Please process accordingly documented in this encounter [facility] 06-12-2022 Miscellaneous Notes The following approved medication requests have been transmitted electronically. Requested Prescriptions Signed Prescriptions Disp Refills OXcarbazepine (TRILEPTAL) 300 mg tablet 270 tablet 0 Sig: Take 1.5 tablets by mouth twice daily. Authorizing Provider: MIGUEL A QUEEN PA-C documented in this encounter [facility] 06-11-2022 History of Presen t illness Narrative Images from the original note were not included. PSYC FOLLOW UP - PSYCHIATRIC PROGRESS NOTE CC: anxiety follow up With the patient consent, visit was performed virtually. HPI: Mood slightly improving and sleep is better Risks and benefits of the medication, including any black box warnings, were discussed with the patient. Interval Progress: Slightly improved PATIENT DATA: Generalized Anxiety Disorder Scale (JOE-7) JOE - 7 SCORES 12/29/2021 05/07/2022 06/11/2022 JOE-7 Score 14 3 2 (0-4) minimal anxiety, (5-9) mild anxiety, (10-14) moderate anxiety, (15-21) severe anxiety Patient Health Questionnaire (PHQ-9) PHQ-9 12/29/2021 05/07/2022 06/11/2022 Score 7 2 2 (0-4) minimal depression, (5-9) mild depression, (10-14) moderate depression, (15-19) moderately severe depression, (20-27) severe depression PROMIS Global Health PROMIS Global Health - (T-Scores - the mean of general population = 50. 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 Dayna Muñoz APRN.JOHNNY 12/27/2020atient was diagnosed with seizures at age [address] Villagomez a neurologist. See my chart note dated December 17. Patient had lab work completed as ordered by the neurologist. I transferred her to schedule an appointment with the neurologist. Patient denies any seizures since February 2015.TKRN Seizure ([facility]) PAST SURGICAL HISTORY Procedure Laterality Date DELIVERY ONLY 08/10/2021 LTCS Current Outpatient Medications Medication Sig Dispense Refill escitalopram oxalate (LEXAPRO) 20 mg tablet Take 1 tablet by mouth once daily. 90 tablet 0 escitalopram oxalate (LEXAPRO) 20 mg tablet Take 1 tablet by mouth once daily. 30 tablet 0 gabapentin (NEURONTIN) 300 mg capsule Take 1 capsule by mouth three times daily for 90 days. 270 capsule 0 OXcarbazepine (TRILEPTAL) 300 mg tablet Take 1.5 tablets by mouth twice daily. 270 tablet 3 folic acid 1 mg tablet Take 4 tablets by mouth once daily. 360 tablet 3 Soqxhmxv-Qe-Iac-Fe-FA ( VITAMIN) tab Take 1 tablet by mouth. No current facility-administered medications for this visit. ROS: GENERAL: Negative for malaise, significant weight loss and fever. HEENT: No changes in hearing or vision, no nose bleeds or other nasal problems. RESPIRATORY: Negative for cough, wheezing and shortness of breath. CARDIOVASCULAR: Negative for chest pain, leg swelling and palpitations. GI: Negative for abdominal discomfort, blood in stools or black stools. : Negative for dysuria, frequency and incontinence. MUSCULOSKELETAL: Negative for joint pain or swelling, back pain, and muscle pain. SKIN: Negative for lesions, rash, and itching. HEMATOLOGY/LYMPHOLOGY Negative for prolonged bleeding, bruising easily, and swollen nodes. ENDOCRINE: Negative for cold or heat intolerance, polyuria, polydipsia and goiter. NEURO: Negative for headaches, syncope, seizures and paralysis. PFSH: none VITAL SIGNS: There were no vitals filed for this visit. MENTAL STATUS EXAM: CONSTITUTIONAL: Well groomed ORIENTATION: Person, Place, Time and Situation MEMORY: Recent intact, Remote intact, Immediate intact CONCENTRATION: Normal MOOD: euthymic AFFECT: Full and appropriate to topic SPEECH : Clear & distinct LANGUAGE : Normal ASSOCIATIONS: Intact THOUGHT PROCESS : Logical, Coherent, and Rational PROGRESSION : There was no evidence of disturbance in thought perception or progression. FUND OF KNOWLEDGE : Appropriate and Adequate SUICIDE: None HOMICIDE: None DATA REVIEWED: None DIAGNOSIS: PRIMARY DIAGNOSIS: PRIMARY: joe anxiety TREATMENT PLAN: 1. Lexapro 20 mg po qam and increase neurontin 100 mg po bid and 300 mg po qhs Follow Up: No follow up needed I spent a total of 30 minutes on the date of the service which included [id number] patient care and completing clinical documentation. ADD ON PSYCHOTHERAPY CODE : no SIGNATURE: Fanny Blankenship DO PATIENT NAME: Rayne Toscano DATE: June 11, 2022 TIME: 4:11 PM PAGER: documented in this encounter [facility] 05-07-2022 History of Presen t illness Narrative Images from the original note were not included. PSYC FOLLOW UP - PSYCHIATRIC PROGRESS NOTE CC: anxiety follow up I feel the new medicine is working With the patient consent, visit was performed virtually. HPI: Elisa Pt states she hasn't felt as anxious in certain situations like in cleaning but in social events still anxious. It can take up to a few hours to fall asleep with a lot on her mind on some nights. Tolerating the trileptal 300 mg bid for epilepsy without any seizures. Baby is doing well now 8 months old, Elbessiejaro, still him. Tolerated neurontin but thought she was supposed to stop it when started the lexapro? Risks and benefits of the medication, including any black box warnings, were discussed with the patient. Interval Progress: some improvement PATIENT DATA: Generalized Anxiety Disorder Scale (JOE-7) JOE - 7 SCORES 04/15/2018 12/29/2021 05/07/2022 JOE-7 Score 8 14 3 (0-4) minimal anxiety, (5-9) mild anxiety, (10-14) moderate anxiety, (15-21) severe anxiety Patient Health Questionnaire (PHQ-9) PHQ-9 07/22/2021 12/29/2021 05/07/2022 Score 0 7 2 (0-4) minimal depression, (5-9) mild depression, (10-14) moderate depression, (15-19) moderately severe depression, (20-27) severe depression PROMIS Global Health PROMIS Global Health - (T-Scores - the mean of general population = 50. 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 Dayna Muñoz APRN.CNM 12/27/2020atient was diagnosed with seizures at age [address] Villagomez a neurologist. See my chart note dated December 17. Patient had lab work completed as ordered by the neurologist. I transferred her to schedule an appointment with the neurologist. Patient denies any seizures since February 2015.TKRN Seizure ([facility]) PAST SURGICAL HISTORY Procedure Laterality Date DELIVERY ONLY 08/10/2021 LTCS Current Outpatient Medications Medication Sig Dispense Refill escitalopram oxalate (LEXAPRO) 20 mg tablet Take 1 tablet by mouth once daily. 30 tablet 0 gabapentin (NEURONTIN) 300 mg capsule Take 1 capsule by mouth three times daily for 90 days. 270 capsule 0 OXcarbazepine (TRILEPTAL) 300 mg tablet Take 1.5 tablets by mouth twice daily. 270 tablet 3 folic acid 1 mg tablet Take 4 tablets by mouth once daily. 360 tablet 3 Agmuquip-Zc-Lgx-Fe-FA ( VITAMIN) tab Take 1 tablet by mouth. No current facility-administered medications for this visit. ROS: none PFSH: none VITAL SIGNS: There were no vitals filed for this visit. MENTAL STATUS EXAM: CONSTITUTIONAL: Well groomed ORIENTATION: Person, Place, Time and Situation MEMORY: Recent intact, Remote intact, Immediate intact CONCENTRATION: Normal MOOD: euthymic AFFECT: Full and appropriate to topic SPEECH : Clear & distinct LANGUAGE : Normal ASSOCIATIONS: Intact THOUGHT PROCESS : Logical, Coherent, and Rational PROGRESSION : There was no evidence of disturbance in thought perception or progression. FUND OF KNOWLEDGE : Appropriate and Adequate SUICIDE: None HOMICIDE: None DATA REVIEWED: None DIAGNOSIS: PRIMARY: joe anxiety TREATMENT PLAN: 1. Lexapro 20 mg po qam and resume neurontin 300 mg po qhs I spent a total of 30 minutes on the date of the service which included preparing to see the patient and completing clinical documentation. ADD ON PSYCHOTHERAPY CODE : No SIGNATURE: Fanny Blankenship DO PATIENT NAME: Rayne Toscano DATE: May 07, 2022 TIME: 2:59 PM PAGER: documented in this encounter [facility] 01-29-2022 Miscellaneous Notes BMV signed copies sent to onbase and BMV Images from the original note were not included. Ariadna Villagomez MD, PhD You 14 minutes ago (12:37 PM) we can complete BMV everything as discussed and I will see her for routine follow up thank you BMV form completed sent to Dr. Villagomez via [employer] to review signature pending Georgina Modi Spoke with Rayne confirmed last seizure was 2014 Confirmed she is taking OXC 450 mg BID taking the GBP for post anxiety routed to Dr. 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 Epilepsy Classification: generalized epilepsy Seizure Classification: Dialeptic Seizure Etiology: Idiopathic Related Condition(s): depression, anxiety; woman of reproductive age Interval Impression: Delivered a healthy baby boy on 08/10/2021. No seizures. Concerned about OXC and , but would like to remain on medication, but slightly reduce dose. The patient's compliance with therapy has been: Excellent PLAN: - Decrease OXC to 450 mg BID following wean below: Week 1-2: 450 mg in the AM and 600 mg in the PM Week 2: 450 mg twice daily - Check a OXC level at week 4 (Pre- dose 300 mg BID) Data reviewed as above including: electronic medical record Testing Ordered CMP anticonvulsant level Education It is reasonable for the patient to continue driving based on good compliance with antiseizure medication and current seizure control. Medical Management Medication changes were discussed. wean OXC to 450 BID FOLLOW-UP: Return in about 6 months (around 03/02/2022). GBP: 300 m/300/300 OXC: 300 m/450 Ref. Range 06/25/2021 14:31 10/18/2021 09:46 10Hydroxycarbazepine Latest Ref Range: 3.0 - 35.0 ug/mL 20.4 12.1 Attempted to call is full Personal Style Finder message sent Georgina Modi Received blank BVM forms, Uploaded to chart under Miscellaneous correspondence. documented in this encounter [facility] 12-31-2021 Miscellaneous Notes Addended by: FANNY BLANKENSHIP on: 12/31/2021 09:40 AM Modules accepted: Orders documented in this encounter [facility] 12-31-2021 History of Presen t illness Narrative Images from the original note were not included. PSYC NEW - PSYCHIATRIC ASSESSMENT Patient was seen for an initial evaluation. With the patient consent, visit was performed virtually. All information is from Patient report except when noted. This evaluation is NOT intended for forensic, disability or child custody purposes. 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 She had a boy Alexandra, 18 weeks old. Delivery was emergency csec with heart rate was up and down and she wasn't progressing past 6 cm. Bonding well with him and . Trying to go back to work soon and get back to work. Issues with letting people hold him due to family not respecting rules for the baby. I find myself not able to sleep as I have to clean things and check locks multiple times not feeling comfortable with leaving him with a pantry cook. 10 weeks developed mild anxiety and 14 weeks got worried about anyone holding. She hasnt had any visitors as worried about him getting sick. Partner is irritated about people not listening but not having the anxiety she has. Had been on trileptal during the and she was really tired but mood okay. Cut the trileptal back when found out . Plans to look for a job to get insurance. Sleep: decreased ability to sleep with multiple checking episodes at night,sleeps about 5-6 hours Interest: denied Guilt: none Energy: low Concentration: fluctuates Appetite: low Psychomotor Activity: psychomotor activity was WNL. 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 Dayna Muñoz APRN.CANDI 12/27/2020atient was diagnosed with seizures at age [address] Villagomez a neurologist. See my chart note dated December 17. Patient had lab work completed as ordered by the neurologist. I transferred her to schedule an appointment with the neurologist. Patient denies any seizures since February 2015.TKRN Seizure (HCC) PAST SURGICAL HISTORY Procedure Laterality Date DELIVERY ONLY 08/10/2021 LTCS Current Outpatient Medications Medication Sig Dispense Refill OXcarbazepine (TRILEPTAL) 300 mg tablet Take 1.5 tablets by mouth twice daily. 270 tablet 3 folic acid 1 mg tablet Take 4 tablets by mouth once daily. 360 tablet 3 Btrdxlsh-Fc-Zkm-Fe-FA ( VITAMIN) tab Take 1 tablet by mouth. No current facility-administered medications for this visit. VITAL SIGNS: There were no vitals filed for this visit. ROS: All other systems negative. 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 ECT:none Previous Discontinued Psychiatric Med Trials: prozac 2015 depression pcp after breakup SUBSTANCE USE HISTORY: Nicotine: denied Caffeine: Coffee, 2 cups/day Alcohol: No history of use or dependence Marijuana: No history of use or dependence Cocaine: No history of use or dependence Opiods: No history of use or dependence SPIRITUALITY: Islam [facility]: Rayne Toscano is the 3 on moms and 7 on dads side . The patient was born and raised in [place] [facility] [place] She completed HS . She described her childhood as tough due to bio dad leaving when mom with divorce mom remarried and then The patient lives with bf and baby in [place] Service: none Legal: Pt. denied any past legal history FAMILY PSYCHIATRIC HISTORY:younger brother medication for anxiety PATIENT DATA: Generalized Anxiety Disorder Scale (JOE-7) JOE - 7 SCORES 04/15/2018 12/29/2021 JOE-7 Score 8 14 (0-4) minimal anxiety, (5-9) mild anxiety, (10-14) moderate anxiety, (15-21) severe anxiety Patient Health Questionnaire (PHQ-9) PHQ-9 05/15/2021 07/22/2021 12/29/2021 Score 0 0 7 (0-4) minimal depression, (5-9) mild depression, (10-14) moderate depression, (15-19) moderately severe depression, (20-27) severe depression PROMIS Global Health PROMIS Global Health - (T-Scores - the mean of general population = 50. Five points is a clinically meaningful difference.) 12/27/2020 05/15/2021 12/29/2021 Physical T-Score 50.8 54.1 57.7 Mental T-Score 50.8 67.6 36.3 MENTAL STATUS EXAMINATION: Appearance: Well dressed, well groomed Behavior: Behaves appropriately during the encounter Social relatedness: Anxious/Nervousness Speech/Language: The patient demonstrates appropriate tone, prosody, elly, phonetics, and syntax Mood: tired Affect: Full and appropriate to topic Orientation: Person, Place, Time and Situation Associations: Intact and linear Hallucinations: None Delusions: None Suicidal Ideation: No suicidal ideation, intent or plan. Homicidal Ideation: No homicidal ideation, intent or plan. Insight: Appropriate Judgment: Appropriate MINI-MENTAL STATUS EXAMINATION:not performed IMPRESSION: 26 yr old female with hx of epilepsy with anxiety DIAGNOSIS: PRIMARY: panic disorder, anxiety PLAN: 1. lexapro 5 mg po daily for 4 days then increase to 10 mg po daily 2. neurontin 300 mg po tid 3. TSH T3 T4 4. Follow up with me in 4 weeks no insurance currently looking for work. 5. CBT when gets insurance I spent a total of 30 minutes on the date of the service which included [id number] patient care and completing clinical documentation. ADD ON PSYCHOTHERAPY CODE : No SIGNATURE: Fanny Blankenship DO PATIENT NAME: Rayne Toscano DATE: December 31, 2021 TIME: 9:02 AM PAGER : documented in this encounter [facility] 12-18-2021 Instructions Ashlie Blanchard APRN.CNM - 12/18/2021 9:55 AM EDT Here are some links for wonderful Providers here in the community and surrounding areas. Do not hesitate to contact their offices, many are offering virtual visits during this time. [facility] Psychology, Psychiatry, Counseling Connect with therapist/ can do virtual visits [phone] Referral to the [facility] To schedule an appointment, please call the Center [facility] Appointment Line: [phone] option 1 [facility] [place], [place] [address] [place] [address] [facility] [address] [place] [address] [facility] [address] [place] [address] [facility] [address] [place], [place] [id number] Glen Latif MD [address] [place], [place] [id number] [facility] [address] [facility], [address] [place] [address] [facility] [address] [place] [address] [facility] [place] / [place] [phone]/ [phone] Abigail Webber [address] [facility] [phone] [facility]ing [facility] Mediation [place] / [place] [phone] [facility] [address] [place] [address]/ [place] [phone] Jasmeet Kinney, FREDDY, [facility] Workshops, telehealth and at home visits. [phone] Humanistic counseling center 20 locations [place], [place], [place], [place], [place], [place], [place], [facility], [place], [place], [place], [place], [place], [place], [facility], [place], [place] ,[facility], [place], [place],[facility], [facility], [place], [facility], [facility], [place] www.[employer] [phone] Support Groups: [facility]- Follow on facebook Baby Bistro support group led by [facility] department [employer]amas - Support Group [email or web address] The POEM support group [phone] Www.[email or web address] Follow on facebook - [facility] Online support meetings PSI [email or web address]- help/[email or web address]-[email or web address]-meeting s/ [facility] mommy and me virtual support group 11:30-1pm Support for mothers and new babies and toddlers [facility]fluence childbirth education: Childbirth [email or web address] or call [phone] CRISIS: CRISIS HOTLINE [phone], 911 or go to the nearest ER. PSYCHIATRIC [phone] / [facility] [phone] [email or web address] Crisis text line text the word HOME to [id number] documented in this encounter [facility] 12-18-2021 History of Presen t illness Narrative Rayne Toscano is a 26 year old female who presents for problem visit of continued anxiety. She is 4 months post and feels like anxiety continues to get worse. She cannot leave baby with anyone other than the father. She has a constant fear that something is going to happen to him. She reports distancing herself from family due to them not following her no kissing rule. She reports a constant worry about baby catching HSV and other viruses through people kissing him. She does not leave the house often. She denies any feelings of depression. Denies any suicidal or homicidal ideations. She is able to care for herself and care for infant. She is exclusively . She has not contacted or pursued any counseling or mental health services. Desires to start on medication to help decrease anxiety but concerned with medications interacting with trileptal for seizures. 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 Dayna Muñoz APRN.CANDI 12/27/2020atient was diagnosed with seizures at age [address] Villagomez a neurologist. See my chart note dated December 17. Patient had lab work completed as ordered by the neurologist. I transferred her to schedule an appointment with the neurologist. Patient denies any seizures since February 2015.TKRN Seizure (HCC) PAST SURGICAL HISTORY Procedure Laterality Date DELIVERY ONLY 08/10/2021 [facility] FAMILY HISTORY Problem Relation Age of Onset other (Other) Mother anxiety Stroke Mother other (Other) Father back problems Thyroid Sister Autism Sister other (epilepsy) Sister other (Other) Brother anxiety other (Other) Brother adhd Diabetes Maternal Grandmother Heart Maternal Grandfather Lung Cancer Paternal Grandmother No Known Problems Paternal Grandfather Social History Tobacco Use Smoking status: Never Smoker Smokeless tobacco: Never Used Vaping Use Vaping Use: Never used Substance Use Topics Alcohol use: No Drug use: No Current Outpatient Medications Medication Sig folic acid 1 mg tablet Take 4 tablets by mouth once daily. OXcarbazepine (TRILEPTAL) 300 mg tablet Take 1.5 tablets by mouth twice daily. Thyffzxp-Ki-Zzt-Fe-FA ( VITAMIN) tab Take 1 tablet by mouth. No current facility-administered medications for this visit. Allergies As of Date: 12/18/2021 (No Known Allergies) Fully Assessed 12/18/2021 REVIEW OF SYSTEMS Abdomen: No bloating, early satiety, indigestion, or increased flatulence. No abdominal pain, nausea, vomiting, diarrhea, or constipation. Bladder: No dysuria, gross hematuria, urinary frequency, urinary urgency, or incontinence. Breast: No breast lumps, nipple d/c, overlying skin changes, redness or skin retraction. Expanded ROS: N/A Allergies and current medication updated:Yes EXAM: BP 92/62 Wt 115 lb (52.2kg) LMP 11/01/2020 GENERAL: emotional, female in mild distress HEENT: Normocephalic and atraumatic NECK: Supple and full range of motion DERMATOLOGY: Normal BREAST: deferred CHEST: Normal inspiratory effort ABDOMEN: Deferred PELVIC: deferred BIMANUAL: deferred NEURO: alert and oriented x3,exam grossly non-focal EXTREMITIES: normal ASSESSMENT/PLAN: 1. mood disturbance - ICD9: 648.44, 296.90, ICD10: O90.6 (primary diagnosis) - CONSULT TO PSYCHIATRY- Women's behavioral health services- I spoke directly to intake and patient will be contacted today to schedule virtual visit. 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 Care and examination of lactating mother - ICD9: V24.1, ICD10: Z39.1 4. Generalized epilepsy (HCC) - ICD9: 345.90, ICD10: G40.309 - Follow up with neurology RTO- 1 month for follow up Ashlie Blanchard APRN.CNM I spent a total of 35 minutes on the date of the service which included preparing to see the patient, [id number] patient care, completing clinical documentation, obtaining and/or reviewing separately obtained history, counseling and educating the patient/family/caregiver, ordering medications, tests, or procedures and communicating with other HCPs (not separately reported). Ashlie Blanchard APRN.CNM documented in this encounter [facility] 05-20-2021 Note HNO ID: [id number] Author: Yusef Travis APRN.CNP Service: ? Author Type: Nurse Practitioner Type: Progress Notes Filed: 05/20/2021 1:50 PM Note Text: [facility] Patient Name: Rayne Toscano Date of : 1995 Referring Provider: Attila Shel[place] [address] ESTABLISHED EPILEPSY TELEPHONE NOTE 05/20/2021 9:30 AM The visit was done via telephone visit with patient's consent. Reason for Visit: Epilepsy and Follow Up Clinical Summary: Ms. Toscano is a 25 year old right-handed female seen in [facility]. We had a visit using: Telephone I received consent from the patient to perform the visit using this platform. There is no one accompanying the patient during today's visit. Classification Summary HISTORY OF PRESENT ILLNESS Handedness: right-handed Age of onset: 7 years Seizure History and Evolution 22 year old woman with diagnosis of epilepsy since age 7. She was noticed in school at that time. Seizures usually in the morning with staring. NO myoclonus or generalized seizures. In the past. Last seizure was 2014. She is on trileptal and doing well. Expresses no neurological concerns. ? Possible lateralizing signs by history: None ? and Early Development: normal ? RISK FACTORS FOR SEIZURES: ? 1. Head Trauma (No) 2. 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 Family History of Seizures (Yes, see below) 4. Developmental Delay (No) 5. Febrile Seizures (No) 6. 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 Significant Medical History (No) ? CURRENT ANTICONVULSANTS: Trileptal 300 mg bid ? The patient's side effects to the current medications: no reported side effects ? 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 Her last ASM adjustment was increasing OXC to 450/600. She is tolerating OXC well. Denies any side effects. She is due for blood work on 05/23. She is doing well overall. Prefers an office visit. Her due date is on 08/08. Total # of Current Anti-seizure Medications: Side Effects to Current Anti-seizure Medications: Seizure Frequency at First Visit: 0 per year Longest Seizure-free Interval: years Number of seizure types: 1 Hx of generalized tonic-clonic seizures: No Tongue bite: No Urine or Bowel Incontinence: No Triggers: none Postictal Deficits: No Memory complaints: NA Status Epilepticus or clusters: No Postictal Agitation: No Seizure-related driving accidents: No Driving: Yes Lives Alone: No Highest Level of Education: High school graduate (includes GED) CURRENT OUTPATIENT ANTISEIZURE MEDICATIONS (as of the start of the encounter) OXcarbazepine (TRILEPTAL) 300 mg tablet Take 1.5 tablets by mouth every morning AND 2 tablets daily at bedtime. Prior Anti-seizure Therapies: Trial Adequacy: Max Daily Dose Achieved: Side Effects: Effectiveness: Comorbidities: Episode Description: SEIZURE TYPE 1: dialeptic seizure Aura: no Loss of awareness: Duration: Frequency: Last occurred: yes Patient Entered Data: EPILEPSY SCORE 05/15/2021 12:12 AM 12/27/2020 10:09 AM 12/17/2020 5:55 PM First answer obtained - 08/22/2019 2:24 AM PHQ-9 SCORE 0 [None-Minimal Depression] - 4 [None-Minimal Depression] 3 [None-Minimal Depression] JOE 2 SCORE 0 [Negative Anxiety Screen] 0 [Negative Anxiety Screen] - 1 [Negative Anxiety Screen] JOE 7 SCORE - - - - QOLIE-10 SCORE (0=worst; 100=best QoL ? higher scores represent better function) 13 13 - 21 LSSS SCORE (0- no seizures 100- most severe possible seizures) - - - - C-SSRS SCREEN - - - - On average, how many hours of sleep do you get in a 24-hour period? - - - 8 PROMIS Sleep Disturbance T-SCORE - - - - Have you been diagnosed with Sleep Apnea? 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 ?Osmin and Wave Complex, Generalized Impression ?This EEG supports the diagnosis of generalized epilepsy. No EEG seizures ?were seen in this record.? ? Routine EEG (08/22/2005) Classification ?Abnormal III (Awake, Drowsy) ?Interictal: ?1 ? ?Osmin and Wave Complex, Generalized, Maximum bifrontal ?Ictal: ?1 ? ?EEG: EEG Seizure, Generalized, Maximum bifrontal ? Seizure: Dialeptic Seizure Impression ?This EEG supports the diagnosis of generalized epilepsy. Other caregivers: Primary Care Provider: Attila Amaya MD Current (more content not included)... [facility] 05-14-2021 History of Past i llness Narrative Problem Noted Date Resolved Date Anemia during in third trimester 05/1410/01/2021 Overview: 05/14/21 - iron supplementation & repeat CBC 2-4 weeks - Mahad Santana MD care 12/31/2020 10/01/2021 Overview: 12/31/20-STUART:08/08/21 by sure LMP. Dayna Muñoz APRN.CNM Last Assessment & Plan: Continue routine OB care with primary OB. Third trimeter counseling provided. Spotting in 12/27/2020 10/01/2021 Overview: 12/27/2020atient saw Dayna Muñoz December 19 for spotting. Patient states that she has not had any bleeding for the past 5 days. She was treated for a urinary tract infection in urgent care on December 14. TKRN Patient request for diagnostic testing 10/01/2021 Overview: 12/27/2020 Patient desires nuchal ultrasound. 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 Dayna Muñoz APRN.CNM 1Patient was diagnosed with seizures at age [address] Villagomez a neurologist. See my chart note dated December 17. Patient had lab work completed as ordered by the neurologist. I transferred her to schedule an appointment with the neurologist. Patient denies any seizures since February 2015.TKRN Last Assessment & Plan: Seizure disorder remains stable/well-controlled on oxcarbazepine. Appreciated Neurology recommendations - level subtherapeutic and recently had dose adjustment to 600 mg BID. Patient reports monthly levels are ordered. Discussed physiologic changes PK/PD that may impact need for dose titration, and continue dose adjustments as clinically indicated. Growth US today AGA. Seizure precautions were reviewed. Anxiety and depression 09/14/2017 2 Overview: Prozac at 22 helped her a lot. Last Assessment & Plan: Mood remains stable off therapy. Continue serial mood assessment and mood precautions were reviewed. documented as of this encounter (statuses as of 12/18/2021) [facility] History of Past illness Narrative* Problem Noted Date Resolved Date Anemia during in third trimester 05/1410/01/2021 Overview: 05/14/21 - iron supplementation & repeat CBC 2-4 weeks - Mahad Santana MD care 12/31/2020 10/01/2021 Overview: 12/31/20-STUART:08/08/21 by sure LMP. Dayna Muñoz APRN.JOHNNY Last Assessment & Plan: Continue routine OB care with primary OB. Third trimeter counseling provided. Spotting in 12/27/2020 10/01/2021 Overview: 12/27/2020atient saw Dayna Muñoz December 19 for spotting. Patient states that she has not had any bleeding for the past 5 days. She was treated for a urinary tract infection in urgent care on December 14. TKRN Patient request for diagnostic testing 10/01/2021 Overview: 12/27/2020 Patient desires nuchal ultrasound. 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 Dayna Muñoz APRN.CNM 12/27/2020atient was diagnosed with seizures at age [address] Villagomez a neurologist. See my chart note dated December 17. Patient had lab work completed as ordered by the neurologist. I transferred her to schedule an appointment with the neurologist. Patient denies any seizures since February 2015.TKRN Last Assessment & Plan: Seizure disorder remains stable/well-controlled on oxcarbazepine. Appreciated Neurology recommendations - level subtherapeutic and recently had dose adjustment to 600 mg BID. Patient reports monthly levels are ordered. Discussed physiologic changes PK/PD that may impact need for dose titration, and continue dose adjustments as clinically indicated. Growth US today AGA. Seizure precautions were reviewed. Anxiety and depression 09/14/2017 Overview: Prozac at 22 helped her a lot. Last Assessment & Plan: Mood remains stable off therapy. Continue serial mood assessment and mood precautions were reviewed. documented as of this encounter (statuses as of 12/31/2021) [facility] History of Past illness Narrative* Problem Noted Date Resolved Date Anemia during in third trimester 05/1410/01/2021 Overview: 05/14/21 - iron supplementation & repeat CBC 2-4 weeks - Mahad Santana MD care 12/31/2020 10/01/2021 Overview: 12/31/20-STUART:08/08/21 by sure LMP. Dayna Muñoz APRN.JOHNNY Last Assessment & Plan: Continue routine OB care with primary OB. Third trimeter counseling provided. Spotting in 12/27/2020 10/01/2021 Overview: 12/27/2020atient saw Dayna Muñoz December 19 for spotting. Patient states that she has not had any bleeding for the past 5 days. She was treated for a urinary tract infection in urgent care on December 14. TKRN Patient request for diagnostic testing 10/01/2021 Overview: 12/27/2020 Patient desires nuchal ultrasound. 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 Dayna Muñoz APRN.JOHNNY 12/27/2020atient was diagnosed with seizures at age [address] Villagomez a neurologist. See my chart note dated December 17. Patient had lab work completed as ordered by the neurologist. I transferred her to schedule an appointment with the neurologist. Patient denies any seizures since February 2015.TKRN Last Assessment & Plan: Seizure disorder remains stable/well-controlled on oxcarbazepine. Appreciated Neurology recommendations - level subtherapeutic and recently had dose adjustment to 600 mg BID. Patient reports monthly levels are ordered. Discussed physiologic changes PK/PD that may impact need for dose titration, and continue dose adjustments as clinically indicated. Growth US today AGA. Seizure precautions were reviewed. Anxiety and depression 09/14/2017 Overview: Prozac at 22 helped her a lot. Last Assessment & Plan: Mood remains stable off therapy. Continue serial mood assessment and mood precautions were reviewed. documented as of this encounter (statuses as of 01/01/2022) [facility] History of Past illness Narrative* Problem Noted Date Resolved Date Anemia during in third trimester 05/1410/01/2021 Overview: 05/14/21 - iron supplementation & repeat CBC 2-4 weeks - Mahad Santana MD care 12/31/2020 10/01/2021 Overview: 12/31/20-STUART:08/08/21 by sure LMP. Dayna Muñoz APRN.[facility] Last Assessment & Plan: Continue routine OB care with primary OB. Third trimeter counseling provided. Spotting in 12/27/2020 10/01/2021 Overview: 12/27/2020atient saw Dayna Muñoz December 19 for spotting. Patient states that she has not had any bleeding for the past 5 days. She was treated for a urinary tract infection in urgent care on December 14. TKRN Patient request for diagnostic testing 1 10/01/2021 Overview: 12/27/2020 Patient desires nuchal ultrasound. 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 Dayna Muñoz APRN.CNM 12/27/2020atient was diagnosed with seizures at age [address] Villagomez a neurologist. See my chart note dated December 17. Patient had lab work completed as ordered by the neurologist. I transferred her to schedule an appointment with the neurologist. Patient denies any seizures since February 2015.TKRN Last Assessment & Plan: Seizure disorder remains stable/well-controlled on oxcarbazepine. Appreciated Neurology recommendations - level subtherapeutic and recently had dose adjustment to 600 mg BID. Patient reports monthly levels are ordered. Discussed physiologic changes PK/PD that may impact need for dose titration, and continue dose adjustments as clinically indicated. Growth US today AGA. Seizure precautions were reviewed. Anxiety and depression 09/14/2017 2 Overview: Prozac at 22 helped her a lot. Last Assessment & Plan: Mood remains stable off therapy. Continue serial mood assessment and mood precautions were reviewed. documented as of this encounter (statuses as of 01/29/2022) [facility] History of Past illness Narrative* Problem Noted Date Resolved Date Anemia during in third trimester 05/1410/01/2021 Overview: 05/14/21 - iron supplementation & repeat CBC 2-4 weeks - Mahad Santana MD care 12/31/2020 10/01/2021 Overview: 12/31/20-STUART:08/08/21 by sure LMP. aDyna Muñoz APRN.CNM Last Assessment & Plan: Continue routine OB care with primary OB. Third trimeter counseling provided. Spotting in 12/27/2020 10/01/2021 Overview: 12/27/2020atient saw Dayna Muñoz December 19 for spotting. Patient states that she has not had any bleeding for the past 5 days. She was treated for a urinary tract infection in urgent care on December 14. TKRN Patient request for diagnostic testing 1 10/01/2021 Overview: 12/27/2020 Patient desires nuchal ultrasound. 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 Dayna Muñoz APRN.CNM 12/27/2020atient was diagnosed with seizures at age [address] Villagomez a neurologist. See my chart note dated December 17. Patient had lab work completed as ordered by the neurologist. I transferred her to schedule an appointment with the neurologist. Patient denies any seizures since February 2015.TKRN Last Assessment & Plan: Seizure disorder remains stable/well-controlled on oxcarbazepine. Appreciated Neurology recommendations - level subtherapeutic and recently had dose adjustment to 600 mg BID. Patient reports monthly levels are ordered. Discussed physiologic changes PK/PD that may impact need for dose titration, and continue dose adjustments as clinically indicated. Growth US today AGA. Seizure precautions were reviewed. Anxiety and depression 09/14/2017 2 Overview: Prozac at 22 helped her a lot. Last Assessment & Plan: Mood remains stable off therapy. Continue serial mood assessment and mood precautions were reviewed. documented as of this encounter (statuses as of 01/29/2022) [facility] History of Past illness Narrative* Problem Noted Date Resolved Date Anemia during in third trimester 05/1410/01/2021 Overview: 05/14/21 - iron supplementation & repeat CBC 2-4 weeks - Mahad Santana MD care 12/31/2020 10/01/2021 Overview: 12/31/20-STUART:08/08/21 by sure LMP. Dayna Muñoz APRN.CNM Last Assessment & Plan: Continue routine OB care with primary OB. Third trimeter counseling provided. Spotting in 12/27/2020 10/01/2021 Overview: 12/27/2020atient saw Dayna Muñoz December 19 for spotting. Patient states that she has not had any bleeding for the past 5 days. She was treated for a urinary tract infection in urgent care on December 14. TKRN Patient request for diagnostic testing 10/01/2021 Overview: 12/27/2020 Patient desires nuchal ultrasound. 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 Dayna Muñoz APRN.CNM 1Patient was diagnosed with seizures at age [address] Villagomez a neurologist. See my chart note dated December 17. Patient had lab work completed as ordered by the neurologist. I transferred her to schedule an appointment with the neurologist. Patient denies any seizures since February 2015.TKRN Last Assessment & Plan: Seizure disorder remains stable/well-controlled on oxcarbazepine. Appreciated Neurology recommendations - level subtherapeutic and recently had dose adjustment to 600 mg BID. Patient reports monthly levels are ordered. Discussed physiologic changes PK/PD that may impact need for dose titration, and continue dose adjustments as clinically indicated. Growth US today AGA. Seizure precautions were reviewed. Anxiety and depression 09/14/2017 2 Overview: Prozac at 22 helped her a lot. Last Assessment & Plan: Mood remains stable off therapy. Continue serial mood assessment and mood precautions were reviewed. documented as of this encounter (statuses as of 04/08/2022) [facility] History of Past illness Narrative* Problem Noted Date Resolved Date Anemia during in third trimester 05/1410/01/2021 Overview: 05/14/21 - iron supplementation & repeat CBC 2-4 weeks - Mahad Santana MD care 12/31/2020 10/01/2021 Overview: 12/31/20-STUART:08/08/21 by sure LMP. Dayna Muñoz APRN.JOHNNY Last Assessment & Plan: Continue routine OB care with primary OB. Third trimeter counseling provided. Spotting in 12/27/2020 10/01/2021 Overview: 12/27/2020atient saw Dayna Muñoz December 19 for spotting. Patient states that she has not had any bleeding for the past 5 days. She was treated for a urinary tract infection in urgent care on December 14. TKRN Patient request for diagnostic testing 10/01/2021 Overview: 12/27/2020 Patient desires nuchal ultrasound. 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 Dayna Muñoz APRN.CNM 12/27/2020atient was diagnosed with seizures at age [address] Villagomez a neurologist. See my chart note dated December 17. Patient had lab work completed as ordered by the neurologist. I transferred her to schedule an appointment with the neurologist. Patient denies any seizures since February 2015.TKRN Last Assessment & Plan: Seizure disorder remains stable/well-controlled on oxcarbazepine. Appreciated Neurology recommendations - level subtherapeutic and recently had dose adjustment to 600 mg BID. Patient reports monthly levels are ordered. Discussed physiologic changes PK/PD that may impact need for dose titration, and continue dose adjustments as clinically indicated. Growth US today AGA. Seizure precautions were reviewed. Anxiety and depression 09/14/2017 Overview: Prozac at 22 helped her a lot. Last Assessment & Plan: Mood remains stable off therapy. Continue serial mood assessment and mood precautions were reviewed. documented as of this encounter (statuses as of 05/06/2022) [facility]10-05-2021 History of Past illness Narrative* Problem Noted Date Resolved Date Anemia during in third trimester 05/1410/01/2021 Overview: 05/14/21 - iron supplementation & repeat CBC 2-4 weeks - Mahad Santana MD care 12/31/2020 10/01/2021 Overview: 12/31/20-STUART:08/08/21 by sure LMP. Dayna Muñoz APRN.JOHNNY Last Assessment & Plan: Continue routine OB care with primary OB. Third trimeter counseling provided. Spotting in 12/27/2020 10/01/2021 Overview: 12/27/2020atient saw Dayna Muñoz December 19 for spotting. Patient states that she has not had any bleeding for the past 5 days. She was treated for a urinary tract infection in urgent care on December 14. TKRN Patient request for diagnostic testing 10/01/2021 Overview: 12/27/2020 Patient desires nuchal ultrasound. 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 Dayna Muñoz APRN.JOHNNY 12/27/2020atient was diagnosed with seizures at age [address] Villagomez a neurologist. See my chart note dated December 17. Patient had lab work completed as ordered by the neurologist. I transferred her to schedule an appointment with the neurologist. Patient denies any seizures since February 2015.TKRN Last Assessment & Plan: Seizure disorder remains stable/well-controlled on oxcarbazepine. Appreciated Neurology recommendations - level subtherapeutic and recently had dose adjustment to 600 mg BID. Patient reports monthly levels are ordered. Discussed physiologic changes PK/PD that may impact need for dose titration, and continue dose adjustments as clinically indicated. Growth US today AGA. Seizure precautions were reviewed. Anxiety and depression 09/14/2017 Overview: Prozac at 22 helped her a lot. Last Assessment & Plan: Mood remains stable off therapy. Continue serial mood assessment and mood precautions were reviewed. documented as of this encounter (statuses as of 05/07/2022) [facility]10-05-2021 History of Past illness Narrative* Problem Noted Date Resolved Date Anemia during in third trimester 05/1410/01/2021 Overview: 05/14/21 - iron supplementation & repeat CBC 2-4 weeks - Mahad Santana MD care 12/31/2020 10/01/2021 Overview: 12/31/20-STUART:08/08/21 by sure LMP. Dayna Muñoz APRN.[facility] Last Assessment & Plan: Continue routine OB care with primary OB. Third trimeter counseling provided. Spotting in 12/27/2020 10/01/2021 Overview: 12/27/2020atient saw Dayna Muñoz December 19 for spotting. Patient states that she has not had any bleeding for the past 5 days. She was treated for a urinary tract infection in urgent care on December 14. TKRN Patient request for diagnostic testing 1 10/01/2021 Overview: 12/27/2020 Patient desires nuchal ultrasound. 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 Dayna Muñoz APRN.CNM 12/27/2020atient was diagnosed with seizures at age [address] Villagomez a neurologist. See my chart note dated December 17. Patient had lab work completed as ordered by the neurologist. I transferred her to schedule an appointment with the neurologist. Patient denies any seizures since February 2015.TKRN Last Assessment & Plan: Seizure disorder remains stable/well-controlled on oxcarbazepine. Appreciated Neurology recommendations - level subtherapeutic and recently had dose adjustment to 600 mg BID. Patient reports monthly levels are ordered. Discussed physiologic changes PK/PD that may impact need for dose titration, and continue dose adjustments as clinically indicated. Growth US today AGA. Seizure precautions were reviewed. Anxiety and depression 09/14/2017 2 Overview: Prozac at 22 helped her a lot. Last Assessment & Plan: Mood remains stable off therapy. Continue serial mood assessment and mood precautions were reviewed. documented as of this encounter (statuses as of 06/11/2022) [facility]10-05-2021 History of Past illness Narrative* Problem Noted Date Resolved Date Anemia during in third trimester 05/1410/01/2021 Overview: 05/14/21 - iron supplementation & repeat CBC 2-4 weeks - Mahad Santana MD care 12/31/2020 10/01/2021 Overview: 12/31/20-STUART:08/08/21 by sure LMP. Dayna Muñoz APRN.CNM Last Assessment & Plan: Continue routine OB care with primary OB. Third trimeter counseling provided. Spotting in 12/27/2020 10/01/2021 Overview: 12/27/2020atient saw Dayna Muñoz December 19 for spotting. Patient states that she has not had any bleeding for the past 5 days. She was treated for a urinary tract infection in urgent care on December 14. TKRN Patient request for diagnostic testing 1 10/01/2021 Overview: 12/27/2020 Patient desires nuchal ultrasound. 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 Dayna Muñoz APRN.CNM 12/27/2020atient was diagnosed with seizures at age [address] Villagomez a neurologist. See my chart note dated December 17. Patient had lab work completed as ordered by the neurologist. I transferred her to schedule an appointment with the neurologist. Patient denies any seizures since February 2015.TKRN Last Assessment & Plan: Seizure disorder remains stable/well-controlled on oxcarbazepine. Appreciated Neurology recommendations - level subtherapeutic and recently had dose adjustment to 600 mg BID. Patient reports monthly levels are ordered. Discussed physiologic changes PK/PD that may impact need for dose titration, and continue dose adjustments as clinically indicated. Growth US today AGA. Seizure precautions were reviewed. Anxiety and depression 09/14/2017 2 Overview: Prozac at 22 helped her a lot. Last Assessment & Plan: Mood remains stable off therapy. Continue serial mood assessment and mood precautions were reviewed. documented as of this encounter (statuses as of 06/11/2022) [facility]10-[facility]-2021 History of Past illness Narrative* Problem Noted Date Resolved Date Anemia during in third trimester 05/1410/01/2021 Overview: 05/14/21 - iron supplementation & repeat CBC 2-4 weeks - Mahad Santana MD care 12/31/2020 10/01/2021 Overview: 12/31/20-STUART:08/08/21 by sure LMP. Dayna Muñoz APRN.CNM Last Assessment & Plan: Continue routine OB care with primary OB. Third trimeter counseling provided. Spotting in 12/27/2020 10/01/2021 Overview: 12/27/2020atient saw Dayna Muñoz December 19 for spotting. Patient states that she has not had any bleeding for the past 5 days. She was treated for a urinary tract infection in urgent care on December 14. TKRN Patient request for diagnostic testing 10/01/2021 Overview: 12/27/2020 Patient desires nuchal ultrasound. 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 Dayna Muñoz APRN.CNM 1Patient was diagnosed with seizures at age [address] Villagomez a neurologist. See my chart note dated December 17. Patient had lab work completed as ordered by the neurologist. I transferred her to schedule an appointment with the neurologist. Patient denies any seizures since February 2015.TKRN Last Assessment & Plan: Seizure disorder remains stable/well-controlled on oxcarbazepine. Appreciated Neurology recommendations - level subtherapeutic and recently had dose adjustment to 600 mg BID. Patient reports monthly levels are ordered. Discussed physiologic changes PK/PD that may impact need for dose titration, and continue dose adjustments as clinically indicated. Growth US today AGA. Seizure precautions were reviewed. Anxiety and depression 09/14/2017 2 Overview: Prozac at 22 helped her a lot. Last Assessment & Plan: Mood remains stable off therapy. Continue serial mood assessment and mood precautions were reviewed. documented as of this encounter (statuses as of 06/12/2022) [facility]10-05-2021 History of Past illness Narrative* Problem Noted Date Resolved Date Anemia during in third trimester 05/1410/01/2021 Overview: 05/14/21 - iron supplementation & repeat CBC 2-4 weeks - Mahad Santana MD care 12/31/2020 10/01/2021 Overview: 12/31/20-STUART:08/08/21 by sure LMP. Dayna Muñoz APRN.JOHNNY Last Assessment & Plan: Continue routine OB care with primary OB. Third trimeter counseling provided. Spotting in 12/27/2020 10/01/2021 Overview: 12/27/2020atient saw Dayna Muñoz December 19 for spotting. Patient states that she has not had any bleeding for the past 5 days. She was treated for a urinary tract infection in urgent care on December 14. TKRN Patient request for diagnostic testing 10/01/2021 Overview: 12/27/2020 Patient desires nuchal ultrasound. 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 Dayna Muñoz APRN.CNM 12/27/2020atient was diagnosed with seizures at age [address] Villagomez a neurologist. See my chart note dated December 17. Patient had lab work completed as ordered by the neurologist. I transferred her to schedule an appointment with the neurologist. Patient denies any seizures since February 2015.TKRN Last Assessment & Plan: Seizure disorder remains stable/well-controlled on oxcarbazepine. Appreciated Neurology recommendations - level subtherapeutic and recently had dose adjustment to 600 mg BID. Patient reports monthly levels are ordered. Discussed physiologic changes PK/PD that may impact need for dose titration, and continue dose adjustments as clinically indicated. Growth US today AGA. Seizure precautions were reviewed. Anxiety and depression 09/14/2017 Overview: Prozac at 22 helped her a lot. Last Assessment & Plan: Mood remains stable off therapy. Continue serial mood assessment and mood precautions were reviewed. documented as of this encounter (statuses as of 07/21/2022) [facility]10-[facility]21 History of Past illness Narrative* Problem Noted Date Resolved Date Anemia during in third trimester 05/1410/01/2021 Overview: 05/14/21 - iron supplementation & repeat CBC 2-4 weeks - Mahad Santana MD care 12/31/2020 10/01/2021 Overview: 12/31/20-STUART:08/08/21 by sure LMP. Dayna Muñoz APRN.JOHNNY Last Assessment & Plan: Continue routine OB care with primary OB. Third trimeter counseling provided. Spotting in 12/27/2020 10/01/2021 Overview: 12/27/2020atient saw Dayna Muñoz December 19 for spotting. Patient states that she has not had any bleeding for the past 5 days. She was treated for a urinary tract infection in urgent care on December 14. TKRN Patient request for diagnostic testing 10/01/2021 Overview: 12/27/2020 Patient desires nuchal ultrasound. 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 Dayna Muñoz APRN.JOHNNY 12/27/2020atient was diagnosed with seizures at age [address] Villagomez a neurologist. See my chart note dated December 17. Patient had lab work completed as ordered by the neurologist. I transferred her to schedule an appointment with the neurologist. Patient denies any seizures since February 2015.TKRN Last Assessment & Plan: Seizure disorder remains stable/well-controlled on oxcarbazepine. Appreciated Neurology recommendations - level subtherapeutic and recently had dose adjustment to 600 mg BID. Patient reports monthly levels are ordered. Discussed physiologic changes PK/PD that may impact need for dose titration, and continue dose adjustments as clinically indicated. Growth US today AGA. Seizure precautions were reviewed. Anxiety and depression 09/14/2017 Overview: Prozac at 22 helped her a lot. Last Assessment & Plan: Mood remains stable off therapy. Continue serial mood assessment and mood precautions were reviewed. documented as of this encounter (statuses as of 07/22/2022) [facility]10-[facility]-2021 History of Past illness Narrative* Problem Noted Date Resolved Date Anemia during in third trimester 05/1410/01/2021 Overview: 05/14/21 - iron supplementation & repeat CBC 2-4 weeks - Mahad Santana MD care 12/31/2020 10/01/2021 Overview: 12/31/20-STUART:08/08/21 by sure LMP. Dayna Muñoz APRN.[facility] [place] Last Assessment & Plan: Continue routine OB care with primary OB. Third trimeter counseling provided. Spotting in 12/27/2020 10/01/2021 Overview: 12/27/2020atient saw Dayna Muñoz December 19 for spotting. Patient states that she has not had any bleeding for the past 5 days. She was treated for a urinary tract infection in urgent care on December 14. TKRN Patient request for diagnostic testing 1 10/01/2021 Overview: 12/27/2020 Patient desires nuchal ultrasound. 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 Dayna Muñoz APRN.CNM 12/27/2020atient was diagnosed with seizures at age [address] Villagomez a neurologist. See my chart note dated December 17. Patient had lab work completed as ordered by the neurologist. I transferred her to schedule an appointment with the neurologist. Patient denies any seizures since February 2015.TKRN Last Assessment & Plan: Seizure disorder remains stable/well-controlled on oxcarbazepine. Appreciated Neurology recommendations - level subtherapeutic and recently had dose adjustment to 600 mg BID. Patient reports monthly levels are ordered. Discussed physiologic changes PK/PD that may impact need for dose titration, and continue dose adjustments as clinically indicated. Growth US today AGA. Seizure precautions were reviewed. Anxiety and depression 09/14/2017 2 Overview: Prozac at 22 helped her a lot. Last Assessment & Plan: Mood remains stable off therapy. Continue serial mood assessment and mood precautions were reviewed. documented as of this encounter (statuses as of 09/17/2022) [facility]10[facility]21 History of Past illness Narrative* Problem Noted Date Resolved Date Anemia during in third trimester 05/1410/01/2021 Overview: 05/14/21 - iron supplementation & repeat CBC 2-4 weeks - Mahad Santana MD care 12/31/2020 10/01/2021 Overview: 12/31/20-STUART:08/08/21 by sure LMP. Dayna Muñoz APRN.CNM Last Assessment & Plan: Continue routine OB care with primary OB. Third trimeter counseling provided. Spotting in 12/27/2020 10/01/2021 Overview: 12/27/2020atient saw Dayna Muñoz December 19 for spotting. Patient states that she has not had any bleeding for the past 5 days. She was treated for a urinary tract infection in urgent care on December 14. TKRN Patient request for diagnostic testing 1 10/01/2021 Overview: 12/27/2020 Patient desires nuchal ultrasound. 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 Dayna Muñoz APRN.CNM 12/27/2020atient was diagnosed with seizures at age [address] Villagomez a neurologist. See my chart note dated December 17. Patient had lab work completed as ordered by the neurologist. I transferred her to schedule an appointment with the neurologist. Patient denies any seizures since February 2015.TKRN Last Assessment & Plan: Seizure disorder remains stable/well-controlled on oxcarbazepine. Appreciated Neurology recommendations - level subtherapeutic and recently had dose adjustment to 600 mg BID. Patient reports monthly levels are ordered. Discussed physiologic changes PK/PD that may impact need for dose titration, and continue dose adjustments as clinically indicated. Growth US today AGA. Seizure precautions were reviewed. Anxiety and depression 09/14/2017 2 Overview: Prozac at 22 helped her a lot. Last Assessment & Plan: Mood remains stable off therapy. Continue serial mood assessment and mood precautions were reviewed. documented as of this encounter (statuses as of 10/20/2022) [facility]10-[facility]21 History of Past illness Narrative* Problem Noted Date Resolved Date Anemia during in third trimester 05/1410/01/2021 Overview: 05/14/21 - iron supplementation & repeat CBC 2-4 weeks - Mahad Santana MD care 12/31/2020 10/01/2021 Overview: 12/31/20-STUART:08/08/21 by sure LMP. Dayna Muñoz APRN.CNM Last Assessment & Plan: Continue routine OB care with primary OB. Third trimeter counseling provided. Spotting in 12/27/2020 10/01/2021 Overview: 12/27/2020atient saw Dayna Muñoz December 19 for spotting. Patient states that she has not had any bleeding for the past 5 days. She was treated for a urinary tract infection in urgent care on December 14. TKRN Patient request for diagnostic testing 10/01/2021 Overview: 12/27/2020 Patient desires nuchal ultrasound. 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 Dayna Muñoz APRN.CNM 1Patient was diagnosed with seizures at age [address] Villagomez a neurologist. See my chart note dated December 17. Patient had lab work completed as ordered by the neurologist. I transferred her to schedule an appointment with the neurologist. Patient denies any seizures since February 2015.TKRN Last Assessment & Plan: Seizure disorder remains stable/well-controlled on oxcarbazepine. Appreciated Neurology recommendations - level subtherapeutic and recently had dose adjustment to 600 mg BID. Patient reports monthly levels are ordered. Discussed physiologic changes PK/PD that may impact need for dose titration, and continue dose adjustments as clinically indicated. Growth US today AGA. Seizure precautions were reviewed. Anxiety and depression 09/14/2017 2 Overview: Prozac at 22 helped her a lot. Last Assessment & Plan: Mood remains stable off therapy. Continue serial mood assessment and mood precautions were reviewed. documented as of this encounter (statuses as of 11/10/2022) [facility] History of Past illness Narrative* Problem Noted Date Resolved Date Anemia during in third trimester 05/1410/01/2021 Overview: 05/14/21 - iron supplementation & repeat CBC 2-4 weeks - Mahad Santana MD care 12/31/2020 10/01/2021 Overview: 12/31/20-STUART:08/08/21 by sure LMP. Dayna Muñoz APRN.JOHNNY Last Assessment & Plan: Continue routine OB care with primary OB. Third trimeter counseling provided. Spotting in 12/27/2020 10/01/2021 Overview: 12/27/2020atient saw Dayna Muñoz December 19 for spotting. Patient states that she has not had any bleeding for the past 5 days. She was treated for a urinary tract infection in urgent care on December 14. TKRN Patient request for diagnostic testing 10/01/2021 Overview: 12/27/2020 Patient desires nuchal ultrasound. 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 Dayna Muñoz APRN.CNM 12/27/2020atient was diagnosed with seizures at age [address] Villagomez a neurologist. See my chart note dated December 17. Patient had lab work completed as ordered by the neurologist. I transferred her to schedule an appointment with the neurologist. Patient denies any seizures since February 2015.TKRN Last Assessment & Plan: Seizure disorder remains stable/well-controlled on oxcarbazepine. Appreciated Neurology recommendations - level subtherapeutic and recently had dose adjustment to 600 mg BID. Patient reports monthly levels are ordered. Discussed physiologic changes PK/PD that may impact need for dose titration, and continue dose adjustments as clinically indicated. Growth US today AGA. Seizure precautions were reviewed. Anxiety and depression 09/14/2017 Overview: Prozac at 22 helped her a lot. Last Assessment & Plan: Mood remains stable off therapy. Continue serial mood assessment and mood precautions were reviewed. documented as of this encounter (statuses as of 12/24/2022) [facility] History of Past illness Narrative* Problem Noted Date Resolved Date Anemia during in third trimester 05/1410/01/2021 Overview: 05/14/21 - iron supplementation & repeat CBC 2-4 weeks - Mahad Santana MD care 12/31/2020 10/01/2021 Overview: 12/31/20-STUART:08/08/21 by sure LMP. Dayna Muñoz APRN.JOHNNY Last Assessment & Plan: Continue routine OB care with primary OB. Third trimeter counseling provided. Spotting in 12/27/2020 10/01/2021 Overview: 12/27/2020atient saw Dayna Muñoz December 19 for spotting. Patient states that she has not had any bleeding for the past 5 days. She was treated for a urinary tract infection in urgent care on December 14. TKRN Patient request for diagnostic testing 10/01/2021 Overview: 12/27/2020 Patient desires nuchal ultrasound. 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 Dayna Muñoz APRN.JOHNNY 12/27/2020atient was diagnosed with seizures at age [address] Villagomez a neurologist. See my chart note dated December 17. Patient had lab work completed as ordered by the neurologist. I transferred her to schedule an appointment with the neurologist. Patient denies any seizures since February 2015.TKRN Last Assessment & Plan: Seizure disorder remains stable/well-controlled on oxcarbazepine. Appreciated Neurology recommendations - level subtherapeutic and recently had dose adjustment to 600 mg BID. Patient reports monthly levels are ordered. Discussed physiologic changes PK/PD that may impact need for dose titration, and continue dose adjustments as clinically indicated. Growth US today AGA. Seizure precautions were reviewed. Anxiety and depression 09/14/2017 Overview: Prozac at 22 helped her a lot. Last Assessment & Plan: Mood remains stable off therapy. Continue serial mood assessment and mood precautions were reviewed. documented as of this encounter (statuses as of 01/28/2023) [facility] History of Past illness Narrative* Problem Noted Date Resolved Date Anemia during in third trimester 05/1410/01/2021 Overview: 05/14/21 - iron supplementation & repeat CBC 2-4 weeks - Mahad Santana MD care 12/31/2020 10/01/2021 Overview: 12/31/20-STUART:08/08/21 by sure LMP. Dayna Muñoz APRN.[facility] [place] Last Assessment & Plan: Continue routine OB care with primary OB. Third trimeter counseling provided. Spotting in 12/27/2020 10/01/2021 Overview: 12/27/2020atient saw Dayna Muñoz December 19 for spotting. Patient states that she has not had any bleeding for the past 5 days. She was treated for a urinary tract infection in urgent care on December 14. TKRN Patient request for diagnostic testing 1 10/01/2021 Overview: 12/27/2020 Patient desires nuchal ultrasound. 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 Dayna Muñoz APRN.CNM 12/27/2020atient was diagnosed with seizures at age [address] Villagomez a neurologist. See my chart note dated December 17. Patient had lab work completed as ordered by the neurologist. I transferred her to schedule an appointment with the neurologist. Patient denies any seizures since February 2015.TKRN Last Assessment & Plan: Seizure disorder remains stable/well-controlled on oxcarbazepine. Appreciated Neurology recommendations - level subtherapeutic and recently had dose adjustment to 600 mg BID. Patient reports monthly levels are ordered. Discussed physiologic changes PK/PD that may impact need for dose titration, and continue dose adjustments as clinically indicated. Growth US today AGA. Seizure precautions were reviewed. Anxiety and depression 09/14/2017 2 Overview: Prozac at 22 helped her a lot. Last Assessment & Plan: Mood remains stable off therapy. Continue serial mood assessment and mood precautions were reviewed. documented as of this encounter (statuses as of 01/28/2023) [facility]10-05-2021 History of Past illness Narrative* Problem Noted Date Resolved Date Anemia during in third trimester 05/1410/01/2021 Overview: 05/14/21 - iron supplementation & repeat CBC 2-4 weeks - Mahad Santana MD care 12/31/2020 10/01/2021 Overview: 12/31/20-STUART:08/08/21 by sure LMP. Dayna Muñoz APRN.CNM Last Assessment & Plan: Continue routine OB care with primary OB. Third trimeter counseling provided. Spotting in 12/27/2020 10/01/2021 Overview: 12/27/2020atient saw Dayna Muñoz December 19 for spotting. Patient states that she has not had any bleeding for the past 5 days. She was treated for a urinary tract infection in urgent care on December 14. TKRN Patient request for diagnostic testing 1 10/01/2021 Overview: 12/27/2020 Patient desires nuchal ultrasound. 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 Dayna Muñoz APRN.CNM 12/27/2020atient was diagnosed with seizures at age [address] Villagomez a neurologist. See my chart note dated December 17. Patient had lab work completed as ordered by the neurologist. I transferred her to schedule an appointment with the neurologist. Patient denies any seizures since February 2015.TKRN Last Assessment & Plan: Seizure disorder remains stable/well-controlled on oxcarbazepine. Appreciated Neurology recommendations - level subtherapeutic and recently had dose adjustment to 600 mg BID. Patient reports monthly levels are ordered. Discussed physiologic changes PK/PD that may impact need for dose titration, and continue dose adjustments as clinically indicated. Growth US today AGA. Seizure precautions were reviewed. Anxiety and depression 09/14/2017 2 Overview: Prozac at 22 helped her a lot. Last Assessment & Plan: Mood remains stable off therapy. Continue serial mood assessment and mood precautions were reviewed. documented as of this encounter (statuses as of 02/03/2023) [facility]10-05-2021 History of Past illness Narrative* Problem Noted Date Resolved Date Anemia during in third trimester 05/1410/01/2021 Overview: 05/14/21 - iron supplementation & repeat CBC 2-4 weeks - Mahad Santana MD care 12/31/2020 10/01/2021 Overview: 12/31/20-STUART:08/08/21 by sure LMP. Dayna Muñoz APRN.CNM Last Assessment & Plan: Continue routine OB care with primary OB. Third trimeter counseling provided. Spotting in 12/27/2020 10/01/2021 Overview: 12/27/2020atient saw Dayna Muñoz December 19 for spotting. Patient states that she has not had any bleeding for the past 5 days. She was treated for a urinary tract infection in urgent care on December 14. TKRN Patient request for diagnostic testing 10/01/2021 Overview: 12/27/2020 Patient desires nuchal ultrasound. 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 Dayna Muñoz APRN.CNM 1Patient was diagnosed with seizures at age [address] Villagomez a neurologist. See my chart note dated December 17. Patient had lab work completed as ordered by the neurologist. I transferred her to schedule an appointment with the neurologist. Patient denies any seizures since February 2015.TKRN Last Assessment & Plan: Seizure disorder remains stable/well-controlled on oxcarbazepine. Appreciated Neurology recommendations - level subtherapeutic and recently had dose adjustment to 600 mg BID. Patient reports monthly levels are ordered. Discussed physiologic changes PK/PD that may impact need for dose titration, and continue dose adjustments as clinically indicated. Growth US today AGA. Seizure precautions were reviewed. Anxiety and depression 09/14/2017 2 Overview: Prozac at 22 helped her a lot. Last Assessment & Plan: Mood remains stable off therapy. Continue serial mood assessment and mood precautions were reviewed. documented as of this encounter (statuses as of 02/05/2023) [facility]10-05-2021 History of Past illness Narrative* Problem Noted Date Diagnosed Date Resolved Date Anemia during in third trimester 05/14/2021 10/01/2021 Overview: 05/14/21 - iron supplementation & repeat CBC 2-4 weeks - Mahad Santana MD care 12/31/2020 10/01/2021 Overview: 12/31/20-STUART:08/08/21 by sure LMP. Dayna Muñoz APRN.JOHNNY Last Assessment & Plan: Continue routine OB care with primary OB. Third trimeter counseling provided. Spotting in 12/27/20202021 Overview: 12/27/2020atient saw Dayna Muñoz December 19 for spotting. Patient states that she has not had any bleeding for the past 5 days. She was treated for a urinary tract infection in urgent care on December 14. TKRN Patient request for diagnostic testing 12/27/2020 10/01/2021 Overview: 12/27/2020 Patient desires nuchal ultrasound. 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 Dayna Muñoz APRN.CNM 12/27/2020atient was diagnosed with seizures at age [address] Villagomez a neurologist. See my chart note dated December 17. Patient had lab work completed as ordered by the neurologist. I transferred her to schedule an appointment with the neurologist. Patient denies any seizures since February 2015.TKRN Last Assessment & Plan: Seizure disorder remains stable/well-controlled on oxcarbazepine. Appreciated Neurology recommendations - level subtherapeutic and recently had dose adjustment to 600 mg BID. Patient reports monthly levels are ordered. Discussed physiologic changes PK/PD that may impact need for dose titration, and continue dose adjustments as clinically indicated. Growth US today AGA. Seizure precautions were reviewed. Anxiety and depression 09/14/201710/01 Overview: Prozac at 22 helped her a lot. Last Assessment & Plan: Mood remains stable off therapy. Continue serial mood assessment and mood precautions were reviewed. documented as of this encounter (statuses as of 03/12/2023) [facility]10-[facility]-2021 History of Past illness Narrative* Problem Noted Date Diagnosed Date Resolved Date Anemia during in third trimester 05/14/2021 10/01/2021 Overview: 05/14/21 - iron supplementation & repeat CBC 2-4 weeks - Mahad Santana MD care 12/31/2020 10/01/2021 Overview: 12/31/20-STUART:08/08/21 by sure LMP. Dayna Muñoz APRN.CNM Last Assessment & Plan: Continue routine OB care with primary OB. Third trimeter counseling provided. Spotting in 12/27/20202021 Overview: 12/27/2020atient saw Dayna Muñoz December 19 for spotting. Patient states that she has not had any bleeding for the past 5 days. She was treated for a urinary tract infection in urgent care on December 14. TKRN Patient request for diagnostic testing 12/27/2020 10/01/2021 Overview: 12/27/2020 Patient desires nuchal ultrasound. 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 Dayna Muñoz APRN.CNM 12/27/2020atient was diagnosed with seizures at age [address] Villagomez a neurologist. See my chart note dated December 17. Patient had lab work completed as ordered by the neurologist. I transferred her to schedule an appointment with the neurologist. Patient denies any seizures since February 2015.TKRN Last Assessment & Plan: Seizure disorder remains stable/well-controlled on oxcarbazepine. Appreciated Neurology recommendations - level subtherapeutic and recently had dose adjustment to 600 mg BID. Patient reports monthly levels are ordered. Discussed physiologic changes PK/PD that may impact need for dose titration, and continue dose adjustments as clinically indicated. Growth US today AGA. Seizure precautions were reviewed. Anxiety and depression 09/14/201710/01 Overview: Prozac at 22 helped her a lot. Last Assessment & Plan: Mood remains stable off therapy. Continue serial mood assessment and mood precautions were reviewed. documented as of this encounter (statuses as of 04/02/2023) [facility]10-[facility]-2021 History of Past illness Narrative* Problem Noted Date Diagnosed Date Resolved Date Anemia during in third trimester 05/14/2021 10/01/2021 Overview: 05/14/21 - iron supplementation & repeat CBC 2-4 weeks - Mahad Santana MD care 12/31/2020 10/01/2021 Overview: 12/31/20-STUART:08/08/21 by sure LMP. Dayna Muñoz APRN.CN Last Assessment & Plan: Continue routine OB care with primary OB. Third trimeter counseling provided. Spotting in 12/27/20202021 Overview: 12/27/2020atient saw Dayna Muñoz December 19 for spotting. Patient states that she has not had any bleeding for the past 5 days. She was treated for a urinary tract infection in urgent care on December 14. TKRN Patient request for diagnostic testing 12/27/2020 10/01/2021 Overview: 12/27/2020 Patient desires nuchal ultrasound. 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 Dayna Muñoz APRN.CNM 12/27/2020atient was diagnosed with seizures at age [address] Dahlia santos neurologist. See my chart note dated December 17. Patient had lab work completed as ordered by the neurologist. I transferred her to schedule an appointment with the neurologist. Patient denies any seizures since February 2015.TKRN Last Assessment & Plan: Seizure disorder remains stable/well-controlled on oxcarbazepine. Appreciated Neurology recommendations - level subtherapeutic and recently had dose adjustment to 600 mg BID. Patient reports monthly levels are ordered. Discussed physiologic changes PK/PD that may impact need for dose titration, and continue dose adjustments as clinically indicated. Growth US today AGA. Seizure precautions were reviewed. Anxiety and depression 09/14/201710/01 Overview: Prozac at 22 helped her a lot. Last Assessment & Plan: Mood remains stable off therapy. Continue serial mood assessment and mood precautions were reviewed. documented as of this encounter (statuses as of 04/27/2023) [facility]10-[facility]-2021 History of Past illness Narrative* Problem Noted Date Diagnosed Date Resolved Date Anemia during in third trimester 05/14/2021 10/01/2021 Overview: 05/14/21 - iron supplementation & repeat CBC 2-4 weeks - Mahad Santana MD care 12/31/2020 10/01/2021 Overview: 12/31/20-STUART:08/08/21 by sure LMP. Dayna Muñoz APRN.JOHNNY Last Assessment & Plan: Continue routine OB care with primary OB. Third trimeter counseling provided. Spotting in 12/27/20202021 Overview: 12/27/2020atient saw Dayna Muñoz December 19 for spotting. Patient states that she has not had any bleeding for the past 5 days. She was treated for a urinary tract infection in urgent care on December 14. TKRN Patient request for diagnostic testing 12/27/2020 10/01/2021 Overview: 12/27/2020 Patient desires nuchal ultrasound. 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 Dayna Muñoz APRN.CNM 12/27/2020atient was diagnosed with seizures at age [address] Villagomez a neurologist. See my chart note dated December 17. Patient had lab work completed as ordered by the neurologist. I transferred her to schedule an appointment with the neurologist. Patient denies any seizures since February 2015.TKRN Last Assessment & Plan: Seizure disorder remains stable/well-controlled on oxcarbazepine. Appreciated Neurology recommendations - level subtherapeutic and recently had dose adjustment to 600 mg BID. Patient reports monthly levels are ordered. Discussed physiologic changes PK/PD that may impact need for dose titration, and continue dose adjustments as clinically indicated. Growth US today AGA. Seizure precautions were reviewed. Anxiety and depression 09/14/201710/01 Overview: Prozac at 22 helped her a lot. Last Assessment & Plan: Mood remains stable off therapy. Continue serial mood assessment and mood precautions were reviewed. documented as of this encounter (statuses as of 05/08/2023) [facility]10-05-2021 History of Past illness Narrative* Problem Noted Date Diagnosed Date Resolved Date Anemia during in third trimester 05/14/2021 10/01/2021 Overview: 05/14/21 - iron supplementation & repeat CBC 2-4 weeks - Mahad Santana MD care 12/31/2020 10/01/2021 Overview: 12/31/20-STUART:08/08/21 by sure LMP. Dayna Muñoz APRN.CNM Last Assessment & Plan: Continue routine OB care with primary OB. Third trimeter counseling provided. Spotting in 12/27/20202021 Overview: 12/27/2020atient saw Dayna Muñoz December 19 for spotting. Patient states that she has not had any bleeding for the past 5 days. She was treated for a urinary tract infection in urgent care on December 14. TKRN Patient request for diagnostic testing 12/27/2020 10/01/2021 Overview: 12/27/2020 Patient desires nuchal ultrasound. 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 Dayna Muñoz APRN.CNM 12/27/2020atient was diagnosed with seizures at age [address] Villagomez a neurologist. See my chart note dated December 17. Patient had lab work completed as ordered by the neurologist. I transferred her to schedule an appointment with the neurologist. Patient denies any seizures since February 2015.TKRN Last Assessment & Plan: Seizure disorder remains stable/well-controlled on oxcarbazepine. Appreciated Neurology recommendations - level subtherapeutic and recently had dose adjustment to 600 mg BID. Patient reports monthly levels are ordered. Discussed physiologic changes PK/PD that may impact need for dose titration, and continue dose adjustments as clinically indicated. Growth US today AGA. Seizure precautions were reviewed. Anxiety and depression 09/14/201710/01 Overview: Prozac at 22 helped her a lot. Last Assessment & Plan: Mood remains stable off therapy. Continue serial mood assessment and mood precautions were reviewed. documented as of this encounter (statuses as of 06/19/2023) [facility]10-[facility]21 History of Past illness Narrative* Problem Noted Date Diagnosed Date Resolved Date Anemia during in third trimester 05/14/2021 10/01/2021 Overview: 05/14/21 - iron supplementation & repeat CBC 2-4 weeks - Mahad Santana MD care 12/31/2020 10/01/2021 Overview: 12/31/20-STUART:08/08/21 by sure LMP. Dayna Muñoz APRN.JOHNNY Last Assessment & Plan: Continue routine OB care with primary OB. Third trimeter counseling provided. Spotting in 12/27/20202021 Overview: 12/27/2020atient saw Dayna Muñoz December 19 for spotting. Patient states that she has not had any bleeding for the past 5 days. She was treated for a urinary tract infection in urgent care on December 14. TKRN Patient request for diagnostic testing 12/27/2020 10/01/2021 Overview: 12/27/2020 Patient desires nuchal ultrasound. 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 Dayna Muñoz APRN.CNM 12/27/2020atient was diagnosed with seizures at age [address] Villagomez a neurologist. See my chart note dated December 17. Patient had lab work completed as ordered by the neurologist. I transferred her to schedule an appointment with the neurologist. Patient denies any seizures since February 2015.TKRN Last Assessment & Plan: Seizure disorder remains stable/well-controlled on oxcarbazepine. Appreciated Neurology recommendations - level subtherapeutic and recently had dose adjustment to 600 mg BID. Patient reports monthly levels are ordered. Discussed physiologic changes PK/PD that may impact need for dose titration, and continue dose adjustments as clinically indicated. Growth US today AGA. Seizure precautions were reviewed. Anxiety and depression 09/14/201710/01 Overview: Prozac at 22 helped her a lot. Last Assessment & Plan: Mood remains stable off therapy. Continue serial mood assessment and mood precautions were reviewed. documented as of this encounter (statuses as of 06/26/2023) [facility]21 History of Past illness Narrative* Problem Noted Date Diagnosed Date Resolved Date Anemia during in third trimester 05/14/2021 10/01/2021 Overview: 05/14/21 - iron supplementation & repeat CBC 2-4 weeks - Mahad Santana MD care 12/31/2020 10/01/2021 Overview: 12/31/20-STUART:08/08/21 by sure LMP. Dayna Muñoz APRN.CNM Last Assessment & Plan: Continue routine OB care with primary OB. Third trimeter counseling provided. Spotting in 12/27/20202021 Overview: 12/27/2020atient saw Dayna Muñoz December 19 for spotting. Patient states that she has not had any bleeding for the past 5 days. She was treated for a urinary tract infection in urgent care on December 14. TKRN Patient request for diagnostic testing 12/27/2020 10/01/2021 Overview: 12/27/2020 Patient desires nuchal ultrasound. 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 Dayna Muñoz APRN.CNM 12/27/2020atient was diagnosed with seizures at age [address] Villagomez a neurologist. See my chart note dated December 17. Patient had lab work completed as ordered by the neurologist. I transferred her to schedule an appointment with the neurologist. Patient denies any seizures since February 2015.TKRN Last Assessment & Plan: Seizure disorder remains stable/well-controlled on oxcarbazepine. Appreciated Neurology recommendations - level subtherapeutic and recently had dose adjustment to 600 mg BID. Patient reports monthly levels are ordered. Discussed physiologic changes PK/PD that may impact need for dose titration, and continue dose adjustments as clinically indicated. Growth US today AGA. Seizure precautions were reviewed. Anxiety and depression 09/14/201710/01 Overview: Prozac at 22 helped her a lot. Last Assessment & Plan: Mood remains stable off therapy. Continue serial mood assessment and mood precautions were reviewed. documented as of this encounter (statuses as of 09/24/2023) [facility] History of Past illness Narrative* Problem Noted Date Diagnosed Date Resolved Date Anemia during in third trimester 05/14/2021 10/01/2021 Overview: 05/14/21 - iron supplementation & repeat CBC 2-4 weeks - Mahad Santana MD care 12/31/2020 10/01/2021 Overview: 12/31/20-STUART:08/08/21 by sure LMP. Dayna Muñoz APRN.CNM Last Assessment & Plan: Continue routine OB care with primary OB. Third trimeter counseling provided. Spotting in 12/27/20202021 Overview: 12/27/2020atient saw Dayna Muñoz December 19 for spotting. Patient states that she has not had any bleeding for the past 5 days. She was treated for a urinary tract infection in urgent care on December 14. TKRN Patient request for diagnostic testing 12/27/2020 10/01/2021 Overview: 12/27/2020 Patient desires nuchal ultrasound. 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 Dayna Muñoz APRN.CNM 12/27/2020atient was diagnosed with seizures at age [address] Villagmoez a neurologist. See my chart note dated December 17. Patient had lab work completed as ordered by the neurologist. I transferred her to schedule an appointment with the neurologist. Patient denies any seizures since February 2015.TKRN Last Assessment & Plan: Seizure disorder remains stable/well-controlled on oxcarbazepine. Appreciated Neurology recommendations - level subtherapeutic and recently had dose adjustment to 600 mg BID. Patient reports monthly levels are ordered. Discussed physiologic changes PK/PD that may impact need for dose titration, and continue dose adjustments as clinically indicated. Growth US today AGA. Seizure precautions were reviewed. Anxiety and depression 09/14/201710/01 Overview: Prozac at 22 helped her a lot. Last Assessment & Plan: Mood remains stable off therapy. Continue serial mood assessment and mood precautions were reviewed. documented as of this encounter (statuses as of 10/02/2023) [facility] History of Past illness Narrative* Problem Noted Date Diagnosed Date Resolved Date Anemia during in third trimester 05/14/2021 10/01/2021 Overview: 05/14/21 - iron supplementation & repeat CBC 2-4 weeks - Mahad Santana MD care 12/31/2020 10/01/2021 Overview: 12/31/20-STUART:08/08/21 by sure LMP. Dayna Muñoz APRN.CNM Last Assessment & Plan: Continue routine OB care with primary OB. Third trimeter counseling provided. Spotting in 12/27/20202021 Overview: 12/27/2020atient saw Dayna Muñoz December 19 for spotting. Patient states that she has not had any bleeding for the past 5 days. She was treated for a urinary tract infection in urgent care on December 14. TKRN Patient request for diagnostic testing 12/27/2020 10/01/2021 Overview: 12/27/2020 Patient desires nuchal ultrasound. 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 Dayna Muñoz APRN.CNM 12/27/2020atient was diagnosed with seizures at age [address] Villagomez a neurologist. See my chart note dated December 17. Patient had lab work completed as ordered by the neurologist. I transferred her to schedule an appointment with the neurologist. Patient denies any seizures since February 2015.TKRN Last Assessment & Plan: Seizure disorder remains stable/well-controlled on oxcarbazepine. Appreciated Neurology recommendations - level subtherapeutic and recently had dose adjustment to 600 mg BID. Patient reports monthly levels are ordered. Discussed physiologic changes PK/PD that may impact need for dose titration, and continue dose adjustments as clinically indicated. Growth US today AGA. Seizure precautions were reviewed. Anxiety and depression 09/14/201710/01 Overview: Prozac at 22 helped her a lot. Last Assessment & Plan: Mood remains stable off therapy. Continue serial mood assessment and mood precautions were reviewed. documented as of this encounter (statuses as of 10/02/2023) [facility] History of Past illness Narrative* Problem Noted Date Diagnosed Date Resolved Date Anemia during in third trimester 05/14/2021 10/01/2021 Overview: 05/14/21 - iron supplementation & repeat CBC 2-4 weeks - Mahad Santana MD care 12/31/2020 10/01/2021 Overview: 12/31/20-STUART:08/08/21 by sure LMP. Dayna Muñoz APRN.CNM Last Assessment & Plan: Continue routine OB care with primary OB. Third trimeter counseling provided. Spotting in 12/27/20202021 Overview: 12/27/2020atient saw Dayna Muñoz December 19 for spotting. Patient states that she has not had any bleeding for the past 5 days. She was treated for a urinary tract infection in urgent care on December 14. TKRN Patient request for diagnostic testing 12/27/2020 10/01/2021 Overview: 12/27/2020 Patient desires nuchal ultrasound. 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 Dayna Muñoz APRN.CNM 12/27/2020atient was diagnosed with seizures at age 7[address] Villagomez a neurologist. See my chart note dated December 17. Patient had lab work completed as ordered by the neurologist. I transferred her to schedule an appointment with the neurologist. Patient denies any seizures since February 2015.TKRN Last Assessment & Plan: Seizure disorder remains stable/well-controlled on oxcarbazepine. Appreciated Neurology recommendations - level subtherapeutic and recently had dose adjustment to 600 mg BID. Patient reports monthly levels are ordered. Discussed physiologic changes PK/PD that may impact need for dose titration, and continue dose adjustments as clinically indicated. Growth US today AGA. Seizure precautions were reviewed. Anxiety and depression 09/14/201710/01 Overview: Prozac at 22 helped her a lot. Last Assessment & Plan: Mood remains stable off therapy. Continue serial mood assessment and mood precautions were reviewed. documented as of this encounter (statuses as of 11/12/2023) [facility]10-05-[facility]21 History of Past illness Narrative* Problem Noted Date Diagnosed Date Resolved Date Anemia during in third trimester 05/14/2021 10/01/2021 Overview: 05/14/21 - iron supplementation & repeat CBC 2-4 weeks - Mahad Santana MD care 12/31/2020 10/01/2021 Overview: 12/31/20-STUART:08/08/21 by sure LMP. Dayna Muñzo APRN.JOHNNY Last Assessment & Plan: Continue routine OB care with primary OB. Third trimeter counseling provided. Spotting in 12/27/20202021 Overview: 12/27/2020atient saw Dayna Muñoz December 19 for spotting. Patient states that she has not had any bleeding for the past 5 days. She was treated for a urinary tract infection in urgent care on December 14. TKRN Patient request for diagnostic testing 12/27/2020 10/01/2021 Overview: 12/27/2020 Patient desires nuchal ultrasound. 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 Dayna Muñoz APRN.CNM 12/27/2020atient was diagnosed with seizures at age [address] Dahlia santos neurologist. See my chart note dated December 17. Patient had lab work completed as ordered by the neurologist. I transferred her to schedule an appointment with the neurologist. Patient denies any seizures since February 2015.TKRN Last Assessment & Plan: Seizure disorder remains stable/well-controlled on oxcarbazepine. Appreciated Neurology recommendations - level subtherapeutic and recently had dose adjustment to 600 mg BID. Patient reports monthly levels are ordered. Discussed physiologic changes PK/PD that may impact need for dose titration, and continue dose adjustments as clinically indicated. Growth US today AGA. Seizure precautions were reviewed. Anxiety and depression 09/14/201710/01 Overview: Prozac at 22 helped her a lot. Last Assessment & Plan: Mood remains stable off therapy. Continue serial mood assessment and mood precautions were reviewed. documented as of this encounter (statuses as of 11/19/2023) [facility]10-[facility] History of Past illness Narrative* Problem Noted Date Diagnosed Date Resolved Date Anemia during in third trimester 05/14/2021 10/01/2021 Overview: 05/14/21 - iron supplementation & repeat CBC 2-4 weeks - Mahad Santana MD care 12/31/2020 10/01/2021 Overview: 12/31/20-STUART:08/08/21 by sure LMP. Dayna Muñoz APRN.CNM Last Assessment & Plan: Continue routine OB care with primary OB. Third trimeter counseling provided. Spotting in 12/27/20202021 Overview: 12/27/2020atient saw Dayna Muñoz December 19 for spotting. Patient states that she has not had any bleeding for the past 5 days. She was treated for a urinary tract infection in urgent care on December 14. TKRN Patient request for diagnostic testing 12/27/2020 10/01/2021 Overview: 12/27/2020 Patient desires nuchal ultrasound. 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 Dayna Muñoz APRN.[facility] 1Patient was diagnosed with seizures at age [address] Villagomez a neurologist. See my chart note dated December 17. Patient had lab work completed as ordered by the neurologist. I transferred her to schedule an appointment with the neurologist. Patient denies any seizures since February 2015.TKRN Last Assessment & Plan: Seizure disorder remains stable/well-controlled on oxcarbazepine. Appreciated Neurology recommendations - level subtherapeutic and recently had dose adjustment to 600 mg BID. Patient reports monthly levels are ordered. Discussed physiologic changes PK/PD that may impact need for dose titration, and continue dose adjustments as clinically indicated. Growth US today AGA. Seizure precautions were reviewed. Anxiety and depression 09/14/201710/01 Overview: Prozac at 22 helped her a lot. Last Assessment & Plan: Mood remains stable off therapy. Continue serial mood assessment and mood precautions were reviewed. documented as of this encounter (statuses as of 11/26/2023) [facility]- Primary Mental disorders of mother, with delivery, with mention of complication Anxiety neurosis Anxiety state, unspecified Care and examination of lactating mother Generalized epilepsy (HCC) Unspecified epilepsy without mention of intractable epilepsy [facility] Diagnosis anxiety- Primary Mental disorders of mother, Panic disorder without agoraphobia [facility] Diagnosis anxiety- Primary Mental disorders of mother, Panic disorder without agoraphobia [facility] Diagnosis anxiety- Primary Mental disorders of mother, Panic disorder without agoraphobia [facility] Diagnosis Generalized epilepsy (HCC) Unspecified epilepsy without mention of intractable epilepsy [facility] Diagnosis Generalized epilepsy (HCC) Unspecified epilepsy without mention of intractable epilepsy [facility] Diagnosis Absence seizure (HCC)- Primary Generalized nonconvulsive epilepsy without mention of intractable epilepsy Generalized epilepsy (HCC) Unspecified epilepsy without mention of intractable epilepsy [facility] Diagnosis 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 Generalized epilepsy (HCC) Unspecified epilepsy without mention of intractable epilepsy [facility] Diagnosis Sore throat- Primary Acute pharyngitis Bacterial conjunctivitis Other conjunctivitis [facility] Diagnosis 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 Generalized epilepsy (HCC) Unspecified epilepsy without mention of intractable epilepsy [facility] Diagnosis JOE (generalized anxiety disorder)- Primary Generalized anxiety disorder anxiety Mental disorders of mother, PMDD (premenstrual dysphoric disorder) Premenstrual tension syndromes [facility]* Diagnosis Sore throat- Primary Acute pharyngitis [facility] Diagnosis Acute bacterial conjunctivitis of both eyes- Primary [facility] Diagnosis JOE (generalized anxiety disorder)- Primary Generalized anxiety disorder PMDD (premenstrual dysphoric disorder) Premenstrual tension syndromes Major depressive disorder, recurrent severe without psychotic features (HCC) Major depressive disorder, recurrent episode, severe, without mention of psychotic behavior [facility]* Diagnosis 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 Generalized epilepsy (HCC) Unspecified epilepsy without mention of intractable epilepsy [facility] Diagnosis Absence seizure (HCC)- Primary Generalized nonconvulsive epilepsy without mention of intractable epilepsy [facility]* Diagnosis Panic disorder without agoraphobia- Primary JOE (generalized anxiety disorder) Generalized anxiety disorder [facility] Diagnosis 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 Generalized epilepsy (HCC) Unspecified epilepsy without mention of intractable epilepsy [facility]* Diagnosis Major depressive disorder, recurrent severe without psychotic features (HCC)- Primary Major depressive disorder, recurrent episode, severe, without mention of psychotic behavior Panic disorder without agoraphobia [facility]* Diagnosis Fatigue, unspecified type- Primary 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 Anxiety and depression Dysthymic disorder Vitamin D deficiency Unspecified vitamin D deficiency Acute bilateral ankle pain- Primary Acute bilateral ankle pain documented in this encounter [facility] note* Diagnosis Fatigue, unspecified type- Primary 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 Anxiety and depression Dysthymic disorder Vitamin D deficiency Unspecified vitamin D deficiency Acute bilateral ankle pain documented in this encounter [facility] note* Diagnosis Fatigue, unspecified type- Primary 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 Anxiety and depression Dysthymic disorder Vitamin D deficiency Unspecified vitamin D deficiency Panic disorder without agoraphobia- Primary PTSD (post-traumatic stress disorder) Posttraumatic stress disorder documented in this encounter [facility] note* Diagnosis Fatigue, unspecified type- Primary 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 Anxiety and depression Dysthymic disorder Vitamin D deficiency Unspecified vitamin D deficiency Left foot pain- Primary Pain in limb Plantar fasciitis Plantar fascial fibromatosis documented in this encounter [facility] note* Diagnosis Fatigue, unspecified type- Primary 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 Anxiety and depression Dysthymic disorder Vitamin D deficiency Unspecified vitamin D deficiency Plantar fasciitis- Primary Plantar fascial fibromatosis Tarsal tunnel syndrome, bilateral Pes planus of both feet documented in this encounter [facility] note* Diagnosis Fatigue, unspecified type- Primary 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 Anxiety and depression Dysthymic disorder Vitamin D deficiency Unspecified vitamin D deficiency Plantar fasciitis- Primary Plantar fascial fibromatosis Tarsal tunnel syndrome, bilateral [facility]* Diagnosis Fatigue, unspecified type- Primary 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 Anxiety and depression Dysthymic disorder Vitamin D deficiency Unspecified vitamin D deficiency Panic disorder without agoraphobia- Primary JOE (generalized anxiety disorder) Generalized anxiety disorder PTSD (post-traumatic stress disorder) Posttraumatic stress disorder documented in this encounter [facility] note* Diagnosis Fatigue, unspecified type- Primary 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 Anxiety and depression Dysthymic disorder Vitamin D deficiency Unspecified vitamin D deficiency Nausea and vomiting, unspecified vomiting type- Primary [facility] noteNo assessment information availableWOhioHealth [facility] Work Phone: Evaluation note* Diagnosis Fatigue, unspecified type- Primary 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 Anxiety and depression Dysthymic disorder Vitamin D deficiency Unspecified vitamin D deficiency Tarsal tunnel syndrome, bilateral- Primary Plantar fasciitis Plantar fascial fibromatosis [facility] this encounter [facility]* Diagnosis Fatigue, unspecified type- Primary 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 Anxiety and depression Dysthymic disorder Vitamin D deficiency Unspecified vitamin D deficiency Tarsal tunnel syndrome, bilateral Plantar fasciitis Plantar fascial fibromatosis documented [facility] this encounter [facility]struct[facility]isc[facility]* Name Dates Details Instructions not documented [id number] Work Phone: Reason for referral (narrative)* Diagnostic Procedure Only (Urgent) - Closed Specialty Diagnoses / Procedures Referred By Contac t Referred To Contact XR IMAGING Diagnoses Acute bilateral ankle pain Procedures XR ANKLE GENERAL 3V AP/LAT/OBL BILATERAL RADEX ANKLE COMPLETE MINIMUM 3 VIEWS Fred Guzman APRN.NURSE OUTREACH CASE MANAGER [address] [place] [address] [place] [address] Referral ID Status Reason Start Date Expiration Date V isits Requested Visits Authorized [id number] Closed Auto-Generate d Referral 05/16/2024 06/15/2025 1 1 [facility] for referral (narrative)* Diagnostic Procedure Only (Urgent) - Closed Specialty Diagnoses / Procedures Referred By Contac t Referred To Contact XR IMAGING Diagnoses Acute bilateral ankle pain Procedures XR ANKLE GENERAL 3V AP/LAT/OBL BILATERAL RADEX ANKLE COMPLETE MINIMUM 3 VIEWS Fred Guzman APRN.CNP [address] [place] [address] [place] [address] Referral ID Status Reason Start Date Expiration Date V isits Requested Visits Authorized [id number] Closed Auto-Generate d Referral 05/16/2024 06/15/2025 1 1 [facility] for referral (narrative)No reason for referral information availableWOhioHealth Hardin [facility] Hospital Work Phone: [facility] N[facility]* Diagnostic Procedure Only (Urgent) - Closed Specialty Diagnoses / Procedures Referred By Contac t Referred To Contact XR IMAGING Diagnoses Acute bilateral ankle pain Procedures XR ANKLE GENERAL 3V AP/LAT/OBL BILATERAL RADEX ANKLE COMPLETE MINIMUM 3 VIEWS Fred Guzman APRN.CNP [address] [place] [address] [place] [address] Referral ID Status Reason Start Date Expiration Date V isits Requested Visits Authorized [id number] Closed Auto-Generate d Referral 05/16/2024 06/15/2025 1 1 [facility] for visit Narrative* Diagnostic Procedure Only (Urgent) - Closed Specialty Diagnoses / Procedures Referred By Contac t Referred To Contact XR IMAGING Diagnoses Left foot pain Procedures XR FOOT GENERAL 3V AP/LAT/OBL LEFT RADEX FOOT COMPLETE MINIMUM 3 VIEWS Vinh Rodriguez PA-C [address] [facility] [address] [place] [address] Phone: tel: fax: [place] [address] Referral ID Status Reason Start Date Expiration Date V isits Requested Visits Authorized [id number] Closed Auto-Generate d Referral 10/05/2024 11/04/2025 1 1 [facility] for visit Narrative* Outpatient Procedure (Routine) - Closed Specialty Diagnoses / Procedures Referred By Contac t Referred To Contact [facility] Diagnoses Tarsal tunnel syndrome, bilateral Plantar fasciitis Procedures [facility](NEURO/NI) NERVE CONDUCTION STUDIES 9-10 STUDIES Gutierrez Lara [address] [place] [address] Phone: tel: fax: Neurology [address] [place] [address] Phone: tel: Referral ID Status Reason Start Date Expiration Date V isits Requested Visits Authorized [id number] Closed Auto-Generate d Referral 03/07/2025 03/07/2026 1 1 [facility] Reason for Referral Specialty Diagnoses / Procedures Referred By Danyelle ellsworth Referred To Contact Diagnoses mood disturbance Anxiety neurosis Procedures CONSULT TO PSYCHIATRY OFFICE/OUTPATIENT [facility] 60-74 MINUTES Ashlie Blanchard APRN.[facility] [address] [place] [address] Referral ID Status Reason Start Date Expiration Date Visits Requested Visits Authorized [id number] Pending Review PCP Requested Referral 12/25/2021 12/18/2022 1 1 Summary Purpose Family History No Family History Records Found Relationship Condition Age at Onset Recorded Date/T verito Not Specified Seizure Unknown Disorder of thyroid Unknown Cerebrovascular accident (CVA) Unknown Asthma Unknown Advance Directives No Advanced Directives Records Found Advance Directive Response Recorded Date/ Time Do you have a Healthcare Power of Short Story Writer? No January 30, 2025 3:13pm Chief Complaint and Reason for Visit Chief Complaint Admit Date N/V January 30, 2025 1:13 pm Additional Source Comments Source Comments (unrecognize d section and content) In the event this informatio n is protected by the Federal Confidentiality of Alcohol and Drug Abuse Patient Records regulations: The Federal rules restrict any use of the information to criminally investigate or prosecute any alcohol or drug abuse patient.[facility] the event this information is protected by the Federal Confidentiality of Alcohol and Drug Abuse Patient Records regulations: The Federal rules restrict any use of the information to criminally investigate or prosecute any alcohol or drug abuse patient.[facility] HospitalIn the event this information is protected by the Federal Confidentiality of Alcohol and Drug Abuse Patient Records regulations: The Federal rules restrict any use of the information to criminally investigate or prosecute any alcohol or drug abuse patient.[facility] Hospital[facility] the event this information is protected by the Federal Confidentiality of Alcohol and Drug Abuse Patient Records regulations: The Federal rules restrict any use of the information to criminally investigate or prosecute any alcohol or drug abuse patient.[facility] the event this information is protected by the Federal Confidentiality of Alcohol and Drug Abuse Patient Records regulations: The Federal rules restrict any use of the information to criminally investigate or prosecute any alcohol or drug abuse patient.[facility] Hospital[facility] the event this information is protected by the Federal Confidentiality of Alcohol and Drug Abuse Patient Records regulations: The Federal rules restrict any use of the information to criminally investigate or prosecute any alcohol or drug abuse patient.[facility] HospitalIn the event this information is protected by the Federal Confidentiality of Alcohol and Drug Abuse Patient Records regulations: The Federal rules restrict any use of the information to criminally investigate or prosecute any alcohol or drug abuse patient.[facility] Hospital[facility] the event this information is protected by the Federal Confidentiality of Alcohol and Drug Abuse Patient Records regulations: The Federal rules restrict any use of the information to criminally investigate or prosecute any alcohol or drug abuse patient.[facility] Hospital[facility] the event this information is protected by the Federal Confidentiality of Alcohol and Drug Abuse Patient Records regulations: The Federal rules restrict any use of the information to criminally investigate or prosecute any alcohol or drug abuse patient.[facility] Hospital[facility] the event this information is protected by the Federal Confidentiality of Alcohol and Drug Abuse Patient Records regulations: The Federal rules restrict any use of the information to criminally investigate or prosecute any alcohol or drug abuse patient.[facility] Hospital[facility] the event this information is protected by the Federal Confidentiality of Alcohol and Drug Abuse Patient Records regulations: The Federal rules restrict any use of the information to criminally investigate or prosecute any alcohol or drug abuse patient.[facility] Hospital[facility] the event this information is protected by the Federal Confidentiality of Alcohol and Drug Abuse Patient Records regulations: The Federal rules restrict any use of the information to criminally investigate or prosecute any alcohol or drug abuse patient.[facility] HospitalIn the event this information is protected by the Federal Confidentiality of Alcohol and Drug Abuse Patient Records regulations: The Federal rules restrict any use of the information to criminally investigate or prosecute any alcohol or drug abuse patient.[facility] Hospital[facility] the event this information is protected by the Federal Confidentiality of Alcohol and Drug Abuse Patient Records regulations: The Federal rules restrict any use of the information to criminally investigate or prosecute any alcohol or drug abuse patient.[facility] HospitalIn the event this information is protected by the Federal Confidentiality of Alcohol and Drug Abuse Patient Records regulations: The Federal rules restrict any use of the information to criminally investigate or prosecute any alcohol or drug abuse patient.[facility] Hospital[facility] the event this information is protected by the Federal Confidentiality of Alcohol and Drug Abuse Patient Records regulations: The Federal rules restrict any use of the information to criminally investigate or prosecute any alcohol or drug abuse patient.[facility] Hospital[facility] the event this information is protected by the Federal Confidentiality of Alcohol and Drug Abuse Patient Records regulations: The Federal rules restrict any use of the information to criminally investigate or prosecute any alcohol or drug abuse patient.[facility] HospitalIn the event this information is protected by the Federal Confidentiality of Alcohol and Drug Abuse Patient Records regulations: The Federal rules restrict any use of the information to criminally investigate or prosecute any alcohol or drug abuse patient.[facility] HospitalIn the event this information is protected by the Federal Confidentiality of Alcohol and Drug Abuse Patient Records regulations: The Federal rules restrict any use of the information to criminally investigate or prosecute any alcohol or drug abuse patient.[facility] HospitalIn the event this information is protected by the Federal Confidentiality of Alcohol and Drug Abuse Patient Records regulations: The Federal rules restrict any use of the information to criminally investigate or prosecute any alcohol or drug abuse patient.[facility] Hospital[facility] the event this information is protected by the Federal Confidentiality of Alcohol and Drug Abuse Patient Records regulations: The Federal rules restrict any use of the information to criminally investigate or prosecute any alcohol or drug abuse patient.[facility] HospitalIn the event this information is protected by the Federal Confidentiality of Alcohol and Drug Abuse Patient Records regulations: The Federal rules restrict any use of the information to criminally investigate or prosecute any alcohol or drug abuse patient.[facility] HospitalIn the event this information is protected by the Federal Confidentiality of Alcohol and Drug Abuse Patient Records regulations: The Federal rules restrict any use of the information to criminally investigate or prosecute any alcohol or drug abuse patient.[facility] HospitalIn the event this information is protected by the Federal Confidentiality of Alcohol and Drug Abuse Patient Records regulations: The Federal rules restrict any use of the information to criminally investigate or prosecute any alcohol or drug abuse patient.[facility] HospitalIn the event this information is protected by the Federal Confidentiality of Alcohol and Drug Abuse Patient Records regulations: The Federal rules restrict any use of the information to criminally investigate or prosecute any alcohol or drug abuse patient.[facility] HospitalIn the event this information is protected by the Federal Confidentiality of Alcohol and Drug Abuse Patient Records regulations: The Federal rules restrict any use of the information to criminally investigate or prosecute any alcohol or drug abuse patient.[facility] HospitalIn the event this information is protected by the Federal Confidentiality of Alcohol and Drug Abuse Patient Records regulations: The Federal rules restrict any use of the information to criminally investigate or prosecute any alcohol or drug abuse patient.[facility] HospitalIn the event this information is protected by the Federal Confidentiality of Alcohol and Drug Abuse Patient Records regulations: The Federal rules restrict any use of the information to criminally investigate or prosecute any alcohol or drug abuse patient.[facility] HospitalIn the event this information is protected by the Federal Confidentiality of Alcohol and Drug Abuse Patient Records regulations: The Federal rules restrict any use of the information to criminally investigate or prosecute any alcohol or drug abuse patient.[facility] HospitalIn the event this information is protected by the Federal Confidentiality of Alcohol and Drug Abuse Patient Records regulations: The Federal rules restrict any use of the information to criminally investigate or prosecute any alcohol or drug abuse patient.[facility] HospitalIn the event this information is protected by the Federal Confidentiality of Alcohol and Drug Abuse Patient Records regulations: The Federal rules restrict any use of the information to criminally investigate or prosecute any alcohol or drug abuse patient.[facility] HospitalIn the event this information is protected by the Federal Confidentiality of Alcohol and Drug Abuse Patient Records regulations: The Federal rules restrict any use of the information to criminally investigate or prosecute any alcohol or drug abuse patient.[facility] HospitalIn the event this information is protected by the Federal Confidentiality of Alcohol and Drug Abuse Patient Records regulations: The Federal rules restrict any use of the information to criminally investigate or prosecute any alcohol or drug abuse patient.[facility] HospitalIn the event this information is protected by the Federal Confidentiality of Alcohol and Drug Abuse Patient Records regulations: The Federal rules restrict any use of the information to criminally investigate or prosecute any alcohol or drug abuse patient.[facility] HospitalIn the event this information is protected by the Federal Confidentiality of Alcohol and Drug Abuse Patient Records regulations: The Federal rules restrict any use of the information to criminally investigate or prosecute any alcohol or drug abuse patient.[facility] HospitalIn the event this information is protected by the Federal Confidentiality of Alcohol and Drug Abuse Patient Records regulations: The Federal rules restrict any use of the information to criminally investigate or prosecute any alcohol or drug abuse patient.[facility] HospitalIn the event this information is protected by the Federal Confidentiality of Alcohol and Drug Abuse Patient Records regulations: The Federal rules restrict any use of the information to criminally investigate or prosecute any alcohol or drug abuse patient.[facility] HospitalIn the event this information is protected by the Federal Confidentiality of Alcohol and Drug Abuse Patient Records regulations: The Federal rules restrict any use of the information to criminally investigate or prosecute any alcohol or drug abuse patient.[facility] HospitalIn the event this information is protected by the Federal Confidentiality of Alcohol and Drug Abuse Patient Records regulations: The Federal rules restrict any use of the information to criminally investigate or prosecute any alcohol or drug abuse patient.[facility] HospitalIn the event this information is protected by the Federal Confidentiality of Alcohol and Drug Abuse Patient Records regulations: The Federal rules restrict any use of the information to criminally investigate or prosecute any alcohol or drug abuse patient.[facility] HospitalIn the event this information is protected by the Federal Confidentiality of Alcohol and Drug Abuse Patient Records regulations: The Federal rules restrict any use of the information to criminally investigate or prosecute any alcohol or drug abuse patient.[facility] HospitalIn the event this information is protected by the Federal Confidentiality of Alcohol and Drug Abuse Patient Records regulations: The Federal rules restrict any use of the information to criminally investigate or prosecute any alcohol or drug abuse patient.[facility] HospitalIn the event this information is protected by the Federal Confidentiality of Alcohol and Drug Abuse Patient Records regulations: The Federal rules restrict any use of the information to criminally investigate or prosecute any alcohol or drug abuse patient.[facility] HospitalIn the event this information is protected by the Federal Confidentiality of Alcohol and Drug Abuse Patient Records regulations: The Federal rules restrict any use of the information to criminally investigate or prosecute any alcohol or drug abuse patient.[facility] HospitalIn the event this information is protected by the Federal Confidentiality of Alcohol and Drug Abuse Patient Records regulations: The Federal rules restrict any use of the information to criminally investigate or prosecute any alcohol or drug abuse patient.[facility] HospitalIn the event this information is protected by the Federal Confidentiality of Alcohol and Drug Abuse Patient Records regulations: The Federal rules restrict any use of the information to criminally investigate or prosecute any alcohol or drug abuse patient.[facility] HospitalIn the event this information is protected by the Federal Confidentiality of Alcohol and Drug Abuse Patient Records regulations: The Federal rules restrict any use of the information to criminally investigate or prosecute any alcohol or drug abuse patient.[facility] HospitalIn the event this information is protected by the Federal Confidentiality of Alcohol and Drug Abuse Patient Records regulations: The Federal rules restrict any use of the information to criminally investigate or prosecute any alcohol or drug abuse patient.[facility] HospitalIn the event this information is protected by the Federal Confidentiality of Alcohol and Drug Abuse Patient Records regulations: The Federal rules restrict any use of the information to criminally investigate or prosecute any alcohol or drug abuse patient.[facility] HospitalIn the event this information is protected by the Federal Confidentiality of Alcohol and Drug Abuse Patient Records regulations: The Federal rules restrict any use of the information to criminally investigate or prosecute any alcohol or drug abuse patient.[facility] HospitalIn the event this information is protected by the Federal Confidentiality of Alcohol and Drug Abuse Patient Records regulations: The Federal rules restrict any use of the information to criminally investigate or prosecute any alcohol or drug abuse patient.[facility] Reason for Visit (unrecogniz ed section and content) Reason Comments Anxiety Specialty Diagnoses / Procedures Referred By Danyelle ellsworth Referred To Contact Psychiatry / ADULT PSYCHIATRY Diagnoses med check Procedures VIDEO PSYC/PSYL EST Self Fanny Blankenship, [address] [place] [address] Referral ID Status Reason Start Date Expiration Date V isits Requested Visits Authorized [id number] Outside PCP 07/08/2024 10/06/2024 1 1 Reason Comments Anxiety Depression Specialty Diagnoses / Procedures Referred By Contac t Referred To Contact Psychiatry / ADULT PSYCHIATRY Diagnoses medcheck Procedures VIDEO PSYC/PSYL EST Self Fanny Blankenship, DO [address] [place] [address] Referral ID Status Reason Start Date Expiration Date V isits Requested Visits Authorized [id number] Outside PCP 08/20/2023 08/09/2024 99 99 Reason Comments Anxiety Follow Up Specialty Diagnoses / Procedures Referred By Contac t Referred To Contact Psychiatry / ADULT PSYCHIATRY Diagnoses virtual follow up Procedures VIDEO PSYC/PSYL EST Fanny Blankenship, DO [address] [place] [address] Fanny Blankenship, DO [address] [place] [address] Referral ID Status Reason Start Date Expiration Date Visits Requested Visits Authorized [id number] Pending Review Patient Cleared - INN Insurance Found 05/07/2022 08/05/2022 10 10 Reason Comments Follow Up Specialty Diagnoses / Procedures Referred By Contac t Referred To Contact [facility] Department Diagnoses PT DOES NOT HAVE INSURANCE Procedures PT NEEDS FINANCIAL CLEARANCE Self [facility] Referral ID Status Reason Start Date Expiration Date Visits Requested Visits Authorized [id number] Authorized Financial Clearance Required - Self Pay Patient Cleared - Qualified 100% FAS 11/25/2021 02/23/2022 99 99 Specialty Diagnoses / Procedures Referred By Contac t Referred To Contact [employer] Diagnoses POST 6 week Procedures POST Ashlie Blanchard APRN.JOHNNY [address] [place] [address] Ashlie Blanchard APRN.CNM [address] [place] [address] Referral ID Status Reason Start Date Expiration Date V isits Requested Visits Authorized [id number] Closed Patient Cleared - Qualified 100% FAS 10/01/2021 12/30/2021 99 99 Reason Comments BMV Forms Reason Onset Date Comments Refill Request 06/11/2022 Reason Onset Date Comments Refill Request 07/20/2022 Reason Onset Date Comments Refill Request 09/17/2022 Reason Comments Refill Request Follow Up Epilepsy Reason Onset Date Comments Refill Request 11/09/2022 Reason Onset Date Comments Refill Request 01/27/2023 Reason Comments Eye Problem redness and itching, sore throat x 2 days Reason Onset Date Comments Refill Request 03/12/2023 Reason Onset Date Comments Refill Request 04/01/2023 Reason Onset Date Comments Refill Request 04/24/2023 Reason Comments Depression Follow Up Anxiety Specialty Diagnoses / Procedures Referred By Danyelle ellsworth Referred To Contact Psychiatry / ADULT PSYCHIATRY Diagnoses [facility] Procedures VIDEO PSYC/PSYL EST Meche Blankenship [address] [place] [address] Fanny Blankenship, DO [address] [place] [address] Referral ID Status Reason Start Date Expiration Date V isits Requested Visits Authorized [id number] Outside PCP 05/06/2023 08/04/2023 1 1 Reason Comments Sore Throat Cough x1 week Reason Comments Conjunctivitis X2 days Reason Comments Appointment Reason Comments Forms Refill Request Annual visit for rfs , BMV form processing Reason Onset Date Comments Refill Request 01/20/2024 Reason Comments Trauma NATY ankle and foot p ain, swelling, tripped going down stairs x 5 days Reason Onset Date Comments Refill Request 06/06/2024 Reason Onset Date Comments Refill Request 09/07/2024 Reason Comments Pain (foot) left x knee to foot pain x 1 month, seen her in oct twisted Reason Comments New Pain Numbness Specialty Diagnoses / Procedures Referred By Danyelle ellsworth Referred To Contact Podiatry Diagnoses Plantar fasciitis Procedures CONSULT TO PODIATRY OFFICE/OUTPATIENT NEW HIGH MDM 60 MINUTES Vinh Rodriguez PA-C [address] [facility] [address] [place] [address] Phone: tel: fax: Referral ID Status Reason Start Date Expiration Date V isits Requested Visits Authorized [id number] Closed PCP Requested Referral 10/05/2024 10/05/2025 1 1 Reason Comments Pain Follow Up Specialty Diagnoses / Procedures Referred By Danyelle ellsworth Referred To Contact Psychiatry / ADULT PSYCHIATRY Diagnoses virtual med check Procedures VIDEO PSYC/PSYL EST [facility] [address] [place] [address] Phone: tel: Fanny Blankenship, [address] [place] [address] Phone: tel: fax: Referral ID Status Reason Start Date Expiration Date V isits Requested Visits Authorized [id number] New Request 11/14/2024 08/09/2025 15 15 Reason Comments Nausea & Vomiting SWIFT x5 days, lighthea ded Reason Comments Established Patient Follow Up Pain Care Teams (unrecognized sec tion and content) Router Tender Relationship Specialty Start Date End Date Attila Amaya MD [address] [place], [place] [id number] PCP - General Family Practice 03/16/18 Router Tender Relationship Specialty Start Date End Date Attila Amaya MD [address] [place], [place] [address] PCP - General Family Practice 03/16/18 Router Tender Relationship Specialty Start Date End Date Attila Amaya MD [address] [place] [id number] PCP - General Family Practice 03/16/18 Router Tender Relationship Specialty Start Date End Date Attila Amaya MD [address] [place], [place] [address] PCP - General Family Practice 03/16/18 Router Tender Relationship Specialty Start Date End Date Attila Amaya MD [address] [place] [address] PCP - General Family Practice 03/16/18 Router Tender Relationship Specialty Start Date End Date Attila Amaya MD [address] [place] [address] PCP - General Family Medicine 03/16/18 Router Tender Relationship Specialty Start Date End Date Attila Amaya MD [address] [place] [address] PCP - General Family Medicine 03/16/18 Router Tender Relationship Specialty Start Date End Date Attila Amaya MD [address] [place] [address] PCP - General Family Medicine 03/16/18 Router Tender Relationship Specialty Start Date End Date Attila Amaya MD [address] [place] [address] PCP - General Family Medicine 03/16/18 Router Tender Relationship Specialty Start Date End Date Attila Amaya MD [address] [place] [address] PCP - General Family Medicine 03/16/18 Router Tender Relationship Specialty Start Date End Date Attila Amaya MD [address] [place] [address] PCP - General Family Medicine 03/16/18 Router Tender Relationship Specialty Start Date End Date Attila Amaya MD [address] [place] [address] PCP - General Family Medicine 03/16/18 Router Tender Relationship Specialty Start Date End Date Attila Amaya MD [address] [place] [address] PCP - General Family Medicine 03/16/18 Router Tender Relationship Specialty Start Date End Date Attila Amaya MD [address] [place] [address] PCP - General Family Medicine 03/16/18 Router Tender Relationship Specialty Start Date End Date Attila Amaya MD [address] [place] [address] PCP - General Family Medicine 03/16/18 Router Tender Relationship Specialty Start Date End Date Attila Amaya MD [address] [place] [address] PCP - General Family Medicine 03/16/18 Router Tender Relationship Specialty Start Date End Date Attila Amaya MD [address] [place] [address] PCP - General Family Medicine 03/16/18 Router Tender Relationship Specialty Start Date End Date Attila Amaya MD [address] [place] [address] PCP - General Family Medicine 03/16/18 Router Tender Relationship Specialty Start Date End Date Attila Amaya MD [address] [place] [address] PCP - General Family Medicine 03/16/18 Router Tender Relationship Specialty Start Date End Date Attila Amaya MD [address] [place] [address] PCP - General Family Medicine 03/16/18 Router Tender Relationship Specialty Start Date End Date Attila Amaya MD [address] [place] [address] PCP - General Family Medicine 03/16/18 Router Tender Relationship Specialty Start Date End Date Attila Amaya MD [address] [place] [address] PCP - General Family Medicine 03/16/18 Router Tender Relationship Specialty Start Date End Date Attila Amaya MD [address] [place], [place] [address] PCP - General Family Medicine 03/16/18 Router Tender Relationship Specialty Start Date End Date Attila Amaya MD [address] [place], [place] [address] PCP - General Family Medicine 03/16/18 Router Tender Relationship Specialty Start Date End Date Attila Amaya MD [address] [place], [place] [address] PCP - General Family Medicine 03/16/18 Router Tender Relationship Specialty Start Date End Date Attila Amaya MD [address] [place] [address] PCP - General Family Medicine 03/16/18 Router Tender Relationship Specialty Start Date End Date Attila Amaya MD [address] [place], [place] [address] PCP - General Family Medicine 03/16/18 Router Tender Relationship Specialty Start Date End Date Attila Amaya MD [address] [place] [address] PCP - General Family Medicine 03/16/18 Router Tender Relationship Specialty Start Date End Date Attila Amaya MD [address] [place], [place] [address] PCP - General Family Medicine 03/16/18 Router Tender Relationship Specialty Start Date End Date Attila Amaya MD [address] [place], [place] [address] PCP - General Family Medicine 03/16/18 Ember Quevedo APRN.NURSE OUTREACH CASE MANAGER [address] [place] [address] Manager Purchasing Family Medicine 07/18/24 Sarah Gil APRN.NURSE OUTREACH CASE MANAGER [address] [place] [address] Manager Purchasing Family Medicine 07/18/24 Router Tender Relationship Specialty Start Date End Date Attila Amaya MD [address] [place] [address] PCP - General Family Medicine 03/16/18 Ember Quevedo APRN.NURSE OUTREACH CASE MANAGER [address] [place] [address] Manager Purchasing Family Medicine 07/18/24 Sarah Gil DIRECTOR OF PUBLICATIONS.NURSE OUTREACH CASE MANAGER [address] [place] [address] Manager Purchasing Family Medicine 07/18/24 Router Tender Relationship Specialty Start Date End Date Attila Amaya MD [address] [place] [address] PCP - General Family Medicine 03/16/18 Ember Quevedo DIRECTOR OF PUBLICATIONS.NURSE OUTREACH CASE MANAGER [address] [place] [address] Manager Purchasing Family Medicine 07/18/24 Sarah Gil APRN.NURSE OUTREACH CASE MANAGER [address] [place] [address] Manager Purchasing Family Medicine 07/18/24 Router Tender Relationship Specialty Start Date End Date Attila Amaya MD [address] [place] [address] PCP - General Family Medicine 03/16/18 Ember Quevedo APRN.NURSE OUTREACH CASE MANAGER [address] [place] [address] Manager Purchasing Family [facility] 07/18/24 Sarah Gil APRN.NURSE OUTREACH CASE MANAGER [address] [place] [address] Manager Purchasing [facility] 07/18/24 Router Tender Relationship Specialty Start Date End Date Ember Quevedo APRN.NURSE OUTREACH CASE MANAGER [address] [place] [address] Manager Purchasing Family [facility] 07/18/24 Sarah Gil APRN.NURSE OUTREACH CASE MANAGER [address] [place] [address] [facility] Router Tender Relationship Specialty Start Date End Date Ember Quevedo APRN.NURSE OUTREACH CASE MANAGER [address] [place] [address] [facility] 07/[facility]/24 Sarah Gil APRN.NURSE OUTREACH CASE MANAGER [address] [place] [address] [facility] 07/18/24 Router Tender Relationship Specialty Start Date End Date Ember Quevedo APRN.NURSE OUTREACH CASE MANAGER [address] [place] [address] Manager Purchasing Family [facility] 07/18/24 Sarah Gil APRN.NURSE OUTREACH CASE MANAGER [address] [facility], [place] [address] [facility] 07/18/24 Team Status: Active Member Role Status Dates No Primary Care Physician Primary Care Provider Active Team Status: Inactive Member Role Status Dates Dr. Nehemias Torres , DO Emergency Provider Active Start: January 30, 2025 End: January 30, 2025 No Primary Care Physician Primary Care Provider Active Start: January 30, 2025 End: January 30, 2025 Router Tender Relationship Specialty Start Date End Date Ember Quevedo, DIRECTOR OF PUBLICATIONS.NURSE OUTREACH CASE MANAGER [address] [place], [place] [address]60[address] [facility] 07/18/24 Sarah Gil, DIRECTOR OF PUBLICATIONS.NURSE OUTREACH CASE MANAGER [address] [place], [place] [address] [facility] 07/18/24 Router Tender Relationship Specialty Start Date End Date Ember Quevedo, DIRECTOR OF PUBLICATIONS.NURSE OUTREACH CASE MANAGER [address] [place], [place] [address] [facility] 07/18/24 Sarah Gil, DIRECTOR OF PUBLICATIONS.NURSE OUTREACH CASE MANAGER [address] [place], [place] [address] [facility] 07/18/24 INFORMATION SOURCE (unrecogn ized section and content) DATE CREATED AUTHOR 01/30/2022 [facility] DATE CREATED AUTHOR AUTHOR'S ORGANIZ ATION 11/29/2024 [facility] DATE CREATED AUTHOR AUTHOR'S ORGANIZ ATION 02/03/2025 [facility] DATE CREATED AUTHOR AUTHOR'S ORGANIZ ATION 04/19/2025 [facility] Goals (unrecognized section and content) Goals may be documented in a n alternate section FOR RECORDS PERTAINING TO PATIENTS WHO ARE OR HAVE BEEN ENROLLED IN A CHEMICAL DEPENDENCY/SUBSTANCEABUSE PROGRAM, SOME INFORMATION MAY BE OMITTED. This clinical summary was aggregated from multiple sources. Caution should be exercised in using it in the provision of clinical care. This summary normalizes information from multiple sources, and as a consequence, information in this document may materially change the coding, format and clinical context of patient data. In addition, data may be omitted in some cases. CLINICAL DECISIONS SHOULD BE BASED ON THE PRIMARY CLINICAL RECORDS. [facility] [facility]. provides no warranty or guarantee of the accuracy or completeness of information in this document.
[2025-08-06 06:15] LABS: Hematocrit 39.0 % (37-47); Hemoglobin 12.8 g/dL (12.0-15.0); Immature Granulocytes Count 0.060 X10^3/uL (0.0-0.0); Mean Corp Hgb Conc 32.8 g/dL (32-36); Mean Corpuscular Volume 82.3 fL (81-99); Mean Platelet Vol. 10.8 fl (6.2-12.0); NRBC Flagged by Analyzer 0 % (0-5); Platelet Count 263 K/mm3 (150-450); RBC Distribution Width CV 13.9 % (11.6-14.6); RBC Distribution Width SD 41.4 fl (35.1-43.9); Red Blood Count 4.74 M/mm3 (4.2-5.4); White Blood Count 11.7 K/mm3 (4.4-11.0)
[2025-08-06 06:29] LABS: Mucous, Urine 0 SEEN /hpf (<or=2+)
[2025-08-06 06:32] LABS: Glucose, Dipstick Normal (Normal); Ketone-Dipstick Negative (Negative); Leukocyte Esterase-Dipstick 25 /ul (Negative); Nitrite-Dipstick Negative (Negative); Occult Blood-Urine 10 /ul (Negative); Protein-Dipstick 15 mg/dl (Negative); Specific Gravity, Urine 1.020 (1.002-1.030); Urine Bilirubin Dipstick Negative (Negative)
[2025-08-06 06:38] LABS: Color, Urine Yellow (Yellow); Red Blood Cells-Urine 0-5 SEEN /hpf (0-5); Squamous Epithelial Cells - UA 5-10 SEEN /hpf (5-10)
[2025-08-06 07:31] VITALS: BP 113/68; PULSE 77; RESP 16; O2SAT 100
--- NOTE | 2025-08-06 09:07 | ED.VIS.FEGU ---
HPI HPI - Female History of Present Illness Chief Complaint: Narrative Narrative: Patient was seen and examined after presenting to ED for lower abdominal and pelvic cramping she states that she is approximately 8 weeks follows with [facility] no vaginal bleeding no fevers but endorses nausea. She reports that she is had some vaginal bleeding early on in the beginning of her first but has not had any to this point. 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 weeks gestation of COVID-19 Encounter for screening for COVID-19 Seizures Home Medications ?Medication ?Instructions ?Recorded ?Last Taken ?Type oxcarbazepine 300 mg tablet 300 mg PO BID seizures 09/25/18 08/09/21 06:30 History vitamins no.144-folic 2 tab PO Q24H 08/09/21 08/09/21 06:00 History acid 400 mcg chewable tablet () ondansetron 4 mg disintegrating 4 mg PO Q8H PRN PRN Nausea #10 tabs 01/31/25 Unknown Rx tablet folic acid 1 mg tablet 1 mg PO DAILY 08/06/25 Unknown History Allergy/AdvReac Type Severity Reaction Status Date / Time No Known Allergies Allergy Verified 08/06/25 05:24 Family History Other Asthma CVA (cerebral vascular accident) Seizures Thyroid disorder Surgical History Delivery by section Social History Smoking Status: Former smoker ROS ROS ED ROS Narrative Pertinent Positives: Lower abdominal and pelvic cramping with nausea she is Pertinent Negatives: Vaginal bleeding dysuria fevers chills vomiting The remainder of review of systems negative unless otherwise stated in the HPI above. Systems reviewed including constitutional, psychiatric, cardiovascular, respiratory, integument, HENT, gastrointestinal. EXAM Physical Exam Narrative Exam Narrative: Patient is afebrile hemodynamically stable does not appear toxic or in distress normocephalic atraumatic abdomen is soft nontender nondistended moving all extremities appropriately she is warm and well-perfused Const Vital Signs: 08/06/25 05:21 08/06/25 07:31 Temperature 97.9 F Temperature Source Oral Pulse Rate 78 77 Respiratory Rate 14 16 Blood Pressure 119/83 H 113/68 Blood Pressure Mean 95 83 Pulse Ox 100 100 Oxygen Delivery Method Room Air Room Air MDM MDM MDM Narrative Medical decision making narrative: Nursing notes, triage notes, available previous documentation, and vital signs were reviewed. Any discrepancies noted were addressed. Differential Diagnoses: Will make sure that she does not have any sort of abnormalities involving the fetus or a UTI this not consistent with appendicitis or cholecystitis pancreatitis or diverticular disease Interventions: Reglan Fluids Given: 1 L normal saline Labs Reviewed: Minimal leukocytosis 11.7 globin is 12.8 quantitative hCG is 159,411 urine really without any significant evidence of infection Imaging Reviewed: Transvaginal ultrasound showing a single live IUP proximately 8 weeks 1 day she has bilateral ovaries that are unremarkable with a corpus luteum cyst in the left ovary no evidence of torsion Previous Documentation Reviewed: None available or applicable at this time. ED Course: Patient presenting with abdominal cramping as described above does have some nausea she was given Reglan transvaginal ultrasound labs fairly unremarkable patient stable for discharge return precautions follow-up recommendations provided. This note was made utilizing voice recognition software. All attempts were made to correct spelling or other errors prior to note completion. However, due to the fast-paced nature of emergency medicine, some errors may still be present. Lab Data Labs: Laboratory Results - last 24 hr 08/06/25 08/06/25 05:52 06:20 WBC 11.7 H RBC 4.74 Hgb 12.8 Hct 39.0 MCV 82.3 MCH 27.0 MCHC 32.8 RDW Std Deviation 41.4 RDW Coeff of [place] 13.9 Plt Count 263 MPV 10.8 Immature Gran % (Auto) 0.500 Neut % (Auto) 76.5 H Lymph % (Auto) 16.8 L [place] % (Auto) 5.2 Eos % (Auto) 0.6 Baso % (Auto) 0.4 Absolute Neuts (auto) 9.0 H Absolute Lymphs (auto) 1.97 Nucleated RBC % 0 HCG, Quant [id number] H Urine Color Yellow Urine Clarity Clear Urine pH 6.0 Ur Specific [place] 1.020 Urine Protein 15 H Urine Glucose (UA) Normal Urine Ketones Negative Urine Occult Blood 10 H Urine Nitrite Negative Urine Bilirubin Negative Urine Urobilinogen Normal Ur Leukocyte Esterase 25 H Urine RBC 0-5 SEEN Urine WBC 0-5 SEEN Ur Squamous Epith Cells 5-10 SEEN Urine Bacteria 0 SEEN Urine Mucus 0 SEEN Blood Type A POSITIVE Radiography Diagnostic Testing: Clinical Impression(s) from Imaging Studies Obstetrics Ultrasound 08/06/25 05:31 IMPRESSION: Live single intrauterine gestation with estimated gestational age of 8 weeks and 1 days and estimated delivery date on 03/18/2026. Bilateral ovaries are unremarkable. A corpus luteum cyst is noted in the left ovary. No evidence of torsion. Reading Location: [facility] Discharge Plan Triage Chief Complaint: ED Provider: Vikas Callahan Dx/Rx/DC Orders Clinical Impression: Pelvic cramping, , Nausea Instructions: 1st Trimester Prescriptions: No Action oxcarbazepine 300 MG tablet 300 mg PO BID Patient Comments: Take 1 tablet by mouth twice daily. 400 mcg Tablet,Chewable 2 tab PO Q24H ondansetron 4 mg tablet,disintegrating 4 mg PO Q8H PRN PRN (Reason: Nausea) Qty: 10 0RF folic acid 1 mg tablet 1 mg PO DAILY Primary Care Provider: Care Physician,No Primary Referrals: Care Physician,No Primary [Primary Care Provider, Medical] Activity Restrictions/Additional Instructions: Follow-up with your primary care team as well as your [employer] please return if you are having worsening symptoms or vaginal bleeding Print Language: French Disposition Disposition: Home, Self Care
== END 2025-08-06 09:28 | disposition home or self-care (01) ==
PROVIDERS: Emergency Provider Specialist/Technologist Athletic Trainer; Visit Provider Specialist/Technologist Athletic Trainer
DX: O99.891 Other specified diseases and conditions complicating pregnancy (principal); Z87.891 Personal history of nicotine dependence; R10.30 Lower abdominal pain, unspecified; R11.0 Nausea; Z3A.01 Less than 8 weeks gestation of pregnancy; R10.20 Pelvic and perineal pain unspecified side
CPT/HCPCS: 76817; 81001; 84702; 85025; 86900; 86901; 96361; 96374; 99282; A4216